=== PATIENT | female | born 1950 | race Two or more races ===

== ENCOUNTER 2023-09-08 15:51 | Outpatient (REF) | payer OTHER, SELFPAY ==
--- NOTE | ~2023-09-08 | XR_ITS ---
EXAMINATION: XR SHOULDER, RIGHT CLINICAL INFORMATION: Right shoulder pain. COMPARISON: None available. TECHNIQUE: AP external rotation, Grashey, scapular Y, and axillary views of the right shoulder. FINDINGS: Moderate degenerative changes are present at the AC joint. Mild degenerative changes are seen at the glenohumeral joint with some inferior glenoid osteophytes. A small osteophyte is seen near the origin of the supraspinatus tendon. No definite calcification is seen in the rotator cuff. No fractures. XR/XR shoulder RT min 2V IMPRESSION: Degenerative changes as described above.
[2023-09-08 18:13] LABS: Alanine Aminotransferase 16 U/L (0-31); Albumin Level 4.2 g/dL (3.5-5.0); Alkaline Phosphatase 61 U/L (39-117); Anion Gap 11 (12-20); Aspartate Amino Transferase 25 U/L (5-31); Bilirubin Total 0.4 mg/dL (0.0-1.0); Blood Urea Nitrogen 11 mg/dL (9-16); Calcium 9.6 mg/dL (8.4-10.2); Carbon Dioxide 30 mmol/L (22-29); Chloride 106 mmol/L (96-108); Cholesterol 126 mg/dL (<200); Estimated Glomerular Filt Rate > 60; Glucose Random 139 mg/dL (60-115); HDL Cholesterol 46 mg/dL (>40); LDL Cholesterol Calculated 67 mg/dL (<100); Potassium 4.3 mmol/L (3.3-5.1); Sodium 143 mmol/L (135-145); Total Protein 7.8 g/dL (6.5-8.0); Triglycerides 66 mg/dL (<150)
== END 2023-09-08 15:52 | disposition home or self-care (01) ==
LOC: HO.HHCX 15:51
PROVIDERS: Visit Provider Nurse Practitioner Family
DX: E11.00 Type 2 diabetes mellitus with hyperosmolarity without nonketotic hyperglycemic-hyperosmolar coma (NKHHC) (principal); I10 Essential (primary) hypertension; M19.011 Primary osteoarthritis, right shoulder
CPT/HCPCS: 36415; 73030; 80053; 80061

== ENCOUNTER → 2024-10-11 14:30 | Outpatient (BNV) | payer OTHER, SELFPAY | PROVIDERS: Visit Provider Radiology Diagnostic Radiology | DX: Z12.31 Encounter for screening mammogram for malignant neoplasm of breast (principal) | CPT/HCPCS: 77063; 77067 ==

== ENCOUNTER 2024-10-11 14:40 | Outpatient (REF) | payer OTHER, SELFPAY ==
--- NOTE | ~2024-10-11 | MM_ITS ---
EXAMINATION: DXA BONE DENSITY AXIAL HISTORY: Estrogen deficiency TECHNIQUE: [employer] Dual energy absorptiometry (DEXA) of the lumbar spine, total left hip, and femoral neck was performed. COMPARISON: There are no prior studies for comparison. FINDINGS: The bone mineral density of the lumbar spine is 0.998 with a T-score of -1.5, and a Z-score of 0.3. The bone mineral density of the left total hip is 0.955 with a T-score of -0.4, and a Z-score of 1.3. The bone mineral density of the left femoral neck is 0.900 with a T-score of -1.0, and a Z-score of 0.9. FRACTURE RISK: The FRAX index suggests a risk of major osteoporotic fracture of 10.6%, and of hip fracture 3.8%. MM/XR DEXA axial skeleton IMPRESSION: Based on bone mineral density, and according to World Health Organization (WHO) criteria, the diagnosis is consistent with osteopenia. All bone density values are in grams per centimeter squared (g/cm2). Statistically, 68% of repeat scans fall within 1 SD (+/- 0.010 g/cm2 for AP spine L1-L4) and 1 SD (+/- 0.012 g/cm2 for femur total) FRAX is a trademark of the [employer] [place] [employer] Met[employer], a World Health Organization (WHO) Collaborating Center. Electronically signed by: Valerio Funk MD 10/11/2024 04:00 PM [facility]
--- OUTSIDE RECORDS SUMMARY | 2024-10-11 15:53 | XMS_ITS | Encounter Summary ---
Author Organization [facility] Address [address] [place] [address] 7 [place] [address] Care Team Providers Care Oracle Fusion Middleware Developer Name Role Phone Eliane Noyola IT ADMINISTRATOR Primary Care Provider [phone] Anayeli Escamilla MD Primary Care Provide r Valentina Alarcon NP Primary Care Provider [phone] Reason for Visit * Reason Onset Date Comments New Patient 06/18/2023 Encounter Details Date Type Department Care Team (Late st Contact Info) Description 06/18/2023 Telephone [facility] MEDICINE [address] [place], [place] [phone] Rayray Vallecillo MD [address] [place], [place] [phone] New Patient Social History Tobacco Use Types Packs/Day Years Used Date Smoking Tobacco: Never Assessed Comments Unknown Sex and Gender Information Value Date Recorded Sex Assigned at Female 09/01/2023 2:39 PM EST Legal Sex Female 11:26 AM EDT Gender Identity Female 09/01/2023 2:39 PM EST Sexual Orientation Don't know 09/01/2023 2: 40 PM EST documented as of this encounter Miscellaneous Notes * Telephone Encounter - Raman Baez - 06/18/2023 11:29 AM EDT 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 06/18/2023 documented in this encounter Plan of Treatment Upcoming Encounters Date Type Department Care Team (Late st Contact Info) Description 2024 3:15 PM EDT Office Visit [facility]INE [address] [place] [address] Valentina Alarcon NP [address] [place] [address] documented as of this encounter Visit Diagnoses Not on filedocumented in this encounter Care Teams Oracle Fusion Middleware Developer Relationship Specialty Start Date End Date Eliane Noyola FNP [address] [place] [address] PCP - General Family Medicine 09/08/23 05/01/24 Anayeli Escamilla MD [address] [place] [address] [id number] PCP - General Internal Medicine 05/02/24 05/24/24 Valentina Alarcon NP [address] [place] [address] PCP - General Family Medicine 06/27/24 documented as of this encounter
--- OUTSIDE RECORDS SUMMARY | 2024-10-11 15:53 | XMS_ITS | Encounter Summary ---
Author Organization [employer] Address [address] [place] [address] 7t [place] [address] Care Team Providers Care Weight Loss Consultant Name Role Phone Eliane Noyola Primary Care Provider [phone] Anayeli Escamilla MD Primary Care Provide r Valentina Alarcon NP Primary Care Provider [phone] Reason for Visit * Reason Onset Date Comments Medication Question 01/05/2024 Encounter Details Date Type Department Care Team (Late st Contact Info) Description 01/05/2024 Telephone [facility] MEDICINE [address] [place], [place] [phone] Eliane Noyola FNP [address] [place], [place] [phone] Medication Question Social History Tobacco Use Types Packs/Day Years Used Date Smoking Tobacco: Former Cigarettes Smokeless Tobacco: Never Comments:Quit in 1988 Smoked 30 years from age 7 Alcohol Use Standard Drinks/Week Comments Not Currently 0 (1 standard drink = 0.6 oz pur e alcohol) special occasion Depression Answer Date Recorded Patient Health Questionnaire-9 Score 8 12/29/2023 Patient Health Questionnaire-9 Score 8 12/29/2023 Last PHQ-9: Questionnaire Data Not on file 0 12/29/2023 Housing Stability Answer Date Recorded What is your housing situation today? I have marv joyce 09/01/[address] you li ve. Do you have problems with any of the following? None of the above 09/01/2023 Food Insecurity Answer Date Recorded Within the past 12 months, y ou worried that your food would run out before you got money to buy more: Never True 09/01/2023 Within the past 12 months,th e food you bought just didn't last and you didn't have enough money to get more: Never True 10/2023 Transportation Answer Date Recorded In the past 12 months, has l ack of transportation kept you from medical appts, meetings, work or from getting things needed for daily living? No 09/01/2023 Utilities Answer Date Recorded In the past 12 months, has t he electric, gas, oil or water company threatened to shut off services in your home? No 09/01/2023 Depression Answer Date Recorded Patient Health Questionnaire-2 Score 3 12/29/2023 Internet Access Answer Date Recorded Internet Access Q1 Yes 08/22/2024 Internet Access Q2 Not on file 08/22/2024 Comments Unknown Sex and Gender Information Value Date Recorded Sex Assigned at Female 09/01/2023 2:39 PM EST Legal Sex Female 11:26 AM EDT Gender Identity Female 09/01/2023 2:39 PM EST Sexual Orientation Don't know 09/01/2023 2: 40 PM EST documented as of this encounter Miscellaneous Notes * Telephone Encounter - Wilman Dover RN - 01/05/2024 9:42 AM EDT Please review below message from pharmacy and advice if needed. * Telephone Encounter - Yodit Mayo - 01/05/2024 8:37 AM EDT Tc from pt [facility] pharmacy requesting a call back in regards to medication loratadine (Claritin) 10 MG tablet , states pt has been on cetrizine by another provider and would like to make sure if PCP is aware. Please contact at [phone] documented in this encounter Plan of Treatment Upcoming Encounters Date Type Department Care Team ([facility] st Contact Info) Description 2024 3:15 PM EDT Office Visit [facility] MEDICINE [address] [place] [address] Valentina Alarcon NP [address] [place] [address] documented as of this encounter Visit Diagnoses Not on filedocumented in this encounter Additional Health Concerns Assessment Noted Time PHQ-9 Depression Total Score: 8 12/29/19 24 4:22 PM EDT documented as of this encounter Care Teams Weight Loss Consultant Relationship Specialty Start Date End Date Eliane Noyola FNP [address] [place] [address] PCP - General Family Medicine 09/08/23 05/01/24 Anayeli Escamilla MD [address] [place] [address] PCP - General Internal Medicine 05/02/24 05/24/24 Valentina Alarcon NP [address] [place] [address] PCP - General Family Medicine 06/27/24 documented as of this encounter
--- OUTSIDE RECORDS SUMMARY | 2024-10-11 15:53 | XMS_ITS | Encounter Summary ---
Author Organization [employer] Address [address] [facility] 7t [place] [address] Care Team Providers Care Instructor Dancing Name Role Phone Eliane Noyola Primary Care Provider [phone] Anayeli Escamilla MD Primary Care Provide r aVlentina Alarcon NP Primary Care Provider [phone] Reason for Visit * Reason Comments Med Refill Encounter Details Date Type Department Care Team (Late st Contact Info) Description 01/09/2024 Refill [facility] [address] [place], [place] [phone] Eliane Noyola FNP [address] [place] [address] Social History Tobacco Use Types Packs/Day Years [...] Recorded Patient Health Questionnaire-2 Score 3 12/29/2023 Comments Unknown Sex and Gender Information Value Date Recorded Sex Assigned at Female 09/01/2023 2:39 PM EST Legal Sex Female 11:26 AM EDT Gender Identity Female 09/01/2023 2:39 PM EST Sexual Orientation Don't know 09/01/2023 2: 40 PM EST documented as of this encounter Plan of Treatment Upcoming Encounters Date Type Department Care Team (Late st Contact Info) Description 2024 3:15 PM EDT Office Visit [facility] [address] [place] [address] Valentina Alarcon NP [address] [place] [address] documented as of this encounter Visit Diagnoses Not on filedocumented in this encounter Additional Health Concerns Assessment Noted Time PHQ-9 Depression Total Score: 8 12/29/19 4:22 PM EDT documented as of this encounter Care Teams Instructor Dancing Relationship Specialty Start Date End Date Eliane Noyola FNP [address] [place] [address] PCP - General Family Medicine 09/08/23 05/01/24 Anayeli Escamilla MD [address] [place] [address] PCP - General Internal Medicine 05/02/24 05/24/24 Valentina Alarcon NP [address] [place] [address] PCP - General Family Medicine 06/27/24 documented as of this encounter
--- OUTSIDE RECORDS SUMMARY | 2024-10-11 15:53 | XMS_ITS | Encounter Summary ---
Author Organization [employer] Address [address] [facility] 7t [place] [address] Care Team Providers Care Ground Water Technician Name Role Phone Valentina Alarcon ISAIAS Primary Care Provider [phone] Reason for Visit * Reason Onset Date Comments November recall 10/05/2024 Encounter Details Date Type Department Care Team (Late st Contact Info) Description 10/05/2024 Telephone [facility] MEDICINE [address] [place], [place] [phone] Minor Dawkins [place] November recall Social History Tobacco Use Types Packs/Day Years [...] encounter Miscellaneous Notes * Telephone Encounter - Jeanette Fischer RN - 10/11/2024 9:42 AM EST TC placed to pt via [employer] abseiling instructor ([place]vl[place] ID#[id number]) to inform the provider sent the fluticasone(Cutivate) 0.05 % cream to [facility]. No answer, LVM to call office back and ask to speak to blue team nurses. * Addendum Note - Valentina Alarcon NP - 10/11/2024 9:40 AM ESTAddended by: VALENTINA ALARCON on: 10/11/2024 09:40 AM Modules accepted: Orders * Telephone Encounter - Jeanette Fischer RN - 10/05/2024 4:04 PM EST TC placed to pt via [employer] abseiling instructor (ID#[id number]) regarding medication. Pt states she just got a call from the hospital. RN explained calling from [facility]. Call disconnected. Call placed to pt with [employer] abseiling instructor (Alod ID#[id number]). Pt reports the pharmacy called and told her they don't have the complete medication and advised her to call PCP office to have them call pharmacy. TC placed to pharmacy to get more information. Pharmacy states the only prescription prescribed by the PCP they would need a new prescription is the fluticasone (Cutivate) 0.05 % cream. Message forwarded to provider to review and advise. * Telephone Encounter - Minor Dawkins MA - 10/05/2024 2:31 PM EST T/C to pt to schedule a recall rv dm. PT agreed to come in on 12/04/24 at 3:15pm. During call pt ask why she haven't received he medication that PCP told her. Pt don't know name or what kind of medication. documented in this encounter Plan of Treatment Upcoming Encounters Date Type Department Care Team (Late st Contact Info) Description 2024 3:15 PM EDT Office Visit [facility] [address] [place] [address] Valentina Alarcon NP [address] [place] [address] documented as of this encounter Visit Diagnoses Not on filedocumented in this encounter Additional Health Concerns Assessment Noted Time PHQ-9 Depression Total Score: 8 12/29/19 24 4:22 PM EDT documented as of this encounter Care Teams Ground Water Technician Relationship Specialty Start Date End Date Valentina Alarcon NP [address] [place] [address] PCP - General Family Medicine 06/27/24 documented as of this encounter
--- OUTSIDE RECORDS SUMMARY | 2024-10-11 15:53 | XMS_ITS | Encounter Summary ---
Author Organization [employer] Address [address] [place] [address] 7t [place] [address] Care Team Providers Care Mule Packer Name Role Phone Eliane Noyola Primary Care Provider [phone] Anayeli Escamilla MD Primary Care Provide r Valentina Alarcon NP Primary Care Provider [phone] Reason for Visit * Reason Onset Date Comments Results 09/10/2023 Encounter Details Date Type Department Care Team (Late st Contact Info) Description 09/10/2023 Telephone [facility] MEDICINE [address] [place], [place] [phone] Eliane Noyola FNP [address] [place], [place] [phone] Results Social History Tobacco Use Types Packs/Day Years [...] Telephone Encounter - Wilman Dover RN - 09/10/2023 1:36 PM EST Please review and advise for below message, result is in pt.'s chart. * Telephone Encounter - Yodit Mayo - 09/10/2023 12:48 PM EST TC from pt requesting call back regarding Results. Type of results: blood work Date when done: 09/08/23 Facility: [facility] lab Please contact at [phone] Italian documented in this encounter Plan of Treatment Upcoming Encounters Date Type Department Care Team (Late st Contact Info) Description 2024 3:15 PM EDT Office Visit [facility]INE [address] [place] [address] Valentina Alarcon, ISAIAS [address] [place] [address] documented as of this encounter Visit Diagnoses Not on filedocumented in this encounter Additional Health Concerns Assessment Noted Time PHQ-9 Depression Total Score: 10 024 3:52 PM EST documented as of this encounter Care Teams Mule Packer Relationship Specialty Start Date End Date Eliane Noyola FNP [address] [place] [address] PCP - General Family Medicine 09/08/23 05/01/24 Anayeli Escamilla MD [address] [place] [address] PCP - General Internal Medicine 05/02/24 05/24/24 Valentina Alarcon NP [address] [place] [address] PCP - General Family Medicine 06/27/24 documented as of this encounter
--- OUTSIDE RECORDS SUMMARY | 2024-10-11 15:53 | XMS_ITS | Encounter Summary ---
Author Organization [employer] Address [address] [facility] 7t [place] [address] Care Team Providers Care Records Technician Name Role Phone Eliane Noyola Primary Care Provider [phone] Anayeli Escamilla MD Primary Care Provide r Valentina Alarcon NP Primary Care Provider [phone] Reason for Visit * Reason Comments Med Refill Encounter Details Date Type Department Care Team (Late st Contact Info) Description 01/13/2024 Refill [facility] MEDICINE [address] [place], [place] [phone] Eliane Noyola FNP [address] [place] [address] Social History Tobacco Use Types Packs/Day Years [...] Description 2024 3:15 PM EDT Office Visit [facility] MEDICINE [address] [place] [address] Valentina Alarcon NP [address] [place] [address] documented as of this encounter Visit Diagnoses Not on filedocumented in this encounter Additional Health Concerns Assessment Noted Time PHQ-9 Depression Total Score: 8 12/29/19 4:22 PM EDT documented as of this encounter Care Teams Records Technician Relationship Specialty Start Date End Date Eliane Noyola FNP [address] [place] [address] PCP - General Family Medicine 09/08/23 05/01/24 Anayeli Escamilla MD [address] [place] [address] PCP - General Internal Medicine 05/02/24 05/24/24 Valentina Alarcon NP [address] [place] [address] PCP - General Family Medicine 06/27/24 documented as of this encounter
--- OUTSIDE RECORDS SUMMARY | 2024-10-11 15:53 | XMS_ITS | Clinical Summary ---
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 08/02/20 Active fluticasone (Flonase) 50 MCG/ACT nasal spray Administer 1 spray into each nostril in the morning. 08/27/20 Active gabapentin (Neurontin) 600 MG tablet Take 600 mg by mouth 3 times daily. 08/27/20 Active losartan (Cozaar) 100 MG tablet Take 100 mg by mouth in the morning. 08/27/20 Active melatonin 5 MG tablet Take 5 mg by mouth at bedtime. 08/27/20 Active montelukast (Singulair) 10 MG tablet Take 10 mg by mouth in the morning. 08/27/20 Active omeprazole (PriLOSEC) [address] capsule Take 20 mg by mouth before breakfast. 08/27/20 Active polyvinyl alcohol (Liquifilm Tears) 1.4 % ophthalmic solution INSTILL 1 DROP TWICE DAILY IN BOTH EYES FOR 1MONTH. 04/19/20 23 Active rosuvastatin (Crestor) 10 MG tablet Take 10 mg by mouth in the morning. 08/27/20 23 Active FREESTYLE LITE test strip 1 each by Other route 2 times daily. Use to test blood sugar once daily 180 each 3 12/29/19 24 025 Active loratadine (Claritin) 10 MG tablet Take 1 tablet (10 mg) by mouth Once per day. 30 tablet 11 12/29/19 24 025 Active senna (Senokot) 8.6 MG tabletIndicatio ns:Constipation , unspecified constipation type Take 1 tablet (8.6 mg) by mouth at bedtime. 120 tablet 2 06/30/20 24 Active clonazePAM (KlonoPIN) 0.5 MG tablet Take 0.5 mg by mouth Once per day. 07/02/20 24 Active sertraline (Zoloft) 100 MG tablet Take 100 mg by mouth Once per day. 06/29/20 24 Active Blood Pressure kit 1 each Once per day. 1 kit 07/14/20 24 Active Calcium Carb-Cholecalci ferol 600-10 MG-MCG tablet Take 1 tablet by mouth 2 times daily. 30 tablet 5 08/11/20 24 Active metFORMIN (Glucophage) 850 MG tablet Take 1 tablet (850 mg) by mouth 2 times daily. 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 40 g 10/11/19 25 Active fluticasone (Cutivate) 0.05 % cream Apply topically 2 times daily. 40 g 09/04/19 25 025 Discontinued(R eorder (will not trigger notification to Pharmacy)) Active Problems Problem Noted Date Diagnosed Date Other screening mammogram 09/06/2024 Healthcare maintenance 09/04/2024 Assessment & Plan (09/04/2024 5:26 PM EST): Mammogram and bone density ordered, Report utd on colonoscopy but cannot recall where this was completed Depression managed by psychiatric team Frequent falls 09/04/2024 Assessment & Plan (09/04/2024 5:25 PM EST): Reports mechanical falls, Walker ordered Chronic pain of right knee 09/04/2024 Assessment & Plan (09/04/2024 5:25 PM EST): Referral to [facility] ordered Shower chair ordered Eczema of both external ears 09/04/2024 Post-menopausal 09/04/2024 Chronic back pain 09/04/2024 Encounter for screening mamm ogram for malignant neoplasm of breast 09/03/2024 Diabetes mellitus 10/25/2023 Assessment & Plan (09/04/2024 5:25 PM EST): At goal, will not increase meds at this time Labs ordered Carpal tunnel syndrome 10/25/2023 Overview (10/25/2023): more on left. per records from [address] [place], [place] [address]ill [place] Allergic rhinitis 10/25/2023 Fibromyalgia 10/25/2023 Overview (10/25/2023): per records from [address] [place], [place] [address]ill [place] Hypertension 10/25/2023 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 2 diabetes mellitus ( [facility]) 10/25/2023 Varicose vein of leg 10/25/2023 Urticaria 10/25/2023 Tinnitus 10/25/2023 Overview (10/25/2023): per records from [address] [place], [place] [address]ill [place] Microscopic hematuria 10/25/2023 Overview (10/25/2023): per records from [address] [place], [place] [address] [place] Chronic right shoulder pain 10/25/2023 Constipation 11/17/2018 Gastroesophageal reflux disease without esophagi tis 11/17/2018 Encounters Date Type Department Care Team Description 10/05/2024 Telephone [facility] [address] [place], [place] [phone] Minor Dawkins [place] November09/07/2024 Refill [facility] [address] [place] [address] Eliane Noyola, JOHN Type 2 diabetes mellitus with hyperglycemia, unspecified whether jail insulin use ([facility]) 09/06/2024 Telephone [facility] [address] [place] [phone] Valentina Alarcon NP 09/04/2024 9:45 AM EST Office Visit [facility] [address] [place] [phone] Valentina Alarcon NP 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 2 diabetes mellitus ([facility]) ([facility]) (Primary Dx); Encounter for screening mammogram for malignant neoplasm of breast; Constipation, unspecified constipation type; Type 2 diabetes mellitus with hyperglycemia, unspecified whether jail insulin use ([facility]); Healthcare maintenance; Frequent falls; Chronic pain of right knee; Post-menopausal; Chronic back pain, unspecified back location, unspecified back pain laterality; Eczema of both external ears 09/04/2024 Telephone [facility] [address] [place] [phone] Valentina Alarcon NP Durable Medical Equipment 08/31/2024 Telephone [facility] [address] [place] [address] Hilaria Stiles MA Chart Prep 08/22/2024 Patient Outreach [facility] [address] [place] [phone] Valentina Alarcon NP Pre-visit Planning (SDOH screening was completed on 09/08/2023/) 08/09/2024 Refill [facility] [address] [place] [phone] Valentina Alarcon NP 07/13/2024 Refill [facility] [address] [place] [phone] Elvia Gutierrez, PharmD 07/13/2024 Travel from Last 3 Months Immunizations Name Administration Dates Next Due Hep A / Hep B 10/08/2021 Hep B, Unspecified 05/06/2017 Hep B, adult 09/13/2017,06/28/2017 Influenza High-dose Quadriva lent Preservative Free 06/03/2023,06/08/2022,06/17/2021,06/03 Influenza, High Dose Seasona l, Preservative Free 05/31/2024,08/04/2018,05/10/2017 Influenza, IIV3, injectable 06/08/2022,1 ,06/03/2020,05/11,08/04/2018,05/10/2017,05/13/2016 ,06/17/2015,06/14/2014,06/13/2013 Influenza, Unspecified 09/22/2012,2010,05/29/2010,07/18,06/13/2009,07/16/2008,07/06/2007 ,10/01/2004,09/13/2003 Influenza, trivalent, adjuvanted 05/11/2019 Enablon Covid-19 Vaccine 12+ 06/03/2023 Pneumococcal Conjugate PCV 13 06/28/2019, 016 Pneumococcal Polysaccharide PPSV23 12/13/2017, RSV Adjuvant 05/31/2024 Td (adult), unspecified 04/25/2004 Tdap 05/27/2024,,10/05/2021,06/28,09/04/2011 Zoster, Recombinant 01/15/2023,12/20/2021 Zoster, live 06/15/2016 Social History Tobacco Use Types Packs/Day Years Used Date Smoking Tobacco: Former Cigarettes Smokeless Tobacco: Never Tobacco Cessation:Counseling Given: Not Answered Comments:Quit in 1988 Smoked 30 years from [...] Don't know 09/01/2023 2: 40 PM EST Last Filed Vital Signs Vital Sign Reading Time Taken Comments Blood Pressure 139/79 09/04/2024 9:32 AM EST Pulse 75 09/04/2024 9:32 AM EST Temperature 36.3 ??C (97.3 ??F) 09/04/2024 9:32 AM ES T Respiratory Rate 18 09/04/2024 9:32 AM EST Oxygen Saturation 98% 09/04/2024 9:32 AM EST Inhaled Oxygen Concentration - - Weight 63.7 kg (140 lb 6.4 oz) 09/04/2024 9:32 A M EST Height 162.6 cm (5' 4 ) 09/04/2024 9:32 AM EST Body Mass Index 24.1 09/04/2024 9:32 AM EST Plan of Treatment Upcoming Encounters Date Type Department Care Team (Late st Contact Info) Description 2024 3:15 PM EDT Office Visit [facility] [address] [place] [address] Valentina Alarcon NP [address] [place] [address] Health Maintenance Due Date Last Done Comments CT Colonography 1950 Colonoscopy 1950 Colorectal Cancer Screening 1950 FIT DNA/Cologuard 1950 FIT 1950 FOBT 1950 Sigmoidoscopy 1950 Diabetes: Foot Exam 1960 Eye Exam 1960 Hepatitis C Screening 1968 Diabetes: Urine Protein Screening 1969 COVID-19 Vaccine ( season) 2024 06/03/2023, 12/20/2021, 07/28/2021, Additional history exists Lipid Panel 09/08/2024 09/08/2023 SDOH Screening 09/08/2024 09/08/2023 Depression Screening 12/28/2024 12/29/2023, 12/29/19 24 Diabetes: Hemoglobin A1C 12/28/2024 024, 12/29/2023, 09/08/2023 Mammogram 12/31/2024 12/31/2022 Alcohol/Substance Use Screening 09/04/2025 09/04/2024 Tobacco Screening 09/04/2025 09/04/2024 DTaP/Tdap/Td Vaccines (6 - Td or Tdap) 05/27/2034 05/27/2024, 01/15/2023, 10/05/2021, Additional history exists Pneumococcal Vaccine: 50+ Years Completed 06/28/2019, 12/13/2017, 06/15/2016, Additional history exists Hepatitis A Vaccines Aged Out 10/08/2021 No long er eligible based on patient's age to complete this topic Hepatitis B Vaccines Completed 10/08/2021, 09/13/2017, 06/28/2017, Additional history exists Zoster Vaccines Completed 01/15/2023, 11/29, 06/15/2016 Influenza Vaccine Completed 05/31/2024, , 06/08/2022, Additional history exists RSV Patients and Patients Aged 60 years or older Completed 05/31/2024 HIB Vaccines Aged Out No longer eligi ble based on patient's age to complete this topic HPV Vaccines Aged Out No longer eligi ble based on patient's age to complete this topic IPV Vaccines Aged Out No longer eligi ble based on patient's age to complete this topic Meningococcal Vaccine Aged Out No alexia jyoti eligible based on patient's age to complete this topic RSV under 20 months Aged Out No longe r eligible based on patient's age to complete this topic Rotavirus Vaccines Aged Out No longer eligible based on patient's age to complete this topic Procedures Procedure Name Priority Date/Time Associated Diagnosis Comments POCT GLUCOSE Routine 09/04/2024 9:36 AM EST Type 2 diabetes mellitus with hyperglycemia, unspecified whether jail insulin use ([facility]) POCT GLYCATED HEMOGLOBIN, TOTAL Routine 06/30/2024 2:25 PM EDT 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 2 diabetes mellitus ([facility]) ([facility]) LIPID PANEL, STANDARD Routine 09/08/2023 4:25 PM EST Type 2 diabetes mellitus with hyperosmolarity without coma, without long-term current use of insulin ([facility]) Primary hypertension HM MAMMOGRAPHY Routine 12/31/2022 from Last 3 Months or Most Recently Relevant to Health Maintenance Results * POCT Glucose (09/04/2024 9:36 AM EST) Glucose Blood, POC 132 60 - 200 mg/dL QC Media Lot # [id number] Lot# Expiration Date [id number] Blood Capillary blood specimen / Unknown 09/04/2024 9:36 AM EST Valentina Alarcon NP POINT OF CARE TEST ENTER/EDIT OR DERABLES Final Result * (ABNORMAL) POCT HGB A1C (06/30/2024 2:25 PM EDT) Hemoglobin A1C 6.1(A) 4.0 - 6.0 % QC Media Lot # [id number] Lot# Expiration Date [id number] Blood 06/30/2024 2:25 PM EDT us Kaity HERNANDEZ POINT OF CARE TEST ENTER/EDIT OR DERABLES Final Result * Lipid Panel, Standard (09/08/2023 4:25 PM EST) Triglycerides 66 <150 mg/dL [facility] Comment:Desirable Triglyceri de: less than 150 mg/dLBorderline High Triglyceride 150-199 mg/dLHigh Triglyceride: 200-499 mg/dLVery High Triglyceride: greater than or equal to 5OO mg/dL Cholesterol 126 <200 mg/dL [facility] Comment:Desirable Cholestero l: less than 200 mg/dLBorderline High Cholesterol: 200-239 mg/dLHigh Cholesterol: greater than 239 mg/dL LDL Cholesterol Calculated 67 <100 mg/dL [facility] Comment:Desirable LDL: less than 100 mg/dLNear Optimal/Above Optimal LDL: 110- 129 mg/dLBorderline High LDL: 130-159 mg/dLHigh LDL: 160-189 mg/dLVery High LDL: greater than or equal to 190 mg/dL HDL Cholesterol 46 >40 mg/dL [facility] Comment:Desirable HDL: great er than 40 mg/dL Note: This HDL assay may give artificially low results in patients with liver disease. 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
--- OUTSIDE RECORDS SUMMARY | 2024-10-11 15:54 | XMS_ITS | Data Portability ---
Author Organization [place] [facility] [place] [facility] Address [address] [place] [address] Care Team Providers Care Holistic Pulser Name Role Phone VIRGIL GRAVES Primary Care Provider VIRGIL GRAVES Referring Provider MIKA ROCHA Spinal Orthopedic Surgeon CAM Ballard Primary Care Provider CAM VICENTE Referring Provider [phone] Assessment Encounter Date Assessment Date Assessment LastModified by Organization Details LastModified Time 03/22/2018 03/22/2018 67-year-old female with left shoulder pain and bilateral hand pain consistent with carpal tunnel syndrome. At this point she wants to repeat the left shoulder injection with me. One was done in clinic with good concordant pain relief. She is already seeing the surgical team, however, does not wish to have surgery at this time. We will continue her Tylenol with Codeine for symptomatic relief of severe pain and she can continue icqd-sju-lpriypx pain medications for the mild pain. She will see me as needed Not available 03/22/2018 13:40:50 06/03/2018 06/03/2018 67-year-old female with low back in the right lower extremity pain. At this point she is having a flareup of her chronic pain. She is interested in getting another epidural steroid injection and we will do L5-S1 KASSANDRA. We will see how she does with that and have her return to clinic in 2 weeks for clinical recheck. In the meantime prescription for tramadol is given for the severe exacerbations of pain, as well as the shoulder pain Discussed with the patient in detail about the nature of the procedure, Risks, Benefits, indications and Alternatives about the epidural block. Risks including but not limited to allergic reactions/system ic reactions/ side effects from the medications injected, risk of infection, csf leakage, epidural hematoma and neurological injury. Questions and concerns were addressed at extended length. Patient appears to understand all the above and desires to proceed. Not available 06/06/2018 11:15:13 09/16/2018 09/16/2018 67-year-old female with mainly axial right-sided low back pain. Also right knee pain. The right knee pain is improved and likely secondary to contusion. Also may be some underlying knee arthritis. At this point the right side of low back pain is likely secondary to lumbar spondylosis in the ED would recent flare up secondary to fall. Also may be some myofascial pain. I will do a trigger point injection today for the myofascial component of the pain and we can certainly continue her current pain medications of tramadol that she takes p.r.n. I did loan counselor her on opiate medication use and she voiced her understanding. She will continue the home exercise program and see me as needed. If the knee pain persists we could consider referral to the natural resources specialist for that Not available 09/16/2018 17:12:52 01/17/2019 01/17/2019 68-year-old female with left shoulder and elbow pain. She did see Dr. christopher previously. She has had subacromial injections by me over 10 months ago with good alleviation. Pain recently started to come back. I would like for her to see Dr. christopher for formal evaluation of the left shoulder and perhaps additional imaging if clinically warranted. I will see her from my standpoint for the low back pain on an as-needed basis. Prescription for tramadol was provided to the patient after discussion of risks of opiate medication use. Voltaren gel was provided for the lateral epicondylitis Not available 01/17/2019 16:39:58 01/19/2019 01/19/2019 Left shoulder impingement with rotator cuff tendinitis Not available 01/19/2019 08:41:56 Plan of Treatment Reminders Order Date Submit Date Provider Last Modified By Organization Details Last Modified Time Details Appointments None recorded. Lab None recorded. Referral None recorded. Procedures epidural steroid injection, lumbar (PROC) 2017 018 MICHELINE In-Office Order, Internal Use Only DO Not Attach Compendium DO Not Attach Compendium, Do Not Delete/merge, [id number] 12:16:07 Surgeries None recorded. Imaging None recorded. Medication Orders acetaminoph en 300 mg-codeine 30 mg tablet [email or web address], [address] [place], [place], [id number], 8 09:36:21 tramadol 50 mg tablet [email or web address], [address] [place], [place], [id number], 8 16:40:41 betamethaso ne acetate and sodium phos 6 mg/mL suspension for injection 2017 018 [email or web address] 5 Not available 8 09:29:44 Omnipaque 300 mg iodine/mL intravenous solution 2017 018 [email or web address] 5 Not available 8 09:29:45 lidocaine (PF) 10 mg/mL (1 %) injection solution 2017 018 [email or web address] 5 Not available 8 09:29:45 tramadol 50 mg tablet [email or web address], [address] [place], [place], [id number], 9 13:30:59 tramadol 50 mg tablet [email or web address], [address] [place], [place], [id number], 9 17:54:20 Voltaren 1 % topical gel [email or web address], [address] [place], [place], [id number], 9 17:54:20 methylpredn isolone acetate 40 mg/mL suspension for injection 2018 019 [email or web address] Not available 9 14:48:02 Patient TargetsNo targets recorded. Patient Instructions Encounter Date Encounter Id Patient Instructions Last Modified By Organization Details Last Modified Time 03/22/2018 [id number] dolor de no: instrucciones de cuidado - [neck pain: care instructions] Not available 03/23/2018 09:36:21 01/19/2019 [id number] Reviewed exam findings. Again reviewed treatment options. Given worsened recent pain and good response to prior cortisone we elected to repeat a subacromial injection on the left side today. She tolerated this well. Continue with rest modified activities and I would plan to see her back in a month for reevaluation. Moving forward if she remains significantly symptomatic in spite of conservative care I would consider obtaining an MRI of the left shoulder to definitively assess the status of the rotator cuff.The patient is comfortable with this plan and all of their questions were answered at today's visit. Not available 01/19/2019 08:42:57 Reason for Referral None Reported. Results Created Date Observation Date Name Description Value Unit Range Abnormal Flag Note LastModifiedBy Organization Detail LastModifiedTime Result Notes None recorded. Problems Name Problem SNOMED Code Status Onset Date Resolution Date Notes Provider Name and Address Organization Details Recorded Time Impingement syndrome of shoulder region 414723411 Active 2016 Ferny Martinez MD [address] [place] [address], [address], [facility] 7 14:50:24 Cubital tunnel syndrome Active 2017 Natasha Morris [address] [place], [address], [facility] 8 13:40:44 Carpal tunnel syndrome 03423133 Active Mitch Toussaint M.D. [address] [place] [address], [address], [facility] 6 14:40:56 Low back pain 996776518 Active Mitch Toussaint M.D. [address] [place] [address], [phone], [facility] 14:40:56 Spinal enthesopathy 16606611 Active Mitch Toussaint M.D. [address] [place] [address], [address], [facility] 6 14:40:56 Knee pain Active Mitch Toussaint M.D. [address] [place] [address], [address], [facility] 6 14:40:56 Arthritis of knee 687991450 Active Mitch Toussaint M.D. [address] [place] [address], [address], [facility] 14:40:56 Degeneration of lumbar intervertebral disc [id number] Hina Toussaint M.D. [address] [place] [address], [address], [facility] 14:51:06 Lumbar spondylosis [id number] Hina Toussaint M.D. [address] [place] [address], [address], [facility] 14:40:56 Neuropathy 114147052 Active Mitch Toussaint M.D. [address] [place] [address], [address], [facility] 14:51:06 Lumbar radiculopathy 850995442 Active FREDY Holder [address] [place] [address], [address], [facility] 14:02:17 Lumbosacral radiculopathy 1565484 Active Mitch Toussaint M.D. [address] [place] [address], [address], [facility] 14:51:06 Problem Notes None recorded. Procedures Surgical History Date Name Laterality Status Provider Name and Address Organization Details Recorded Time 9 Shoulder Subacromial - LEFT - CS Injection completed Cl Christopher MD [address] [place] [address], [phone], [facility] 01/19/2019 08:41:52 9 Trigger Point Injection - RIGHT completed Mitch Toussaint M.D. [address] [place] [address], [address], [facility] 09/16/2018 16:54:11 8 Shoulder Subacromial - LEFT - CS Injection completed Mitch Toussaint M.D. [address] [place] [address], [address], [facility] 03/22/2018 13:40:06 8 RC Generic CS Injection completed Ferny Martinez MD [address] [place] [address], [phone], [facility] 01/05/2018 13:41:33 8 RC Generic CS Injection completed Natasha Morris [address] [place] [address], [address], [facility] 12/29/2017 13:39:27 8 Nerve Conduction, 9 - 10 studies completed Mitch Toussaint M.D. [address] [place] [address], [address], [facility] 12/24/2017 08:20:56 8 Needle EMG , 5 muscles or more completed Mitch Toussaint M.D. [address] [place] [address], [address], [facility] 12/24/2017 08:20:54 8 Shoulder Subacromial - LEFT - CS Injection completed Cl Christopher MD [address] [place] [address], [phone], [facility] 12/16/2017 14:12:49 8 Shoulder Subacromial - LEFT - CS Injection completed Mitch Toussaint M.D. [address] [place] [address], [address], [facility] 09/23/2017 15:17:35 7 Shoulder Subacromial - LEFT - CS Injection completed Mitch Toussaint M.D. [address] [place], [address], [facility] 07/15/2017 18:22:00 7 Knee CS Injection - Right completed Cl Christopher MD [address] [place], [address], [facility] 05/20/2017 15:06:52 7 Shoulder Subacromial - LEFT - CS Injection completed Ferny Martinez MD [address] [place] [address], [address], [facility] 05/05/2017 14:50:15 7 Carpal Tunnel LEFT CS Injection completed Natasha Morris [address] [place], [address], [facility] 02/22/2017 14:51:45 7 Carpal Tunnel RIGHT CS Injection completed Ferny Martinez MD [address] [place] [address], [address], [facility] 02/17/2017 14:12:37 7 Knee CS Injection - Left completed Mitch Toussaint M.D. [address] [place] [address], [address], [facility] 02/02/2017 16:25:10 6 Knee CS Injection - Right completed Cl Christopher MD [address] [place] [address], [address], [facility] 04/23/2016 17:05:49 6 Knee CS Injection - Right completed Marco Antonio Layton [address] [place] [address], [address], [facility] 11/21/2015 15:48:11 6 Knee CS Injection - Right completed Marco Antonio Layton [address] [place] [address], [address], [facility] 09/10/2015 15:35:15 6 Trigger Point Injection - Bilateral - 2 muscles completed Mitch Toussaint M.D. [address] [place] [address], [address], [facility] 09/03/2015 17:05:31 5 Carpal Tunnel LEFT CS Injection completed Ferny Martinez MD [address] [place] [address], [phone], [facility] 08/14/2015 10:00:48 5 Carpal Tunnel RIGHT CS Injection completed Ferny Martinez MD [address] [place] [address], [address], [facility] 08/07/2015 15:32:38 5 Nerve Conduction, 9 - 10 studies completed Mitch Toussaint M.D. [address] [place] [address], [address], [facility] 08/02/2015 11:33:49 5 Needle EMG , 5 muscles or more completed Mitch Toussaint M.D. [address] [place] [address], [address], [facility] 08/02/2015 11:33:49 Imaging Results None recorded. Procedure Notes None recorded. Medical Equipment None Reported. Allergies No known drug allergies Medications Name Sig Start Date Stop Date Status Note LastModified by Organization Details LastModified Time levofloxaci n 750 mg tabs 01/19 completed Not Available Not Available Not Available onetouch mis 30g active Not Available Not Available Not Available fluocinolon e acetonide 0.01 % oil active Not Available Not Available N ot Available amoxicillin 500 mg caps 06/17 completed Not Available Not Available Not Available mapap 325 mg tabs active Not Available Not Available Not Available loratadine 10 mg tabs active Not Available Not Available N ot Available atorvastati n calcium 80 mg tabs active Not Available Not Available N ot Available zostavax 24885 unt/0.65ml susr active Not Available Not Available Not Available melatonin 5 mg tabs active Not Available Not Available Not Available baclofen 10 mg tabs active Not Available Not Available Not Available gabapentin 800 mg tabs active Not Available Not Available Not Available ketoconazol e 2 % crea active Not Available Not Available N ot Available omeprazole 20 mg cpdr active Not Available Not Available N ot Available metformin hcl 850 mg tabs active Not Available Not Available Not Available refresh opti hayde 0.5-0.9% active Not Available Not Available Not Available onetouch kit ult mini active Not Available Not Available Not Available prednisolon e acetate 1 % susp active Not Available Not Available Not Available cetirizine hcl 10 mg tabs 01/19 completed Not Available Not Available Not Available cyanocobala min 1000 mcg/ml soln active Not Available Not Available Not Available ear drops 6.5 % soln active Not Available Not Available N ot Available docusate sodium 100 mg caps active Not Available Not Available Not Available losartan potassium 100 mg tabs active Not Available Not Available Not Available aspirin ec low dose 81 mg tbec 01/19 completed Not Available Not Available Not Available polyeth glyc pow 3350 nf active Not Available Not Available Not Available onetouch renzo ultra bl active Not Available Not Available Not Available ofloxacin 0.3 % soln active Not Available Not Available N ot Available clotrimazol e anti-fungal 1 % crea 01/19 completed Not Available Not Available Not Available sm alcohol prep pads 70 % pads active Not Available Not Available No t Available aspir-low 81 mg tbec active Not Available Not Available N ot Available aspirin adult low dose 81 mg tbec active Not Available Not Available Not Available apap/codein e tab 300-30mg active Not Available Not Available Not Available hydroxyzine hcl 25 mg tabs active Not Available Not Available Not Available earwax treatment drops 6.5 % soln active Not Available Not Available Not Available multi-vitam n tab active Not Available Not Available Not Available fiber-lax 625 mg tabs active Not Available Not Available Not Available fish oil 1000 mg caps 01/19 completed Not Available Not Available Not Available all day allergy 10 mg tabs active Not Available Not Available Not Available calcium/d tab 600-400 active Not Available Not Available Not Available fish oil cap 1000mg active Not Available Not Available N ot Available metformin hcl 500 mg tabs 01/19 completed Not Available Not Available Not Available prolensa 0.07 % soln active Not Available Not Available Not Available losartan/hc t tab 100-12.5 active Not Available Not Available Not Available lidocaine 5 % oint 01/19 completed Not Available Not Available Not Available trazodone hcl 50 mg tabs active Not Available Not Available Not Available gabapentin 600 mg tabs active Not Available Not Available Not Available fluticasone propionate 50 mcg/act susp active Not Available Not Available Not Available multivitami n tablet TAKE ONE TABLET BY MOUTH EVERY DAY active Not Available Not Available No t Available metformin 500 mg tablet active Not Available Not Available Not Available atorvastati n 80 mg tablet TAKE ONE TABLET BY MOUTH DAILY active Not Available Not Available No t Available gabapentin 600 mg tablet 01/19 completed Not Available Not Available Not Available trazodone 50 mg tablet TAKE ONE TABLET BY MOUTH AT BEDTIME active Not Available Not Available No t Available cetirizine 10 mg tablet TAKE ONE TABLET BY MOUTH EVERY DAY active Not Available Not Available No t Available ibuprofen 800 mg tablet active Not Available Not Available Not Available ofloxacin 0.3 % eye drops INT 1 GTT IN SURGICAL EYE QID active Not Available Not Available No t Available metformin 850 mg tablet TAKE ONE TABLET BY MOUTH TWICE DAILY active Not Available Not Available No t Available acetaminoph en 300 mg-codeine 30 mg tablet TAKE ONE TABLET BY MOUTH EVERY EIGHT HOURS NEEDED active Not Available Not Available No t Available aspirin 81 mg tablet,josé miguel yed release TAKE ONE TABLET BY MOUTH IN THE MORNING active Not Available Not Available No t Available tramadol 50 mg tablet Take 1 tablet(s) every 6 hours by oral route as needed. active Not Available Not Available No t Available betamethaso ne acetate and sodium phos 6 mg/mL suspension for injection Take 2 mL by injection route. 2017 active Not Available Not Available Not Avai lable prednisolon e acetate 1 % eye drops,suspe nsion INT 1 GTT IN SURGICAL EYE QID active Not Available Not Available No t Available gabapentin 800 mg tablet TAKE ONE TABLET BY MOUTH THREE TIMES DAILY active Not Available Not Available No t Available OneTouch Ultra Test strips CHECK BLOOD SUGARS TWICE DAILY active Not Available Not Available No t Available baclofen 10 mg tablet 06/17 completed Not Available Not Available Not Available methylpredn isolone acetate 40 mg/mL suspension for injection Take 2 mL by injection route. 2018 active Not Available Not Available Not Avai lable cyanocobala min (vit B-12) 1,000 mcg/mL injection solution INJECT 1000MCG INTRAMUSC ULARLY EVERY MONTH active Not Available Not Available No t Available Omnipaque 300 mg iodine/mL intravenous solution Inject 3 mL by intraveno us route. 2017 active Not Available Not Available Not Avai lable Ear Drops (carbamide peroxide) 6.5 % PLACE FIVE DROP IN AFFECTED EAR(S) TWICE DAILY FOR FOUR DAYS active Not Available Not Available No t Available docusate sodium 100 mg capsule TAKE ONE TO TWO CAPSULES BY MOUTH EVERY DAY NEEDED FOR CONSTIPAT ION 01/19 completed Not Available Not Available Not Available omeprazole 20 mg capsule,del ayed release TAKE ONE CAPSULE BY MOUTH TWICE DAILY . TAKE THIRTY MINUTES BEFORE BREAKFAST AND DINNER . active Not Available Not Available No t Available lorazepam 1 mg tablet active Not Available Not Available No t Available polyethylen e glycol 3350 17 gram/dose oral powder active Not Available Not Available Not Available levofloxaci n 750 mg tablet TAKE ONE TABLET BY MOUTH ONCE DAILY active Not Available Not Available No t Available losartan 100 mg tablet TAKE ONE TABLET BY MOUTH DAILY active Not Available Not Available No t Available fluticasone propionate 50 mcg/actuati on nasal spray,suspe nsion INHALE TWO SPRAYS IN EACH NOSTRIL ONCE DAILY active Not Available Not Available No t Available clotrimazol e 1 % topical cream APPLY TO RASH ON FEET TWICE DAILY FOR FOUR WEEKS active Not Available Not Available No t Available loratadine 10 mg tablet TAKE ONE TABLET BY MOUTH EVERY DAY active Not Available Not Available No t Available naproxen 500 mg tablet active Not Available Not Available Not Available neomycin 3.5 mg/g-polymy joann B 10,000 unit/g-dexa meth 0.1 % eye oint active Not Available Not Available Not Available losartan 100 mg-hydrochl orothiazide 12.5 mg tablet TAKE ONE TABLET BY MOUTH EVERY DAY 01/19 completed Not Available Not Available Not Available lidocaine (PF) 10 mg/mL (1 %) injection solution Take 3 mL by injection route. 2017 active Not Available Not Available Not Avai lable OneTouch UltraMini kit TEST BLOOD SUGAR DIRECTED. MAY SUBSTITUT E NEEDED BY INSURANCE . active Not Available Not Available No t Available fluocinolon e acetonide oil 0.01 % ear drops INSTILL FIVE DROPS TO BOTH EARS TWICE DAILY FOR 10 DAYS active Not Available Not Available No t Available Fish Oil 340 mg-1,000 mg capsule TAKE THREE CAPSULES BY MOUTH EVERY DAY FOR PAIN active Not Available Not Available No t Available calcium 600 mg (as carbonate)- vitamin D3 10 mcg (400 unit) tablet TAKE ONE TABLET BY MOUTH TWICE DAILY 01/19 completed Not Available Not Available Not Available Refresh Optive 0.5 %-0.9 % eye drops INT ONE GTT IN OU QID active Not Available Not Available No t Available diclofenac 1 % topical gel APPLY TWO GRAM TO THE AFFECTED AREA BY TOPICAL ROUTE FOUR TIMES DAILY active Not Available Not Available No t Available omega 3-dha-epa-f nia oil 300 mg-1,000 mg capsule TAKE THREE CAPSULES BY MOUTH DAILY FOR PAIN active Not Available Not Available No t Available OneTouch Delica Lancets 33 gauge TEST BLOOD SUGAR TWICE DAILY DIRECTED. active Not Available Not Available No t Available lidocaine 5 % topical ointment APPLY TO THE AFFECTED AREA ONCE DAILY active Not Available Not Available No t Available Easy Touch Alcohol Prep Pads USE DAILY active Not Available Not Available Not Available OneTouch Delica Lancets 30 gauge TEST BLOOD SUGAR TWICE DAILY DIRECTED. active Not Available Not Available No t Available Prolensa 0.07 % eye drops INT 1 GTT IN SURGICAL EYE QD active Not Available Not Available No t Available Natural Balance Tears 0.1 %-0.3 % eye drops INT 1 GTT IN OU QID active Not Available Not Available No t Available OneTouch Ultra Blue Test Strip TEST BLOOD SUGAR TWICE DAILY DIRECTED active Not Available Not Available No t Available Vitals Date Recorded Body height Body mass index (BMI) Body weight Provider Name and Address Organization Details Last Updated DateTime 06/03/2018 162.56 cm 25.6 kg/m2 24253.26 g Priti Hamilton [facility] 06/03/2018 14:06:00 Date Recorded Body height Body mass index (BMI) Body weight Provider Name and Address Organization Details Last Updated DateTime 09/16/2018 162.56 cm 25.6 kg/m2 93743.26 g Priti Hamilton [facility] 09/16/2018 16:01:35 Date Recorded Body height Body mass index (BMI) Body weight Provider Name and Address Organization Details Last Updated DateTime 01/17/2019 162.56 cm 25.6 kg/m2 69076.26 g Priti Hamilton [facility] 01/17/2019 13:28:06 Date Recorded Body height Body mass index (BMI) Body weight Pain severity - 0-10 verbal numeric rating [Score] - Reported Provider Name and Address Organization Details Last Updated DateTime 01/19/2019 162.56 cm 25.6 kg/m2 65158.26 g 4 Kiki Aguilar [facility] 01/19/2019 08:24:44 Date Recorded Body height Body mass index (BMI) Body weight Provider Name and Address Organization Details Last Updated DateTime 03/22/2018 162.56 cm 25.6 kg/m2 49089.26 g Mitch Toussaint M.D. [address] [place] [address], [address], [facility] 03/22/2018 13:00:26 Social History Question Answer Notes LastModified by Organizat ion Details LastModified Time Tobacco Smoking Status Never Smoker Alysa burgess, [facility] 07/10/2015 14:25:07 What Is Your Level Of Alcohol Consumption? None Information not available 07/10/2015 Auto Related Injury? No Information not available 07/10/2015 Are You Currently Employed? No Information not available 07/10/2015 Which Illicit Or Recreational Drugs Have You Used? No Information not available 07/10/2015 What Was The Date Of Your Most Recent Tobacco Screening? 01/19/2019 Information not available 03/24/2019 How Much Tobacco Do You Smoke? No [email or web address] Information not available 07/14/2016 Work Related Injury? No Information not available 07/10/2015 Sex: Unknown Functional Status None recorded. Mental Status None recorded. Family History Relationship Description Onset Age of this Age Resolved Age Notes LastModified by Organization Details LastModified Time Mother Hypertensive disorder [email or web address] Not available 2015 13:28:10 Mother Complication due to diabetes mellitus [email or web address] Not available 2015 13:28:10 Father Hypertensive disorder [email or web address] Not available 2015 13:28:10 Father Complication due to diabetes mellitus [email or web address] Not available 2015 13:28:10 Medical History Condition Response Coronary Artery Disease N Hereditary Defects N Gout N Tremors/Seizures/Dizziness/Epilepsy N Excessive Thirst/Fatigue N Blood Clots N Lung Disease N Fever, Chills, Headaches N Pacemaker N Heart Disease/Problems N Breathing Problems N Heart Attack ([place]) Y Sexually Transmitted Diseases N Bleeding Disorder/Tendencies or Anemia N Stomach Ulcers N Diabetes Y Skin Problems/Rash/Boils Y Depression/Psychiatric Problems N Arthritis Y Tuberculosis N Cancer N Stroke N Eye Problems Y Leg or Foot Ulcers N HIV/AIDS N Chest Pain/Heart Attack/Arrhythmia Y Urinary Pain/Frequency/Retention N Stomach Problems/Reflux/GERD Y Hepatitis N Rheumatoid Arthritis Y Hypertension/High Blood Pressure N Osteoporosis N Kidney Disease N Gynecological HistoryNo gynecological history recorded. Obstetrics History GPAL:G 0 P 0 0 0 0 Past Encounters Encounter ID Performer Location Encounter Start Date Encounter Closed Date Diagnosis/Indication Diagnosis SNOMED-CT Code Diagnosis ICD10 Code Diagnosis Note [id number] Kirsten Camposahan [facility] [place] [address] [address] 07/10/2015 14:14:06 07/10/2015 15:29:47 Carpal tunnel syndrome 46547534 G56.01 G56.02 [id number] Mitch Toussaint M.D. OFFICE-N. [facility] ot a [address] [address] 08/02/2015 10:08:15 08/02/2015 10:49:54 Carpal tunnel syndrome 22737696 G56.00 [id number] Kirsten Camposahan [facility] [place] [address] [address] 08/07/2015 15:05:18 08/07/2015 15:34:59 Carpal tunnel syndrome 43393044 G56.01 G56.02 [id number] Kirsten Camposahan OFFICE[facility]N. [facility] ot a [address] [address] 08/14/2015 09:24:12 08/14/2015 10:11:59 Carpal tunnel syndrome 36927037 G56.02 [id number] Mitch Toussaint M.D. OFFICE-N. [facility] ot a [address] [address] 09/03/2015 14:27:01 09/03/2015 16:59:09 Low back pain 981663983 M54.5 Spinal enthesopathy 1031 7009 M46.00 Knee pain 90520735 M25.5 [id number] Marco Antonio Layton OFFICE-N. [facility] a [address] [address] 09/10/2015 13:27:06 09/10/2015 15:08:56 Arthritis of knee 095780080 M17.11 [id number] Cl Christopher MD OFFICE-N. [facility] a [address] [address] 10/24/2015 14:38:57 10/24/2015 15:20:30 Arthritis of knee 014607951 M17.11 [id number] Mitch Toussaint M.D. OFFICE-N. [facility] a [address] [address] 10/29/2015 15:16:53 10/29/2015 15:48:23 Low back pain 145006878 M54.5 Degenerati on of lumbar intervertebral disc 01494052 M51.36 Lumbar spondylosis 71303 0009 M47.816 [id number] SHEILA CADENA D.P.M. OFFICE-N. [facility] a [address] [address] 11/18/2015 14:44:28 11/18/2015 15:18:23 Neuropathy 928428248 G62.9 [id number] Mitch Toussaint M.D. OFFICE-N. [facility] a [address] [address] 11/19/2015 14:22:26 11/19/2015 15:34:09 Lumbar spondylosis 964162452 M47.816 Degenerati on of lumbar intervertebral disc 51050208 M51.36 Neuropathy 414858655 G62 .9 Lumbar radiculopathy 128 991776 M54.16 [id number] Marco Antonio Layton [facility] Service [address] [address] 11/21/2015 14:21:01 11/21/2015 16:02:09 Arthritis of knee 533067669 M17.11 [id number] [place] [address] 12/02/2015 09:40:58 2015 15:04:38 [id number] Mitch Toussaint M.D. [facility]. [place] Service [address] [address] 12/05/2015 14:48:01 12/05/2015 15:31:56 Lumbar spondylosis 515056829 M47.816 Lumbar radiculopathy 128 383670 M54.16 [id number] Mitch Toussaint M.D. OFF[facility]. [place] Service [address] [address] 01/02/2016 14:09:55 01/02/2016 15:53:59 Lumbar spondylosis 029862065 M47.816 Lumbosacra l radiculopathy 2033223 M54.16 [id number] [place] [address] 01/10/2016 11:24:30 01/28/2016 10:52:43 [id number] Rashida isaac OFFICE-N. [place] Service [address] [address] 01/23/2016 13:48:55 01/23/2016 16:24:55 Lumbosacral radiculopathy 0328772 M54.16 Lumbar radiculopathy 128 573685 M54.16 Neuropathy 055660530 G62 .9 Degenerati on of lumbar intervertebral disc 74656815 M51.36 [id number] FREDY Holder OFFICE-N. [place] Service [address] [address] 03/12/2016 13:06:00 03/12/2016 13:59:57 Lumbar radiculopathy 899262649 M54.16 [id number] Marco Antonio Layton OFFICE-N. [facility] a [address] [address] 03/19/2016 13:37:20 03/19/2016 14:27:12 Arthritis of knee 464314431 M17.11 [id number] FREDY Holder OFFICE-N. [facility] a [address] [address] 04/16/2016 13:56:49 04/16/2016 14:49:54 Lumbar radiculopathy 314124095 M54.16 Lumbar spondylosis 61704 0009 M47.896 Degenerati on of lumbar intervertebral disc 18019900 M51.36 [id number] Cl Christopher MD OFFICE-N. [facility] a [address] [address] 04/23/2016 15:00:01 04/23/2016 15:41:54 Arthritis of knee 272404240 M17.11 Tear of me niscus of knee 592398318 S83.231D [id number] Mitch Toussaint M.D. OFFICE-N. [facility] a [address] [address] 05/28/2016 14:14:03 05/28/2016 15:18:23 Lumbosacral radiculopathy 8786284 M54.16 Lumbar radiculopathy 128 601105 M54.16 Neuropathy 200597001 G62 .9 Degenerati on of lumbar intervertebral disc 42357903 M51.36 [id number] FREDY Holder OFFICE-N. [facility] a [address] [address] 07/01/2016 13:09:07 07/01/2016 14:02:04 Lumbar radiculopathy 569915582 M54.16 Lumbar spondylosis 96093 0009 M47.896 Lumbosacra l radiculopathy 5827005 M54.16 Degenerati on of lumbar intervertebral disc 67872772 M51.36 [id number] Mitch Toussaint M.D. OFFICE-N. [facility] a Service [address] [address] 07/14/2016 14:46:25 07/14/2016 15:54:25 Lumbosacral radiculopathy 6757711 M54.16 Lumbar radiculopathy 128 431465 M54.16 Neuropathy 324663839 G62 .9 Degenerati on of lumbar intervertebral disc 53034549 M51.36 [id number] Mitch Toussaint M.D. OFFICE-N. [facility] a [address] [address] 08/18/2016 14:11:25 08/18/2016 15:23:44 Lumbar radiculopathy 264948858 M54.16 Lumbar spondylosis 50401 0009 M47.816 [id number] [facility] a Service [address] [address] 02/02/2017 14:36:06 02/02/2017 15:54:06 Lumbar radiculopathy 546279850 M54.16 Knee pain 28706093 M25.5 69 Lumbar spondylosis 31764 0009 M47.816 Degenerati on of lumbar intervertebral disc 32770640 M51.36 Bilateral carpal tunnel syndrome 2950427070 3742375 G56.03 [id number] Ferny Martinez MD OFFICE-N. [facility] a Service [address] [address] 02/17/2017 14:00:03 02/17/2017 14:19:55 Carpal tunnel syndrome 27777662 G56.01 [id number] Natasha Morris OFFICE-N. [facility] ot a Service [address] [address] 02/22/2017 14:26:53 02/22/2017 15:17:55 Carpal tunnel syndrome 88647499 G56.02 [id number] Mitch Toussaint M.D. OFFICE - [address] [address] 03/16/2017 14:06:45 03/16/2017 14:42:22 Lumbar spondylosis 156150886 M47.816 Degenerati on of lumbar intervertebral disc 19201899 M51.36 [id number] Ferny Martinez MD OFFICE - [address] [address] 05/05/2017 14:21:28 05/05/2017 15:31:53 Shoulder joint pain 030554625 M25.519 Impingemen t syndrome of shoulder region 339283507 M75.42 [id number] Mitch Toussaint M.D. [facility] - [address] [address] 05/11/2017 14:53:59 05/11/2017 15:29:00 Lumbar radiculopathy 560616400 M54.16 Knee pain 77488394 M25.5 69 [id number] Cl Christopher MD OFFICE - [address] [address] 05/20/2017 14:19:19 05/20/2017 15:11:20 Knee pain 43576785 M25.561 Arthritis of knee 531715 002 M17.11 Tear of me niscus of knee 981382007 S83.231D [id number] Cl Christopher MD OFFICE - [address] [address] 06/17/2017 14:31:56 06/17/2017 15:45:59 Osteoarthritis of knee 997668810 M17.11 Tear of me niscus of knee 341521451 S83.231D [id number] Mitch Toussaint M.D. OFFICE - [address] [address] 07/15/2017 12:20:31 07/15/2017 14:04:16 Shoulder pain 70592165 M25.512 [id number] Mitch Toussaint M.D. OFFICE - [address] [address] 09/23/2017 14:15:44 09/23/2017 15:06:52 Shoulder pain 89092033 M25.512 Lumbar spondylosis 93767 0009 M47.816 Degenerati on of lumbar intervertebral disc 72789238 M51.36 [id number] Mitch Toussaint M.D. OFFICE - [address] [address] 12/07/2017 12:44:03 12/07/2017 13:29:22 Lumbar radiculopathy 290165230 M54.16 Bilateral carpal tunnel syndrome 9604904347 7952076 G56.03 Pain of le ft shoulder joint 5806027004 0101331 M25.512 [id number] Cl Christopher MD [facility] - [address] [address] 12/16/2017 12:48:48 12/16/2017 14:18:38 Inflammation of rotator cuff tendon 162857898 M65.812 Shoulder joint pain 2679 01557 M25.519 Neck pain 50897617 M54.2 [id number] Mitch Toussaint M.D. [facility] - [address] [address] 12/20/2017 12:51:48 12/20/2017 13:30:52 Bilateral carpal tunnel syndrome 6491303651 1872629 G56.03 Cubital tu nnel syndrome 66824885 G56.21 [id number] Natasha Morris [facility] - [address] [address] 12/29/2017 12:54:27 12/29/2017 13:45:37 Cubital tunnel syndrome 09244354 G56.21 Carpal tye arely syndrome 22006789 G56.02 G56.01 [id number] Ferny Martinez MD OFFICE - [address] [address] 01/05/2018 13:29:56 01/05/2018 14:34:55 Cubital tunnel syndrome 07983276 G56.22 [id number] Cl Christopher MD [facility] - [address] [address] 01/27/2018 13:43:10 01/27/2018 14:44:44 Inflammation of rotator cuff tendon 859116214 M65.812 [id number] Mitch Toussaint M.D. [facility] - [address] [address] 03/22/2018 12:30:42 03/22/2018 13:38:02 Neck pain 86011089 M54.2 Pain of le ft shoulder joint 3447646950 3424354 M25.512 [id number] Mitch Toussaint M.D. OFFICE - [place] [address] [place] [address] 06/03/2018 13:52:33 06/03/2018 16:01:30 Lumbar radiculopathy 603550662 M54.16 Low back pain 114360857 M54.5 Lumbar spondylosis 40843 0009 M47.896 Degenerati on of lumbar intervertebral disc 96484923 M51.36 [id number] Mitch Toussaint M.D. OFFICE - [place] [address] [place] [address] 09/16/2018 15:26:42 09/16/2018 16:22:54 Lumbar radiculopathy 718912044 M54.16 Myofascial pain 82594133 9 M79.10 [id number] Mitch Toussaint M.D. OFFICE - [place] [address] [place] [address] 01/17/2019 13:14:55 01/17/2019 14:02:00 Lumbar radiculopathy 394234664 M54.16 Shoulder joint pain 2679 72236 M25.519 [id number] Cl Christopher MD OFFICE - [place] [address] [place] [address] 1 01/19/2019 08:10:40 01/19/2019 09:05:24 Inflammation of rotator cuff tendon 503004111 M65.812 Health Concerns Section Related Observation LastModified by Organization Detai ls LastModified Time None Recorded Concern Status LastModified by Organization Details LastModified Time None Recorded Advance Directives Directive None Recorded Payers Encounter Date Sequence Insurance Name Policy Number Policy Jain Covered Member ID Jain Member ID Guarantor Name 03/22/2018 1 [facility] (MEDICARE - MEDICAID REPLACEMENT) [facility] [id number] Ariana De La Fuente 06/03/2018 1 [facility] (MEDICARE - MEDICAID REPLACEMENT) [facility] [id number] Ariana De La Fuente 09/16/2018 1 [facility] (MEDICARE - MEDICAID REPLACEMENT) RANDARAJEEV [place] [id number] Ariana Toni Leisa 01/17/2019 1 [facility] (MEDICARE - MEDICAID REPLACEMENT) NIGEL Muñoz Leisa [id number] Ariana E Leisa 01/19/2019 1 [facility] (MEDICARE - MEDICAID REPLACEMENT) NIGEL Muñoz Leias [id number] Ariana Toni Leisa Notes Date Note Type Note Provider Name and Address Organization Details Recorded Time 03/22/2018 text/html Ariana is a pleasan t 67-year-old female seen today for chief complaint of shoulder and bilateral upper extremity pain. She had good results with the right shoulder injection with Dr. Christopher, however, left shoulder was minimally improved. Last injection was over 3 months ago. She wants to repeat the left shoulder injection. She is diagnosed with bilateral carpal tunnel and also with right cubital tunnel syndrome on EMG. She is currently on Tylenol No. 3 with good alleviation of the pain. The VAS on average from 8-3 out of 10 with medications. 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 [address] [place] [address], [phone], [facility] 03/22/2018 13:41:14 06/03/2018 text/html Ariana is a very pleasant 67-year-old female seen today for continuation of her low back and right lower extremity pain. Her shoulders or significant better after the subacromial injection. This is a familiar pain to her and she has occasional flareups, the do better with epidural steroid injections. She has a confirmed S1 radiculopathy on previous EMGs. Today the pain a 6 out of 10 and that responding to pain medications or home exercise program. Mitch Toussaint M.D. [address] [place] [address], [phone], [facility] 06/06/2018 11:15:45 09/16/2018 text/html Ariana is a very pleasant 67-year-old female seen today for chief complaint of low back and right knee pain. She had a right-sided L5-S1 KASSANDRA in May. Since then she was doing very well as far as the back and right lower extremity radicular pain. She takes tramadol occasionally for her shoulder and back pain. Unfortunately she had a fall about 3 weeks and then again 4 days ago. Both of the falls were on the right side and she landed awkwardly on her back. Her axial back pain restarted without the radicular component. She also has some right knee pain, which has since improved. Pain today is 6 out of 10 Mitch Toussaint M.D. [address] [place] [address], [phone], [facility] 09/16/2018 17:13:11 01/17/2019 text/html Ariana is a very pleasant 68-year-old female seen today for left shoulder pain. She has had previous injections in the left shoulder with subacromial injections provided her significant other. She had seen Dr. christopher previously for the shoulder as well. My standpoint we are treating also the back pain with the lower extremity radiculopathy. The back pain is status quo. She takes tramadol for mild relief of the pain. She is experiencing no side effects with the medication. She is exhibiting no symptoms or signs of abuse, misuse, or diversion. Pain today is 7 out of 10 and most pronounced at the left shoulder and the lateral elbow. She has pain with overhead motion. She has no significant neck pain or radicular pain Mitch Toussaint M.D. [address] [place] [address], [phone], [facility] 01/17/2019 16:40:19 01/19/2019 text/html Ariana returns agai n today for her left shoulder. I last saw her for this about a year ago. We have managed her previously for a rotator cuff tendinitis. More recently she has had worsening symptoms involving the left shoulder. No recent injury. She gets pain diffusely around the left shoulder that is worse with reaching and overhead activities. She has also been managed for cubital tunnel syndrome on the left side. She is getting pain at night which interferes with sleep. She has done well with prior subacromial injections. No other recent imaging or treatment directed at the left shoulder. Cl Christopher MD [address] [place] [address], [phone], [facility] 01/19/2019 08:43:11 OBGyn Episode No OBEpisode recorded.
--- OUTSIDE RECORDS SUMMARY | 2024-10-11 15:54 | XMS_ITS | Data Portability ---
Author Organization [place] - [facility]- Address [address] [place] [address] Care Team Providers Care Websphere Architect Name Role Phone CAM VICENTE Primary Care Provider CAM VICENTE Referring Provider [phone] Assessment Encounter Date Assessment Date Assessment LastModified by Organization Details LastModified Time 08/28/2015 08/28/2015 AR and ? OE.? ? ? options discussed.? ? ? will? ? ? proceed? ? ? with skin testing.? ? ? d/c qtips and h2o, use? ? ? vinegar for? ? ? itchy ears.? scit? ? ? candidate [email or web address] Not available 08/28/2015 15:35:37 09/11/2015 09/11/2015 testing results all? ? ? discussed.? ? ? she? ? ? does have? ? ? some pollen allergy and? ? ? a suspicion of food? ? ? allergy.? we discussed chemical sensitivities and VM rhinitis and? ? ? gerd.? I dont? ? ? feel that? ? ? immunotherapy would be in her best interest. [email or web address] Not available 09/11/2015 14:17:31 Plan of Treatment Reminders Order Date Submit Date Provider Last Modified By Organization Details Last Modified Time Details Appointments None recorded. Lab None recorded. Referral None recorded. Procedures None recorded. Surgeries None recorded. Imaging None recorded. Medication Orders cetirizine 10 mg tablet 2014 [address] [facility], [address], [place], [place], [id number], 5 17:01:51 fluticason e propionate 50 mcg/actuat ion nasal spray,susp ension 2014 [address] [facility], [address], [place], [place], [id number], 5 17:01:45 Patient TargetsNo targets recorded. Patient Instructions Encounter Date Encounter Id Patient Instructions Last Modified By Organization Details Last Modified Time 09/11/2015 [id number] rinitis: instrucciones de cuidado - [rhinitis: care instructions] [email or web address] Not available 09/17/2015 10:57:19 Reason for Referral None Reported. Results Created Date Observation Date Name Description Value Unit Range Abnormal Flag Note LastModifiedBy Organization Detail LastModifiedTime 09/04/19 16 09/05/2015 ige, total , serum immunoglobul in E 25 kU/L <or=11 4 normal Not Available [facility] [address], [address], 09/05/2015 21:52:25 09/04/19 16 09/05/2015 blueb erry IgE Ab, serum blueberry (F288) IgE <0.10 kU/L normal Not Available [facility] [place] [facility] [address], [address], 09/05/2015 21:52:25 09/04/19 16 09/05/2015 blueb erry IgE Ab, serum class 0 Not Available [facility] [address], [address], 09/05/2015 21:52:25 09/04/19 16 09/05/2015 cashe w nut ige, serum cashew nut (F202) IgE <0.10 kU/L normal Not Available [email or web address] [place] [facility] [address], [address], 09/05/2015 21:52:26 09/04/19 16 09/05/2015 cashe w nut ige, serum class 0 Not Available [facility] [address], [address], 09/05/2015 21:52:26 09/04/19 16 09/05/2015 green andrews IgE Ab, serum green andrews (F315) IgE <0.10 kU/L normal Not Available [facility] [place] [facility] [address] [place], [place], [address], 09/05/2015 21:52:26 09/04/19 16 09/05/2015 green andrews IgE Ab, serum class 0 Not Available [facility] [place] [facility] [address] [place], [place], [address], 09/05/2015 21:52:26 09/04/19 16 09/05/2015 wheat ige, serum wheat (F4) IgE <0.10 kU/L normal Not Available [facility] [place] [facility] [address] [place], [place], [address], 09/05/2015 21:52:26 09/04/19 16 09/05/2015 wheat ige, serum class 0 Not Available [facility] [place] [facility] [address] [place], [place], [address], 09/05/2015 21:52:26 09/04/19 16 09/05/2015 oat ige, serum oat (F7) IgE <0.10 kU/L normal Not Available [facility] [place] [facility] [address], [place], [address], 09/05/2015 21:52:27 09/04/19 16 09/05/2015 oat ige, serum class 0 Not Available [facility] [place] [facility] [address], [place], [address], 09/05/2015 21:52:27 09/04/19 16 09/05/2015 pork ige, serum pork (F26) IgE <0.10 kU/L normal Not Available [facility] [place] [facility] [address], [place], [address], 09/05/2015 21:52:27 09/04/19 16 09/05/2015 pork ige, serum class 0 Not Available [facility] [place] [facility] [address], [place], [address], 09/05/2015 21:52:27 09/04/19 16 09/05/2015 salmo n ige, serum salmon (F41) IgE <0.10 kU/L normal Not Available [facility] [place] [facility] [address], [place], [address], 09/05/2015 21:52:27 09/04/19 16 09/05/2015 salmo n ige, serum class 0 Not Available [facility] [place] [facility] [address], [place], [address], 09/05/2015 21:52:27 09/04/1909/05/2015 ames 's yeast IgE Ab, serum yeast (F45) IgE <0.10 kU/L normal Not Available [facility] [place] [facility] [address], [place], [address], 09/05/2015 21:52:28 09/04/19 16 09/05/2015 ames 's yeast IgE Ab, serum class 0 Not Available [facility] [place] [facility] [address], [place], [address], 09/05/2015 21:52:28 09/04/19 16 09/05/2015 celer y IgE Ab, serum celery (F85) IgE <0.10 kU/L normal Not Available [facility] [place] [facility] [address], [place], [address], 09/05/2015 21:52:28 09/04/19 16 09/05/2015 celer y IgE Ab, serum class 0 Not Available [facility] [place] [facility] [address] [place] [address], [place], [address], 09/05/2015 21:52:28 09/04/19 16 09/05/2015 lettu ce IgE Ab, serum lettuce (F215) IgE <0.10 kU/L normal Not Available [facility] [place] [facility] [address], [place], [address], 09/05/2015 21:52:28 09/04/19 16 09/05/2015 lettu ce IgE Ab, serum class 0 Not Available [facility] [place] [facility] [address], [place], [address], 09/05/2015 21:52:28 09/04/19 16 09/05/2015 peach ige, serum peach (F95) IgE <0.10 kU/L normal Not Available [facility] [place] [facility] [address], [place], [address], 09/05/2015 21:52:28 09/04/1909/05/2015 peach ige, serum class 0 Not Available [facility] [place] [facility] [address], [place], [address], 09/05/2015 21:52:28 09/04/19 16 09/05/2015 water melon IgE Ab , serum watermelon (rf329) IgE <0.10 kU/L normal Not Available [facility] [place] [facility] [address], [place], [address], 09/05/2015 21:52:29 09/04/19 16 09/05/2015 water melon IgE Ab , serum class 0 Not Available [facility] [place] [facility] [address], [place], [address], 09/05/2015 21:52:29 09/04/1909/05/2015 inter preta tion interpretati on Speci fic Level of Aller gen IGE Class kU/L Speci fic IGE Antib serenity ----- ----- ---- ----- ----- ----- ---- 0 <0.10 Absen t/Und etect able 0/1 0.10- 0.34 Very Low Level 1 0.35- 0.69 Low Level 2 0.70- 3.49 Moder ate Level 3 3.50- 17.4 High Level 4 17.5- 49.9 Very High Level 5 50-10 0 Very High Level 6 >100 Very High Level The clini angelita relev ance of aller gen resul ts of 0.10- 0.34 kU/L are undet ermin ed and inten ded for speci alist use. Aller gens denot ed with a inclu de resul ts using one or more morelia te speci fic reage nts. In those cases , the test was devel oped and its morelia tical perfo rmanc e davina cteri stics have been deter mined by [facility]. It has not been clear ed or appro cristóbal by the U.S. Food and Drug Admin istra tion. The FDA has deter mined that such clear ance or appro danielito is not neces frances. This assay has been valid ated pursu ant to the CLIA regul ation s and is used for clini angelita purpo ses. Not Available [facility] [place] [facility] [address] [place] [address], [place], [address], 09/05/2015 21:52:29 Result Notes None recorded. Problems Name Problem SNOMED Code Status Onset Date Resolution Date Notes Provider Name and Address Organization Details Recorded Time Allergic rhinitis 25670159 Active [facility] 5 15:35:37 Environmental allergy 875752831 Active [facility] 5 16:32:59 Posterior end of inferior turbinate hypertrophy 732694231 Active [facility] 5 09:11:07 Otitis externa 0408424 Active Sterling burgess [facility] 5 15:35:37 Vasomotor rhinitis 1269128 Active Sterling burgess [facility] 6 14:17:59 Problem Notes None recorded. Medical Equipment None Reported. Allergies No known drug allergies Medications Name Sig Start Date Stop Date Status Note LastModified by Organization Details LastModified Time metformin 500 mg tablet active Not Available Not Available Not Available atorvastatin 80 mg tablet active Not Available Not Available Not Available gabapentin 600 mg tablet active Not Available Not Available Not Available cetirizine 10 mg tablet Take 1 tablet every day by oral route for 30 days. 2014 active Not Available Not Available Not Avai lable ibuprofen 800 mg tablet active Not Available Not Available Not Available acetaminophe n 300 mg-codeine 30 mg tablet active Not Available Not Available Not Available baclofen 10 mg tablet active Not Available Not Available No t Available omeprazole 20 mg capsule,josé miguel yed release active Not Available Not Available Not Available lorazepam 1 mg tablet active Not Available Not Available No t Available polyethylene glycol 3350 17 gram/dose oral powder active Not Available Not Available Not Available fluticasone propionate 50 mcg/actuatio n nasal spray,suspen yuriy Inhale 2 sprays every day by intranasal route for 30 days. active Not Available Not Available No t Available naproxen 500 mg tablet active Not Available Not Available No t Available losartan 100 mg-hydrochlo rothiazide 12.5 mg tablet active Not Available Not Available Not Available Vitals Date Recorded Respiratory rate Provider Name a nd Address Organization Details Last Updated DateTime 07/10/2015 14 /min Julissa Avila [facility] 06/30 15:59:40 Date Recorded Body height Body mass index (BMI) Body weight Provider Name and Address Organization Details Last Updated DateTime 08/14/2015 162.56 cm 26.6 kg/m2 93917.07419 g Nalini Cortez [facility] 08/14/2015 08:51:35 Date Recorded Respiratory rate Provider Name a nd Address Organization Details Last Updated DateTime 08/14/2015 16 /min Srinivas Hager [facility] 08/14 09:06:42 Date Recorded Body weight Body mass index (BMI) Body height Provider Name and Address Organization Details Last Updated DateTime 08/28/2015 34816.20371 g 26.6 kg/m2 162.56 cm Nalini Cortez [facility] 08/28/2015 14:32:39 Date Recorded Respiratory rate Provider Name a nd Address Organization Details Last Updated DateTime 08/28/2015 15 /min Sterling Hagan [facility] 2014 15:33:48 Date Recorded Body height Body weight Body mass index (BMI) Provider Name and Address Organization Details Last Updated DateTime 09/11/2015 162.56 cm 36445.95484 g 26.6 kg/m2 Nalini Cortez [facility] 09/11/2015 13:36:57 Social History Question Answer Notes LastModified by Organization D etails LastModified Time What Is Your Level Of Alcohol Consumption? None [email or web address] Information not available 08/14/2015 How Much Tobacco Do You Smoke? No [email or web address] Information not available 08/14/2015 Sex: Unknown Functional Status None recorded. Mental Status None recorded. Family History Nothing Reported. Medical History No medical history recorded. Gynecological HistoryNo gynecological history recorded. Obstetrics History GPAL:G 0 P 0 0 0 0 Past Encounters Encounter ID Performer Location Encounter Start Date Encounter Closed Date Diagnosis/Indication Diagnosis SNOMED-CT Code Diagnosis ICD10 Code Diagnosis Note [id number] Javi Mcdonnell MD Main Office [address] [facility],[address] [place] [address] 07/10/2015 15:57:56 07/10/2015 16:28:29 Allergic rhinitis 94834113 J30.9 - Symptomati c with nasal allergies. - Reviewed various measures to control allergy symptoms, including environmen raul control/al lergen avoidance. Will do a trial of Zyrtec and Flonase. -Follow up in 4 weeks to check progress. If symptoms persists despite these measures may need to repeat allergy test. Environmental allergy 42 6260326 T78.49XA -See #1 Posterior end of inferior turbinate hypertrophy 004105416 J34.3 -Secondary to nasal allergies. [id number] Sterling Fields MD Main Office [address] [facility],[address] [place] [address] 08/14/2015 08:48:44 08/14/2015 09:10:33 Allergic rhinitis 63770818 J30.9 Discussed findings Hold meds Schedule for Allergy eval See after Posterior end of inferior turbinate hypertrophy 008969864 J34.3 [id number] Kenzie Phong Main Office [address] [place] [address] 08/28/2015 14:31:39 08/28/2015 15:36:21 Allergic rhinitis 61990452 J30.9 Otitis externa 0983655 H 60.93 [id number] Sterling Morenosony Main Office [address] [place] [address] 09/11/2015 13:35:51 09/11/2015 14:12:20 Vasomotor rhinitis 7803318 J30.0 Health Concerns Section Related Observation LastModified by Organization Detai ls LastModified Time None Recorded Concern Status LastModified by Organization Details LastModified Time None Recorded Advance Directives Directive None Recorded Payers Encounter Date Sequence Insurance Name Policy Number Policy Jain Covered Member ID Jain Member ID Guarantor Name 07/10/2015 1 [place] [employer] Ariana E Leisa [id number] Ariana Leisa 07/10/2015 2 [place] [facility] Ariana Leisa [id number] Ariana Leisa 08/14/2015 1 [place] [employer] Ariana E Leisa [id number] Ariana Leisa 08/14/2015 2 [place] [facility] Ariana Leisa [id number] Ariana Leisa 08/28/2015 1 [place] [employer] Ariana E Leisa [id number] Ariana Leisa 08/28/2015 2 [place] [id number] Ariana Leisa [id number] Ariana Leisa 09/11/2015 1 [place] [employer] Ariana E Leisa [id number] Ariana Leisa 09/11/2015 2 [place] [id number] Ariana Leisa [id number] Ariana Leisa Notes Date Note Type Note Provider Name a nd Address Organization Details Recorded Time 07/10/2015 text/html HPI This is a 64 y/o F here for evaluation of itchy throat, nose, and ears over the past few years. Bilateral otalgia, occasional nasal congestion, sneezing, PND. Using drops in ears for itch. History of allergies. Previous allergy testing over 10 years in [place] - positive for multiple sensitivities. Not on any antihistamine or nasal spray. No otorrhea, tinnitus, or vertigo.? Javi Mcdonnell MD [address] [address], [place], [address], [facility] 07/10/2015 18:45:29 08/14/2015 text/html HPI Returns for recheck of her allergy. Has used meds did not help. Has itching of ears, nose, PND, Phlegm. No new sx.? Sterling Fields MD [address] [facility] [address], [place], [address], [facility] 08/14/2015 13:38:09 OBGyn Episode No OBEpisode recorded.
== END 2024-10-11 14:41 | disposition home or self-care (01) ==
LOC: HO.MAMMO 14:40
PROVIDERS: Visit Provider Nurse Practitioner Family
DX: Z12.31 Encounter for screening mammogram for malignant neoplasm of breast (principal); Z13.820 Encounter for screening for osteoporosis; Z78.0 Asymptomatic menopausal state
CPT/HCPCS: 77063; 77067; 77080

== ENCOUNTER 2024-12-06 13:01 | Outpatient (REF) | payer OTHER, SELFPAY ==
--- NOTE | ~2024-12-06 | US_ITS ---
EXAMINATION: MM DIAGNOSTIC DIGITAL BREAST TOMOSYNTHESIS, BILATERAL Bilateral Limited ultrasound. CLINICAL INFORMATION: History of benign right low axillary breast excision 20 years ago at outside institution. Call back from baseline screening for bilateral asymmetries. COMPARISON: Mammography: Comparison is made with relevant prior exams. TECHNIQUE: Digital breast mammography with tomosynthesis is performed in both the craniocaudal and mediolateral oblique views along with computer-aided detection (CAD). FINDINGS: There are scattered areas of fibroglandular density (ACR BI-RADS breast composition Category b). Left: Previously seen asymmetry in the retroareolar region does not persist on additional imaging projections and likely represented overlapping breast tissue. There are no significant masses, abnormal calcifications, or other abnormalities. Targeted color Doppler ultrasound scanning in the retroareolar region of the left breast demonstrates normal fibroglandular breast tissue. Right: Asymmetry in the retroareolar region does not persist on additional imaging projections and likely represented overlapping breast tissue. Asymmetries in the axilla persist on additional imaging projections 1 has architectural distortion associated with a this was an area of previous surgical excision outside institution 20 years ago. No suspicious calcifications or other abnormal findings. Targeted color Doppler ultrasound demonstrates a hypoechoic oval solid mass versus complicated cyst at 10:00 12 cm from nipple measuring 7 x 7 x 5 mm. This area could correlate with one of the asymmetries in the lower axilla on mammography. Targeted color Doppler ultrasound in the axillary region demonstrates a enlarged axillary lymph node with cortical thickening measuring up to 7 mm. Otherwise there is no other sonographic abnormality. Results are provided to the patient at time of visit by the technologist. US/US breast BI limited mamm only IMPRESSION: Solid mass versus complicated cyst at 10:00 12 cm from the nipple and enlarged axillary lymph node. Recommend ultrasound-guided core needle biopsy of both areas for confirmation. The findings and recommendations were discussed with the patient the procedure will be scheduled. Management for additional axillary asymmetry with distortion versus postsurgical changes will be pending biopsy of the above 2 masses to include a six-month follow-up. ASSESSMENT: BI-RADS BI-RADS 4 - Suspicious finding RECOMMENDATION: Biopsy recommended This patient's information was entered into a reminder system with a target due date for their next mammogram. Electronically signed by: Beverly Nichols DO 12/07/2024 08:59 AM EDT
--- OUTSIDE RECORDS SUMMARY | 2024-12-06 15:04 | XMS_ITS | Data Portability ---
Author Organization [place] [facility] [place] Medicaid MRI Address [address] [place] [address] Care Team Providers Care Day Habilitation Specialist Name Role Phone VIRGIL GRAVES Primary Care Provider VIRGIL GRAVES Referring Provider MIKA ROCHA Spinal Orthopedic Surgeon CAM Ballard Primary Care Provider CAM VICENTE Referring Provider Assessment Encounter Date Assessment Date Assessment LastModified [...] of severe pain and she can continue tlgt-zhs-txaproe pain medications for the mild pain. She [...] tramadol that she takes p.r.n. I did evp general counsel her on opiate medication use and she voiced her understanding. She will continue the home exercise program and see me as needed. If the knee pain persists we could consider referral to the [facility] for that Not available 09/16/2018 17:12:52 01/17/2019 [...] DO Not Attach Compendium, Do Not Delete/merge, [id number] 8 12:16:07 Surgeries None recorded. Imaging None recorded. Medication Orders methylpredn isolone acetate 40 mg/mL suspension for injection 2018 019 [email or web address] Not available 9 14:48:02 tramadol 50 mg tablet [email or web address], [address], [place], [id number], 9 17:54:20 Voltaren 1 % topical gel [address], [address], [place], [id number], 9 17:54:20 tramadol 50 mg tablet [email or web address], [address] [place], [id number], 9 13:30:59 tramadol 50 mg tablet [email or web address], [address] [place], [id number], 8 16:40:41 betamethaso ne acetate and sodium phos 6 mg/mL suspension for injection 2017 018 [email or web address] 5 Not available 8 09:29:44 Omnipaque 300 mg iodine/mL intravenous solution 2017 018 [email or web address] 5 Not available 8 09:29:45 lidocaine (PF) 10 mg/mL (1 %) injection solution 2017 018 [email or web address] 5 Not available 8 09:29:45 acetaminoph en 300 mg-codeine 30 mg tablet [email or web address], [address] , [place], [place], [id number], 8 09:36:21 Patient TargetsNo targets recorded. Patient Instructions Encounter Date Encounter Id Patient Instructions Last Modified By Organization Details Last Modified Time 03/22/2018 [id number] dolor de no: instrucciones de cuidado - [neck pain: care instructions] Not available 03/23/2018 09:36:21 01/19/2019 [id number] Reviewed exam findings. Again reviewed treatment options. [...] Recorded Time Impingement syndrome of shoulder region 349849409 Active 2016 Ferny Martinez MD [address] [place] [address], [address] 9, [facility] 7 14:50:24 Cubital tunnel syndrome Active 2017 Natasha Morris [address] [place] [address], 179[address]715 9, [facility] 8 13:40:44 Carpal tunnel syndrome 86529850 Active Mitch Toussaint M.D. [address] [place] [address], [address] 9, [facility] 6 14:40:56 Low back pain 536269281 Active Mitch Toussaint M.D. [address] [place] [address], 66197[address]318 9, [facility] 14:40:56 Spinal enthesopathy 50339729 Active Mitch Toussaint M.D. [address] [place] [address], 81579-677 9, [facility] 6 14:40:56 Knee pain Active Mitch Toussaint M.D. [address] [place] [address], 21479[address]574 9, [facility] 6 14:40:56 Arthritis of knee 810684190 Active Mitch Toussaint M.D. [address] [place] [address], 87[address]927 9, [facility] 14:40:56 Degeneration of lumbar intervertebral disc [id number] Hina Toussaint M.D. [address] [place] [address], 85[address]-754 9, [facility] 14:51:06 Lumbar spondylosis [id number] Hina Toussaint M.D. [address] [place] [address], 22[address]031 9, [facility] 14:40:56 Neuropathy 050654547 Active Mitch Toussaint M.D. [address] [place] [address], 14704-333 9, [facility] 14:51:06 Lumbar radiculopathy 251211880 Active FREDY Holder [address] [place] [address], 01986-781 9, [facility] 14:02:17 Lumbosacral radiculopathy 4145657 Active Mitch Toussaint M.D. [address] [place] [address], 55808-399 9, [facility] 14:51:06 Problem Notes None recorded. Procedures Surgical History Date Name Laterality Status Provider Name and Address Organization Details Recorded Time 9 Shoulder Subacromial - LEFT - CS Injection completed Cl Christopher MD [address] [place] [address], [address], [facility] 01/19/2019 08:41:52 9 Trigger Point Injection - RIGHT completed Mitch Toussaint M.D. [address] [place] [address], [address], [facility] 09/16/2018 16:54:11 8 Shoulder Subacromial - LEFT - CS Injection completed Mitch Toussaint M.D. [address] [place] [address], [address], [facility] 03/22/2018 13:40:06 8 RC Generic CS Injection completed Ferny Martinez MD [address] [place] [address], [address], [facility] 01/05/2018 13:41:33 8 RC Generic CS Injection completed Natasha Morris [address] [place] [address], [address], [facility] 12/29/2017 13:39:27 8 Nerve Conduction, 9 - 10 studies completed Mitch Toussaint M.D. [address] [place] [address], [address], [facility] 12/24/2017 08:20:56 8 Needle EMG , 5 muscles or more completed Mitch Toussaint M.D. [address] [place] [address], [address], [facility] 12/24/2017 08:20:54 8 Shoulder Subacromial - LEFT - CS Injection completed Cl Christopher MD [address] [place] [address], [address], [facility] 12/16/2017 14:12:49 8 Shoulder Subacromial - LEFT - CS Injection completed Mitch Toussaint M.D. [address] [place] [address], [address], [facility] 09/23/2017 15:17:35 7 Shoulder Subacromial - LEFT - CS Injection completed Mitch Toussaint M.D. [address] [place], [address], [facility] 07/15/2017 18:22:00 7 Knee CS Injection - Right completed Cl Christopher MD [address] [place], [address], [facility] 05/20/2017 15:06:52 7 Shoulder Subacromial - LEFT - CS Injection completed Ferny Martinez MD [address] [place] [address], [address], [facility] 05/05/2017 14:50:15 7 Carpal Tunnel LEFT CS Injection completed Natasha Morris [address] [place], [address], [facility] 02/22/2017 14:51:45 7 Carpal Tunnel RIGHT CS Injection completed Ferny Martinez MD [address] [place] [address], [address], [facility] 02/17/2017 14:12:37 7 Knee CS Injection - Left completed Mitch Toussaint M.D. [address] [place] [address], [address], [facility] 02/02/2017 16:25:10 6 Knee CS Injection - Right completed Cl Christopher MD [address] [place] [address], [address], [facility] 04/23/2016 17:05:49 6 Knee CS Injection - Right completed Marco Antonio Layton [address] [place] [address], [address], [facility] 11/21/2015 15:48:11 6 Knee CS Injection - Right completed Marco Antonio Layton [address] [place] [address], [address], [facility] 09/10/2015 15:35:15 6 Trigger Point Injection - Bilateral - 2 muscles completed Mitch Toussaint M.D. [address] [place] [address], [address], [facility] 09/03/2015 17:05:31 5 Carpal Tunnel LEFT CS Injection completed Ferny Martinez MD [address] [place] [address], [address], [facility] 08/14/2015 10:00:48 5 Carpal Tunnel RIGHT CS Injection completed Ferny Martinez MD [address] [place] [address], [address], [facility] 08/07/2015 15:32:38 5 Nerve Conduction, 9 - 10 studies completed Mitch Toussaint M.D. [address] [place] [address], [address], [facility] 08/02/2015 11:33:49 5 Needle EMG , 5 muscles or more completed Mitch Toussaint M.D. [address] [place] [address], [address], [facility] 08/02/2015 11:33:49 Imaging Results None recorded. [...] Not Available Not Available N ot Available loratadine 10 mg tabs active Not Available Not Available N ot Available atorvastati n calcium 80 mg tabs active Not Available Not Available N ot Available ketoconazol e 2 % crea active Not Available Not Available N ot Available omeprazole 20 mg cpdr active Not Available Not Available N ot Available metformin hcl 850 mg tabs active Not Available Not Available Not Available cetirizine hcl 10 mg tabs 01/19 completed Not Available Not Available Not Available ear drops 6.5 % soln active Not Available Not Available N ot Available losartan potassium 100 mg tabs active Not Available Not Available Not Available ofloxacin 0.3 % soln active Not Available Not Available N ot Available apap/codein e tab 300-30mg active Not Available Not Available Not Available earwax treatment drops 6.5 % soln active Not Available Not Available Not Available fiber-lax 625 mg tabs active Not Available Not Available Not Available all day allergy 10 mg tabs active Not Available Not Available Not Available fish oil cap 1000mg active Not Available Not Available N ot Available metformin hcl 500 mg tabs 01/19 completed Not Available Not Available Not Available losartan/hc t tab 100-12.5 active Not Available Not Available Not Available lidocaine 5 % oint 01/19 completed Not Available Not Available Not Available amoxicillin 500 mg caps 06/17 completed Not Available Not Available Not Available mapap 325 mg tabs active Not Available Not Available Not Available zostavax 82669 unt/0.65ml susr active Not Available Not Available [...] active Not Available Not Available Not Available cyanocobala min 1000 mcg/ml soln active Not Available Not Available Not Available docusate sodium 100 mg caps active Not Available Not Available Not Available aspirin ec low dose 81 mg tbec 01/19 completed Not Available Not Available Not Available polyeth glyc pow 3350 nf active Not Available Not Available Not Available onetouch renzo ultra bl active Not Available Not Available Not Available clotrimazol e anti-fungal 1 % crea [...] completed Not Available Not Available Not Available calcium/d tab 600-400 active Not Available Not Available Not Available prolensa 0.07 % soln active Not Available Not Available Not Available trazodone [...] Updated DateTime 06/03/2018 162.56 cm 25.6 kg/m2 47616.26 g Priti Hamilton [facility] 06/03/2018 14:06:00 Date Recorded Body height Body mass index (BMI) Body weight Provider Name and Address Organization Details Last Updated DateTime 09/16/2018 162.56 cm 25.6 kg/m2 07374.26 g Priti Hamilton [facility] 09/16/2018 16:01:35 Date Recorded Body height Body mass index (BMI) Body weight Provider Name and Address Organization Details Last Updated DateTime 01/17/2019 162.56 cm 25.6 kg/m2 88638.26 g Priti Hamilton [facility] 01/17/2019 13:28:06 Date Recorded Body height Body mass index (BMI) Body weight Pain severity - 0-10 verbal numeric rating [Score] - Reported Provider Name and Address Organization Details Last Updated DateTime 01/19/2019 162.56 cm 25.6 kg/m2 58247.26 g 4 Kiki Aguilar [facility] 01/19/2019 08:24:44 Date Recorded Body height Body mass index (BMI) Body weight Provider Name and Address Organization Details Last Updated DateTime 03/22/2018 162.56 cm 25.6 kg/m2 68020.26 g Mitch Toussaint M.D. [address] [place] [address], [address], [facility] 03/22/2018 13:00:26 Social History Question Answer Notes LastModified by Organizat ion Details LastModified Time Tobacco Smoking Status Never Smoker Alysa burgess, [facility] 07/10/2015 14:25:07 What Is Your [...] Gout N Tremors/Seizures/Dizziness/Epilepsy N Excessive Thirst/Fatigue N Lung Disease N Blood Clots N Fever, Chills, Headaches N Pacemaker N Heart Disease/Problems N Breathing Problems N Heart Attack ([place]) Y Sexually Transmitted Diseases N Bleeding Disorder/Tendencies or Anemia N Stomach Ulcers N Diabetes Y Skin Problems/Rash/Boils Y Depression/Psychiatric Problems N Arthritis Y Tuberculosis N Cancer N Eye Problems Y Stroke N Leg or Foot Ulcers N HIV/AIDS N Chest Pain/Heart Attack/Arrhythmia Y Stomach Problems/Reflux/GERD Y Urinary Pain/Frequency/Retention N Hepatitis N Rheumatoid Arthritis Y Hypertension/High Blood Pressure N Osteoporosis N Kidney Disease N Gynecological HistoryNo gynecological history recorded. Obstetrics History GPAL:G 0 P 0 0 0 0 Past Encounters Encounter ID Performer Location Encounter Start Date Encounter Closed Date Diagnosis/Indication Diagnosis SNOMED-CT Code Diagnosis ICD10 Code Diagnosis Note [id number] Kirsten Camposahan [facility] [address] [address] 07/10/2015 14:14:06 07/10/2015 15:29:47 Carpal tunnel syndrome 82048170 G56.01 G56.02 [id number] Mitch Toussaint M.D. OFFICE[facility] ot a [address] [address] 08/02/2015 10:08:15 08/02/2015 10:49:54 Carpal tunnel syndrome 50510202 G56.00 [id number] Kirsten Camposahan [facility] [place] [address] [address] 08/07/2015 15:05:18 08/07/2015 15:34:59 Carpal tunnel syndrome 79428442 G56.01 G56.02 [id number] [facility] [address] [address] 08/14/2015 09:24:12 08/14/2015 10:11:59 Carpal tunnel syndrome 85695595 G56.02 [id number] Mitch Toussaint M.D. OFFICE[facility]N. [facility] ot a [address] [address] 7 09/03/2015 14:27:01 09/03/2015 16:59:09 Low back pain 567985147 M54.5 Spinal enthesopathy 1031 7009 M46.00 Knee pain 33533286 M25.5 69 [id number] Marco Antonio Layton OFFICE[facility] a [address] [address] 09/10/2015 13:27:06 09/10/2015 15:08:56 Arthritis of knee 772534325 M17.11 [id number] Cl Christopher MD OFF[facility] a [address] [address] 7 10/24/2015 14:38:57 10/24/2015 15:20:30 Arthritis of knee 120984587 M17.11 [id number] Mitch Toussaint M.D. OFF[facility] a [address] [address] 10/29/2015 15:16:53 10/29/2015 15:48:23 Low back pain 025122037 M54.5 Degenerati on of lumbar intervertebral disc 40253728 M51.36 Lumbar spondylosis 34645 0009 M47.816 [id number] SHEILA CADENA D.P.M. [facility] a [address] [address] 7 11/18/2015 14:44:28 11/18/2015 15:18:23 Neuropathy 886810274 G62.9 [id number] Mitch Toussaint M.D. OFF[facility] a [address] [address] 7 11/19/2015 14:22:26 11/19/2015 15:34:09 Lumbar spondylosis 125600371 M47.816 Degenerati on of lumbar intervertebral disc 16153857 M51.36 Neuropathy 019890173 G62 .9 Lumbar radiculopathy 128 813485 M54.16 [id number] Marco Antonio Layton [facility] [address] [address] 11/21/2015 14:21:01 11/21/2015 16:02:09 Arthritis of knee 280528307 M17.11 [id number] [place] [address] 12/02/2015 09:40:58 2015 15:04:38 [id number] Mitch Toussaint M.D. [facility] Service [address] [address] 12/05/2015 14:48:01 12/05/2015 15:31:56 Lumbar spondylosis 554138768 M47.816 Lumbar radiculopathy 128 669716 M54.16 [id number] Mitch Toussaint M.D. [facility] Service [address] [address] 01/02/2016 14:09:55 01/02/2016 15:53:59 Lumbar spondylosis 980226410 M47.816 Lumbosacra l radiculopathy 1140737 M54.16 [id number] [place] [address] 1 01/10/2016 11:24:30 01/28/2016 10:52:43 [id number] Rashida isaac [facility] Service [address] [address] 01/23/2016 13:48:55 01/23/2016 16:24:55 Lumbosacral radiculopathy 4358074 M54.16 Lumbar radiculopathy 128 875268 M54.16 Neuropathy 967770433 G62 .9 Degenerati on of lumbar intervertebral disc 44781004 M51.36 [id number] FREDY Holder [facility] [address] [address] 03/12/2016 13:06:00 03/12/2016 13:59:57 Lumbar radiculopathy 064003992 M54.16 [id number] Marco Antonio Layton OFFICE-N. [facility] a [address] [address] 03/19/2016 13:37:20 03/19/2016 14:27:12 Arthritis of knee 462261537 M17.11 [id number] FREDY Holder OFFICE[facility] a [address] [address] 04/16/2016 13:56:49 04/16/2016 14:49:54 Lumbar radiculopathy 811782888 M54.16 Lumbar spondylosis 42595 0009 M47.896 Degenerati on of lumbar intervertebral disc 68216831 M51.36 [id number] Cl Christopher MD OFF[facility] a [address] [address] 7 04/23/2016 15:00:01 04/23/2016 15:41:54 Arthritis of knee 114127497 M17.11 Tear of me niscus of knee 256722988 S83.231D [id number] Mitch Toussaint M.D. OFF[facility] a [address] [address] 05/28/2016 14:14:03 05/28/2016 15:18:23 Lumbosacral radiculopathy 6211156 M54.16 Lumbar radiculopathy 128 534687 M54.16 Neuropathy 972810832 G62 .9 Degenerati on of lumbar intervertebral disc 05347976 M51.36 [id number] FREDY Holder OFF[facility] a [address] [address] 07/01/2016 13:09:07 07/01/2016 14:02:04 Lumbar radiculopathy 545215381 M54.16 Lumbar spondylosis 63474 0009 M47.896 Lumbosacra l radiculopathy 6479974 M54.16 Degenerati on of lumbar intervertebral disc 74697346 M51.36 [id number] Mitch Toussaint M.D. OFF[facility] a Service [address] [address] 7 07/14/2016 14:46:25 07/14/2016 15:54:25 Lumbosacral radiculopathy 5109420 M54.16 Lumbar radiculopathy 128 215597 M54.16 Neuropathy 269021772 G62 .9 Degenerati on of lumbar intervertebral disc 90764310 M51.36 [id number] Mitch Toussaint M.D. [facility] a [address] [address] 7 08/18/2016 14:11:25 08/18/2016 15:23:44 Lumbar radiculopathy 926105074 M54.16 Lumbar spondylosis 63919 0009 M47.816 [id number] [facility] a Service [address] [address] 02/02/2017 14:36:06 02/02/2017 15:54:06 Lumbar radiculopathy 915701935 M54.16 Knee pain 60050860 M25.5 69 Lumbar spondylosis 62429 0009 M47.816 Degenerati on of lumbar intervertebral disc 32784654 M51.36 Bilateral carpal tunnel syndrome 8296789002 4681543 G56.03 [id number] Ferny Martinez MD OFFICE-N. [facility] a Service [address] [address] 02/17/2017 14:00:03 02/17/2017 14:19:55 Carpal tunnel syndrome 56079587 G56.01 [id number] Natasha Morris OFFICE-N. [facility] ot a Service [address] [address] 02/22/2017 14:26:53 02/22/2017 15:17:55 Carpal tunnel syndrome 64039984 G56.02 [id number] Mitch Toussaint M.D. OFFICE - [address] [address] 03/16/2017 14:06:45 03/16/2017 14:42:22 Lumbar spondylosis 680755462 M47.816 Degenerati on of lumbar intervertebral disc 26584123 M51.36 [id number] Ferny Martinez MD OFFICE - [address] [address] 05/05/2017 14:21:28 05/05/2017 15:31:53 Shoulder joint pain 141696564 M25.519 Impingemen t syndrome of shoulder region 422485972 M75.42 [id number] Mitch Toussaint M.D. [facility] - [address] [address] 05/11/2017 14:53:59 05/11/2017 15:29:00 Lumbar radiculopathy 498139115 M54.16 Knee pain 76299772 M25.5 69 [id number] Cl Christopher MD OFFICE - [address] [address] 1 05/20/2017 14:19:19 05/20/2017 15:11:20 Knee pain 93350338 M25.561 Arthritis of knee 014933 002 M17.11 Tear of me niscus of knee 124349888 S83.231D [id number] Cl Christopher MD OFFICE - [address] [address] 06/17/2017 14:31:56 06/17/2017 15:45:59 Osteoarthritis of knee 502616743 M17.11 Tear of me niscus of knee 197828488 S83.231D [id number] Mitch Toussaint M.D. OFFICE - [address] [address] 1 07/15/2017 12:20:31 07/15/2017 14:04:16 Shoulder pain 58247269 M25.512 [id number] Mitch Toussaint M.D. OFFICE - [address] [address] 1 09/23/2017 14:15:44 09/23/2017 15:06:52 Shoulder pain 19193464 M25.512 Lumbar spondylosis 36763 0009 M47.816 Degenerati on of lumbar intervertebral disc 77450596 M51.36 [id number] Mitch Toussaint M.D. OFFICE - [address] [address] 1 12/07/2017 12:44:03 12/07/2017 13:29:22 Lumbar radiculopathy 593933755 M54.16 Bilateral carpal tunnel syndrome 2010414844 1130420 G56.03 Pain of le ft shoulder joint 2527713020 5548238 M25.512 [id number] Cl Christopher MD [facility] - [address] [address] 1 12/16/2017 12:48:48 12/16/2017 14:18:38 Inflammation of rotator cuff tendon 307050967 M65.812 Shoulder joint pain 2679 92950 M25.519 Neck pain 02060994 M54.2 [id number] Mitch Toussaint M.D. [facility] - [address] [address] 12/20/2017 12:51:48 12/20/2017 13:30:52 Bilateral carpal tunnel syndrome 6687187587 2889501 G56.03 Cubital tu nnel syndrome 13573229 G56.21 [id number] Natasha Morris [facility] - [address] [address] 12/29/2017 12:54:27 12/29/2017 13:45:37 Cubital tunnel syndrome 11715712 G56.21 Carpal tye arely syndrome 63629164 G56.02 G56.01 [id number] Ferny Martinez MD OFFICE - [address] [address] 01/05/2018 13:29:56 01/05/2018 14:34:55 Cubital tunnel syndrome 24063657 G56.22 [id number] Cl Christopher MD [facility] - [address] [address] 01/27/2018 13:43:10 01/27/2018 14:44:44 Inflammation of rotator cuff tendon 210619050 M65.812 [id number] Mitch Toussaint M.D. [facility] - [address] [address] 1 03/22/2018 12:30:42 03/22/2018 13:38:02 Neck pain 51141021 M54.2 Pain of le ft shoulder joint 3807193531 5756588 M25.512 [id number] Mitch Toussaint M.D. OFFICE - [place] [address] [place] [address] 1 06/03/2018 13:52:33 06/03/2018 16:01:30 Lumbar radiculopathy 777617314 M54.16 Low back pain 161242718 M54.5 Lumbar spondylosis 92718 0009 M47.896 Degenerati on of lumbar intervertebral disc 95454569 M51.36 [id number] Mitch Toussaint M.D. OFFICE - [place] [address] [place] [address] 1 09/16/2018 15:26:42 09/16/2018 16:22:54 Lumbar radiculopathy 456664334 M54.16 Myofascial pain 10450906 9 M79.10 [id number] Mitch Toussaint M.D. OFFICE - [place] [address] [place] [address] 1 01/17/2019 13:14:55 01/17/2019 14:02:00 Lumbar radiculopathy 367088407 M54.16 Shoulder joint pain 2679 15467 M25.519 [id number] Cl Christopher MD OFFICE - [place] [address] [place] [address] 1 01/19/2019 08:10:40 01/19/2019 09:05:24 Inflammation of rotator cuff tendon 703851332 M65.812 Health Concerns Section Related Observation LastModified by Organization Detai ls LastModified Time None Recorded Concern Status LastModified by Organization Details LastModified Time None Recorded Advance Directives Directive None Recorded Payers Encounter Date Sequence Insurance Name Policy Number Policy Jain Covered Member ID Jain Member ID Guarantor Name 03/22/2018 1 [facility] (MEDICARE - MEDICAID REPLACEMENT) [facility] [place] Ariana Muñoz Leisa [id number] Ariana Muñoz Leisa 06/03/2018 1 [facility] [facility] (MEDICARE - MEDICAID REPLACEMENT) [facility] [place] Ariana E Leisa [id number] Ariana Muñoz Leisa 09/16/2018 1 [facility] [employer] (MEDICARE - MEDICAID REPLACEMENT) [id number] Leisa [id number] Ariana E Leisa 01/17/2019 1 [facility] [employer] (MEDICARE - MEDICAID REPLACEMENT) [address] Leisa [id number] Ariana E Leisa 01/19/2019 1 [facility] - [facility] OPTIONS (MEDICARE - MEDICAID REPLACEMENT) [id number] Ariana E Leisa [id number] Ariana E Leisa Notes Date Note Type Note Provider [...] from 8-3 out of 10 with medications. ELECTION ASSISTANT is reviewed and no aberrant activity noted Mitch Toussaint M.D. [address] [place] [address], [phone], [facility] 03/22/2018 13:41:14 06/03/2018 text/html Ariana is [...] or home exercise program. Mitch Toussaint M.D. [address] [place] [address], [phone], [facility] 06/06/2018 11:15:45 09/16/2018 text/html Ariana is [...] 6 out of 10 Mitch Toussaint M.D. [address] [place] [address], [phone], [facility] 09/16/2018 17:13:11 01/17/2019 text/html Ariana is [...] pain or radicular pain Mitch Toussaint M.D. [address] [place] [address], [phone], [facility] 01/17/2019 16:40:19 01/19/2019 text/html Ariana returns [...] at the left shoulder. Cl Christopher MD [address] [place] [address], [phone], [place] - [facility] 01/19/2019 08:43:11 OBGyn Episode No OBEpisode recorded.
--- OUTSIDE RECORDS SUMMARY | 2024-12-06 15:04 | XMS_ITS | Encounter Summary ---
Author Organization [employer] Address [address] [facility] [address] [place] [address] Care Team Providers Care Coffee Roaster Helper Name Role Phone Valentina Alarcon ISAIAS Primary Care Provider [phone] Encounter Details Date Type Department Care Team (Latest Contact Info) Description 2024 Travel Social History Tobacco Use Types Packs/Day Years Used Date Smoking Tobacco: Former Cigarettes Passive Smoke Exposure: Past Smokeless Tobacco: Never Comments:Quit in 1988 Smoked 30 years from age 7 Alcohol Use Standard Drinks/Week Comments Not Currently 0 (1 standard drink = 0.6 oz pur e alcohol) special occasion Depression Answer Date Recorded Patient Health Questionnaire-9 Score 9 2024 Patient Health Questionnaire-9 Score 9 2024 Last PHQ-9: Questionnaire Data Not on file 0 2024 Housing Stability Answer Date Recorded What is your housing situation today? I have marv joyce 11/27/[address] you li ve. Do you have problems with any of the following? None of the above 11/27/2024 Food Insecurity Answer Date Recorded Within the past 12 months, y ou worried that your food would run out before you got money to buy more: Sometimes True 2024 Within the past 12 months,th e food you bought just didn't last and you didn't have enough money to get more: Sometimes True 2024 Transportation Answer Date Recorded In the past 12 months, has l ack of transportation kept you from medical appts, meetings, work or from getting things needed for daily living? No 11/27/2024 Utilities Answer Date Recorded In the past 12 months, has t he electric, gas, oil or water company threatened to shut off services in your home? No 11/27/2024 Depression Answer Date Recorded Patient Health Questionnaire-2 Score 3 2024 Internet Access Answer Date Recorded Internet Access [...] as of this encounter Plan of Treatment Not on file documented as of this encounter Visit Diagnoses Not on filedocumented in this encounter Additional Health Concerns Assessment Noted Time PHQ-9 Depression Total Score: 9 12/05/19 25 3:40 PM EDT documented as of this encounter Care Teams Coffee Roaster Helper Relationship Specialty Start Date End Date Valentina Alarcon NP [address] [place] [address] PCP - General Family Medicine 06/27/24 documented as of this encounter
--- OUTSIDE RECORDS SUMMARY | 2024-12-06 15:04 | XMS_ITS | Encounter Summary ---
Author Organization [facility] [facility] Address [address] [place] [address] [address] [place] [address] Care Team Providers Care Bilingual Student Tutor Name Role Phone Eliane Noyola RECREATION ATTENDANT Primary Care Provider [phone] Anayeli Escamilla MD Primary Care Provide r Valentina Alarcon NP Primary Care Provider [phone] Reason for Visit * Reason Onset Date Comments New Patient 06/18/2023 Encounter Details Date Type Department Care Team (Late st Contact Info) Description 06/18/2023 Telephone [facility] [address] [place], [place] [phone] Rayray Vallecillo MD [address] [place], [place] [phone] New Patient Social History Tobacco Use Types [...] 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 EFFECTIVE SINCE 06/18/2023 documented in this encounter Plan of Treatment Not on file documented as of this encounter Visit Diagnoses Not on filedocumented in this encounter Care Teams Bilingual Student Tutor Relationship Specialty Start Date End Date Eliane Noyola FNP [address] [place] [address] PCP - General Family Medicine 09/08/23 05/01/24 Anayeli Escamilla MD [address] [place] [address] PCP - General Internal Medicine 05/02/24 05/24/24 Valentina Alarcon NP [address] [place] [address] PCP - General Family Medicine 06/27/24 documented as of this encounter
--- OUTSIDE RECORDS SUMMARY | 2024-12-06 15:04 | XMS_ITS | Encounter Summary ---
Author Organization [facility] [facility] Address [address] [facility] [address] [place] [address] Care Team Providers Care Assistance Specialist Name Role Phone Valentina Alarcon NP Primary Care Provider Reason for Referral * Consultation (Routine) - Closed Specialty Diagnoses / Procedures Referred By Jim cardoza Referred To Contact Psychiatry / Behavioral Health Diagnoses Major depressive disorder with single episode, in full remission ([facility]) Valentina Alarcon NP [address] [place] [address] Phone: tel: fax: Referral ID Status Reason Start Date Expiration Date V isits Requested Visits Authorized [id number] Closed Specialty Services Required 2024 2025 1 1 * Consultation (Routine) - Pending Review Specialty Diagnoses / Procedures Referred By Jim cardoza Referred To Contact Orthopaedic Surgery Diagnoses Chronic right shoulder pain Valentina Alarcon NP [address] [place] [address] Phone: tel: fax: Referral ID Status Reason Start Date Expiration Date Visits Requested Visits Authorized [id number] Pending Review Specialty Services Required 2024 2025 1 1 Encounter Details Date Type Department Care Team (Late st Contact Info) Description 2024 3:15 PM EDT Office Visit [facility] MED[facility]INE [address] [place], [place] [phone] Valentina Alarcon NP [address] [place] [address] Type 2 diabetes mellitus with hyperglycemia, unspecified whether senior living insulin use ([facility]) (Primary Dx); Chronic right shoulder pain; Major depressive disorder with single episode, in full remission ([facility]); Dietary counseling; Exercise counseling; Psychophysiological insomnia Social History Tobacco Use Types Packs/Day Years Used Date Smoking Tobacco: Former Cigarettes Passive Smoke Exposure: Past Smokeless Tobacco: Never Tobacco Cessation:Counseling Given: Not [...] PM EST documented as of this encounter Last Filed Vital Signs Vital Sign Reading Time Taken Comments Blood Pressure 152/84 2024 3:23 PM EDT Pulse 78 2024 3:23 PM EDT Temperature 36.3 ??C (97.3 ??F) 2024 3:23 PM ED T Respiratory Rate 20 2024 3:23 PM EDT Oxygen Saturation - - Inhaled Oxygen Concentration - - Weight 66.8 kg (147 lb 4 oz) 2024 3:23 PM EDT Height 161.7 cm (5' 3.68 ) 2024 3:23 PM ED T Body Mass Index 25.53 2024 3:23 PM EDT documented in this encounter Miscellaneous Notes * Assessment & Plan Note - Valentina Alarcon NP - 2024 4:06 PM EDTAssociated Problem(s): Major depressive disorder with single episode, in full remission ([facility]) In care with psychiatrybut has trouble understanding due to language barrier, has therapist as well Interested in niuean speaking provider documented in this encounter Plan of Treatment Scheduled Referrals Name Type Priority Associated Diagnoses Order Schedule Referral to Orthopaedic Surgery Outpatient Referral Routine Chronic right shoulder pain Expected: 2024 (Approximate), Expires: 2025 Referral to Behavioral Health Psychiatry Outpatient Referral Routine Major depressive disorder with single episode, in full remission ([facility]) Expected: 2024 (Approximate), Expires: 2025 documented as of this encounter Procedures Procedure Name Priority Date/Time Associated Diagnosis Comments POCT GLUCOSE Routine 2024 3:25 PM EDT Type 2 diabetes mellitus with hyperglycemia, unspecified whether termination clerk insulin use ([facility]) documented in this encounter Results * POCT Glucose (2024 3:25 PM EDT) Glucose Blood, POC 159 60 - 200 mg/dL QC Media Lot # [id number] Lot# Expiration Date 169,792 Blood Capillary blood specimen / Unknown 2024 3:25 PM EDT Result [facility] Valentina Alarcon NP POINT OF CARE TEST ENTER/EDIT OR DERABLES Final Result documented in this encounter Visit Diagnoses Diagnosis Type 2 diabetes mellitus with hyperglycemia, unspecified whether senior living insulin use ([facility])- Primary Chronic right shoulder pain Pain in joint, shoulder region Major depressive disorder with single episode, in full remission ([facility]) Dietary counseling Dietary surveillance and counseling Exercise counseling Psychophysiological insomnia Persistent disorder of initiating or maintaining sleep documented in this encounter Additional Health Concerns Assessment Noted Time PHQ-9 Depression Total Score: 9 12/05/19 25 3:40 PM EDT documented as of this encounter Care Teams Assistance Specialist Relationship Specialty Start Date End Date Valentina Alarcon NP [address] [place] [address] PCP - General Family Medicine 06/27/24 documented as of this encounter
--- OUTSIDE RECORDS SUMMARY | 2024-12-06 15:04 | XMS_ITS | Encounter Summary ---
Author Organization [employer] Address [address] [facility] 7t [place] [address] Care Team Providers Care Government Affairs Researcher Name Role Phone Eliane Noyola Primary Care Provider [phone] Anayeli Escamilla MD Primary Care Provide r Valentina Alarcon NP Primary Care Provider [phone] Reason for Visit * Reason Comments Med Refill Encounter Details Date Type Department Care Team (Late st Contact Info) Description 01/13/2024 Refill [facility] [address] [place], [place] [phone] Eliane Noyola FNP [address] [place] [address] Social History Tobacco Use Types Packs/Day Years [...] documented as of this encounter Care Teams Government Affairs Researcher Relationship Specialty Start Date End Date Eliane Noyola FNP [address] [place] [address] PCP - General Family Medicine 09/08/23 05/01/24 Anayeli Escamilla MD [address] [place] [address] PCP - General Internal Medicine 05/02/24 05/24/24 Valentina Alarcon NP [address] [place] [address] PCP - General Family Medicine 06/27/24 documented as of this encounter
--- OUTSIDE RECORDS SUMMARY | 2024-12-06 15:04 | XMS_ITS | Encounter Summary ---
Author Organization [employer] Address [address] [facility] [address] [place] [address] Care Team Providers Care Social Service Agency Director Name Role Phone Valentina Alarcon NP Primary Care Provider [phone] Reason for Visit * Reason Comments Med Refill Encounter Details Date Type Department Care Team ([facility] st Contact Info) Description 12/01/2024 Refill [facility] [address] [place], [place] [phone] Valentina Alarcon NP [address] [place], [place] [phone] Social History Tobacco Use Types Packs/Day Years [...] got money to buy more: Never True 11/27/2024 Within the past 12 months,th e food you bought just didn't last and you didn't have enough money to get more: Never True Transportation Answer Date Recorded In the past [...] documented as of this encounter Care Teams Social Service Agency Director Relationship Specialty Start Date End Date Valentina Alarcon NP [address] [place] [address] PCP - General Family Medicine 06/27/24 documented as of this encounter
--- OUTSIDE RECORDS SUMMARY | 2024-12-06 15:04 | XMS_ITS | Encounter Summary ---
Author Organization [employer] Address [address] [facility] [address] [place] [address] Care Team Providers Care Briquette Molder Name Role Phone Valentina Alarcon ISAIAS Primary Care Provider [phone] Reason for Visit * Reason Comments Med Refill Encounter Details Date Type Department Care Team (Late st Contact Info) Description 12/01/2024 Refill [facility] [address] [place], [place] [phone] Eliane Noyola FNP [address] [place] [address] Social History Tobacco Use Types Packs/Day Years [...] documented as of this encounter Care Teams Briquette Molder Relationship Specialty Start Date End Date Valentina Alarcon NP [address] [place] [address] PCP - General Family Medicine 06/27/24 documented as of this encounter
--- OUTSIDE RECORDS SUMMARY | 2024-12-06 15:04 | XMS_ITS | Clinical Summary ---
Author Organization [employer] Address [address] [facility] [address] [place] [address] Care Team Providers Care Rivet Tester Name Role Phone Valentina Alarcon ISAIAS Primary Care Provider [phone] Allergies Active Allergy Reactions Criticality Noted Date Comments Aspirin Nausea 09/08/2023 Wild Lettuce Extract (Lactuca Virosa) Other 09/08/2023 Allergy testing reports she is allergic to lettuce Medications * This document contains information received from the source organization and may not represent a complete record from that organization. acetaminophen (Tylenol) 325 MG tablet Active Diclofenac Sodium 1 % gel Apply 2 g topically 4 times daily. Active losartan (Cozaar) 100 MG tablet Take 100 mg by mouth in the morning. Active polyvinyl alcohol (Liquifilm Tears) 1.4 % ophthalmic solution INSTILL 1 DROP TWICE DAILY IN BOTH EYES FOR 1MONTH. 023 Active FREESTYLE LITE test strip 1 each by Other route 2 times daily. Use to test blood sugar once daily 180 each 3 024 2024 Active senna (Senokot) 8.6 MG tabletIndicatio ns:Constipation , unspecified constipation type Take 1 tablet (8.6 mg) by mouth at bedtime. 120 tablet 2 Active sertraline (Zoloft) 100 MG tablet Take 100 mg by mouth Once per day. Active Blood Pressure kit 1 each Once per day. 1 kit Active Calcium Carb-Cholecalci ferol 600-10 MG-MCG tablet Take 1 tablet by mouth 2 times daily. 30 tablet 5 024 Active metFORMIN (Glucophage) 850 MG tablet Take 1 tablet (850 mg) by mouth 2 times daily. With food 60 tablet 5 025 Active FreeStyle lancetsIndicati ons:Type 2 diabetes mellitus with hyperglycemia, unspecified whether senior living insulin use ([facility]) USE TWO TIMES A DAY (BULK) 100 each 11 025 Active fluticasone (Flonase) 50 MCG/ACT nasal sprayIndication s:Seasonal allergic rhinitis due to pollen Administer 1 spray into each nostril Once per day. 16 g 3 025 Active gabapentin (Neurontin) 600 MG tabletIndicatio ns:Fibromyalgia Take 1 tablet (600 mg) by mouth 3 times daily. 90 tablet 025 Active rosuvastatin (Crestor) 10 MG tabletIndicatio ns:Hyperlipidem ia due to type 2 diabetes mellitus ([facility]) ([facility]) Take 1 tablet (10 mg) by mouth Once per day. 30 tablet 3 025 Active fluticasone (Cutivate) 0.05 % cream APPLY TO AFFECTED AREA(S) TWO TIMES A DAY (BULK) 45 g 025 Active omeprazole (PriLOSEC) [address] capsule TAKE ONE CAPSULE BY MOUTH EVERY DAY ^1R1 28 capsule 3 025 Active melatonin 5 MG tablet TAKE ONE TABLET BY MOUTH AT BEDTIME NEEDED FOR INSOMNIA ^1R4 30 tablet 025 Active polyethylene glycol, PEG, 3350 (Glycolax) 17 GM/SCOOP powder MIX 17 GRAM(S) IN 8 OZ OF WATER AND DRINK BY MOUTH ONCE A DAY NEEDED FOR CONSTIPATION (BULK) 238 g 1 025 Active montelukast (Singulair) 10 MG tablet TAKE ONE TABLET BY MOUTH EVERY DAY ^1R4 28 tablet 025 Active loratadine (Claritin) 10 MG tablet Take 1 tablet (10 mg) by mouth Once per day. 30 tablet 11 025 2025 Active clonazePAM (KlonoPIN) 1 MG tabletIndicatio ns:Psychophysio logical insomnia Take 1 tablet (1 mg) by mouth at bedtime. 30 tablet 025 2024 Active melatonin 5 MG tablet Take 5 mg by mouth at bedtime. 023 2024 Discontinued montelukast (Singulair) 10 MG tablet Take 10 mg by mouth in the morning. 023 2024 Discontinued omeprazole (PriLOSEC) [address] capsule Take 20 mg by mouth before breakfast. 023 2024 Discontinued loratadine (Claritin) 10 MG tablet Take 1 tablet (10 mg) by mouth Once per day. 30 tablet 11 024 2024 Discontinued(R eorder (will not trigger notification to Pharmacy)) clonazePAM (KlonoPIN) 0.5 MG tablet Take 0.5 mg by mouth Once per day. 024 2024 Discontinued fluticasone (Cutivate) 0.05 % cream Apply topically 2 times daily. 40 g 025 2024 Discontinued montelukast (Singulair) 10 MG tablet TAKE ONE TABLET BY MOUTH EVERY DAY ^1R4 28 tablet 1 025 2024 Discontinued polyethylene glycol, PEG, 3350 (Glycolax) 17 GM/SCOOP powder MIX 17 GRAM(S) IN 8 OZ OF WATER AND DRINK BY MOUTH ONCE A DAY NEEDED FOR CONSTIPATION (BULK) 238 g 1 025 2024 Discontinued Active Problems Problem Noted Date Diagnosed Date Major depressive disorder wi th single episode, in full remission 2024 Assessment & Plan (2024 4:06 PM EDT): In care with psychiatrybut has trouble understanding due to language barrier, has therapist as well Interested in kazakh speaking provider Dietary counseling 2024 Exercise counseling 2024 Environmental allergies 11/24/2024 Hypertrophy of posterior end of inferior turbina te 11/24/2024 Otitis externa 11/24/2024 Vasomotor rhinitis 11/24/2024 Other screening mammogram 09/06/2024 Healthcare maintenance 09/04/2024 [...] Plan (09/04/2024 5:25 PM EST): Referral to ortho Walker ordered Shower chair ordered Eczema of both external ears 09/04/2024 Post-menopausal 09/04/2024 Chronic back pain 09/04/2024 Encounter for screening mamm ogram for malignant neoplasm of breast 09/03/2024 Diabetes mellitus 10/25/2023 Assessment & Plan (09/04/2024 5:25 PM EST): At goal, will not increase meds at this time Labs ordered Carpal tunnel syndrome 10/25/2023 Overview (10/25/2023): more on left. per records from [address] [place] [address] Allergic rhinitis 10/25/2023 Fibromyalgia 10/25/2023 Overview (10/25/2023): per records from [address] [place] [address] Hypertension 10/25/2023 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 2 diabetes mellitus ( [facility]) 10/25/2023 Varicose vein of leg 10/25/2023 Urticaria 10/25/2023 Tinnitus 10/25/2023 Overview (10/25/2023): per records from [address] [place] [address] Microscopic hematuria 10/25/2023 Overview (10/25/2023): per records from [address] [place] [address] Chronic right shoulder pain 10/25/2023 Constipation 11/17/2018 Gastroesophageal reflux disease without esophagi tis 11/17/2018 Encounters * This document contains information received from the source organization and may not represent a complete record from that organization. Date Type Department Care Team Description 2024 3:15 PM EDT Office Visit [facility] [address] [place] [address] Valentina Alarcon NP Type 2 diabetes mellitus with hyperglycemia, unspecified whether supervisor intermediates insulin use ([facility]) (Primary Dx); Chronic right shoulder pain; Major depressive disorder with single episode, in full remission ([facility]); Dietary counseling; Exercise counseling; Psychophysiological insomnia 2024 Travel 12/01/2024 Refill [facility] [address] [place] [address] Eliane Noyola FNP 12/01/2024 Refill [facility] [address] [place] [address] Valentina Alarcon NP 11/27/2024 Patient Outreach [facility] [address] [place] [address] Valentina Alarcon NP Pre-visit Planning (SDOH negative, Tobacco screening negative.) 11/24/2024 Telephone [facility] [address] [place] [phone] Hilaria Stiles [place] Chart Prep 11/06/2024 Refill [facility] [address] [place] [address] Valentina Alarcon NP 11/03/2024 Refill [facility] [address] [place] [address] Valentina Alarcon NP 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 2 diabetes mellitus ([facility]) ([facility]) (Primary Dx); Seasonal allergic rhinitis due to pollen; Fibromyalgia 10/17/2024 Refill [facility] [address] [place] [phone] Valentina Alarcon NP 10/13/2024 Telephone [facility] [address] [place] [phone] Valentina Alarcon NP Results 10/11/2024 Orders Only [facility] [address] [place] [phone] Valentina Alarcon NP 10/05/2024 Telephone [facility] [address] [place] [phone] Minor Dawkins [place] Ashleigh recall 09/07/2024 Refill [facility] [address] [place] [address] Eliane Noyola FNP Type 2 diabetes mellitus with hyperglycemia, unspecified whether supervisor intermediates insulin use ([facility]) from Last 3 Months Immunizations Name Administration Dates Next Due Hep A / Hep B 10/08/2021 Hep B, Unspecified 05/06/2017 Hep B, adult 09/13/2017,06/28/2017 Influenza High-dose Quadriva lent Preservative Free 06/03/2023,06/08/2022,06/17/2021,06/03 Influenza, High Dose Seasona l, Preservative Free 05/31/2024,08/04/2018,05/10/2017 Influenza, IIV3, injectable 06/08/2022,1 ,06/03/2020,05/11,08/04/2018,05/10/2017,05/13/2016 ,06/17/2015,06/14/2014,06/13/2013 Influenza, Unspecified 09/22/2012,2010,05/29/2010,07/18,06/13/2009,07/16/2008,07/06/2007 ,10/01/2004,09/13/2003 Influenza, trivalent, adjuvanted 05/11/2019 IntroFly Covid-19 Vaccine 12+ 06/03/2023 Pneumococcal Conjugate PCV 13 06/28/2019, 016 Pneumococcal Polysaccharide PPSV23 12/13/2017, RSV Adjuvant 05/31/2024 Td (adult), unspecified 04/25/2004 Tdap 05/27/2024, 3,10/05/2021,06/28,09/04/2011 Zoster, Recombinant 01/15/2023,12/20/2021 Zoster, live 06/15/2016 Social [...] 20 2024 3:23 PM EDT Oxygen Saturation 98% 09/04/2024 9:32 AM EST Inhaled Oxygen Concentration - - Weight 66.8 kg (147 lb 4 oz) 2024 3:23 PM EDT Height 161.7 cm (5' 3.68 ) 2024 3:23 PM ED T Body Mass Index 25.53 2024 3:23 PM EDT Plan of Treatment Health Maintenance Due Date Last Done Comments CT Colonography 1950 Colonoscopy 1950 Colorectal Cancer Screening 1950 FIT DNA/Cologuard 1950 FIT 1950 FOBT 1950 Sigmoidoscopy 1950 Diabetes: Foot Exam 1960 Eye Exam 1960 Hepatitis C Screening 1968 Diabetes: Urine Protein Screening 1969 COVID-19 Vaccine ( season) 2024 06/03/2023, 12/20/2021, 07/28/2021, Additional history exists Lipid Panel 09/08/2024 09/08/2023 Diabetes: Hemoglobin A1C 12/28/2024 024, 12/29/2023, 09/08/2023 Depression Monitoring (PHQ-9) 06/05/2025 2024, 2024 Alcohol/Substance Use Screening 09/04/2025 09/04/2024 Depression Screening 2025 2024, 12/05/19 25 SDOH Screening 2025 2024 Tobacco Screening 2025 2024 Mammogram 10/11/2026 10/11/2024, 12/31/2022 DTaP/Tdap/Td Vaccines (6 - Td or Tdap) [...] 2 diabetes mellitus with hyperglycemia, unspecified whether supervisor intermediates insulin use ([facility]) BI MAMMOGRAM SCREENING TOMOSYNTHESIS BILATERAL Routine 10/11/2024 3:00 PM EST Healthcare maintenance BD DEXA AXIAL Routine 10/11/2024 2:50 PM EST POCT GLYCATED HEMOGLOBIN, TOTAL Routine 06/30/2024 2:25 PM EDT 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 2 diabetes mellitus ([facility]) ([facility]) LIPID PANEL, STANDARD Routine 09/08/2023 4:25 PM EST Type 2 diabetes mellitus with hyperosmolarity without coma, without long-term current use of insulin ([facility]) Primary hypertension from Last 3 Months or Most Recently Relevant to Health Maintenance Results * POCT Glucose (2024 3:25 PM EDT) Glucose Blood, POC 159 60 - 200 mg/dL QC Media Lot # [id number] Lot# Expiration Date Blood Capillary blood specimen / Unknown 2024 3:25 PM EDT Valentina Alarcon NP POINT OF CARE TEST ENTER/EDIT OR DERABLES Final Result * BI Mammogram Screening Tomosynthesis Bilateral (10/11/2024 3:00 PM EST) Anatomical Region Laterality Modality Breast Bilateral Mammography 10/11/2024 3:00 PM EST Narrative 10/26/2024 9:04 AM EST ? [facility] ? [address] ?[place], [place] [address] ? Mammography Report ? Signed ? Patient: Leisa,Ariana ?MR#: [id number] ? : 1950 ?Acct:[id number] ? Age/Sex: 73 / F ?ADM Date: 10/11/24 ? Loc: HO.MAMMO ? Attending Dr: Valentina Alarcon [employer] ? Ordering Physician: Agnes,Valentina B [employer] ?Results: 0Incomp ?? lete: Needs Additional Imaging Evaluation ? Date of Service: 10/11/24 ?Follow Up: Additional Imagi ?? ng ? Procedure(s): MM tomosynthesis screening BI ?? Accession Number(s): [id number] ? cc: AgnesValentina David [employer] ? EXAMINATION: ?? MM SCREENING DIGITAL BREAST TOMOSYNTHESIS, BILATERAL ? CLINICAL INFORMATION: ? Screening. Asymptomatic. ? COMPARISON: ?? Mammography: No prior imaging is available for comparison at this time. ? TECHNIQUE: ?? Digital breast mammography with tomosynthesis is performed in both the ?? craniocaudal and mediolateral oblique views along with computer-aided ?? detection (CAD). ? FINDINGS: ?? There are scattered areas of fibroglandular density (ACR BI-RADS breast ?? composition Category b). ?? Left: ?? Focal asymmetry retroareolar region anterior depth. ?? No suspicious calcifications or other abnormal findings. ? Right: ?? There is a spiculated mass in the right axilla in additional to other ?? masses in the lower axilla and mid. ?? Focal asymmetry retroareolar region anterior depth. ?? No suspicious calcifications or other abnormal findings. ? MM/MM tomosynthesis screening BI ?? IMPRESSION: ?? Additional imaging is recommended ? ASSESSMENT: ? BI-RADS BI-RADS 0 - Incomplete: Needs additional Imaging. ? RECOMMENDATION: ?? 1. Additional views of the bilateral breasts. ?? 2. Targeted ultrasound if warranted after review of the additional ?? views. ?? 3. Radiology department staff will contact the patient for additional ?? imaging. ? Additional Imaging required ? This examination should not preclude the clinical evaluation of a ?? suspicious palpable abnormality. ? This patient's information was entered into a reminder system with a ?? target due date for their next mammogram. ? Electronically signed by: ??Beverly Nichols DO ??10/26/2024 09:02 AM EST ?? RP ? Dictated By: ?Beverly Nichols DO ? Signed By: ?<Electronically signed by Beverly Nichols DO in OV> ? 10/26/24 0902 ? DD/ 1500 ? TD/TT: 10/11/24 1510 ? Chemistry Quality Control Technician: ? Procedure Note Lisa, Image - 10/26/2024 [facility] [address] [place] [address] Dr. [place]ón, [place] [address] Mammography Report Signed Patient: Ramya De La Fuente#: [id number] : 1Acct:[id number] Age/Sex: 73 / FADM Date: 10/11/24 Loc: HO.MAMMO Attending Dr: Valentina Alarcon [employer] Ordering Physician: Graef,Valentina B NPResults: 0Incomp lete: Needs Additional Imaging Evaluation Date of Service: 10/11/24Follow Up: Additional Imagi ng Procedure(s): MM tomosynthesis screening BI Accession Number(s): [id number] cc: Valentina Alarcon [employer] EXAMINATION: MM SCREENING DIGITAL BREAST TOMOSYNTHESIS, BILATERAL CLINICAL INFORMATION: Screening. Asymptomatic. COMPARISON: Mammography: No prior imaging is available for comparison at this time. TECHNIQUE: Digital breast mammography with tomosynthesis is performed in both the craniocaudal and mediolateral oblique views along with computer-aided detection (CAD). FINDINGS: There are scattered areas of fibroglandular density (ACR BI-RADS breast composition Category b). Left: Focal asymmetry retroareolar region anterior depth. No suspicious calcifications or other abnormal findings. Right: There is a spiculated mass in the right axilla in additional to other masses in the lower axilla and mid. Focal asymmetry retroareolar region anterior depth. No suspicious calcifications or other abnormal findings. MM/MM tomosynthesis screening BI IMPRESSION: Additional imaging is recommended ASSESSMENT: BI-RADS BI-RADS 0 - Incomplete: Needs additional Imaging. RECOMMENDATION: 1. Additional views of the bilateral breasts. 2. Targeted ultrasound if warranted after review of the additional views. 3. Radiology department staff will contact the patient for additional imaging. Additional Imaging required This examination should not preclude the clinical evaluation of a suspicious palpable abnormality. This patient's information was entered into a reminder system with a target due date for their next mammogram. Electronically signed by: Beverly Nichols DO 10/26/2024 09:02 AM EST Dictated By: Beverly Nichols DO Signed By: <Electronically signed by Beverly Nichols DO in OV> 10/26/24 0902 DD/ 1500 TD/TT: 10/11/24 1510 Chemistry Quality Control Technician: Valentina Alarcon [employer] IMG BI PROCEDURES Final Result * BD DEXA Axial (10/11/2024 2:50 PM EST) Anatomical Region Laterality Modality Body Radiographic Kadi ging 10/11/2024 2:50 PM EST Narrative 10/11/2024 4:03 PM EST ? [facility] ? [address] ?[place] [address] ? Mammography Report ? Signed ? Patient: Leisa,Ariana ?MR#: [id number] ? : 1950 ?Acct:[id number] ? Age/Sex: 73 / F ?ADM Date: 10/11/24 ? Loc: HO.MAMMO ? Attending Dr: Valentina Alarcon [employer] ? Ordering Physician: Valentina Alarcon [employer] ?Results: ? Date of Service: 10/11/24 ?Follow Up: ? Procedure(s): XR DEXA axial skeleton ?? Accession Number(s): [id number] ? cc: Valentina Alarcon [employer] ? EXAMINATION: ??DXA BONE DENSITY AXIAL ? HISTORY: ??Estrogen deficiency ? TECHNIQUE: [employer] Dual energy absorptiometry (DEXA) ?? of the lumbar spine, total left hip, and femoral neck was performed. ? COMPARISON: ??There are no prior studies for comparison. ? FINDINGS: ? The bone mineral density of the lumbar spine is 0.998 with a T-score of ?? -1.5, and a Z-score of 0.3. ? The bone mineral density of the left total hip is 0.955 with a T-score ?? of -0.4, and a Z-score of 1.3. ? The bone mineral density of the left femoral neck is 0.900 with a ?? T-score of -1.0, and a Z-score of 0.9. ? FRACTURE RISK: ?? The FRAX index suggests a risk of major osteoporotic fracture of 10.6%, ?? and of hip fracture 3.8%. ? MM/XR DEXA axial skeleton ?? IMPRESSION: ?? Based on bone mineral density, and according to World Health ?? Organization (WHO) criteria, the diagnosis is consistent with ?? osteopenia. ? All bone density values are in grams per centimeter squared (g/cm2). ?? Statistically, 68% of repeat scans fall within 1 SD (+/- 0.010 g/cm2 ?? for AP spine L1-L4) and 1 SD (+/- 0.012 g/cm2 for femur total) ?? FRAX is a trademark of the [employer]'s ?? [place] [facility] Disease, a World Health Organization (WHO) ?? Collaborating Center. ? Electronically signed by: ??Valerio Funk MD ??10/11/2024 04:00 PM EST ?? RP ? Dictated By: ?Valerio Funk MD ? Signed By: ?<Electronically signed by Valerio Funk MD in OV> ?10/11/24 1600 ? DD/ 1450 ? TD/TT: 10/11/24 1515 ? Chemistry Quality Control Technician: ? Procedure Note Lisa, Image - 10/11/2024 [facility] [address] [place] [address] Dr. De León, [place] [address] Mammography Report Signed Patient: Ramya De La Fuente#: [id number] : 1Acct:[id number] Age/Sex: 73 / FADM Date: 10/11/24 Loc: TEODORO.KESHAO Attending Dr: Valentina Alarcon [employer] Ordering Physician: Valentina Alarcon NPResults: Date of Service: 10/11/24Follow Up: Procedure(s): XR DEXA axial skeleton Accession Number(s): [id number] cc: Valentina Alarcon [employer] EXAMINATION: DXA BONE DENSITY AXIAL HISTORY: Estrogen deficiency TECHNIQUE: [employer] Dual energy absorptiometry (DEXA) of the lumbar spine, total left hip, and femoral neck was performed. COMPARISON: There are no prior studies for comparison. FINDINGS: The bone mineral density of the lumbar spine is 0.998 with a T-score of -1.5, and a Z-score of 0.3. The bone mineral density of the left total hip is 0.955 with a T-score of -0.4, and a Z-score of 1.3. The bone mineral density of the left femoral neck is 0.900 with a T-score of -1.0, and a Z-score of 0.9. FRACTURE RISK: The FRAX index suggests a risk of major osteoporotic fracture of 10.6%, and of hip fracture 3.8%. MM/XR DEXA axial skeleton IMPRESSION: Based on bone mineral density, and according to World Health Organization (WHO) criteria, the diagnosis is consistent with osteopenia. All bone density values are in grams per centimeter squared (g/cm2). Statistically, 68% of repeat scans fall within 1 SD (+/- 0.010 g/cm2 for AP spine L1-L4) and 1 SD (+/- 0.012 g/cm2 for femur total) FRAX is a trademark of the [employer] [place] [facility], a World Health Organization (WHO) Collaborating Center. Electronically signed by: Valerio Funk MD 10/11/2024 04:00 PM [facility] Dictated By: Valerio Funk MD Signed By: <Electronically signed by Valerio Funk MD in OV> 10/11/24 1600 DD/ 1450 TD/TT: 10/11/24 1515 Chemistry Quality Control Technician: us Valentina Alarcon [employer] IMG DXA PROCEDURES Final Result * (ABNORMAL) POCT HGB A1C (06/30/2024 2:25 PM EDT) Hemoglobin A1C 6.1(A) 4.0 - 6.0 % QC Media Lot # [id number] Lot# Expiration Date ,322 Blood 06/30/2024 2:25 PM EDT Kaity Chacko ANP POINT OF CARE TEST ENTER/EDIT OR DERABLES Final Result * Lipid Panel, Standard (09/08/2023 4:25 PM EST) Triglycerides 66 <150 mg/dL [facility] Comment:Desirable Triglyceri de: less than 150 mg/dLBorderline High Triglyceride 150-199 mg/dLHigh Triglyceride: 200-499 mg/dLVery High Triglyceride: greater than or equal to 5OO mg/dL Cholesterol 126 <200 mg/dL [facility] Comment:Desirable Cholestero l: less than 200 mg/dLBorderline High Cholesterol: 200-239 mg/dLHigh Cholesterol: greater than 239 mg/dL LDL Cholesterol Calculated 67 <100 mg/dL [facility] Comment:Desirable LDL: less than 100 mg/dLNear Optimal/Above Optimal LDL: 110- 129 mg/dLBorderline High LDL: 130-159 mg/dLHigh LDL: 160-189 mg/dLVery High LDL: greater than or equal to 190 mg/dL HDL Cholesterol 46 >40 mg/dL [facility] Comment:Desirable HDL: great er than 40 mg/dL Note: This HDL assay may give artificially low results in patients with liver disease. Blood Venous blood specimen / Unknown 09/08/2023 4:25 PM EST 09/08/2023 5:55 PM EST Eliane Noyola [employer] [facility] BLOOD ORDERABLES Final Resu lt [facility] [address] [place] [phone] from Last 3 Months or Most Recently Relevant to Health Maintenance Insurance [facility] Care Teams Rivet Tester Relationship Specialty Start Date End Date Valentina Alarcon NP [address] [place] [phone] PCP - General Family Medicine 06/27/24
--- OUTSIDE RECORDS SUMMARY | 2024-12-06 15:04 | XMS_ITS | Encounter Summary ---
Author Organization [employer] Address [address] [facility] [address] [place] [address] Care Team Providers Care Women'S Lacrosse Coach Name Role Phone Valentina Alarcon NP Primary Care Provider [phone] Reason for Visit * Reason Comments Med Refill Encounter Details Date Type Department Care Team ([facility] st Contact Info) Description 10/17/2024 Refill [facility] [address] [place], [place] [phone] Valentina Alarcon NP [address] [place], [place] [phone] Social History Tobacco Use Types Packs/Day Years [...] documented as of this encounter Care Teams Women'S Lacrosse Coach Relationship Specialty Start Date End Date Valentina Alarcon NP [address] [place] [address] PCP - General Family Medicine 06/27/24 documented as of this encounter
--- OUTSIDE RECORDS SUMMARY | 2024-12-06 15:04 | XMS_ITS | Encounter Summary ---
Author Organization [employer] Address [address] [place] [address] Care Team Providers Care Call Taker Name Role Phone Eliane Noyola Primary Care Provider [phone] Anayeli Escamilla MD Primary Care Provide r Valentina Alarcon NP Primary Care Provider [phone] Reason for Visit * Reason Comments Med Refill Encounter Details Date Type Department Care Team (Late st Contact Info) Description 01/09/2024 Refill [facility] [address], [place] [id number] Eliane Noyola FNP [address] [place] [address] Social History Tobacco Use Types Packs/Day Years [...] documented as of this encounter Care Teams Call Taker Relationship Specialty Start Date End Date Eliane Noyola FNP [address] [place] [address] PCP - General Family Medicine 09/08/23 05/01/24 Anayeli Escamilla MD [address] [place] [address] PCP - General Internal Medicine 05/02/24 05/24/24 Valentina Alarcon NP [address] [place] [address] PCP - General Family Medicine 06/27/24 documented as of this encounter
--- OUTSIDE RECORDS SUMMARY | 2024-12-06 15:04 | XMS_ITS | Data Portability ---
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 Patient Instructions Encounter Date Encounter Id Patient Instructions Last Modified By Organization Details Last Modified Time 09/11/2015 [id number] rinitis: instrucciones de cuidado - [rhinitis: care instructions] [email or web address] Not available 09/17/2015 10:57:19 Reason for Referral None Reported. Results Created Date Observation Date Name Description Value Unit Range Abnormal Flag Note LastModifiedBy Organization Detail LastModifiedTime 09/04/19 16 09/05/2015 ige, total , serum immunoglobul in E 25 kU/L <or=11 4 normal Not Available [facility] [address], [address], 09/05/2015 21:52:25 09/04/19 16 09/05/2015 blueb erry IgE Ab, serum blueberry (F288) IgE <0.10 kU/L normal Not Available [facility] [place] [facility] [address], [address], 09/05/2015 21:52:25 09/04/19 16 09/05/2015 blueb erry IgE Ab, serum class 0 Not Available [facility] [address], [address], 09/05/2015 21:52:25 09/04/19 16 09/05/2015 cashe w nut ige, serum cashew nut (F202) IgE <0.10 kU/L normal Not Available [facility] [place] [facility] [address], [address], 09/05/2015 21:52:26 09/04/19 16 09/05/2015 cashe w nut ige, serum class 0 Not Available [facility] [address], [address], 09/05/2015 21:52:26 09/04/19 16 09/05/2015 green andrews IgE Ab, serum green andrews (F315) IgE <0.10 kU/L normal Not Available [facility] [place] [facility] [address] [place], [place], [address], 09/05/2015 21:52:26 09/04/19 16 09/05/2015 green andrews IgE Ab, serum class 0 Not Available [facility] [address] [place], [place], [address], 09/05/2015 21:52:26 09/04/19 16 09/05/2015 wheat ige, serum wheat (F4) IgE <0.10 kU/L normal Not Available [facility] [place] [address] [place], [place], [address], 09/05/2015 21:52:26 09/04/19 16 09/05/2015 wheat ige, serum class 0 Not Available [facility] [place] [facility] [address] [place], [place], [address], 09/05/2015 21:52:26 09/04/19 16 09/05/2015 oat ige, serum oat (F7) IgE <0.10 kU/L normal Not Available [facility] [place] [address], [place], [address], 09/05/2015 21:52:27 09/04/19 16 09/05/2015 oat ige, serum class 0 Not Available [facility] [address], [place], [address], 09/05/2015 21:52:27 09/04/19 16 09/05/2015 pork ige, serum pork (F26) IgE <0.10 kU/L normal Not Available [facility] [place] [address], [place], [address], 09/05/2015 21:52:27 09/04/19 16 09/05/2015 pork ige, serum class 0 Not Available [facility] [address], [place], [address], 09/05/2015 21:52:27 09/04/19 16 09/05/2015 salmo n ige, serum salmon (F41) IgE <0.10 kU/L normal Not Available [facility] [place] [address], [place], [address], 09/05/2015 21:52:27 09/04/19 16 09/05/2015 salmo n ige, serum class 0 Not Available [facility] [place] [address], [place], [address], 09/05/2015 21:52:27 09/04/1909/05/2015 ames 's yeast IgE Ab, serum yeast (F45) IgE <0.10 kU/L normal Not Available [facility] [address], [place], [address], 09/05/2015 21:52:28 09/04/19 16 09/05/2015 ames 's yeast IgE Ab, serum class 0 Not Available [facility] [place] [address], [place], [address], 09/05/2015 21:52:28 09/04/19 16 09/05/2015 celer y IgE Ab, serum celery (F85) IgE <0.10 kU/L normal Not Available [facility] [place] [address], [place], [address], 09/05/2015 21:52:28 09/04/19 16 09/05/2015 celer y IgE Ab, serum class 0 Not Available [facility] [place] [address] [place] [address], [place], [address], 09/05/2015 21:52:28 09/04/19 16 09/05/2015 lettu ce IgE Ab, serum lettuce (F215) IgE <0.10 kU/L normal Not Available [facility] [place] [address], [place], [address], 09/05/2015 21:52:28 09/04/19 16 09/05/2015 lettu ce IgE Ab, serum class 0 Not Available [facility] [place] [address], [place], [address], 09/05/2015 21:52:28 09/04/19 16 09/05/2015 peach ige, serum peach (F95) IgE <0.10 kU/L normal Not Available [facility] [address], [place], [address], 09/05/2015 21:52:28 09/04/1909/05/2015 peach ige, serum class 0 Not Available [facility] [place] [facility] [address], [place], [address], 09/05/2015 21:52:28 09/04/19 16 09/05/2015 water melon IgE Ab , serum watermelon (rf329) IgE <0.10 kU/L normal Not Available [facility] [place] [address], [place], [address], 09/05/2015 21:52:29 09/04/19 16 09/05/2015 water melon IgE Ab , serum class 0 Not Available [facility] [place] [address], [place], [address], 09/05/2015 21:52:29 09/04/1909/05/2015 inter preta tion interpretati [...] cteri stics have been deter mined by [facility]. It has not been clear ed or appro cristóbal by the U.S. Food and Drug Admin istra tion. The FDA has deter mined that such clear ance or appro danielito is not neces frances. This assay has been valid ated pursu ant to the CLIA regul ation s and is used for clini angelita purpo ses. Not Available [facility] [address] [place] [address], [place], [address], 09/05/2015 21:52:29 Result Notes None recorded. Problems Name Problem SNOMED Code Status Onset Date Resolution Date Notes Provider Name and Address Organization Details Recorded Time Allergic rhinitis 61373245 Active [facility] 5 15:35:37 Environmental allergy 381764211 Active [facility] 5 16:32:59 Posterior end of inferior turbinate hypertrophy 836235811 Active [facility] 5 09:11:07 Otitis externa 4316098 Active Sterling burgess [facility] 5 15:35:37 Vasomotor rhinitis 9126880 Active Sterling burgess [facility] 6 14:17:59 Problem Notes None recorded. [...] Updated DateTime 07/10/2015 14 /min Julissa Avila [facility] 06/30 15:59:40 Date Recorded Body height Body mass index (BMI) Body weight Provider Name and Address Organization Details Last Updated DateTime 08/14/2015 162.56 cm 26.6 kg/m2 64103.24211 g Nalini Cortez [facility] 08/14/2015 08:51:35 Date Recorded Respiratory rate Provider Name a nd Address Organization Details Last Updated DateTime 08/14/2015 16 /min Srinivas Hager [facility] 08/14 09:06:42 Date Recorded Body weight Body mass index (BMI) Body height Provider Name and Address Organization Details Last Updated DateTime 08/28/2015 10678.67282 g 26.6 kg/m2 162.56 cm Nalini Cortez [facility] 08/28/2015 14:32:39 Date Recorded Respiratory rate Provider Name a nd Address Organization Details Last Updated DateTime 08/28/2015 15 /min Sterling Hagan [facility] 2014 15:33:48 Date Recorded Body height Body weight Body mass index (BMI) Provider Name and Address Organization Details Last Updated DateTime 09/11/2015 162.56 cm 58189.04447 g 26.6 kg/m2 Nalini Cortez [facility] 09/11/2015 13:36:57 Social History Question Answer Notes LastModified by Organization D etails LastModified Time What Is Your Level Of Alcohol Consumption? None [email or web address] Information not available 08/14/2015 How Much Tobacco Do You Smoke? No [email or web address] Information not available 08/14/2015 Sex: Unknown Functional Status None recorded. Mental Status None recorded. Family History Nothing Reported. Medical History No medical history recorded. Gynecological HistoryNo gynecological history recorded. Obstetrics History GPAL:G 0 P 0 0 0 0 Past Encounters Encounter ID Performer Location Encounter Start Date Encounter Closed Date Diagnosis/Indication Diagnosis SNOMED-CT Code Diagnosis ICD10 Code Diagnosis Note [id number] Javi Mcdonnell MD Main Office [address] [place] [address] 07/10/2015 15:57:56 07/10/2015 16:28:29 Allergic rhinitis 21521700 J30.9 - Symptomati c with nasal allergies. - Reviewed various measures to control allergy symptoms, including environmen raul control/al lergen avoidance. Will do a trial of Zyrtec and Flonase. -Follow up in 4 weeks to check progress. If symptoms persists despite these measures may need to repeat allergy test. Environmental allergy 42 5053800 T78.49XA -See #1 Posterior end of inferior turbinate hypertrophy 077119526 J34.3 -Secondary to nasal allergies. [id number] Sterling Fields MD Main Office [address] [place] [address] 08/14/2015 08:48:44 08/14/2015 09:10:33 Allergic rhinitis 54486484 J30.9 Discussed findings Hold meds Schedule for Allergy eval See after Posterior end of inferior turbinate hypertrophy 952702252 J34.3 [id number] Kenzie Phong Main Office [address] [place] [address] 08/28/2015 14:31:39 08/28/2015 15:36:21 Allergic rhinitis 00808749 J30.9 Otitis externa 6401566 H 60.93 [id number] Sterling Morenosony Main Office [address] [place] [address] 09/11/2015 13:35:51 09/11/2015 14:12:20 Vasomotor rhinitis 5568113 J30.0 Health Concerns Section Related Observation LastModified by Organization Detai ls LastModified Time None Recorded Concern Status LastModified by Organization Details LastModified Time None Recorded Advance Directives Directive None Recorded Payers Encounter Date Sequence Insurance Name Policy Number Policy Jain Covered Member ID Jain Member ID Guarantor Name 07/10/2015 1 [place] [employer] Ariana E Leisa [id number] Ariana Leisa 07/10/2015 2 [place] [facility]ana Leisa [id number] Ariana Leisa 08/14/2015 1 [place] [employer] Ariana E Leisa [id number] Ariana Leisa 08/14/2015 2 [place] [facility] Ariana Leisa [id number] Ariana Leisa 08/28/2015 1 [place] [employer] Ariana E Leisa [id number] Ariana Leisa 08/28/2015 2 [place] Ariana Leisa [id number] Ariana Leisa 09/11/2015 1 [place] [employer] Ariana E Leisa [id number] Ariana Leisa 09/11/2015 2 [place] [facility] Ariana Leisa [id number] Ariana Leisa Notes Date Note Type Note Provider Name a nd Address Organization Details Recorded Time 07/10/2015 text/html HPI This is a 64 y/o F here for evaluation of itchy throat, nose, and ears over the past few years. Bilateral otalgia, occasional nasal congestion, sneezing, PND. Using drops in ears for itch. History of allergies. Previous allergy testing over 10 years in [place] - positive for multiple sensitivities. Not on any antihistamine or nasal spray. No otorrhea, tinnitus, or vertigo.? Javi Mcdonnell MD [address] [facility] [address], [place], [address], [facility] 07/10/2015 18:45:29 08/14/2015 text/html HPI Returns for recheck of her allergy. Has used meds did not help. Has itching of ears, nose, PND, Phlegm. No new sx.? Sterling Fields MD [address] [facility] [address], [place], [address], [facility] 08/14/2015 13:38:09 OBGyn Episode No OBEpisode recorded.
--- OUTSIDE RECORDS SUMMARY | 2024-12-06 15:04 | XMS_ITS | Clinical Summary ---
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 Role Phone Unavailable Primary Care Provider Unavailabl e Social History Tobacco Use Types Packs/Day Years Used Date Smoking Tobacco: Never Assessed Comments Unknown Sex and Gender Information Value Date Recorded Sex Assigned at Not on file Legal Sex Female 10:01 PM EST Gender Identity Not on file Sexual Orientation Not on file Plan of Treatment Health Maintenance Due Date Last Done Comments Breast Cancer Screening 1950 DTaP,Tdap,and Td Vaccines (1 - Tdap) 1969 Pneumococcal Vaccine: 50+ Ye ars (1 of 1 - PCV) 2000 Zoster Vaccines (1 of 2) 2000 COVID-19 Vaccine ( - 2023-2 5 season) 2024 Influenza Vaccine (Season Ended) 2025 RSV Immunization Adult Patie nts (1 - 1-dose 75+ series) 2025 HIB Vaccines Aged Out No longer eligi ble based on patient's age to complete this topic HPV Vaccines Aged Out No longer eligi ble based on patient's age to complete this topic Hepatitis A Vaccines Aged Out No long er eligible based on patient's age to complete this topic Hepatitis B Vaccines Aged Out No long er eligible based on patient's age to complete this topic IPV Vaccines Aged Out No longer eligi ble based on patient's age to complete this topic MMR Vaccines Aged Out No longer eligi ble based on patient's age to complete this topic Meningococcal ACWY Vaccine Aged Out N o longer eligible based on patient's age to complete this topic Meningococcal B Vaccine Aged Out No l onger eligible based on patient's age to complete this topic RSV Immunization Patients Un antoinette 20 months Aged Out No longer eligible b ased on patient's age to complete this topic Varicella Vaccines Aged Out No longer eligible based on patient's age to complete this topic
== END 2024-12-06 13:02 | disposition home or self-care (01) ==
LOC: HO.MAMMO 13:01
PROVIDERS: PCP Nurse Practitioner Family; Visit Provider Nurse Practitioner Family
DX: N64.89 Other specified disorders of breast (principal)
CPT/HCPCS: 76642; 77062; 77066

== ENCOUNTER → 2024-12-06 13:30 | Outpatient (BNV) | payer OTHER, SELFPAY | PROVIDERS: PCP Nurse Practitioner Family; Visit Provider Internal Medicine | DX: R92.8 Other abnormal and inconclusive findings on diagnostic imaging of breast (principal) | CPT/HCPCS: 76642; 77066; G0279 ==

== ENCOUNTER 2024-12-21 08:25 | Outpatient (AMB) | payer OTHER, SELFPAY ==
[2024-12-21 08:29] VITALS: BP 110/72; PULSE 72; BMI 24.2
--- NOTE | 2024-12-21 08:29 | A.OFFVIS_ITS ---
Vital Signs 3 12/21/24 08:29 Height 5 ft 4 in Weight 141 lb BMI 24.2 BP 110/72 Blood Pressure Location Lt brachial Position Sitting Pulse 72 Intake Visit Reasons: RT BRST US Bx, lymph node, aspiration 10:00 mass Intake Note: Pt states, I was told to come for an appt here because I have a biopsy today. denies any complaints Patient Case Coordinator Required: Yes Patient Case Coordinator Services: Patient Case Coordinator Offered & Declined Allergies aspirin Adverse Reaction (Verified 12/21/24 08:32) stomach ache green vegetables Adverse Reaction (Uncoded 12/21/24 08:33) diarrhea Medication List - Last Reconciled 12/21/24 by Talon Diaz RN metformin 500 mg PO DAILY HPI Comments Details: 74-year-old female patient presenting with a screening mammogram performed on 10/11/2024 with follow-up images and ultrasound performed on 12/06/2024 which revealed a right breast solid versus complicated cystic structure in the 10:00 location approximately 12 cm from the nipple as well as an enlarged lymph node in the right axilla felt to be suspicious for malignancy (BI-RADS 4). Ultrasound-guided core biopsy was recommended for the 2 lesions of the right breast and axilla and [facility] She denies a previous history of breast problems or breast surgery. She currently denies any symptoms in the breast including pain, redness, discharge or palpable mass. Her family history is negative for breast cancer. Menarche was the age of 13, she is . [facility] Medical History Insomnia Memory changes Hyperchloremia GERD (gastroesophageal reflux disease) Diabetes Hypertension Depressed Abnormal ultrasound of breast Surgical History History of hemiarthroplasty of shoulder Social History Alcohol intake: never Patient Tobacco Use Status: Never used Tobacco Female Reproductive History Menstrual Age of Menarche: 13 Age of menopause: 45 Total pregnancies: 4 Number of Living Children: 2 Review of Systems Const All systems reviewed & are unremarkable except as noted in HPI and below Denies chills, Denies fever(s), Denies headache(s), Denies poor appetite and Denies weakness ENT Denies headache(s) Card Denies chest pain, Denies irregular heart rhythm, Denies palpitations and Denies dyspnea Resp Denies cough, Denies excessive phlegm production and Denies dyspnea GI Denies abdominal pain, Denies bloating, Denies change in bowel habits, Denies constipation, Denies heartburn, Denies diarrhea, Denies nausea and Denies vomiting Denies urinary frequency Musc Denies back pain, Denies muscle weakness and Denies numbness Skin/Breast Denies changing lesions and Denies unusual bruising Neuro Denies headache(s), Denies numbness, Denies paresthesias and Denies weakness Psych Denies anxiety and Denies depression Endo Denies palpitations Jorge L/Lymph Denies lymphadenopathy Physical Exam Vital Signs: BMI result Body Mass Index 24.2 Const General: cooperative and no acute distress Nutritional Appearance: well nourished Orientation/consciousness: patient oriented x3 Limitations: no limitations HEENT Head: Yes normocephalic and Yes atraumatic Ears: hearing grossly normal bilaterally Chest Other: Left breast: No skin change, no nipple retraction, no nipple discharge, no palpable mass, no enlarged lymph nodes. Right breast: No skin change, no nipple retraction, no nipple discharge, no palpable mass, no enlarged lymph nodes, palpable mass noted the 10:00 location approximately 12 cm from the nipple, smooth and mobile approximately 1 cm in diameter. Mildly tender to palpation. Also high in the axilla palpable node is noted corresponding to the ultrasound findings. This is also quite tender to palpation. Chest/axillae images: 2 1. Breast lump 2. Lymph node Resp Effort & Inspection: normal respiratory effort, no audible wheezes, no cough and no respiratory distress Cardio Jugular venous distension: no JVD GI Inspection: Yes normal to inspection Skin Other: Warm, dry, no rash Neuro Other: Mobility Assessment: 1. 3 meter assessment time (seconds) 5 2. Gait observations: Normal balance and gait General: patient oriented x3 Extrem General: Yes no clubbing, cyanosis or edema Assessment & Plan Assessment & Plan (1) Abnormal ultrasound of breast: Code(s): R92.8 - Other abnormal and inconclusive findings on diagnostic imaging of breast Category: Medical Plan 74-year-old female patient presenting with a recent mammogram and ultrasound which revealed a density in the 10 o'clock position right breast 12 cm from the nipple felt to be suspicious for malignancy. In addition there was an enlarged lymph node in the right axilla. She is scheduled for an ultrasound-guided core biopsy later today at the [facility] of the 2 lesions. On examination she does indeed have a palpable mass in this location as well as an enlarged lymph node. The lymph node does feel reactive and is tender to palpation. I recommended the patient return in approximately 1 week to review the pathology results and discuss treatment options. She expressed understanding and agrees with the plan. Orders: Orders 2 US breast ndl core biopsy RT Today R92.8 - Other abnormal and inconclusive findings on diagnostic imaging of breast US breast ndl core bio ea add Today R92.8 - Other abnormal and inconclusive findings on diagnostic imaging of breast Coding Level of Care Code New Pt Level 4 (57339) Diagnoses Abnormal ultrasound of breast R92.8
--- OUTSIDE RECORDS SUMMARY | 2024-12-21 08:45 | XMS_ITS | Clinical Summary ---
Author Organization [employer] Address [address] [facility] [address] [place] [address] Care Team Providers Care Press Set Up Name Role Phone Valentina Alarcon ISAIAS Primary Care Provider [phone] Allergies Active Allergy Reactions Criticality Noted Date [...] 2 diabetes mellitus with hyperglycemia, unspecified whether fpc insulin use ([facility]) USE TWO TIMES A DAY (BULK) 100 each 025 Active fluticasone (Flonase) 50 MCG/ACT nasal sprayIndication s:Seasonal allergic rhinitis due to pollen Administer 1 spray into each nostril Once per day. 16 g 025 Active gabapentin (Neurontin) 600 MG tabletIndicatio ns:Fibromyalgia Take 1 tablet (600 mg) by mouth 3 times daily. 90 tablet 025 Active rosuvastatin (Crestor) 10 MG tabletIndicatio ns:Hyperlipidem ia due to type 2 diabetes mellitus ([facility]) ([facility]) Take 1 tablet (10 mg) by mouth Once per day. 30 tablet 025 Active omeprazole (PriLOSEC) [address] capsule TAKE ONE CAPSULE BY MOUTH EVERY DAY ^1R1 28 capsule 025 Active melatonin 5 MG tablet TAKE ONE TABLET BY MOUTH AT BEDTIME NEEDED FOR INSOMNIA ^1R4 30 tablet 025 Active polyethylene glycol, PEG, 3350 (Glycolax) 17 GM/SCOOP powder MIX 17 GRAM(S) IN 8 OZ OF WATER AND DRINK BY MOUTH ONCE A DAY NEEDED FOR CONSTIPATION (BULK) 238 g 025 Active montelukast (Singulair) 10 MG tablet TAKE ONE TABLET BY MOUTH EVERY DAY ^1R4 28 tablet 1 025 Active loratadine (Claritin) 10 MG tablet Take 1 tablet (10 mg) by mouth Once per day. 30 tablet 025 2025 Active clonazePAM (KlonoPIN) 1 MG tabletIndicatio ns:Psychophysio logical insomnia Take 1 tablet (1 mg) by mouth at bedtime. 30 tablet 025 2024 Active fluticasone (Cutivate) 0.05 % cream APPLY TO AFFECTED AREA(S) TWO TIMES A DAY (BULK) 45 g 025 Active loratadine (Claritin) 10 MG tablet Take 1 tablet (10 mg) by mouth Once per day. 30 tablet 11 024 2024 Discontinued(R eorder (will not trigger notification to Pharmacy)) clonazePAM (KlonoPIN) 0.5 MG tablet Take 0.5 mg by mouth Once per day. 024 2024 Discontinued fluticasone (Cutivate) 0.05 % cream APPLY TO AFFECTED AREA(S) TWO TIMES A DAY (BULK) 45 g 025 2024 Discontinued montelukast (Singulair) 10 [...] barrier, has therapist as well Interested in bahraini speaking provider Dietary counseling 2024 Exercise counseling [...] (10/25/2023): more on left. per records from Frantz Eller [place] Allergic rhinitis 10/25/2023 Fibromyalgia 10/25/2023 Overview (10/25/2023): per records from Frantz Cifuentes [place] Hypertension 10/25/2023 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 2 diabetes mellitus ( [facility]) 10/25/2023 Varicose vein of leg 10/25/2023 Urticaria 10/25/2023 Tinnitus 10/25/2023 Overview (10/25/2023): per records from Frantz Eller [place] Microscopic hematuria 10/25/2023 Overview (10/25/2023): per records from Frantz Cifuentes [place] Chronic right shoulder pain 10/25/2023 Constipation 11/17/2018 Gastroesophageal reflux disease without esophagi tis 11/17/2018 Encounters * This document contains information received from the source organization and may not represent a complete record from that organization. Date Type Department Care Team Description 12/19/2024 Refill [facility] [address] [place] [address] Valentina Alarcon NP Psychophysiological insomnia 12/14/2024 Telephone [facility] [address] [place] [address] Valentina Alarcon NP 12/14/2024 Travel 12/13/2024 Telephone [facility] [address] [place] [address] Valentina Alarcon NP Appointment Request 12/07/2024 Refill [facility] [address] [place] [address] Valentina Alarcon NP 12/06/2024 Orders Only [facility] [address] [place] [address] Valentina Alarcon NP 2024 3:15 PM EDT Office Visit [facility] [address] [place] [phone] Valentina Alarcon NP Type 2 diabetes mellitus with hyperglycemia, unspecified whether fpc insulin use ([facility]) (Primary Dx); Chronic right shoulder pain; Major depressive disorder with single episode, in full remission ([facility]); Dietary counseling; Exercise counseling; Psychophysiological insomnia 2024 Travel 12/01/2024 Refill [facility] [address] [place] [address] Eliane Noyola FNP 12/01/2024 Refill [facility] [address] [place] [address] Valentina Alarcon NP 11/27/2024 Patient Outreach [facility] [address] [place], [place] [phone] Valentina Alarcon NP Pre-visit Planning (SDOH negative, Tobacco screening negative.) 11/24/2024 Telephone [facility] [address] [place] [phone] Hilaria Stiles [place] Chart Prep 11/06/2024 Refill [facility] [address] [place] [phone] Valentina Alarcon NP 11/03/2024 Refill [facility] [address] [place] [address] Valentina Alarcon NP 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 2 diabetes mellitus (CMS/HCC) ([facility]) (Primary Dx); Seasonal allergic rhinitis due to pollen; Fibromyalgia 10/17/2024 Refill [facility] [address] [place] [address] Valentina Alarcon NP 10/13/2024 Telephone [facility] [address] [place] [phone] Valentina Alarcon, ISAIAS Results 10/11/2024 Orders Only [facility] [address] [address] Valentina Alarcon NP 10/05/2024 Telephone [facility] [address] [facility] [address] Minor Dawkins [place] November recall from Last 3 Months Immunizations Name Administration Dates Next Due Hep A / Hep B 10/08/2021 Hep B, Unspecified 05/06/2017 Hep B, adult 09/13/2017,06/28/2017 Influenza High-dose Quadriva lent Preservative Free 06/03/2023,06/08/2022,06/17/2021,06/03 Influenza, High Dose Seasona l, Preservative Free 05/31/2024,08/04/2018,05/10/2017 Influenza, IIV3, injectable 06/08/2022,1 ,06/03/2020,05/11,08/04/2018,05/10/2017,05/13/2016 ,06/17/2015,06/14/2014,06/13/2013 Influenza, Unspecified 09/22/2012,2010,05/29/2010,07/18,06/13/2009,07/16/2008,07/06/2007 ,10/01/2004,09/13/2003 Influenza, trivalent, adjuvanted 05/11/2019 Pfizer Covid-19 Vaccine 12+ 06/03/2023 Pneumococcal Conjugate PCV [...] 2024 3:23 PM EDT Plan of Treatment Upcoming Encounters Date Type Department Care Team (Late st Contact Info) Description 02/19/2025 3:15 PM EDT Office Visit [facility] [address] [place] [address] Valentina Alarcon NP [address] [place] [address] Health Maintenance Due Date Last Done Comments CT Colonography 1950 Colonoscopy 1950 Colorectal Cancer Screening 1950 FIT DNA/Cologuard 1950 FIT 1950 FOBT 1950 Sigmoidoscopy 1950 Diabetes: Foot Exam 1960 Eye Exam 1960 Hepatitis C Screening 1968 Diabetes: Urine Protein Screening 1969 COVID-19 Vaccine (2023- season) 2024 06/03/2023, 12/20/2021, 07/28/2021, Additional history exists Lipid Panel 09/08/2024 09/08/2023 Diabetes: Hemoglobin A1C 12/28/2024 024, 12/29/2023, 09/08/2023 Alcohol/Substance Use Screening 09/04/2025 09/04/2024 Depression Screening 2025 2024, 12/05/19 25 SDOH Screening 2025 2024 Tobacco Screening 2025 2024 Mammogram 12/06/2026 12/06/2024, 09/30, 12/31/2022 DTaP/Tdap/Td Vaccines (6 - Td or [...] Procedure Name Priority Date/Time Associated Diagnosis Comments BI MAMMOGRAM DIAGNOSTIC TOMOSYNTHESIS ADDED VIEW BILATERAL Routine 12/06/2024 1:30 PM EDT BI US BREAST LIMITED BILATERAL Routine 12/06/2024 1:30 PM EDT POCT GLUCOSE Routine 2024 3:25 PM EDT Type 2 diabetes mellitus with hyperglycemia, 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 insulin 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 (CMS/HCC) BI MAMMOGRAM SCREENING TOMOSYNTHESIS BILATERAL Routine 10/11/2024 3:00 PM EST Healthcare maintenance BD DEXA AXIAL Routine 10/11/2024 2:50 PM EST POCT GLYCATED HEMOGLOBIN, TOTAL Routine 06/30/2024 2:25 PM EDT 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 [facility] [place] ? [address] ?[place] [address] ?[phone] ? Mammography Report ? Signed ? Patient: Leisa,Ariana ?MR#: [id number] ? : 1950 ?Acct:[id number] ? Age/Sex: 74 / F ?ADM Date: 12/06/24 ? Loc: HO.MAMMO ? Attending Dr: Valentina Alarcon SECURITY SOLUTIONS ENGINEER ? Ordering Physician: Agnes,Valentina Hernandez SECURITY SOLUTIONS ENGINEER ?Results: 4Suspic ?? ious Finding ? Date of Service: 12/06/24 ?Follow Up: Biopsy Recommend ?? ed ? Procedure(s): MM tomosynthesis added view BI ?? Accession Number(s): [id number] ? cc: Valentina Alarcon SECURITY SOLUTIONS ENGINEER ? EXAMINATION: ?? MM DIAGNOSTIC DIGITAL BREAST TOMOSYNTHESIS, BILATERAL ?? Bilateral Limited ultrasound. ? CLINICAL INFORMATION: ? History of benign right low axillary breast excision 20 years ago at ?? outside institution. Call back from baseline screening for bilateral ?? asymmetries. ? COMPARISON: ?? Mammography: Comparison is made with relevant prior exams. ? TECHNIQUE: ?? Digital breast mammography with tomosynthesis is performed in both the ?? craniocaudal and mediolateral oblique views along with computer-aided ?? detection (CAD). ? FINDINGS: ?? There are scattered areas of fibroglandular density (ACR BI-RADS breast ?? composition Category b). ?? Left: ?? Previously seen asymmetry in the retroareolar region does not persist ?? on additional imaging projections and likely represented overlapping ?? breast tissue. ?? There are no significant masses, abnormal calcifications, or other ?? abnormalities. ? Targeted color Doppler ultrasound scanning in the retroareolar region ?? of the left breast demonstrates normal fibroglandular breast tissue. ? Right: ?? Asymmetry in the retroareolar region does not persist on additional ?? imaging projections and likely represented overlapping breast tissue. ?? Asymmetries in the axilla persist on additional imaging projections 1 ?? has architectural distortion associated with a this was an area of ?? previous surgical excision outside institution 20 years ago. ?? No suspicious calcifications or other abnormal findings. ? Targeted color Doppler ultrasound demonstrates a hypoechoic oval solid ?? mass versus complicated cyst at 10:00 12 cm from nipple measuring 7 x 7 ?? x 5 mm. This area could correlate with one of the asymmetries in the ?? lower axilla on mammography. ? Targeted color Doppler ultrasound in the axillary region demonstrates a ?? enlarged axillary lymph node with cortical thickening measuring up to 7 ?? mm. ? Otherwise there is no other sonographic abnormality. ? Results are provided to the patient at time of visit by the ?? technologist. ? MM/MM tomosynthesis added view BI ?? IMPRESSION: ?? Solid mass versus complicated cyst at 10:00 12 cm from the nipple and ?? enlarged axillary lymph node. Recommend ultrasound-guided core needle ?? biopsy of both areas for confirmation. The findings and recommendations ?? were discussed with the patient the procedure will be scheduled. ? Management for additional axillary asymmetry with distortion versus ?? postsurgical changes will be pending biopsy of the above 2 masses to ?? include a six-month follow-up. ? ASSESSMENT: ? BI-RADS BI-RADS 4 - Suspicious finding ? RECOMMENDATION: ?? Biopsy recommended ? This patient's information was entered into a reminder system with a ?? target due date for their next mammogram. ? Electronically signed by: ??Beverly Nichols DO ??12/07/2024 08:59 AM EDT ?? RP ? Dictated By: ?Beverly Nichols DO ? Signed By: ?<Electronically signed by Beverly Nichols, DO in OV> ? 12/07/24 0859 ? DD/ 1330 ? TD/TT: 12/06/24 1345 ? Quantitative Strategy Analyst: ? Procedure Note [place], Image - [facility] [address] [place] [place] [address] Mammography Report Signed Patient: Ramya De La Fuente#: [id number] : 1950cct:[id number] Age/Sex: 74 / FADM Date: 12/06/24 Loc: HO.MAMMO Attending Dr: Valentina Alarcon SECURITY SOLUTIONS ENGINEER Ordering Physician: Valentina Alarcon NPResults: 4Suspic ious Finding Date of Service: 12/06/24Follow Up: Biopsy Recommend ed Procedure(s): MM tomosynthesis added view BI Accession Number(s): [id number] cc: Valentina Alarcon SECURITY SOLUTIONS ENGINEER EXAMINATION: MM DIAGNOSTIC DIGITAL BREAST TOMOSYNTHESIS, BILATERAL Bilateral Limited ultrasound. CLINICAL INFORMATION: History of benign right low axillary breast excision 20 years ago at outside institution. Call back from baseline screening for bilateral asymmetries. COMPARISON: Mammography: Comparison is made with relevant prior exams. TECHNIQUE: Digital breast mammography with tomosynthesis is performed in both the craniocaudal and mediolateral oblique views along with computer-aided detection (CAD). FINDINGS: There are scattered areas of fibroglandular density (ACR BI-RADS breast composition Category b). Left: Previously seen asymmetry in the retroareolar region does not persist on additional imaging projections and likely represented overlapping breast tissue. There are no significant masses, abnormal calcifications, or other abnormalities. Targeted color Doppler ultrasound scanning in the retroareolar region of the left breast demonstrates normal fibroglandular breast tissue. Right: Asymmetry in the retroareolar region does not persist on additional imaging projections and likely represented overlapping breast tissue. Asymmetries in the axilla persist on additional imaging projections 1 has architectural distortion associated with a this was an area of previous surgical excision outside institution 20 years ago. No suspicious calcifications or other abnormal findings. Targeted color Doppler ultrasound demonstrates a hypoechoic oval solid mass versus complicated cyst at 10:00 12 cm from nipple measuring 7 x 7 x 5 mm. This area could correlate with one of the asymmetries in the lower axilla on mammography. Targeted color Doppler ultrasound in the axillary region demonstrates a enlarged axillary lymph node with cortical thickening measuring up to 7 mm. Otherwise there is no other sonographic abnormality. Results are provided to the patient at time of visit by the technologist. MM/MM tomosynthesis added view BI IMPRESSION: Solid mass versus complicated cyst at 10:00 12 cm from the nipple and enlarged axillary lymph node. Recommend ultrasound-guided core needle biopsy of both areas for confirmation. The findings and recommendations were discussed with the patient the procedure will be scheduled. Management for additional axillary asymmetry with distortion versus postsurgical changes will be pending biopsy of the above 2 masses to include a six-month follow-up. ASSESSMENT: BI-RADS BI-RADS 4 - Suspicious finding RECOMMENDATION: Biopsy recommended This patient's information was entered into a reminder system with a target due date for their next mammogram. Electronically signed by: Beverly Nichols DO 12/07/2024 08:59 AM EDT Dictated By: Beverly Nichols DO Signed By: <Electronically signed by Beverly Nichols DO in OV> 12/07/24 0859 DD/ 1330 TD/TT: 12/06/24 1345 Quantitative Strategy Analyst: us Valentina Alarcon NP IMG BI PROCEDURES Final Result * BI US Breast Limited Bilateral (12/06/2024 1:30 PM EDT) Anatomical Region Laterality Modality Breast Bilateral Ultrasound 12/06/2024 1:30 PM EDT Narrative 12/07/2024 9:02 AM EDT ? [place] [facility] ? [address] ?[place] [address] ? Ultrasound Report ? Signed ? Patient: Leisa,Ariana ?MR#: [id number] ? : 1950 ?Acct:[id number] ? Age/Sex: 74 / F ?ADM Date: 12/06/24 ? Loc: HO.MAMMO ? Attending Dr: Valentina Alarcon SECURITY SOLUTIONS ENGINEER ? Ordering Physician: Valentina Alarcon SECURITY SOLUTIONS ENGINEER ?? Date of Service: 12/06/24 ?? Procedure(s): US breast BI limited mamm only ?? Accession Number(s): [id number] ? cc: Valentina Alarcon SECURITY SOLUTIONS ENGINEER ? EXAMINATION: ?? MM DIAGNOSTIC DIGITAL BREAST TOMOSYNTHESIS, BILATERAL ?? Bilateral Limited ultrasound. ? CLINICAL INFORMATION: ? History of benign right low axillary breast excision 20 years ago at ?? outside institution. Call back from baseline screening for bilateral ?? asymmetries. ? COMPARISON: ?? Mammography: Comparison is made with relevant prior exams. ? TECHNIQUE: ?? Digital breast mammography with tomosynthesis is performed in both the ?? craniocaudal and mediolateral oblique views along with computer-aided ?? detection (CAD). ? FINDINGS: ?? There are scattered areas of fibroglandular density (ACR BI-RADS breast ?? composition Category b). ?? Left: ?? Previously seen asymmetry in the retroareolar region does not persist ?? on additional imaging projections and likely represented overlapping ?? breast tissue. ?? There are no significant masses, abnormal calcifications, or other ?? abnormalities. ? Targeted color Doppler ultrasound scanning in the retroareolar region ?? of the left breast demonstrates normal fibroglandular breast tissue. ? Right: ?? Asymmetry in the retroareolar region does not persist on additional ?? imaging projections and likely represented overlapping breast tissue. ?? Asymmetries in the axilla persist on additional imaging projections 1 ?? has architectural distortion associated with a this was an area of ?? previous surgical excision outside institution 20 years ago. ?? No suspicious calcifications or other abnormal findings. ? Targeted color Doppler ultrasound demonstrates a hypoechoic oval solid ?? mass versus complicated cyst at 10:00 12 cm from nipple measuring 7 x 7 ?? x 5 mm. This area could correlate with one of the asymmetries in the ?? lower axilla on mammography. ? Targeted color Doppler ultrasound in the axillary region demonstrates a ?? enlarged axillary lymph node with cortical thickening measuring up to 7 ?? mm. ? Otherwise there is no other sonographic abnormality. ? Results are provided to the patient at time of visit by the ?? technologist. ? US/US breast BI limited mamm only ?? IMPRESSION: ?? Solid mass versus complicated cyst at 10:00 12 cm from the nipple and ?? enlarged axillary lymph node. Recommend ultrasound-guided core needle ?? biopsy of both areas for confirmation. The findings and recommendations ?? were discussed with the patient the procedure will be scheduled. ? Management for additional axillary asymmetry with distortion versus ?? postsurgical changes will be pending biopsy of the above 2 masses to ?? include a six-month follow-up. ? ASSESSMENT: ? BI-RADS BI-RADS 4 - Suspicious finding ? RECOMMENDATION: ?? Biopsy recommended ? This patient's information was entered into a reminder system with a ?? target due date for their next mammogram. ? Electronically signed by: ??Beverly Nichols DO ??12/07/2024 08:59 AM EDT ?? RP ? Dictated By: ?Beverly Nichols DO ? Signed By: ?<Electronically signed by Beverly Nichols, DO in OV> ? 12/07/24 0859 ? DD/ 1330 ? TD/TT: 12/06/24 1430 ? Quantitative Strategy Analyst: ? Procedure Note Lisa, Image - 12/07/2024 [facility] [address] [place] [address] [place], [place] [address] Ultrasound Report Signed Patient: Ariana De [place]#: [id number] : 1Acct:[id number] Age/Sex: 74 / FADM Date: 12/06/24 Loc: [facility] Attending Dr: Valentina Alarcon SECURITY SOLUTIONS ENGINEER Ordering Physician: Valentina Alarcon NP Date of Service: 12/06/24 Procedure(s): US breast BI limited mamm only Accession Number(s): [id number] cc: Valentina Alarcon SECURITY SOLUTIONS ENGINEER EXAMINATION: MM DIAGNOSTIC DIGITAL BREAST TOMOSYNTHESIS, BILATERAL Bilateral Limited ultrasound. CLINICAL INFORMATION: History of benign right low axillary breast excision 20 years ago at outside institution. Call back from baseline screening for bilateral asymmetries. COMPARISON: Mammography: Comparison is made with relevant prior exams. TECHNIQUE: Digital breast mammography with tomosynthesis is performed in both the craniocaudal and mediolateral oblique views along with computer-aided detection (CAD). FINDINGS: There are scattered areas of fibroglandular density (ACR BI-RADS breast composition Category b). Left: Previously seen asymmetry in the retroareolar region does not persist on additional imaging projections and likely represented overlapping breast tissue. There are no significant masses, abnormal calcifications, or other abnormalities. Targeted color Doppler ultrasound scanning in the retroareolar region of the left breast demonstrates normal fibroglandular breast tissue. Right: Asymmetry in the retroareolar region does not persist on additional imaging projections and likely represented overlapping breast tissue. Asymmetries in the axilla persist on additional imaging projections 1 has architectural distortion associated with a this was an area of previous surgical excision outside institution 20 years ago. No suspicious calcifications or other abnormal findings. Targeted color Doppler ultrasound demonstrates a hypoechoic oval solid mass versus complicated cyst at 10:00 12 cm from nipple measuring 7 x 7 x 5 mm. This area could correlate with one of the asymmetries in the lower axilla on mammography. Targeted color Doppler ultrasound in the axillary region demonstrates a enlarged axillary lymph node with cortical thickening measuring up to 7 mm. Otherwise there is no other sonographic abnormality. Results are provided to the patient at time of visit by the technologist. US/US breast BI limited mamm only IMPRESSION: Solid mass versus complicated cyst at 10:00 12 cm from the nipple and enlarged axillary lymph node. Recommend ultrasound-guided core needle biopsy of both areas for confirmation. The findings and recommendations were discussed with the patient the procedure will be scheduled. Management for additional axillary asymmetry with distortion versus postsurgical changes will be pending biopsy of the above 2 masses to include a six-month follow-up. ASSESSMENT: BI-RADS BI-RADS 4 - Suspicious finding RECOMMENDATION: Biopsy recommended This patient's information was entered into a reminder system with a target due date for their next mammogram. Electronically signed by: Beverly Nichols DO 12/07/2024 08:59 AM EDT Dictated By: Beverly Nichols DO Signed By: <Electronically signed by Beverly Nichols DO in OV> 12/07/24 0859 DD/ 1330 TD/TT: 12/06/24 1430 Quantitative Strategy Analyst: us Valentina Alarcon SECURITY SOLUTIONS ENGINEER IMG US PROCEDURES Final Result * POCT Glucose (2024 3:25 PM EDT) Glucose Blood, POC 159 60 - 200 mg/dL QC Media Lot # [id number] Lot# Expiration Date Blood Capillary blood specimen / Unknown 2024 3:25 PM EDT Valentina Alarcon NP POINT OF CARE TEST ENTER/EDIT OR DERABLES Final Result * BI Mammogram Screening Tomosynthesis Bilateral (10/11/2024 3:00 PM EST) Anatomical Region Laterality Modality Breast Bilateral Mammography 10/11/2024 3:0 0 PM EST Narrative 10/26/2024 9:04 AM EST ? [facility] [place] ? [address] ?[place] [address] ? Mammography Report ? Signed ? Patient: Leisa,Ariana ?MR#: [id number] ? : 1950 ?Acct:[id number] ? Age/Sex: 73 / F ?ADM Date: 02/12/25 ? Loc: HO.MAMMO ? Attending Dr: Valentina B Hipolitoef SECURITY SOLUTIONS ENGINEER ? Ordering Physician: Agnes,Valentina B SECURITY SOLUTIONS ENGINEER ?Results: 0Incomp ?? lete: Needs Additional Imaging Evaluation ? Date of Service: 10/11/24 ?Follow Up: Additional Imagi ?? ng ? Procedure(s): MM tomosynthesis screening BI ?? Accession Number(s): [id number] ? cc: Valentina Alarcon SECURITY SOLUTIONS ENGINEER ? EXAMINATION: ?? MM SCREENING DIGITAL BREAST [...] ? Signed By: ?<Electronically signed by Beverly Nichols, DO in OV> ? 10/26/24 09 ? DD/ 1500 ? TD/TT: 10/11/24 1510 ? Quantitative Strategy Analyst: ? Procedure Note Donotuseinterpreter, Image - [facility] [facility]'s [address] [place], [place] [address] Mammography Report Signed Patient: Ramya De La Fuente#: [id number] : 1Acct:[id number] Age/Sex: 73 / FADM Date: 10/11/24 Loc: HO.MAMMO Attending Dr: Valentina Alarcon SECURITY SOLUTIONS ENGINEER Ordering Physician: Valentina Alarcon NPResults: 0Incomp lete: Needs Additional Imaging Evaluation Date of Service: 10/11/24Follow Up: Additional Imagi ng Procedure(s): MM tomosynthesis screening BI Accession Number(s): [id number] cc: Valentina Alarcon SECURITY SOLUTIONS ENGINEER EXAMINATION: MM SCREENING DIGITAL BREAST TOMOSYNTHESIS, BILATERAL [...] 10/26/24 0902 DD/ 1500 TD/TT: 10/11/24 1510 Quantitative Strategy Analyst: us Valentina Alarcon NP IMG BI PROCEDURES Final Result * BD DEXA Axial (10/11/2024 2:50 PM EST) Anatomical Region Laterality Modality Body Radiographic Kadi ging 10/11/2024 2:50 PM EST Narrative 10/11/2024 4:03 PM EST ? [facility] [place] ? [address] ?[place] [address] ? Mammography Report ? Signed ? Patient: Leisa,Ariana ?MR#: [id number] ? : 1950 ?Acct:[id number] ? Age/Sex: 73 / F ?ADM Date: 12/25 ? Loc: HO.MAMMO ? Attending Dr: Valentina B Graef SECURITY SOLUTIONS ENGINEER ? Ordering Physician: Graef,Valentina B SECURITY SOLUTIONS ENGINEER ?Results: ? Date of Service: 10/11/24 ?Follow Up: ? Procedure(s): XR DEXA axial skeleton ?? Accession Number(s): [id number] ? cc: Valentina Alarcon SECURITY SOLUTIONS ENGINEER ? EXAMINATION: ??DXA BONE DENSITY AXIAL ? HISTORY: ??Estrogen deficiency ? TECHNIQUE: [employer] Dual energy absorptiometry (DEXA) ?? of the [...] is a trademark of the [employer]'s ?? [place] for Metabolic Bone Disease, a World Health Organization (WHO) ?? Collaborating Center. ? Electronically signed by: ??Valerio Funk MD ??10/11/2024 04:00 PM EST ?? RP ? Dictated By: ?Valerio Funk MD ? Signed By: ?<Electronically signed by Valerio Funk MD in OV> ?10/11/24 1600 ? DD/ 1450 ? TD/TT: 10/11/24 1515 ? Quantitative Strategy Analyst: ? Procedure Note Donotuseinterpreter, Image - 10/11/2024 [facility] [address] [place] [address] [place] [address] Mammography Report Signed Patient: Ramya De La Fuente#: [id number] : 1Acct:[id number] Age/Sex: 73 / FADM Date: 10/11/24 Loc: SHADE Attending Dr: Valentina Alarcon SECURITY SOLUTIONS ENGINEER Ordering Physician: Valentina Alarcon NPResults: Date of Service: 10/11/24Follow Up: Procedure(s): XR DEXA axial skeleton Accession Number(s): [id number] cc: Valentina Alarcon SECURITY SOLUTIONS ENGINEER EXAMINATION: DXA BONE DENSITY AXIAL HISTORY: Estrogen deficiency TECHNIQUE: [employer] Dual energy absorptiometry (DEXA) of the lumbar [...] is a trademark of the [employer]'s [place] [facility] Metabolic Bone Disease, a World Health Organization (WHO) Collaborating Center. Electronically signed by: Valerio Funk MD 10/11/2024 04:00 PM EST Dictated By: Valerio Funk MD Signed By: <Electronically signed by Valerio Funk MD in OV> 10/11/24 1600 DD/ 1450 TD/TT: 10/11/24 1515 Quantitative Strategy Analyst: Valentina Alarcon NP IMG DXA PROCEDURES Final Result * (ABNORMAL) POCT HGB A1C (06/30/2024 2:25 PM EDT) Pathologist [facility] Hemoglobin A1C 6.1(A) 4.0 - 6.0 % QC Media Lot # [id number] Lot# Expiration Date [id number] Blood 06/30/2024 2:25 PM EDT us Kaity HERNANDEZ POINT OF CARE TEST ENTER/EDIT OR DERABLES Final Result * Lipid Panel, Standard (09/08/2023 4:25 PM EST) Triglycerides 66 <150 mg/dL [facility] Comment:Desirable Triglyceri de: less than 150 mg/dLBorderline High Triglyceride 150-199 mg/dLHigh Triglyceride: 200-499 mg/dLVery High Triglyceride: greater than or equal to 5OO mg/dL Cholesterol 126 <200 mg/dL [facility] Comment:Desirable Cholestero l: less than 200 mg/dLBorderline High Cholesterol: 200-239 mg/dLHigh Cholesterol: greater than 239 mg/dL LDL Cholesterol Calculated 67 <100 mg/dL [facility] Comment:Desirable LDL: less than 100 mg/dLNear Optimal/Above Optimal LDL: 110- 129 mg/dLBorderline High LDL: 130-159 mg/dLHigh LDL: 160-189 mg/dLVery High LDL: greater than or equal to 190 mg/dL HDL Cholesterol 46 >40 mg/dL [facility] Comment:Desirable HDL: great er than 40 mg/dL Note: This HDL assay may give artificially low results in patients with liver disease. Blood Venous blood specimen / Unknown 09/08/2023 4:25 PM EST 09/08/2023 5:55 PM EST us Eliane Noyola DOOR TO DOOR SALESPERSON LAB BLOOD ORDERABLES Final Resu lt [facility] [address] [place] [address] [phone] from Last 3 Months or Most Recently Relevant to Health Maintenance Insurance [facility] Care Teams Press Set Up Relationship Specialty Start Date End Date Valentina Alarcon NP [address] [place] [address] PCP - General Family Medicine 06/27/24
--- OUTSIDE RECORDS SUMMARY | 2024-12-21 08:45 | XMS_ITS | Encounter Summary ---
Author Organization [employer] Address [address] [facility] 7t [place] [address] Care Team Providers Care Horses Or Mules Teamster Name Role Phone Valentina Alarcon NP Primary Care Provider [phone] Reason for Visit * Reason Onset Date Comments Appointment Request 12/13/2024 Encounter Details Date Type Department Care Team ([facility] st Contact Info) Description 12/13/2024 Telephone [facility] [address] [place], [place] [phone] Valentina Alarcon NP [address] [place], [place] [phone] Appointment Request Social History Tobacco Use Types Packs/Day Years [...] encounter Miscellaneous Notes * Telephone Encounter - Amanda Sarmiento - 12/13/2024 3:52 PM EDT Tc from PT son stating was advise to follow up with PCP regarding mammogram documented in this encounter Plan of Treatment Upcoming Encounters Date Type Department Care Team (Late st Contact Info) Description 02/19/2025 3:15 PM EDT Office Visit [facility] [address] [place] [address] Valentina Alarcon NP [address] [place] [address] documented as of this encounter Visit Diagnoses Not on filedocumented in this encounter Additional Health Concerns Assessment Noted Time PHQ-9 Depression Total Score: 9 12/05/19 25 3:40 PM EDT documented as of this encounter Care Teams Horses Or Mules Teamster Relationship Specialty Start Date End Date Valentina Alarcon NP [address] [place] [address] PCP - General Family Medicine 06/27/24 documented as of this encounter
--- OUTSIDE RECORDS SUMMARY | 2024-12-21 08:45 | XMS_ITS | Encounter Summary ---
Author Organization [employer] Address [address] [facility] 7t [place] [address] Care Team Providers Care Retirement Manager Name Role Phone Valentina Alarcon NP Primary Care Provider Reason for Visit * Reason Comments Med Refill Encounter Details Date Type Department Care Team ([facility] st Contact Info) Description 12/19/2024 Refill [facility] [address] [place], [place] [phone] Valentina Alarcon NP [address] [place] [address] Psychophysiological insomnia Social History Tobacco Use Types [...] Description 02/19/2025 3:15 PM EDT Office Visit [facility] [address] [place] [address] Valentina Alarcon NP [address] [place] [address] documented as of this encounter Visit Diagnoses Diagnosis Psychophysiological insomnia Persistent disorder of initiating or maintaining sleep documented in this encounter Additional Health Concerns Assessment Noted Time PHQ-9 Depression Total Score: 9 12/05/19 25 3:40 PM EDT documented as of this encounter Care Teams Retirement Manager Relationship Specialty Start Date End Date Valnetina Alarcon NP [address] [place] [address] PCP - General Family Medicine 06/27/24 documented as of this encounter
--- OUTSIDE RECORDS SUMMARY | 2024-12-21 08:45 | XMS_ITS | Encounter Summary ---
Author Organization [employer] Address [address] [facility] 7t [place] [address] Care Team Providers Care Ton Container Shipper Name Role Phone Eliane Noyola Primary Care Provider [phone] Anayeli Escamilla MD Primary Care Provide r Valentina Alarcon NP Primary Care Provider [phone] Reason for Visit * Reason Comments Med Refill Encounter Details Date Type Department Care Team (Late st Contact Info) Description 01/13/2024 Refill [facility] [address] [place], [place] [phone] Eliane Noyola FNP [address] [place] [address] Social History Tobacco Use Types Packs/Day Years [...] Description 02/19/2025 3:15 PM EDT Office Visit [facility] [address] [place] [address] Valentina Alarcon NP [address] [place] [address] documented as of this encounter Visit Diagnoses Not on filedocumented in this encounter Additional Health Concerns Assessment Noted Time PHQ-9 Depression Total Score: 8 12/29/19 4:22 PM EDT documented as of this encounter Care Teams Ton Container Shipper Relationship Specialty Start Date End Date Eliane Noyola FNP [address] [place] [address] PCP - General Family Medicine 09/08/23 05/01/24 Anayeli Escamilla MD [address] [place] [address] PCP - General Internal Medicine 05/02/24 05/24/24 Valentina Alarcon NP [address] [place] [address] PCP - General Family Medicine 06/27/24 documented as of this encounter
--- OUTSIDE RECORDS SUMMARY | 2024-12-21 08:45 | XMS_ITS | Encounter Summary ---
Author Organization [employer] Address [address] [facility] 7t [place] [address] Care Team Providers Care Fast Food Restaurant Manager Name Role Phone Eliane Noyola Primary Care Provider [phone] Anayeli Escamilla MD Primary Care Provide r Valentina Alarcon NP Primary Care Provider [phone] Reason for Visit * Reason Comments Med Refill Encounter Details Date Type Department Care Team (Late st Contact Info) Description 01/09/2024 Refill [facility] MEDICINE [address] [place], [place] [phone] Eliane Noyola FNP [address] [place] [address] Social History Tobacco Use Types Packs/Day Years [...] Description 02/19/2025 3:15 PM EDT Office Visit [facility] [address] [place] [address] Valentina Alarcon NP [address] [place] [address] documented as of this encounter Visit Diagnoses Not on filedocumented in this encounter Additional Health Concerns Assessment Noted Time PHQ-9 Depression Total Score: 8 12/29/19 4:22 PM EDT documented as of this encounter Care Teams Fast Food Restaurant Manager Relationship Specialty Start Date End Date Eliane Noyola FNP [address] [place] [address] PCP - General Family Medicine 09/08/23 05/01/24 Anayeli Escamilla MD [address] [place] [address] PCP - General Internal Medicine 05/02/24 05/24/24 Valentina Alarcon NP [address] [place] [address] PCP - General Family Medicine 06/27/24 documented as of this encounter
--- OUTSIDE RECORDS SUMMARY | 2024-12-21 08:45 | XMS_ITS | Encounter Summary ---
Author Organization [employer] [facility] Address [address] [place] [address] 7 [place] [address] Care Team Providers Care Screen Printing Inspector Name Role Phone Eliane Noyola NEW ACCOUNTS CLERK Primary Care Provider [phone] Anayeli Escamilla MD Primary Care Provide r Valentina Alarcon NP Primary Care Provider [phone] Reason for Visit * Reason Onset Date Comments New Patient 06/18/2023 Encounter Details Date Type Department Care Team (Late st Contact Info) Description 06/18/2023 Telephone [facility] MED[facility] [address] [place], [place] [phone] Rayray Vallecillo MD [address] [place], [place] [phone] New Patient Social History Tobacco Use Types [...] been transfer over to wait list for DUCT MAKER. EFFECTIVE SINCE 06/18/2023 documented in this encounter Plan of Treatment Upcoming Encounters Date Type Department Care Team (Late st Contact Info) Description 02/19/2025 3:15 PM EDT Office Visit [facility]INE [address] [place] [address] Valentina Alarcon NP [address] [place] [address] documented as of this encounter Visit Diagnoses Not on filedocumented in this encounter Care Teams Screen Printing Inspector Relationship Specialty Start Date End Date Eliane Noyola FNP [address] [place] [address] PCP - General Family Medicine 09/08/23 05/01/24 Anayeli Escamilla MD [address] [place] [address] PCP - General Internal Medicine 05/02/24 05/24/24 Valentina Alarcon NP [address] [place] [address] PCP - General Family Medicine 06/27/24 documented as of this encounter
--- OUTSIDE RECORDS SUMMARY | 2024-12-21 08:45 | XMS_ITS | Encounter Summary ---
Author Organization [employer] Address [address] [facility] 7t [place] [address] Care Team Providers Care Gang Rider Name Role Phone Valentina Alarcon NP Primary Care Provider [phone] Reason for Visit * Reason Comments Med Refill Encounter Details Date Type Department Care Team ([facility] st Contact Info) Description 10/17/2024 Refill [facility] MED[facility]INE [address] [place], [place] [phone] Valentina Alarcon NP [address] [place], [place] [phone] Social History Tobacco Use Types Packs/Day Years [...] Description 02/19/2025 3:15 PM EDT Office Visit [facility] MED[facility]INE [address] [place] [address] Valentina Alarcon NP [address] [place] [address] documented as of this encounter Visit Diagnoses Not on filedocumented in this encounter Additional Health Concerns Assessment Noted Time PHQ-9 Depression Total Score: 8 12/29/19 4:22 PM EDT documented as of this encounter Care Teams Gang Rider Relationship Specialty Start Date End Date Valentina Alarcon NP [address] [place] [address] PCP - General Family Medicine 06/27/24 documented as of this encounter
--- OUTSIDE RECORDS SUMMARY | 2024-12-21 08:46 | XMS_ITS | Data Portability ---
Author Organization [place] - [facility]- Address [address] [place] [address] Care Team Providers Care Executive Asst Name Role Phone CAM VICENTE Primary Care Provider [phone] CAM VICENTE Referring Provider Assessment Encounter Date [...] cetirizine 10 mg tablet 2014 015 ATHENAFAX [facility], [address], [place], [place], [id number], 5 17:01:51 fluticason e propionate 50 mcg/actuat ion nasal spray,susp ension 2014 015 SACHA [facility], [address], [place], [place], [id number], 5 17:01:45 Patient TargetsNo targets recorded. Patient Instructions Encounter Date Encounter Id Patient Instructions Last Modified By Organization Details Last Modified Time 09/11/2015 [id number] rinitis: instrucciones de cuidado - [rhinitis: care instructions] [email or web address] Not available 09/17/2015 10:57:19 Reason for Referral None Reported. Results Created Date Observation Date Name Description Value Unit Range Abnormal Flag Note LastModifiedBy Organization Detail LastModifiedTime 09/04/19 16 09/05/2015 ige, total , serum immunoglobul in E 25 kU/L <or=11 4 normal Not Available [facility] [address], [address], 09/05/2015 21:52:25 09/04/19 16 09/05/2015 blueb erry IgE Ab, serum blueberry (F288) IgE <0.10 kU/L normal Not Available [facility] [place] [facility] [address], [address], 09/05/2015 21:52:25 09/04/19 16 09/05/2015 blueb erry IgE Ab, serum class 0 Not Available [facility] [address], [address], 09/05/2015 21:52:25 09/04/19 16 09/05/2015 cashe w nut ige, serum cashew nut (F202) IgE <0.10 kU/L normal Not Available [facility] [place] [facility] [address], [address], 09/05/2015 21:52:26 09/04/19 16 09/05/2015 cashe w nut ige, serum class 0 Not Available [facility] [address], [address], 09/05/2015 21:52:26 09/04/19 16 09/05/2015 green andrews IgE Ab, serum green andrews (F315) IgE <0.10 kU/L normal Not Available [facility] [place] [facility] [address] [place], [place], [address], 09/05/2015 21:52:26 09/04/19 16 09/05/2015 green andrews IgE Ab, serum class 0 Not Available [facility] [place] [facility] [address] [place], [place], [address], 09/05/2015 21:52:26 09/04/19 16 09/05/2015 wheat ige, serum wheat (F4) IgE <0.10 kU/L normal Not Available [facility] [place] [facility] [address] [place], [place], [address], 09/05/2015 21:52:26 09/04/19 16 09/05/2015 wheat ige, serum class [address] [facility] [place] [facility] [address] [place], [place], [address], 09/05/2015 21:52:26 09/04/19 16 09/05/2015 oat ige, serum oat (F7) IgE <0.10 kU/L normal Not Available [facility] [place] [facility] [address], [place], [address], 09/05/2015 21:52:27 09/04/19 16 09/05/2015 oat ige, serum class 0 Not Available [facility] [place] [facility] [address], [place], [address], 09/05/2015 21:52:27 09/04/19 16 09/05/2015 pork ige, serum pork (F26) IgE <0.10 kU/L normal Not Available [facility] [place] [facility] [address], [place], [address], 09/05/2015 21:52:27 09/04/19 16 09/05/2015 pork ige, serum class 0 Not Available [facility] [place] [facility] [address], [place], [address], 09/05/2015 21:52:27 09/04/19 16 09/05/2015 salmo n ige, serum salmon (F41) IgE <0.10 kU/L normal Not Available [facility] [place] [facility] [address], [place], [address], 09/05/2015 21:52:27 09/04/19 16 09/05/2015 salmo n ige, serum class 0 Not Available [facility] [place] [facility] [address], [place], [address], 09/05/2015 21:52:27 09/04/1909/05/2015 ames 's yeast IgE Ab, serum yeast (F45) IgE <0.10 kU/L normal Not Available [facility] [place] [facility] [address], [place], [address], 09/05/2015 21:52:28 09/04/19 16 09/05/2015 ames 's yeast IgE Ab, serum class 0 Not Available [facility] [place] [facility] [address], [place], [address], 09/05/2015 21:52:28 09/04/19 16 09/05/2015 celer y IgE Ab, serum celery (F85) IgE <0.10 kU/L normal Not Available [facility] [place] [facility] [address], [place], [address], 09/05/2015 21:52:28 09/04/19 16 09/05/2015 celer y IgE Ab, serum class 0 Not Available [facility] [place] [facility] [address] [place], [place], [address], 09/05/2015 21:52:28 09/04/19 16 09/05/2015 lettu ce IgE Ab, serum lettuce (F215) IgE <0.10 kU/L normal Not Available [facility] [place] [facility] [address], [place], [address], 09/05/2015 21:52:28 09/04/19 16 09/05/2015 lettu ce IgE Ab, serum class 0 Not Available [facility] [place] [facility] [address], [place], [address], 09/05/2015 21:52:28 09/04/19 16 09/05/2015 peach ige, serum peach (F95) IgE <0.10 kU/L normal Not Available [facility] [place] [facility] [address], [place], [address], 09/05/2015 21:52:28 09/04/1909/05/2015 peach ige, serum class 0 Not Available [facility] [place] [facility] [address], [place], [address], 09/05/2015 21:52:28 09/04/19 16 09/05/2015 water melon IgE Ab , serum watermelon (rf329) IgE <0.10 kU/L normal Not Available [facility] [place] [facility] [address], [place], [address], 09/05/2015 21:52:29 09/04/19 16 09/05/2015 water melon IgE Ab , serum class 0 Not Available [facility] [place] [facility] [address], [place], [address], 09/05/2015 21:52:29 09/04/1909/05/2015 inter preta tion interpretati [...] cteri stics have been deter mined by [facility]. It has not been clear ed or appro cristóbal by the U.S. Food and Drug Admin istra tion. The FDA has deter mined that such clear ance or appro danielito is not neces frances. This assay has been valid ated pursu ant to the CLIA regul ation s and is used for clini angelita purpo ses. Not Available [facility] [place] [facility] [address] [place] [address], [place], [address], 09/05/2015 21:52:29 Result Notes None recorded. 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 Medical [...] Updated DateTime 07/10/2015 14 /min Julissa Avila [facility] 06/30 15:59:40 Date Recorded Body height Body mass index (BMI) Body weight Provider Name and Address Organization Details Last Updated DateTime 08/14/2015 162.56 cm 26.6 kg/m2 89192.77922 g Nalini Cortez [facility] 08/14/2015 08:51:35 Date Recorded Respiratory rate Provider Name a nd Address Organization Details Last Updated DateTime 08/14/2015 16 /min Srinivas Hager [facility] 08/14 09:06:42 Date Recorded Body weight Body mass index (BMI) Body height Provider Name and Address Organization Details Last Updated DateTime 08/28/2015 78348.21751 g 26.6 kg/m2 162.56 cm Nalini Cortez [facility] 08/28/2015 14:32:39 Date Recorded Respiratory rate Provider Name a nd Address Organization Details Last Updated DateTime 08/28/2015 15 /min Sterling Hagan [facility] 2014 15:33:48 Date Recorded Body height Body weight Body mass index (BMI) Provider Name and Address Organization Details Last Updated DateTime 09/11/2015 162.56 cm 78800.37191 g 26.6 kg/m2 Nalini Cortez [facility] 09/11/2015 13:36:57 Social History Question Answer Notes LastModified by Organization D etails LastModified Time What Is Your Level Of Alcohol Consumption? None [email or web address] Information not available 08/14/2015 How Much Tobacco Do You Smoke? No [email or web address] Information not available 08/14/2015 Sex: Unknown Functional Status None recorded. Mental Status None recorded. Family History Nothing Reported. Medical History No medical history recorded. Gynecological HistoryNo gynecological history recorded. Obstetrics History GPAL:G 0 P 0 0 0 0 Past Encounters Encounter ID Performer Location Encounter Start Date Encounter Closed Date Diagnosis/Indication Diagnosis SNOMED-CT Code Diagnosis ICD10 Code Diagnosis Note [id number] Javi Mcdonnell MD Main Office [address] [facility],[address] [place] [address] 07/10/2015 15:57:56 07/10/2015 16:28:29 Allergic rhinitis 36660587 J30.9 - Symptomati c with nasal allergies. - Reviewed various measures to control allergy symptoms, including environmen raul control/al lergen avoidance. Will do a trial of Zyrtec and Flonase. -Follow up in 4 weeks to check progress. If symptoms persists despite these measures may need to repeat allergy test. Environmental allergy 42 7021785 T78.49XA -See #1 Posterior end of inferior turbinate hypertrophy 523114138 J34.3 -Secondary to nasal allergies. [id number] Sterling Fields MD Main Office [address] [facility],[address] [place] [address] 08/14/2015 08:48:44 08/14/2015 09:10:33 Allergic rhinitis 18744364 J30.9 Discussed findings Hold meds Schedule for Allergy eval See after Posterior end of inferior turbinate hypertrophy 690040435 J34.3 [id number] Kenzie Phong Main Office [address] [place] [address] 08/28/2015 14:31:39 08/28/2015 15:36:21 Allergic rhinitis 55095770 J30.9 Otitis externa 2838469 H 60.93 [id number] Sterling Morenosony Main Office [address] [place] [address] 09/11/2015 13:35:51 09/11/2015 14:12:20 Vasomotor rhinitis 5542288 J30.0 Health Concerns Section Related Observation LastModified by Organization Detai ls LastModified Time None Recorded Concern Status LastModified by Organization Details LastModified Time None Recorded Advance Directives Directive None Recorded Payers Encounter Date Sequence Insurance Name Policy Number Policy Jain Covered Member ID Jain Member ID Guarantor Name 07/10/2015 1 [place] [employer] Ariana E Leisa [id number] Ariana Leisa 07/10/2015 2 [place] [facility] Leisa [id number] Ariana Leisa 08/14/2015 1 [place] [employer] Ariana E Leisa [id number] Ariana Leisa 08/14/2015 2 [place] [facility] Ariana Leisa [id number] Ariana Leisa 08/28/2015 1 [place] [employer] Ariana E Leisa [id number] Ariana Leisa 08/28/2015 2 [place] Ariana Leisa [id number] Ariana Leisa 09/11/2015 1 [place] [employer] Ariana E Leisa [id number] Ariana Leisa 09/11/2015 2 [place] [facility] Ariana Leisa [id number] Ariana Leisa Notes Date Note Type Note Provider Name a nd Address Organization Details Recorded Time 07/10/2015 text/html HPI This is a 64 y/o F here for evaluation of itchy throat, nose, and ears over the past few years. Bilateral otalgia, occasional nasal congestion, sneezing, PND. Using drops in ears for itch. History of allergies. Previous allergy testing over 10 years in [place] - positive for multiple sensitivities. Not on any antihistamine or nasal spray. No otorrhea, tinnitus, or vertigo.? Javi Mcdonnell MD [address] [facility] [address], [place], [address], [facility] 07/10/2015 18:45:29 08/14/2015 text/html HPI Returns for recheck of her allergy. Has used meds did not help. Has itching of ears, nose, PND, Phlegm. No new sx.? Sterling Fields MD [address] [facility] [address], [place], [address], [facility] 08/14/2015 13:38:09 OBGyn Episode No OBEpisode recorded.
--- OUTSIDE RECORDS SUMMARY | 2024-12-21 08:46 | XMS_ITS | Clinical Summary ---
Author Organization [facility] ity Address [address] [place] [address] Care Team Providers Care Tensile Tester Name Role Phone Unavailable Primary Care Provider [...]
--- OUTSIDE RECORDS SUMMARY | 2024-12-21 08:46 | XMS_ITS | Data Portability ---
Author Organization [place] [facility] [place] [facility] Address [address] [place] [address] Care Team Providers Care Swage Toolsetter Name Role Phone VIRGIL GRAVES Primary Care Provider [phone] VIRGIL GRAVES Referring Provider MIKA ROCHA Spinal [...] of severe pain and she can continue [id number] pain medications for the mild pain. She [...] tramadol that she takes p.r.n. I did public relations counselor her on opiate medication use and she voiced her understanding. She will continue the home exercise program and see me as needed. If the knee pain persists we could consider referral to the orthopedics teacher for that Not available 09/16/2018 17:12:52 01/17/2019 [...] DO Not Attach Compendium, Do Not Delete/merge, [id number] 8 12:16:07 Surgeries None recorded. Imaging None recorded. Medication Orders methylpredn isolone acetate 40 mg/mL suspension for injection 2018 019 [email or web address] Not available 9 14:48:02 tramadol 50 mg tablet [email or web address], [address] [place], [place], [id number], 9 17:54:20 Voltaren 1 % topical gel [address], [address] [place], [place], [id number], 9 17:54:20 tramadol 50 mg tablet [email or web address], [address] [place], [place], [id number], 9 13:30:59 tramadol 50 mg tablet [email or web address], [address] [place], [id number], 8 16:40:41 betamethaso ne acetate and sodium phos 6 mg/mL suspension for injection 2017 018 [email or web address] 5 Not available 8 09:29:44 Omnipaque 300 mg iodine/mL intravenous solution 2017 018 [email or web address] 5 Not available 8 09:29:45 lidocaine (PF) 10 mg/mL (1 %) injection solution 2017 018 [email or web address] 5 Not available 8 09:29:45 acetaminoph en 300 mg-codeine 30 mg tablet [email or web address], [address] [place] , [place], [place], [id number], 8 09:36:21 Patient TargetsNo targets recorded. Patient Instructions Encounter Date Encounter Id Patient Instructions Last Modified By Organization Details Last Modified Time 03/22/2018 [id number] dolor de no: instrucciones de cuidado - [neck pain: care instructions] Not available 03/23/2018 09:36:21 01/19/2019 [id number] Reviewed exam findings. Again reviewed treatment options. [...] Recorded Time Impingement syndrome of shoulder region 450886272 Active 2016 Ferny Martinez MD [address] [place] [address], [address] 9, [facility] 7 14:50:24 Cubital tunnel syndrome Active 2017 Natasha Morris [address] [place] [address], [address]5943[address]113 9, [facility] 8 13:40:44 Carpal tunnel syndrome 91612247 Active Mitch Toussaint M.D. [address] [place] [address], [address]9943[address]497 9, [facility] 6 14:40:56 Low back pain 870571823 Active Mitch Toussaint M.D. [address] [place] [address], [address] 9, [facility] 14:40:56 Spinal enthesopathy 13783671 Active Mitch Toussaint M.D. [address] [place] [address], [address]858-[address] 9, [facility] 6 14:40:56 Knee pain Active Mitch Toussaint M.D. [address] [place] [address], 73228-992 9, [facility] 6 14:40:56 Arthritis of knee 609462114 Active Mitch Toussaint M.D. [address] [place] [address], 90148-064 9, [facility] 14:40:56 Degeneration of lumbar intervertebral disc [id number] Hina Toussaint M.D. [address] [place] [address], 72593-020 9, [facility] 14:51:06 Lumbar spondylosis [id number] Hina Toussaint M.D. [address] [place] [address], [address]70-254 9, [facility] 14:40:56 Neuropathy 147746936 Active Mitch Toussaint M.D. [address] [place] [address], 35924-398 9, [facility] 14:51:06 Lumbar radiculopathy 417204024 Active FREDY Holder [address] [place] [address], 68865-216 9, [facility] 14:02:17 Lumbosacral radiculopathy 1056004 Active Mitch Toussaint M.D. [address] [place] [address], [address]64[address]700 9, [facility] 14:51:06 Problem Notes None recorded. Procedures Surgical History Date Name Laterality Status Provider Name and Address Organization Details Recorded Time 9 Shoulder Subacromial - LEFT - CS Injection completed Cl Christopher MD [address] [place] [address], [address], [facility] 01/19/2019 08:41:52 9 Trigger Point Injection - RIGHT completed Mitch Toussaint M.D. [address] [place] [address], [address], [facility] 09/16/2018 16:54:11 8 Shoulder Subacromial - LEFT - CS Injection completed Mitch Toussaint M.D. [address] [place] [address], [address], [facility] 03/22/2018 13:40:06 8 RC Generic CS Injection completed Ferny Martinez MD [address] [place] [address], [address], [facility] 01/05/2018 13:41:33 8 RC Generic CS Injection completed Natasha Morris [address] [place] [address], [address], [facility] 12/29/2017 13:39:27 8 Nerve Conduction, 9 - 10 studies completed Mitch Toussaint M.D. [address] [place] [address], [address], [facility] 12/24/2017 08:20:56 8 Needle EMG , 5 muscles or more completed Mitch Toussaint M.D. [address] [place] [address], [address], [facility] 12/24/2017 08:20:54 8 Shoulder Subacromial - LEFT - CS Injection completed Cl Christopher MD [address] [place] [address], [address], [facility] 12/16/2017 14:12:49 8 Shoulder Subacromial - LEFT - CS Injection completed Mitch Toussaint M.D. [address] [place] [address], [address], [facility] 09/23/2017 15:17:35 7 Shoulder Subacromial - LEFT - CS Injection completed Mitch Toussaint M.D. [address] [place], [address], [facility] 07/15/2017 18:22:00 7 Knee CS Injection - Right completed Cl Christopher MD [address] [place], [address], [facility] 05/20/2017 15:06:52 7 Shoulder Subacromial - LEFT - CS Injection completed Ferny Martinez MD [address] [place] [address], [address], [facility] 05/05/2017 14:50:15 7 Carpal Tunnel LEFT CS Injection completed Natasha Morris [address] [place], [address], [facility] 02/22/2017 14:51:45 7 Carpal Tunnel RIGHT CS Injection completed Ferny Martinez MD [address] [place] [address], [address], [facility] 02/17/2017 14:12:37 7 Knee CS Injection - Left completed Mitch Toussaint M.D. [address] [place] [address], [address], [facility] 02/02/2017 16:25:10 6 Knee CS Injection - Right completed Cl Christopher MD [address] [place] [address], [address], [facility] 04/23/2016 17:05:49 6 Knee CS Injection - Right completed Marco Antonio Layton [address] [place] [address], [address], [facility] 11/21/2015 15:48:11 6 Knee CS Injection - Right completed Marco Antonio Layton [address] [place] [address], [address], [facility] 09/10/2015 15:35:15 6 Trigger Point Injection - Bilateral - 2 muscles completed Mitch Toussaint M.D. [address] [place] [address], [address], [facility] 09/03/2015 17:05:31 5 Carpal Tunnel LEFT CS Injection completed Ferny Martinez MD [address] [place] [address], [address], [facility] 08/14/2015 10:00:48 5 Carpal Tunnel RIGHT CS Injection completed Ferny Martinez MD [address] [place] [address], [address], [facility] 08/07/2015 15:32:38 5 Nerve Conduction, 9 - 10 studies completed Mitch Toussaint M.D. [address] [place] [address], [address], [facility] 08/02/2015 11:33:49 5 Needle EMG , 5 muscles or more completed Mitch Toussaint M.D. [address] [place] [address], [address], [facility] 08/02/2015 11:33:49 Imaging Results None [...] Available Not Available N ot Available zostavax 50166 unt/0.65ml susr active Not Available Not Available [...] Not Available Not Available N ot Available prolensa 0.07 % soln active Not Available Not Available Not Available metformin hcl 500 mg tabs 01/19 [...] Updated DateTime 06/03/2018 162.56 cm 25.6 kg/m2 85179.26 g Priti Hamilton MA [facility] 06/03/2018 14:06:00 Date Recorded Body height Body mass index (BMI) Body weight Provider Name and Address Organization Details Last Updated DateTime 09/16/2018 162.56 cm 25.6 kg/m2 80782.26 g Priti Hamilton MA [facility] 09/16/2018 16:01:35 Date Recorded Body height Body mass index (BMI) Body weight Provider Name and Address Organization Details Last Updated DateTime 01/17/2019 162.56 cm 25.6 kg/m2 75642.26 g Priti Hamilton MA [facility] 01/17/2019 13:28:06 Date Recorded Body height Body mass index (BMI) Body weight Pain severity - 0-10 verbal numeric rating [Score] - Reported Provider Name and Address Organization Details Last Updated DateTime 01/19/2019 162.56 cm 25.6 kg/m2 08640.26 g 4 Kiki Aguilar [facility] 01/19/2019 08:24:44 Date Recorded Body height Body mass index (BMI) Body weight Provider Name and Address Organization Details Last Updated DateTime 03/22/2018 162.56 cm 25.6 kg/m2 23441.26 g Mitch Toussaint M.D. [address] [place] [address], [address], [facility] 03/22/2018 13:00:26 Social History Question Answer Notes LastModified by Organizat ion Details LastModified Time Tobacco Smoking Status Never Smoker Alysa burgess, [facility] 07/10/2015 14:25:07 What Is Your Level [...] available 2015 13:28:10 Medical History Condition Response Hereditary Defects N Coronary Artery Disease N Gout N Tremors/Seizures/Dizziness/Epilepsy N Excessive Thirst/Fatigue N Lung Disease N Blood Clots N Fever, Chills, Headaches N Pacemaker N Heart Disease/Problems N Breathing Problems N Heart Attack ([place]) Y Sexually Transmitted Diseases N Bleeding Disorder/Tendencies [...] SNOMED-CT Code Diagnosis ICD10 Code Diagnosis Note [id number] Kirsten Camposahan OFFICE-N. [facility] ot a [address] [address] 7 07/10/2015 14:14:06 07/10/2015 15:29:47 Carpal tunnel syndrome 17388256 G56.01 G56.02 [id number] Mitch Toussaint M.D. OFFICE-N. [facility] ot a [address] [address] 7 08/02/2015 10:08:15 08/02/2015 10:49:54 Carpal tunnel syndrome 35412506 G56.00 [id number] Kirsten Camposahan OFFICE-N. [facility] ot a [address] [address] 7 08/07/2015 15:05:18 08/07/2015 15:34:59 Carpal tunnel syndrome 82109362 G56.01 G56.02 [id number] [facility] [address] [address] 7 08/14/2015 09:24:12 08/14/2015 10:11:59 Carpal tunnel syndrome 59032348 G56.02 [id number] Mitch Toussaint M.D. OFFICE-N. [facility] ot a [address] [address] 7 09/03/2015 14:27:01 09/03/2015 16:59:09 Low back pain 452844071 M54.5 Spinal enthesopathy 1031 7009 M46.00 Knee pain 68840554 M25.5 69 [id number] Marco Antonio Layton OFFICE-N. [facility] a [address] [address] 7 09/10/2015 13:27:06 09/10/2015 15:08:56 Arthritis of knee 156191594 M17.11 [id number] Cl Christopher MD OFFICE-N. [facility] a [address] [address]673 7 10/24/2015 14:38:57 10/24/2015 15:20:30 Arthritis of knee 310147954 M17.11 [id number] Mitch Toussaint M.D. OFFICE-N. [facility] a [address] [address] 7 10/29/2015 15:16:53 10/29/2015 15:48:23 Low back pain 722222969 M54.5 Degenerati on of lumbar intervertebral disc 66410366 M51.36 Lumbar spondylosis 10165 0009 M47.816 [id number] SHEILA CADENA D.P.M. OFFICE-N. [facility] a [address] [address] 7 11/18/2015 14:44:28 11/18/2015 15:18:23 Neuropathy 299908430 G62.9 [id number] Mitch Toussaint M.D. OFFICE-N. [facility] a [address] [address]-537 7 11/19/2015 14:22:26 11/19/2015 15:34:09 Lumbar spondylosis 552717737 M47.816 Degenerati on of lumbar intervertebral disc 47665214 M51.36 Neuropathy 616182636 G62 .9 Lumbar radiculopathy 128 993657 M54.16 [id number] Marco Antonio Layton OFFICE-N. [facility] ot a Service [address] [address] 7 11/21/2015 14:21:01 11/21/2015 16:02:09 Arthritis of knee 049681306 M17.11 [id number] [place] [address] 12/02/2015 09:40:58 2015 15:04:38 [id number] Mitch Toussaint M.D. OFFICE-N. [facility] ot a Service [address] [address]153 7 12/05/2015 14:48:01 12/05/2015 15:31:56 Lumbar spondylosis 028886444 M47.816 Lumbar radiculopathy 128 863565 M54.16 [id number] Mitch Toussaint M.D. OFFICE-N. [facility] ot a Service [address] [address] 7 01/02/2016 14:09:55 01/02/2016 15:53:59 Lumbar spondylosis 428566401 M47.816 Lumbosacra l radiculopathy 0976212 M54.16 [id number] [place] [address] 1 01/10/2016 11:24:30 01/28/2016 10:52:43 [id number] Rashida isaac OFFICE-N. [facility] ot a Service [address] [address] 7 01/23/2016 13:48:55 01/23/2016 16:24:55 Lumbosacral radiculopathy 2846409 M54.16 Lumbar radiculopathy 128 398568 M54.16 Neuropathy 253367174 G62 .9 Degenerati on of lumbar intervertebral disc 88159552 M51.36 [id number] FREDY Holder OFFICE-N. [facility] ot a Service [address] [address] 7 03/12/2016 13:06:00 03/12/2016 13:59:57 Lumbar radiculopathy 982930762 M54.16 [id number] Marco Antonio Layton OFFICE-N. [facility] a [address] [address]547 7 03/19/2016 13:37:20 03/19/2016 14:27:12 Arthritis of knee 417292763 M17.11 [id number] FREDY Holder OFFICE-N. [facility] a [address] [address]459[address]167 7 04/16/2016 13:56:49 04/16/2016 14:49:54 Lumbar radiculopathy 645158323 M54.16 Lumbar spondylosis 62176 0009 M47.896 Degenerati on of lumbar intervertebral disc 81269822 M51.36 [id number] Cl Christopher MD OFFICE-N. [facility] a [address] [address] 7 04/23/2016 15:00:01 04/23/2016 15:41:54 Arthritis of knee 356812752 M17.11 Tear of me niscus of knee 079050202 S83.231D [id number] Mitch Toussaint M.D. OFFICE-N. [facility] a [address] [address] 7 05/28/2016 14:14:03 05/28/2016 15:18:23 Lumbosacral radiculopathy 0880388 M54.16 Lumbar radiculopathy 128 603029 M54.16 Neuropathy 464668695 G62 .9 Degenerati on of lumbar intervertebral disc 59410152 M51.36 [id number] FREDY Holder OFFICE-N. [facility] a [address] 24711[address] 7 07/01/2016 13:09:07 07/01/2016 14:02:04 Lumbar radiculopathy 797839803 M54.16 Lumbar spondylosis 33576 0009 M47.896 Lumbosacra l radiculopathy 0132139 M54.16 Degenerati on of lumbar intervertebral disc 28793450 M51.36 [id number] Mitch Toussaint M.D. OFFICE-N. [facility] a Service [address] [address] 7 07/14/2016 14:46:25 07/14/2016 15:54:25 Lumbosacral radiculopathy 7531319 M54.16 Lumbar radiculopathy 128 973200 M54.16 Neuropathy 593877845 G62 .9 Degenerati on of lumbar intervertebral disc 16073473 M51.36 [id number] Mitch Toussaint M.D. OFFICE-N. [facility] a [address] [address] 7 08/18/2016 14:11:25 08/18/2016 15:23:44 Lumbar radiculopathy 004385468 M54.16 Lumbar spondylosis 85229 0009 M47.816 [id number] [facility] a Service [address] [address] 02/02/2017 14:36:06 02/02/2017 15:54:06 Lumbar radiculopathy 982743180 M54.16 Knee pain 56530811 M25.5 69 Lumbar spondylosis 62741 0009 M47.816 Degenerati on of lumbar intervertebral disc 00438681 M51.36 Bilateral carpal tunnel syndrome 3379251178 4082796 G56.03 [id number] Ferny Martinez MD OFFICE-N. [facility] a Service [address] [address] 7 02/17/2017 14:00:03 02/17/2017 14:19:55 Carpal tunnel syndrome 58597059 G56.01 [id number] Natasha Morris OFFICE-N. [facility] ot a Service [address] [address] 7 02/22/2017 14:26:53 02/22/2017 15:17:55 Carpal tunnel syndrome 13256203 G56.02 [id number] Mitch Toussaint M.D. OFFICE - [address] [address] 1 03/16/2017 14:06:45 03/16/2017 14:42:22 Lumbar spondylosis 972056041 M47.816 Degenerati on of lumbar intervertebral disc 00424424 M51.36 [id number] Ferny Martinez MD OFFICE - [address] [address] 05/05/2017 14:21:28 05/05/2017 15:31:53 Shoulder joint pain 012494865 M25.519 Impingemen t syndrome of shoulder region 636760073 M75.42 [id number] Mitch Toussaint M.D. [facility] - [address] [address] 1 05/11/2017 14:53:59 05/11/2017 15:29:00 Lumbar radiculopathy 946416227 M54.16 Knee pain 33186705 M25.5 69 [id number] Cl Christopher MD OFFICE - [address] [address] 1 05/20/2017 14:19:19 05/20/2017 15:11:20 Knee pain 69491304 M25.561 Arthritis of knee 197335 002 M17.11 Tear of me niscus of knee 248170379 S83.231D [id number] Cl Christopher MD OFFICE - [address] [address] 06/17/2017 14:31:56 06/17/2017 15:45:59 Osteoarthritis of knee 211424398 M17.11 Tear of me niscus of knee 490921288 S83.231D [id number] Mitch Toussaint M.D. OFFICE - [address] [address] 1 07/15/2017 12:20:31 07/15/2017 14:04:16 Shoulder pain 95458936 M25.512 [id number] Mitch Toussaint M.D. OFFICE - [address] [address]77[address] 1 09/23/2017 14:15:44 09/23/2017 15:06:52 Shoulder pain 57024787 M25.512 Lumbar spondylosis 35963 0009 M47.816 Degenerati on of lumbar intervertebral disc 01533902 M51.36 [id number] Mitch Toussaint M.D. OFFICE - [address] [address] 1 12/07/2017 12:44:03 12/07/2017 13:29:22 Lumbar radiculopathy 563914095 M54.16 Bilateral carpal tunnel syndrome 6987542476 7606919 G56.03 Pain of le ft shoulder joint 4792201285 8496653 M25.512 [id number] Cl Christopher MD [facility] - [address] [address] 1 12/16/2017 12:48:48 12/16/2017 14:18:38 Inflammation of rotator cuff tendon 736407735 M65.812 Shoulder joint pain 2679 87453 M25.519 Neck pain 77499688 M54.2 [id number] Mitch Toussaint M.D. [facility] - [address] [address] 12/20/2017 12:51:48 12/20/2017 13:30:52 Bilateral carpal tunnel syndrome 4592086492 1840535 G56.03 Cubital tu nnel syndrome 41864747 G56.21 [id number] Natasha Morris [facility] - [address] [address] 12/29/2017 12:54:27 12/29/2017 13:45:37 Cubital tunnel syndrome 93131573 G56.21 Carpal tye arely syndrome 63479739 G56.02 G56.01 [id number] Ferny Martinez MD OFFICE - [address] [address] 01/05/2018 13:29:56 01/05/2018 14:34:55 Cubital tunnel syndrome 21883628 G56.22 [id number] Cl Christopher MD [facility] - [address] [address] 01/27/2018 13:43:10 01/27/2018 14:44:44 Inflammation of rotator cuff tendon 966519264 M65.812 [id number] Mitch Toussaint M.D. [facility] - [address] [address] 1 03/22/2018 12:30:42 03/22/2018 13:38:02 Neck pain 77890235 M54.2 Pain of le ft shoulder joint 5160030347 6115479 M25.512 [id number] Mitch Toussaint M.D. OFFICE - [place] [address] [place] [address] 1 06/03/2018 13:52:33 06/03/2018 16:01:30 Lumbar radiculopathy 190429306 M54.16 Low back pain 497721692 M54.5 Lumbar spondylosis 01774 0009 M47.896 Degenerati on of lumbar intervertebral disc 59935943 M51.36 [id number] Mitch Toussaint M.D. OFFICE - [place] [address] [place] [address]239[address] 1 09/16/2018 15:26:42 09/16/2018 16:22:54 Lumbar radiculopathy 600445842 M54.16 Myofascial pain 62473884 9 M79.10 [id number] Mitch Toussaint M.D. OFFICE - [place] [address] [place] [address]117-210 1 01/17/2019 13:14:55 01/17/2019 14:02:00 Lumbar radiculopathy 007688076 M54.16 Shoulder joint pain 2679 62156 M25.519 [id number] Cl Christopher MD OFFICE - [place] [address] [place] [address]96-259 1 01/19/2019 08:10:40 01/19/2019 09:05:24 Inflammation of rotator cuff tendon 353024258 M65.812 Health Concerns Section Related Observation LastModified by Organization Detai ls LastModified Time None Recorded Concern Status LastModified by Organization Details LastModified Time None Recorded Advance Directives Directive None Recorded Payers Encounter Date Sequence Insurance Name Policy Number Policy Jain Covered Member ID Jain Member ID Guarantor Name 03/22/2018 1 [facility] (MEDICARE - MEDICAID REPLACEMENT) [facility] Ariana Muñoz Leisa [id number] Ariana Muñoz Leisa 06/03/2018 1 [facility] OPTIONS (MEDICARE - MEDICAID REPLACEMENT) [facility] Ariana E Leisa [id number] Ariana Muñoz Leisa 09/16/2018 1 [facility] (MEDICARE - MEDICAID REPLACEMENT) [address] Leisa [id number] Ariana E Leisa 01/17/2019 1 [facility] (MEDICARE - MEDICAID REPLACEMENT) [address] Leisa [id number] Ariana E Leisa 01/19/2019 1 [facility] (MEDICARE - MEDICAID REPLACEMENT) RANDARAJEEV Ariana E Leisa [id number] Ariana E Leisa Notes Date Note Type [...] from 8-3 out of 10 with medications. DURABILITY TECHNICIAN is reviewed and no aberrant activity noted Mitch Toussaint M.D. [address] [place] [address], [address], [facility] 03/22/2018 13:41:14 06/03/2018 text/html Ariana [...] or home exercise program. Mitch Toussaint M.D. [address] [place] [address], [address], [facility] 06/06/2018 11:15:45 09/16/2018 text/html Ariana [...] 6 out of 10 Mitch Toussaint M.D. [address] [place] [address], [address], [facility] 09/16/2018 17:13:11 01/17/2019 text/html Ariana is a very pleasant 68-year-old female seen today for left shoulder pain. She has had previous injections in the left shoulder with subacromial injections provided her significant other. She had seen Dr. hcristopher previously for the shoulder as well. My [...] pain or radicular pain Mitch Toussaint M.D. [address] [place] [address], [address], [facility] 01/17/2019 16:40:19 01/19/2019 text/html Airana returns agai n today for her left [...] at the left shoulder. Cl Christopher MD [address] [place] [address], [address], [place] - [facility] 01/19/2019 08:43:11 OBGyn Episode No OBEpisode recorded.
== END 2024-12-21 09:03 | disposition home or self-care (01) ==
LOC: HO.HGS 08:25
PROVIDERS: PCP Nurse Practitioner Family; Visit Provider Surgery
DX: R92.8 Other abnormal and inconclusive findings on diagnostic imaging of breast (principal)
CPT/HCPCS: 99204

== ENCOUNTER → 2024-12-21 09:00 | Outpatient (BNV) | payer OTHER, SELFPAY | PROVIDERS: PCP Nurse Practitioner Family; Visit Provider Internal Medicine | DX: N63.31 Unspecified lump in axillary tail of the right breast (principal); N63.11 Unspecified lump in the right breast, upper outer quadrant | CPT/HCPCS: 19083; 19084; 77065 ==

== ENCOUNTER 2024-12-21 09:28 | Outpatient (REF) | payer OTHER, SELFPAY ==
--- NOTE | ~2024-12-21 | MM_ITS ---
PROCEDURE: ULTRASOUND-GUIDED RIGHT BREAST BIOPSY Ultrasound guided core needle biopsy right axilla. CLINICAL INFORMATION: Enlarged right axillary lymph node and solid mass in the right breast at 10:00. COMPARISON: [facility] on PACS. TECHNIQUE: The details of the procedure, as well as the risks, benefits, and alternatives to the procedure were explained to the patient in detail and all of her questions were answered, after which, written informed consent was obtained. PROCEDURE: Right mass 10:00: Prior to the procedure, sonography revealed a solid irregular mass at 10:00. A time-out was performed, the lesion intended for biopsy was targeted and the skin of the right breast was then prepped and draped in the usual sterile fashion. Using sonographic guidance, sterile technique, and 1% lidocaine without epinephrine for local anesthesia, a total of 4 cores were obtained through the targeted area with a 14-gauge biopsy device. At the completion of tissue sampling, a single butterfly metallic clip was deposited at the biopsy site. An appropriate sample was obtained. Right axilla lymph node: Prior to the procedure, sonography revealed enlarged right axillary lymph node. A time-out was performed, the lesion intended for biopsy was targeted and the skin of the right axilla was then prepped and draped in the usual sterile fashion. Using sonographic guidance, sterile technique, and 1% lidocaine without epinephrine for local anesthesia, a total of 5 cores were obtained through the targeted area with a 14-gauge biopsy device. At the completion of tissue sampling, a single open coil metallic clip was deposited at the biopsy site. An appropriate sample was obtained. The postprocedure 2-view direct digital mammogram reveals satisfactory positioning of the biopsy clips. The patient tolerated the procedure well and, after assuring adequate hemostasis, was discharged in good condition after reviewing postbiopsy breast care instructions. Final pathology results are pending. MM/MM diagnostic mammo unilat RT IMPRESSION: 1. Uncomplicated sonographically-guided core biopsy of the right breast and right axilla. The 2-view direct digital postprocedure mammogram reveals satisfactory positioning of the biopsy clips. 2. Final pathology results are pending. A separate report with final recommendations will be issued once these results are made available. 3. Asymmetry/axillary node with distortion in the right axilla which could be related to prior remote surgery in this area. Management will be pending the above biopsse to include at least a six-month follow-up further evaluation. Electronically signed by: Beverly Nichols DO 12/21/2024 12:42 PM EDT
[2024-12-21] MEDS: Sodium Bicarbonate 8.4% 50 MEQ/50 ML VIAL SUBCUT (10:22)
[2024-12-21] MEDS: Lidocaine HCl 1 % 20 ML VIAL SUBCUT (10:23)
--- OUTSIDE RECORDS SUMMARY | 2024-12-21 10:24 | XMS_ITS | Encounter Summary ---
Author Organization [employer] [facility] Address [address] [place] [address] [address] [place] [address] Care Team Providers Care Cotton Inspector Name Role Phone Eliane Noyola OFFC SPEC Primary Care Provider [phone] Anayeli Escamilla MD Primary Care Provide r Valentina Alarcon NP Primary Care Provider [phone] Reason for Visit * Reason Onset Date Comments New Patient 06/18/2023 Encounter Details Date Type Department Care Team (Late st Contact Info) Description 06/18/2023 Telephone [facility] [address] [place], [place] [phone] Rayray Vallecillo MD [address] [place], [place] [phone] New Patient Social History Tobacco Use Types [...] been transfer over to wait list for LEGAL ACTIVITY ADJUDICATOR. EFFECTIVE SINCE 06/18/2023 documented in this encounter Plan of Treatment Upcoming Encounters Date Type Department Care Team (Late st Contact Info) Description 02/19/2025 3:15 PM EDT Office Visit [facility] [address] [place] [address] Valentina Alarcon NP [address] [place] [address] documented as of this encounter Visit Diagnoses Not on filedocumented in this encounter Care Teams Cotton Inspector Relationship Specialty Start Date End Date Eliane Noyola FNP [address] [place] [address] PCP - General Family Medicine 09/08/23 05/01/24 Anayeli Escamilla MD [address] [place] [address] PCP - General Internal Medicine 05/02/24 05/24/24 Valentina Alarcon NP [address] [place] [address] PCP - General Family Medicine 06/27/24 documented as of this encounter
--- OUTSIDE RECORDS SUMMARY | 2024-12-21 10:24 | XMS_ITS | Encounter Summary ---
Author Organization [email or web address] Address [address] [facility] 7t [place] [address] Care Team Providers Care Expenditure Requisition Clerk Name Role Phone Valentina Alarcon NP Primary Care Provider [phone] Reason for Visit * Reason Comments Med Refill Encounter Details Date Type Department Care Team ([facility] st Contact Info) Description 12/19/2024 Refill [facility] [address] [place], [place] [phone] Valentina Alarcon NP [address] [place] [address] Psychophysiological insomnia Social History Tobacco Use Types [...] 3:15 PM EDT Office Visit [facility] [address] [place] [address] Valentina Alarcon NP [address] [place] [address] documented as of this encounter Visit Diagnoses Diagnosis Psychophysiological insomnia Persistent disorder of initiating or maintaining sleep documented in this encounter Additional Health Concerns Assessment Noted Time PHQ-9 Depression Total Score: 9 12/05/19 25 3:40 PM EDT documented as of this encounter Care Teams Expenditure Requisition Clerk Relationship Specialty Start Date End Date Valentina Alarcon NP [address] [place] [address] PCP - General Family Medicine 06/27/24 documented as of this encounter
--- OUTSIDE RECORDS SUMMARY | 2024-12-21 10:24 | XMS_ITS | Encounter Summary ---
Author Organization [employer] Address 75 [facility] 7t [place] [address] Care Team Providers Care Dairy Husbandman Name Role Phone Valentina Alarcon NP Primary Care Provider [phone] Reason for Visit * Reason Onset Date Comments Appointment Request 12/13/2024 Encounter Details Date Type Department Care Team ([facility] st Contact Info) Description 12/13/2024 Telephone [facility] [address] [place], [place] [phone] Valentina Alarcon NP [address] [place], [place] [phone] Appointment Request Social History Tobacco Use Types [...] Description 02/19/2025 3:15 PM EDT Office Visit [facility] [address] [place] [address] Valentina Alarcon NP [address] [place] [address] documented as of this encounter Visit Diagnoses Not on filedocumented in this encounter Additional Health Concerns Assessment Noted Time PHQ-9 Depression Total Score: 9 12/05/19 25 3:40 PM EDT documented as of this encounter Care Teams Dairy Husbandman Relationship Specialty Start Date End Date Valentina Alarcon NP [address] [place] [address] PCP - General Family Medicine 06/27/24 documented as of this encounter
--- OUTSIDE RECORDS SUMMARY | 2024-12-21 10:24 | XMS_ITS | Encounter Summary ---
Author Organization [employer] Address [address] [facility] [address] [place] [address] Care Team Providers Care Christmas Tree Grower Name Role Phone Valentina Alarcon NP Primary Care Provider [phone] Reason for Visit * Reason Comments Med Refill Encounter Details Date Type Department Care Team ([facility] st Contact Info) Description 10/17/2024 Refill [facility] MEDICINE [address] [place], [place] [phone] Valentina Alarcon NP [address] [place], [place] [phone] Social History Tobacco Use Types Packs/Day Years [...] Description 02/19/2025 3:15 PM EDT Office Visit [facility] MED[facility]INE [address] [place] [address] Valentina Alarcon NP [address] [place] [address] documented as of this encounter Visit Diagnoses Not on filedocumented in this encounter Additional Health Concerns Assessment Noted Time PHQ-9 Depression Total Score: 8 12/29/19 4:22 PM EDT documented as of this encounter Care Teams Christmas Tree Grower Relationship Specialty Start Date End Date Valentina Alarcon NP [address] [place] [address] PCP - General Family Medicine 06/27/24 documented as of this encounter
--- OUTSIDE RECORDS SUMMARY | 2024-12-21 10:24 | XMS_ITS | Clinical Summary ---
Author Organization [employer] Address [address] [facility] 7t [place] [address] Care Team Providers Care Warehouse Analyst Name Role Phone Valentina Alarcon ISAIAS Primary Care Provider [phone] Allergies Active Allergy Reactions Criticality Noted Date [...] diabetes mellitus with hyperglycemia, unspecified whether senior care insulin use ([facility]) USE TWO TIMES [...] ia due to type 2 diabetes mellitus ([facility]) ([facility]) Take 1 tablet [...] barrier, has therapist as well Interested in surinamese speaking provider Dietary counseling 2024 Exercise counseling [...] due to type 2 diabetes mellitus ( [facility]) 10/25/2023 Varicose vein [...] Type Department Care Team Description 12/19/2024 Refill [facility] [address] [place] [address] Valentina Alarcon NP Psychophysiological insomnia 12/14/2024 Telephone [facility] [address] [place] [address] Valentina Alarcon NP 12/14/2024 Travel 12/13/2024 Telephone [facility] [address] [place] [address] Valentina Alarocn NP Appointment Request 12/07/2024 Refill [facility] [address] [place] [address] Valentina Alarcon NP 12/06/2024 Orders Only [facility] [address] [place] [address] Valentina Alarcon NP 2024 3:15 PM EDT Office Visit [facility] [address] [place] [address] Valentina Alarcon NP Type 2 diabetes mellitus with hyperglycemia, unspecified whether senior care insulin use (CMS/[facility]) (Primary Dx); Chronic right shoulder pain; Major depressive disorder with single episode, in full remission (CMS/[facility]); Dietary counseling; Exercise counseling; Psychophysiological insomnia 2024 Travel 12/01/2024 Refill [facility] [address] [place] [address] Eliane Noyola FNP 12/01/2024 Refill [facility] [address] [place] [address] Valentina Alarcon NP 11/27/2024 Patient Outreach [facility] [address] [place], [place] [phone] Valentina Alarcon NP Pre-visit Planning (SDOH negative, Tobacco screening negative.) 11/24/2024 Telephone [facility] [address] [place] [address] Hilaria Stiles [place] Chart Prep 11/06/2024 Refill [facility] [address] [place] [address] Valentina Alarcon NP 11/03/2024 Refill [facility] [address] [place] [address] Valentina Alarcon NP 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 2 diabetes mellitus (CMS/HCC) ([facility]) (Primary Dx); Seasonal allergic rhinitis due to pollen; Fibromyalgia 10/17/2024 Refill [facility] [address] [place] [address] Valentina Alarcon NP 10/13/2024 Telephone [facility] [address] [place] [address] Valentina Alarcon, ISAIAS Results 10/11/2024 Orders Only [facility] [address] [facility] [place] [address] Valentina Alarcon NP 10/05/2024 Telephone [facility] [address] [facility] [place] [address] Minor Dawkins [place] November recall from Last [...] 3:15 PM EDT Office Visit [facility] [address] [place] [address] Valentina Alarcon NP [address] [place] [address] Health Maintenance Due Date Last Done Comments [...] 2 diabetes mellitus with hyperglycemia, unspecified whether long term care pharmacist insulin use (CMS/HCC) BI MAMMOGRAM SCREENING TOMOSYNTHESIS [...] EDT Narrative 12/07/2024 9:02 AM EDT ? [facility] ? [address] ?[place] [address] ?[phone] ? Mammography Report ? Signed ? Patient: Leisa,Ariana ?MR#: [id number] ? : 1950 ?Acct:[id number] ? Age/Sex: 74 / F ?ADM Date: 12/06/24 ? Loc: HO.MAMMO ? Attending Dr: Valentina Alarcon MECHANICAL DESIGN DRAFTER ? Ordering Physician: Agnes,Valentina Hernandez MECHANICAL DESIGN DRAFTER ?Results: 4Suspic ?? ious Finding ? Date of Service: 12/06/24 ?Follow Up: Biopsy Recommend ?? ed ? Procedure(s): MM tomosynthesis added view BI ?? Accession Number(s): [id number] ? cc: Valentina Alarcon MECHANICAL DESIGN DRAFTER ? EXAMINATION: ?? MM DIAGNOSTIC DIGITAL BREAST [...] their next mammogram. ? Electronically signed by: ??eBverly Nichols DO ??12/07/2024 08:59 AM EDT ?? RP ? Dictated By: ?Beverly Nichols DO ? Signed By: ?<Electronically signed by Beverly Nichols, DO in OV> ? 12/07/24 0859 ? DD/ 1330 ? TD/TT: 12/06/24 1345 ? Rec Therapist: ? Procedure Note Dongaleter, Image - [facility]/07/2024 [facility] [address] [place] [place] [address] Mammography Report Signed Patient: Ramya De La Fuente#: [id number] : 1950cct:[id number] Age/Sex: 74 / FADM Date: 12/06/24 Loc: HO.MAMMO Attending Dr: Valentina Alarcon MECHANICAL DESIGN DRAFTER Ordering Physician: Valentina Alarcon NPResults: 4Suspic ious Finding Date of Service: 12/06/24Follow Up: Biopsy Recommend ed Procedure(s): MM tomosynthesis added view BI Accession Number(s): [id number] cc: Valentina Alarcon MECHANICAL DESIGN DRAFTER EXAMINATION: MM DIAGNOSTIC DIGITAL BREAST TOMOSYNTHESIS, BILATERAL [...] 12/07/24 0859 DD/ 1330 TD/TT: 12/06/24 1345 Rec Therapist: us Valentina Alarcon NP IMG BI PROCEDURES Final Result * BI US Breast Limited Bilateral (12/06/2024 1:30 PM EDT) Anatomical Region Laterality Modality Breast Bilateral Ultrasound 12/06/2024 1:30 PM EDT Narrative 12/07/2024 9:02 AM EDT ? [place] [facility] ? [address] ?[place] [address] ? Ultrasound Report ? Signed ? Patient: Leisa,Ariana ?MR#: [id number] ? : 1950 ?Acct:[id number] ? Age/Sex: 74 / F ?ADM Date: 12/06/24 ? Loc: HO.MAMMO ? Attending Dr: Valentina Alarcon MECHANICAL DESIGN DRAFTER ? Ordering Physician: Valentina Alarcon MECHANICAL DESIGN DRAFTER ?? Date of Service: 12/06/24 ?? Procedure(s): US breast BI limited mamm only ?? Accession Number(s): [id number] ? cc: Valentina Alarcon MECHANICAL DESIGN DRAFTER ? EXAMINATION: ?? MM DIAGNOSTIC DIGITAL BREAST [...] DD/ 1330 ? TD/TT: 12/06/24 1430 ? Rec Therapist: ? Procedure Note Lisa, Image - 12/07/2024 [facility] [address] [place] [address] [place]. [place], [place] [address] Ultrasound Report Signed Patient: Ariana De La Fuente#: [id number] : 1Acct:[id number] Age/Sex: 74 / FADM Date: 12/06/24 Loc: SHADE Attending Dr: Valentina Alarcon MECHANICAL DESIGN DRAFTER Ordering Physician: Valentina Alarcon NP Date of Service: 12/06/24 Procedure(s): US breast BI limited mamm only Accession Number(s): [id number] cc: Valentina Alarcon MECHANICAL DESIGN DRAFTER EXAMINATION: MM DIAGNOSTIC DIGITAL BREAST TOMOSYNTHESIS, BILATERAL [...] 12/07/24 0859 DD/ 1330 TD/TT: 12/06/24 1430 Rec Therapist: us Valentina Alarcon MECHANICAL DESIGN DRAFTER IMG US PROCEDURES Final Result * POCT [...] EST Narrative 10/26/2024 9:04 AM EST ? [facility] ? [address] ?[place] [address] ? Mammography Report ? Signed ? Patient: Leisa,Ariana ?MR#: [id number] ? : 1950 ?Acct:[id number] ? Age/Sex: 73 / F ?ADM Date: 02/12/25 ? Loc: HO.MAMMO ? Attending Dr: Valentina B Hipolitoef MECHANICAL DESIGN DRAFTER ? Ordering Physician: Agnes,Valentina B MECHANICAL DESIGN DRAFTER ?Results: 0Incomp ?? lete: Needs Additional Imaging Evaluation ? Date of Service: 10/11/24 ?Follow Up: Additional Imagi ?? ng ? Procedure(s): MM tomosynthesis screening BI ?? Accession Number(s): [id number] ? cc: Valentina Alarcon MECHANICAL DESIGN DRAFTER ? EXAMINATION: ?? MM SCREENING DIGITAL BREAST [...] DD/ 1500 ? TD/TT: 10/11/24 1510 ? Rec Therapist: ? Procedure Note Donotuseinterpreter, Image - 10/26/2024 [facility] [address] [place], [place] [address] Mammography Report Signed Patient: Ramya De La Fuente#: [id number] : 1Acct:[id number] Age/Sex: 73 / FADM Date: 10/11/24 Loc: HO.MAMMO Attending Dr: Valentina Alarcon MECHANICAL DESIGN DRAFTER Ordering Physician: Valentina Alarcon NPResults: 0Incomp lete: Needs Additional Imaging Evaluation Date of Service: 10/11/24Follow Up: Additional Imagi ng Procedure(s): MM tomosynthesis screening BI Accession Number(s): [id number] cc: Valentina Alarcon MECHANICAL DESIGN DRAFTER EXAMINATION: MM SCREENING DIGITAL BREAST TOMOSYNTHESIS, BILATERAL [...] 10/26/24 0902 DD/ 1500 TD/TT: 10/11/24 1510 Rec Therapist: us Valentina Alarcon NP IMG BI PROCEDURES Final Result * BD DEXA Axial (10/11/2024 2:50 PM EST) Anatomical Region Laterality Modality Body Radiographic Kadi ging 10/11/2024 2:50 PM EST Narrative 10/11/2024 4:03 PM EST ? [facility] ? [address] ?[place] [address] ? Mammography Report ? Signed ? Patient: Leisa,Ariana ?MR#: [id number] ? : 1950 ?Acct:[id number] ? Age/Sex: 73 / F ?ADM Date: 12/25 ? Loc: HO.MAMMO ? Attending Dr: Valentina B Graef MECHANICAL DESIGN DRAFTER ? Ordering Physician: Graef,Valentina B MECHANICAL DESIGN DRAFTER ?Results: ? Date of Service: 10/11/24 ?Follow Up: ? Procedure(s): XR DEXA axial skeleton ?? Accession Number(s): [id number] ? cc: Valentina Alarcon MECHANICAL DESIGN DRAFTER ? EXAMINATION: ??DXA BONE DENSITY AXIAL ? HISTORY: ??Estrogen deficiency ? TECHNIQUE: zePASS Dual energy absorptiometry (DEXA) ?? of the [...] the [employer]'s ?? [place] [facility] Metabolic Bone Disease, a World Health Organization (WHO) ?? Collaborating Center. ? Electronically signed by: ??Valerio Funk MD ??10/11/2024 04:00 PM EST ?? RP ? Dictated By: ?Valerio Funk MD ? Signed By: ?<Electronically signed by Valerio Funk MD in OV> ?10/11/24 1600 ? DD/ 1450 ? TD/TT: 10/11/24 1515 ? Rec Therapist: ? Procedure Note Donotuseinterpreter, Image - 10/11/2024 [facility] [address] [place] [place] [address] Mammography Report Signed Patient: Ramya De [place]ente#: [id number] : 1Acct:[id number] Age/Sex: 73 / FADM Date: 10/11/24 Loc: SHADE Attending Dr: Valentina Alarcon MECHANICAL DESIGN DRAFTER Ordering Physician: Valentina Alarcon NPResults: Date of Service: 10/11/24Follow Up: Procedure(s): XR DEXA axial skeleton Accession Number(s): [id number] cc: Valentina Alarcon MECHANICAL DESIGN DRAFTER EXAMINATION: DXA BONE DENSITY AXIAL HISTORY: Estrogen deficiency TECHNIQUE: zePASS Dual energy absorptiometry (DEXA) of the lumbar [...] is a trademark of the [employer]'s [place] [facility] Metabolic [facility] Disease, a World Health Organization (WHO) Collaborating Center. Electronically signed by: Valerio Funk MD 10/11/2024 04:00 PM EST Dictated By: Valerio Funk MD Signed By: <Electronically signed by Valerio Funk MD in OV> 10/11/24 1600 DD/ 1450 TD/TT: 10/11/24 1515 Rec Therapist: Valentina Alarcon NP IMG DXA PROCEDURES Final Result * (ABNORMAL) POCT HGB A1C (06/30/2024 2:25 PM EDT) Pathologist [facility] Hemoglobin A1C 6.1(A) 4.0 - 6.0 % QC Media Lot # [id number] Lot# Expiration Date [id number] Blood 06/30/2024 2:25 PM EDT us Kaity HERNANDEZ POINT OF CARE TEST ENTER/EDIT OR DERABLES Final Result * Lipid Panel, Standard (09/08/2023 4:25 PM EST) Triglycerides 66 <150 mg/dL [facility] Comment:Desirable Triglyceri de: less than 150 mg/dLBorderline High Triglyceride 150-199 mg/dLHigh Triglyceride: 200-499 mg/dLVery High Triglyceride: greater than or equal to 5OO mg/dL Cholesterol 126 <200 mg/dL [facility] Comment:Desirable Cholestero l: less than 200 mg/dLBorderline High Cholesterol: 200-239 mg/dLHigh Cholesterol: greater than 239 mg/dL LDL Cholesterol Calculated 67 <100 mg/dL [facility] Comment:Desirable LDL: less than 100 mg/dLNear Optimal/Above Optimal LDL: 110- 129 mg/dLBorderline High LDL: 130-159 mg/dLHigh LDL: 160-189 mg/dLVery High LDL: greater than or equal to 190 mg/dL HDL Cholesterol 46 >40 mg/dL [facility] Comment:Desirable HDL: great er than 40 mg/dL Note: This HDL assay may give artificially low results in patients with liver disease. Blood Venous blood specimen / Unknown 09/08/2023 4:25 PM EST 09/08/2023 5:55 PM EST us Eliane Noyola [employer] [facility] BLOOD ORDERABLES Final Resu lt [facility] [address] [place] [address] [phone] from Last 3 Months or Most Recently Relevant to Health Maintenance Insurance [facility] Care Teams Warehouse Analyst Relationship Specialty Start Date End Date Valentina Alarcon NP [address] [place] [address] PCP - General Family Medicine 06/27/24
--- OUTSIDE RECORDS SUMMARY | 2024-12-21 10:25 | XMS_ITS | Encounter Summary ---
Author Organization [employer] Address [address] [facility] 7t [place] [address] Care Team Providers Care Military Communications Specialist Name Role Phone Eliane Noyola Primary Care Provider [phone] Anayeli Escamilla MD Primary Care Provide r Valentina Alarcon NP Primary Care Provider [phone] Reason for Visit * Reason Comments Med Refill Encounter Details Date Type Department Care Team (Late st Contact Info) Description 01/09/2024 Refill [facility] [address] [place], [place] [phone] Eliane Noyola FNP [address] [place] [address] Social History Tobacco Use Types Packs/Day Years [...] Description 02/19/2025 3:15 PM EDT Office Visit [facility] [address] [place] [address] Valentina Alarcon NP [address] [place] [address] documented as of this encounter Visit Diagnoses Not on filedocumented in this encounter Additional Health Concerns Assessment Noted Time PHQ-9 Depression Total Score: 8 12/29/19 4:22 PM EDT documented as of this encounter Care Teams Military Communications Specialist Relationship Specialty Start Date End Date Eliane Noyola FNP [address] [place] [address] PCP - General Family Medicine 09/08/23 05/01/24 Anayeli Escamilla MD [address] [place] [address] PCP - General Internal Medicine 05/02/24 05/24/24 Valentina Alarcon NP [address] [place] [address] PCP - General Family Medicine 06/27/24 documented as of this encounter
--- OUTSIDE RECORDS SUMMARY | 2024-12-21 10:25 | XMS_ITS | Encounter Summary ---
Author Organization [employer] Address 75 [facility] 7t [place] [address] Care Team Providers Care Corporate Banking Officer Name Role Phone Eliane Noyola Primary Care Provider [phone] Anayeli Escamilla MD Primary Care Provide r Valentina Alarcon NP Primary Care Provider [phone] Reason for Visit * Reason Comments Med Refill Encounter Details Date Type Department Care Team (Late st Contact Info) Description 01/13/2024 Refill [facility] [address] [place], [place] [phone] Eliane Noyola FNP [address] [place] [address] Social History Tobacco Use Types Packs/Day Years [...] Description 02/19/2025 3:15 PM EDT Office Visit [facility] [address] [place] [address] Valentina Alarcon NP [address] [place] [address] documented as of this encounter Visit Diagnoses Not on filedocumented in this encounter Additional Health Concerns Assessment Noted Time PHQ-9 Depression Total Score: 8 12/29/19 4:22 PM EDT documented as of this encounter Care Teams Corporate Banking Officer Relationship Specialty Start Date End Date Eliane Noyola FNP [address] [place] [address] PCP - General Family Medicine 09/08/23 05/01/24 Anayeli Escamilla MD [address] [place] [address] PCP - General Internal Medicine 05/02/24 05/24/24 Valentina Alarcon NP [address] [place] [address] PCP - General Family Medicine 06/27/24 documented as of this encounter
--- OUTSIDE RECORDS SUMMARY | 2024-12-21 10:25 | XMS_ITS | Clinical Summary ---
Author Organization [employer] [facility] Address [address] [place] [address] Care Team Providers Care Executive Asst Name Role Phone Unavailable Primary Care Provider [...]
== END 2024-12-21 09:29 | disposition home or self-care (01) ==
LOC: HO.MAMMO 09:28
PROVIDERS: Pathology Anatomic Pathology & Clinical Pathology; PCP Nurse Practitioner Family; Visit Provider Surgery
DX: R92.8 Other abnormal and inconclusive findings on diagnostic imaging of breast (principal)
CPT/HCPCS: 19083; 19084; 77062; 77065; 88184; 88185; 88300; 88305; 88312; 99202; J2003

== ENCOUNTER 2025-01-01 08:37 | Outpatient (AMB) | payer OTHER, SELFPAY ==
--- NOTE | 2025-01-01 08:41 | MHC.OFFVIS ---
Vital Signs 01/01/25 08:46 Height 5 ft 4 in Weight 142 lb BMI 24.4 BP 164/78 H Blood Pressure Location Rt brachial Position Sitting Pulse 79 Intake Visit Reasons: biopsy results rt breast Intake Note: Patient is seen in office for usbx RESULTS for right breast mass. Pt c/o: reports bx site healing well. Software Packaging Engineer Required: Yes Software Packaging Engineer Name: Bianca ALLEN Accompanied by: Self / Same As Patient Allergies aspirin Adverse Reaction (Verified 01/01/25 08:47) stomach ache green vegetables Adverse Reaction (Uncoded 01/01/25 08:47) diarrhea Medication List - Last Reconciled 01/01/25 by Matt Jon MD acetaminophen (Tylenol) 325 mg PO QID PRN calcium carbonate-vitamin D3 600 mg-10 mcg (400 unit) tabs PO fluticasone propionate 50 mcg/actuation (Flonase Allergy Relief) 1 spray intranasal DAILY fluticasone propionate 0.05% 1 appl topical BID gabapentin 600 mg PO TID loratadine (Claritin) 10 mg PO DAILY melatonin 10 mg PO BEDTIME PRN metformin 500 mg PO DAILY montelukast (Singulair) 10 mg PO BEDTIME omeprazole 20 mg PO DAILY rosuvastatin 10 mg PO DAILY HPI Comments Details: 74-year-old female patient presenting with a screening mammogram performed on 10/11/2024 with follow-up images and ultrasound performed on 12/06/2024 which revealed a right breast solid versus complicated cystic structure in the 10:00 location approximately 12 cm from the nipple as well as an enlarged lymph node in the right axilla felt to be suspicious for malignancy (BI-RADS 4). She denies a previous history of breast problems or breast surgery. She currently denies any symptoms in the breast including pain, redness, discharge or palpable mass. Her family history is negative for breast cancer. Menarche was the age of 13, she is . An ultrasound-guided core biopsy was performed at the [facility] on 12/21/2024. 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 Right breast mass 10:00 biopsy revealed fibrovascular and lymphoid tissue with granulomatous inflammation. No breast epithelium identified. The differential for granulomatous inflammation include sarcoid, infection, foreign body and drug. She tolerated the procedure well and denies any ongoing breast symptoms. Findings were felt to be concordant with Radiology. In addition there is an asymmetry in the far posterior axilla for which six-month follow-up right breast mammography is recommended. [facility] Medical History Chronic back pain Post-menopausal Eczema of both external ears Chronic pain of right knee [place] Healthcare maintenance Encounter for screening mammogram for malignant neoplasm of breast Gastroesophageal reflux disease without esophagitis Constipation Chronic right shoulder pain Microscopic hematuria Tinnitus Urticaria Varicose veins of legs 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 2 diabetes mellitus Fibromyalgia Allergic rhinitis Carpal tunnel syndrome Insomnia Memory changes Hyperchloremia GERD (gastroesophageal reflux disease) Diabetes Hypertension Depressed Abnormal ultrasound of breast Surgical History H/O removal of cyst H/O section History of hemiarthroplasty of shoulder Social History Household Members: Other Household Members Other:: alone Alcohol intake: never Comment: only coffee Patient Tobacco Use Status: Never used Tobacco Female Reproductive History Menstrual Age of Menarche: 13 Review of Systems Const All systems reviewed & are unremarkable except as noted in HPI and below Denies chills, Denies fever(s), Denies headache(s), Denies poor appetite and Denies weakness ENT Denies headache(s) Card Denies chest pain, Denies irregular heart rhythm, Denies palpitations and Denies dyspnea Resp Denies cough, Denies excessive phlegm production and Denies dyspnea GI Denies abdominal pain, Denies bloating, Denies change in bowel habits, Denies constipation, Denies heartburn, Denies diarrhea, Denies nausea and Denies vomiting Denies urinary frequency Musc Denies back pain, Denies muscle weakness and Denies numbness Skin/Breast Denies changing lesions and Denies unusual bruising Neuro Denies headache(s), Denies numbness, Denies paresthesias and Denies weakness Psych Denies anxiety and Denies depression Endo Denies palpitations Jorge L/Lymph Denies lymphadenopathy Physical Exam Vital Signs: Last Vital Signs Pulse 79 01/01/25 08:46 BP 164/78 H 01/01/25 08:46 BMI result Body Mass Index 24.4 Const General: cooperative and no acute distress Nutritional Appearance: well nourished Orientation/consciousness: patient oriented x3 Limitations: no limitations HEENT Head: Yes normocephalic and Yes atraumatic Ears: hearing grossly normal bilaterally Chest Other: Left breast: Exam deferred Right breast: Biopsy site is clean, dry, and intact without redness or discharge. Resp Effort & Inspection: normal respiratory effort, no audible wheezes, no cough and no respiratory distress Cardio Jugular venous distension: no JVD GI Inspection: Yes normal to inspection Skin Other: Warm, dry, no rash Neuro Other: Mobility Assessment: 1. 3 meter assessment time (seconds) 5 2. Gait observations: Normal balance and gait General: patient oriented x3 Extrem General: Yes no clubbing, cyanosis or edema Assessment & Plan Assessment & Plan (1) Abnormal mammogram of right breast: Code(s): R92.8 - Other abnormal and inconclusive findings on diagnostic imaging of breast Category: Medical (2) Abnormal ultrasound of breast: Code(s): R92.8 - Other abnormal and inconclusive findings on diagnostic imaging of breast Category: Medical Plan 74-year-old female patient status post right breast axillary lymph node and right breast mass biopsy by ultrasound guidance. Pathology revealed benign breast tissue with granulomatous inflammation and granulomatous lymphadenitis. Patient tolerated the procedure well and has no ongoing breast symptoms. A six-month follow-up right breast diagnostic mammogram has been requested. She should follow up after this mammogram in 6 months. Orders: Orders MM diagnostic mammo unilat RT 6 Months R92.8 - Other abnormal and inconclusive findings on diagnostic imaging of breast Coding Level of Care Code Est Pt Level 3 (89644) Diagnoses Abnormal mammogram of right breast R92.8 Abnormal ultrasound of breast R92.8
[2025-01-01 08:46] VITALS: BP 164/78; PULSE 79; BMI 24.4
--- OUTSIDE RECORDS SUMMARY | 2025-01-01 08:59 | XMS_ITS | Encounter Summary ---
Author Organization [employer] Address [address] [facility] [address] [place] [address] Care Team Providers Care Catcher Filter Tip Name Role Phone Eliane Noyola Primary Care Provider [phone] Anayeli Escamilla MD Primary Care Provide r Valentina Alarcon NP Primary Care Provider [phone] Reason for Visit * Reason Comments Med Refill Encounter Details Date Type Department Care Team (Late st Contact Info) Description 01/13/2024 Refill [facility] [address], [place] [phone] Eliane Noyola FNP [address] [place] [address] Social History Tobacco Use Types Packs/Day Years [...] Description 02/19/2025 3:15 PM EDT Office Visit [facility] [address] [place] [address] Valentina Alarcon NP [address] [place] [address] documented as of this encounter Visit Diagnoses Not on filedocumented in this encounter Additional Health Concerns Assessment Noted Time PHQ-9 Depression Total Score: 8 12/29/19 4:22 PM EDT documented as of this encounter Care Teams Catcher Filter Tip Relationship Specialty Start Date End Date Eliane Noyola FNP [address] [place] [address] PCP - General Family Medicine 09/08/23 05/01/24 Anayeli Escamilla MD [address] [place] [address] PCP - General Internal Medicine 05/02/24 05/24/24 Valentina Alarcon NP [address] [place] [id number] PCP - General Family Medicine 06/27/24 documented as of this encounter
--- OUTSIDE RECORDS SUMMARY | 2025-01-01 08:59 | XMS_ITS | Encounter Summary ---
Author Organization [employer] [facility] Address [address] [place] [address] [address] [place] [address] Care Team Providers Care Research Subject Name Role Phone Eliane Noyola OIL CHANGER Primary Care Provider [phone] Anayeli Escamilla MD Primary Care Provide r Valentina Alarcon NP Primary Care Provider [phone] Reason for Visit * Reason Onset Date Comments New Patient 06/18/2023 Encounter Details Date Type Department Care Team (Late st Contact Info) Description 06/18/[address] 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 EFFECTIVE SINCE 06/18/2023 documented in this encounter Plan of Treatment Upcoming Encounters Date Type Department Care Team (Late st Contact Info) Description 02/19/2025 3:15 PM EDT Office Visit [facility] [address] [place] [address] Valentina Alarcon NP [address] [place] [address] documented as of this encounter Visit Diagnoses Not on filedocumented in this encounter Care Teams Research Subject Relationship Specialty Start Date End Date Eliane Noyola FNP [address] [place] [address] PCP - General Family Medicine 09/08/23 05/01/24 Anayeli Escamilla MD [address] [place] [address] PCP - General Internal Medicine 05/02/24 05/24/24 Valentina Alarcon NP [address] [place] [address] PCP - General Family Medicine 06/27/24 documented as of this encounter
--- OUTSIDE RECORDS SUMMARY | 2025-01-01 08:59 | XMS_ITS | Encounter Summary ---
Author Organization [employer] Address [address] [facility] [address] [place] [address] Care Team Providers Care School Attendance Secretary Name Role Phone Valentina Alarcon NP Primary Care Provider [phone] Reason for Visit * Reason Onset Date Comments Appointment Request 12/13/2024 Encounter Details Date Type Department Care Team ([facility] st Contact Info) Description 12/13/[address] [facility] [address] [place], [place] [phone] Valentina Alarcon NP [address] [place], [place] [phone] Appointment Request Social History Tobacco Use Types [...] 02/19/2025 3:15 PM EDT Office Visit [facility] [address] [place] [address] Valentina Alarcon NP [address] [place] [address] documented as of this encounter Visit Diagnoses Not on filedocumented in this encounter Additional Health Concerns Assessment Noted Time PHQ-9 Depression Total Score: 9 12/05/19 25 3:40 PM EDT documented as of this encounter Care Teams School Attendance Secretary Relationship Specialty Start Date End Date Valentina Alarcon NP [address] [place] [address] PCP - General Family Medicine 06/27/24 documented as of this encounter
--- OUTSIDE RECORDS SUMMARY | 2025-01-01 08:59 | XMS_ITS | Clinical Summary ---
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 acetaminophen (Tylenol) 325 MG tablet 08/27/20 23 Active Diclofenac Sodium 1 % gel Apply 2 g topically 4 times daily. 08/02/20 23 Active losartan (Cozaar) 100 MG tablet Take 100 mg by mouth in the morning. 08/27/20 23 Active polyvinyl alcohol (Liquifilm Tears) 1.4 % ophthalmic solution INSTILL 1 DROP TWICE DAILY IN BOTH EYES FOR 1MONTH. 04/19/20 23 Active senna (Senokot) 8.6 MG tabletIndicatio ns:Constipation , unspecified constipation type Take 1 tablet (8.6 mg) by mouth at bedtime. 120 tablet 2 06/30/20 24 Active sertraline (Zoloft) 100 MG tablet [...] hyperglycemia, unspecified whether senior living insulin use ([facility]) USE TWO TIMES A DAY (BULK) 100 each 09/08/19 25 Active fluticasone (Flonase) 50 MCG/ACT nasal sprayIndication s:Seasonal allergic rhinitis due to pollen Administer 1 spray into each nostril Once per day. 16 g 3 11/07/19 25 Active gabapentin (Neurontin) 600 MG tabletIndicatio ns:Fibromyalgia Take 1 tablet (600 mg) by mouth 3 times daily. 90 tablet 3 11/07/19 25 Active rosuvastatin (Crestor) 10 MG tabletIndicatio ns:Hyperlipidem ia due to type 2 diabetes mellitus ([facility]) ([facility]) Take 1 tablet (10 mg) by mouth Once per day. 30 tablet 11/07/19 25 Active omeprazole (PriLOSEC) [address] capsule TAKE ONE CAPSULE BY MOUTH EVERY DAY ^1R1 28 capsule 3 11/08/19 25 Active melatonin 5 MG tablet TAKE ONE TABLET BY MOUTH AT BEDTIME NEEDED FOR INSOMNIA ^1R4 30 tablet 11/08/19 25 Active polyethylene glycol, PEG, 3350 (Glycolax) 17 GM/SCOOP powder MIX 17 GRAM(S) IN 8 OZ OF WATER AND DRINK BY MOUTH ONCE A DAY NEEDED FOR CONSTIPATION (BULK) 238 g 1 12/02/19 25 Active montelukast (Singulair) 10 MG tablet TAKE ONE TABLET BY MOUTH EVERY DAY ^1R4 28 tablet 1 12/02/19 25 Active loratadine (Claritin) 10 MG tablet Take 1 tablet (10 mg) by mouth Once per day. 30 tablet 11 12/02/19 25 2025 Active clonazePAM (KlonoPIN) 1 MG tabletIndicatio ns:Psychophysio logical insomnia Take 1 tablet (1 mg) by mouth at bedtime. 30 tablet 12/07/19 25 2024 Active fluticasone (Cutivate) 0.05 % cream APPLY TO AFFECTED AREA(S) TWO TIMES A DAY (BULK) 45 g 12/09/19 25 Active FREESTYLE LITE test strip 1 each by Other route 2 times daily. Use to test blood sugar once daily 180 each 3 12/29/19 24 05/01/ 2025 clonazePAM (KlonoPIN) 0.5 MG tablet Take 0.5 mg by mouth Once per day. 07/02/20 24 2024 Discontinued fluticasone (Cutivate) 0.05 % cream APPLY TO AFFECTED AREA(S) TWO TIMES A DAY (BULK) 45 g 11/08/19 25 2024 Discontinued Active Problems Problem Noted Date Diagnosed Date Major depressive disorder wi th single episode, in full remission 2024 Assessment & Plan (2024 4:06 PM EDT): In care with psychiatrybut has trouble understanding due to language barrier, has therapist as well Interested in wolof speaking provider Dietary counseling 2024 Exercise counseling [...] (10/25/2023): per records from Frantz Eller [place] Hypertension 10/25/2023 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 2 diabetes mellitus ( [facility]) 10/25/2023 Varicose vein of leg 10/25/2023 Urticaria 10/25/2023 Tinnitus 10/25/2023 Overview (10/25/2023): per records from Frantz Eller [place] Microscopic hematuria 10/25/2023 Overview (10/25/2023): per records from Frantz Eller [place] Chronic right shoulder pain 10/25/2023 Constipation 11/17/2018 Gastroesophageal reflux disease without esophagi tis 11/17/2018 Encounters * This document contains information received from the source organization and may not represent a complete record from that organization. Date Type Department Care Team Description 12/21/2024 Orders Only GENERIC EXTERNAL DATA DEPARTMENT Provider, Generic External Data 12/19/2024 Refill [facility] [place] [address] Valentina Alarcon NP Psychophysiological insomnia 12/14/2024 Telephone [facility] [place] [address] Valentina Alacron NP 12/14/2024 Travel 12/13/2024 Telephone [facility] [place] [address] Valentina Alarcon NP Appointment Request 12/07/2024 Refill [facility] [place] [address] Valentina Alarcon NP 12/06/2024 Orders Only [facility] [place] [address] Valentina Alarcon NP 2024 3:15 PM EDT Office Visit [facility] [place] [address] Valentina Alarcon NP Type 2 diabetes mellitus with hyperglycemia, unspecified whether senior living insulin use (CMS/[facility]) (Primary Dx); Chronic right shoulder pain; Major depressive disorder with single episode, in full remission ([facility]); Dietary counseling; Exercise counseling; Psychophysiological insomnia 2024 Travel 12/01/2024 Refill [facility] [address] [place] [address] Eliane Noyola FNP 12/01/2024 Refill [facility] [address] [place] [address] Valentina Alarcon NP 11/27/2024 Patient Outreach [facility] [address] [place], [place] [id number] Valentina Alarcon NP Pre-visit Planning (SDOH negative, Tobacco screening negative.) 11/24/2024 Telephone [facility] [address] [place] [address] Hilaria Stiles MA Chart Prep 11/06/2024 Refill [facility] [address] [place] [address] Valentina Alarcon NP 11/03/2024 Refill [facility] [address] [place] [address] Valentina Alarcon NP 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 2 diabetes mellitus ([facility]) ([facility]) (Primary Dx); Seasonal allergic rhinitis due to pollen; Fibromyalgia 10/17/2024 Refill [facility] [address] [place] [address] Valentina Alarcon NP 10/13/2024 Telephone [facility] [address] [place] [address] Valentina Alarcon NP Results 10/11/2024 Orders Only [facility] [address] [place] [address] Valentina Alarcon NP 10/05/2024 Telephone [facility] [address] [place] [phone] Minor Dawkins [place] November recall from Last [...] Description 02/19/2025 3:15 PM EDT Office Visit [facility] [address] [place] [address] Valentina Alarcon NP [address] [place] [address] Health Maintenance Due Date Last Done Comments [...] 2025 2024 Tobacco Screening 2025 2024 Mammogram 12/21/2026 12/21/2024, 04/0 04/2025, 10/11/2024, Additional history exists DTaP/Tdap/Td Vaccines (6 - Td or Tdap) [...] Procedure Name Priority Date/Time Associated Diagnosis Comments GOMORI METHENAMINE STAIN Routine 12/21/2024 9:58 AM EDT US BREAST NDL CORE BIOPSY RT Routine 12/21/2024 9:40 AM EDT BI MAMMOGRAM DIAGNOSTIC RIGHT Routine 12/21/2024 9:40 AM EDT US BREAST NDL CORE BIO EA ADD Routine 12/21/2024 9:40 AM EDT BI MAMMOGRAM DIAGNOSTIC TOMOSYNTHESIS ADDED VIEW BILATERAL Routine 12/06/2024 1:30 PM EDT BI US BREAST LIMITED BILATERAL Routine 12/06/2024 1:30 PM EDT POCT GLUCOSE Routine 2024 3:25 PM EDT Type 2 diabetes mellitus with hyperglycemia, unspecified whether senior living insulin use (CMS/[facility]) BI MAMMOGRAM SCREENING TOMOSYNTHESIS BILATERAL Routine 10/11/2024 3:00 PM EST Healthcare maintenance BD DEXA AXIAL Routine 10/11/2024 2:50 PM EST POCT GLYCATED HEMOGLOBIN, TOTAL Routine 06/30/2024 2:25 PM EDT 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 Age/Sex: 74/F ? : 1950 Unit#: [id number] ?? Attend Dr: Matt Jon MD ?Re12/21/24 ?Status: DEP REF ? Location: HO.MAMMO ?Disch: ? ----- ------- SPEC : ? RECD: 12/21/24-1121 ? STATUS: ??SOUT ? REQ NUM: [id number] ? DANIEL: 12/21/24-957 ? SUBM DR: Beverly Nichols DO ? ENTERED: ??12/21/24-1129 ?SP TYPE: Surgical ? OTHR DR: Valentina Alarcon SOLAR SALES ESTIMATOR ?Matt Jon MD ORDERED: ??Gom Meth Stain/2, HE Stain/4, Acid Fast Stain/2, Gross Micro L4/2, GO, ?Specials Gr. 1/6, PASF/2 COMMENTS: Part A: ??As per the specimen requisition slip the specimen ?is collected at 0958 and placed in formalin at 1002. ?Part B: ??As per the specimen requisition slip the specimen ?is collected at 1000 and placed in formalin at 1005. ? Diagnosis ?? A. ??Lymph node, right axilla, core needle biopsy: ??Granulomatous lymphadenitis. ??See ?? description and comment. ? B. ??Lymph node, right axilla for flow cytometry, core needle biopsy: ??Negative - see ?? report in its entirety in the EMR - Reports/Pathology section as a scanned report (camera ?? icon). ? C. ??Breast, right mass at 10 o'clock, biopsy: ?- Fibrovascular and lymphoid tissue with granulomatous inflammation. ?- No breast epithelium identified. ??See description and comment. ? Comment: ??The differential for the granulomatous inflammation include sarcoid, infection, ?? foreign body and drug. ??Please correlate with clinical findings. ?Clinical History Axillary node, right breast 10 o'clock mass ?Microscopic Description A, C. ??Sections from the lymph node have lymphoid tissue with abundant well-organized granulomata with focal necrosis and rare calcifications. ??No mycobacteria or fungi seen, supported by AFB, GMS and PAS stains. ??The background lymphocytes are reactive appearing. No metastatic carcinoma is identified. ??Sections from the breast mass have cores of fibrovascular and adipose tissue with associated dense lymphoid tissue and granuloma formation; similarly, no microorganisms are identified with AFB, GMS and PAS stains. ??No breast epithelium is seen. ? Material Received ?? A. Right axillary node ?? B. Right axillary node for flow cytometry ?? C. Right breast mass 10 o'clock ? CONTINUED ON NEXT PAGE ----- ------- Name: Leisa,Ariana ? Age/Sex: 74/F ? : 1950 Unit#: [id number] ?? Attend Dr: Matt Jon MD ?Re12/21/24 ?Status: DEP REF ? Location: HO.MAMMO ?Disch: ? ----- ------- SPEC : [id number] ? RECD: 12/21/24 ? STATUS: ??SOUT ? REQ NUM: [id number] ? DANIEL: 12/21/24-957 ? SUBM DR: Beverly Nichols DO ? ENTERED: ??12/21/24-1129 ?SP TYPE: Surgical ? OTHR DR: Valentina Alarcon SOLAR SALES ESTIMATOR ?Matt Jon MD ORDERED: ??Gom Meth Stain/2, HE Stain/4, Acid Fast Stain/2, Gross Micro L4/2, GO, ?Specials Gr. 1/6, PASF/2 COMMENTS: Part A: ??As per the specimen requisition slip the specimen ?is collected at 0958 and placed in formalin at 1002. ?Part B: ??As per the specimen requisition slip the specimen ?is collected at 1000 and placed in formalin at 1005. ? Gross Description Received in three parts. Part A: ??Received in formalin labeled ?right axillary lymph node? are multiple minute to 1.5 cm in greatest dimension irregular shards and cylindrical threads of hunter-peguero and peguero-pink tissue and blood submitted in toto in a cassette labeled A. Part B: ??Received in flow cytometry media labeled ?right axillary lymph node? is an approximately 1.8 cm in length cylindrical thread of peguero-pink fibroadipose tissue versus lymphoid tissue, forwarded to [facility] for flow cytometry studies as requested on the specimen requisition slip. ??Gross description only. Part C: ??Received in formalin labeled right breast mass 10 o'clock are 4 irregular shards and cylindrical threads of peguero, white-pink fibrous tissue with scant blood ranging from 0.15-1.3 cm, submitted in toto in a cassette labeled C. ??CEDS This case was reviewed intradepartmentally. Special studies ordered and performed: ??AFB, GMS and PAS stains on A and C Copies To: ?? Valentina Alarcon SOLAR SALES ESTIMATOR ?? [facility] ?? [address] ?? [place] [address] ?? [phone] ?? Matt Jon MD ?? [facility] ?? [address] ?? [place] [address] ?? [phone] ? CONTINUED ON NEXT PAGE ----- ------- Name: Ariana De La Fuente ? Age/Sex: 74/F ? : 1950 Unit#: [id number] ?? Attend Dr: Matt Jon MD ?Re12/21/24 ?Status: DEP REF ? Location: HO.MAMMO ?Disch: ? ----- ------- SPEC : [id number] ? RECD: 12/21/24-1121 ? STATUS: ??SOUT ? REQ NUM: [id number] ? DANIEL: 12/21/24-957 ? SUBM DR: Beverly Nichols DO ? ENTERED: ??12/21/24-1129 ?SP TYPE: Surgical ? OTHR DR: Valentina Alarcon SOLAR SALES ESTIMATOR ?Matt Jon MD ORDERED: ??Gom Meth Stain/2, HE Stain/4, Acid Fast Stain/2, Gross Micro L4/2, GO, ?Specials Gr. 1/6, PASF/2 COMMENTS: Part A: ??As per the specimen requisition slip the specimen ?is collected at 0958 and placed in formalin at 1002. ?Part B: ??As per the specimen requisition slip the specimen ?is collected at 1000 and placed in formalin at 1005. Copies To: ??(Continued) ?? Beverly Nichols DO ?? [address] ?? [place] [address] ?? [phone] ----- ------- Signed (signature on file) Nadeem Madrigal MD 12/25/24 1031 ? ----- ------- ? END OF REPORT ? us Generic External Data Provider LAB MICROBIOLOGY - GENERAL ORDERABLES Final Result [facility] [address] [place] [address] [phone] * US BREAST NDL CORE BIOPSY RT (12/21/2024 9:40 AM EDT) Anatomical Region Laterality Modality Abdomen Ultrasound 12/21/2024 9:40 AM EDT Narrative 12/21/2024 12:45 PM EDT ? [facility] ? [address] [place] [address] ? Ultrasound Report ? Signed with Addenda ? Patient: Leisa,Ariana ?MR#: [id number] ? : 1950 ?Acct:[id number] ? Age/Sex: 74 / F ?ADM Date: 12/21/24 ? Loc: HO.MAMMO ? Attending Dr: Matt Jon MD ? Ordering Physician: Matt Jon MD ?? Date of Service: 12/21/24 ?? Procedure(s): US breast ndl core biopsy RT ?? Accession Number(s): [id number] ? cc: Valentina Alarcon NP; Matt Jon MD ?ADDENDUM ? ADDENDUM #1 ? ADDENDUM: ?? Right axillary lymph node: Granulomatous lymphadenitis negative for ?? flow cytometry. The differential for granulomatous inflation includes ?? or correlate infection forebody and drug. ? Right breast mass at 10:00 ultrasound-guided core needle biopsy: ?? Fibrovascular and lymphoid tissue with granulomatous inflammation. ?? No breast epithelium identified. ? Both sites are benign and likely concordant. There is an additional ?? asymmetry in the far posterior axilla for which a six-month follow-up ?? right breast mammogram is recommended. ? Electronically signed by: ??Beverly Nichols DO ??12/27/2024 03:43 PM EDT ? Addendum Dictated By: ?Beverly Nichols, DO ? Addendum Signed By: ? <Electronically signed by Beverly Nichols, DO in OV> ? 12/27/24 1543 ?? Addendum Cosigned By: ? DD/ ? TD/TT: 12/21/24 ? PROCEDURE: ?? ULTRASOUND-GUIDED RIGHT BREAST BIOPSY ?? Ultrasound guided core needle biopsy right axilla. ? CLINICAL INFORMATION: ?? Enlarged right axillary lymph node and solid mass in the right breast ?? at 10:00. ? COMPARISON: ?? [facility] PACS. ? TECHNIQUE: ?? The details of the procedure, as well as the risks, benefits, and ?? alternatives to the procedure were explained to the patient in detail ?? and all of her questions were answered, after which, written informed ?? consent was obtained. ? PROCEDURE: ? Right mass 10:00: ?? Prior to the procedure, sonography revealed a solid irregular mass at ?? 10:00. A time-out was performed, the lesion intended for biopsy was ?? targeted and the skin of the right breast was then prepped and draped ?? in the usual sterile fashion. ? Using sonographic guidance, sterile technique, and 1% lidocaine without ?? epinephrine for local anesthesia, a total of 4 cores were obtained ?? through the targeted area with a 14-gauge biopsy device. At the ?? completion of tissue sampling, a single butterfly metallic clip was ?? deposited at the biopsy site. ? An appropriate sample was obtained. ? Right axilla lymph node: ?? Prior to the procedure, sonography revealed enlarged right axillary ?? lymph node. A time-out was performed, the lesion intended for biopsy ?? was targeted and the skin of the right axilla was then prepped and ?? draped in the usual sterile fashion. ? Using sonographic guidance, sterile technique, and 1% lidocaine without ?? epinephrine for local anesthesia, a total of 5 cores were obtained ?? through the targeted area with a 14-gauge biopsy device. At the ?? completion of tissue sampling, a single open coil metallic clip was ?? deposited at the biopsy site. ? An appropriate sample was obtained. ? The postprocedure 2-view direct digital mammogram reveals satisfactory ?? positioning of the biopsy clips. ? The patient tolerated the procedure well and, after assuring adequate ?? hemostasis, was discharged in good condition after reviewing postbiopsy ?? breast care instructions. Final pathology results are pending. ? US/US breast ndl core biopsy RT ?? IMPRESSION: ?? 1. Uncomplicated sonographically-guided core biopsy of the right breast ?? and right axilla. The 2-view direct digital postprocedure mammogram ?? reveals satisfactory positioning of the biopsy clips. ?? 2. Final pathology results are pending. A separate report with final ?? recommendations will be issued once these results are made available. ? 3. Asymmetry/axillary node with distortion in the right axilla which ?? could be related to prior remote surgery in this area. Management will ?? be pending the above biopsse to include at least a six-month follow-up ?? further evaluation. ? Electronically signed by: ??Beverly Nichols DO ??12/21/2024 12:42 PM EDT ? Dictated By: ?Beverly Nichols DO ? Signed By: ?<Electronically signed by Beverly Nichols, DO in OV> ? 12/21/24 1242 ? DD/ 0940 ? TD/TT: 12/21/24 1022 ? Voucher Examiner: ? Procedure Note Robbiter, [facility] - [facility] [address] [place] [place] [address] Ultrasound Report Signed with Addenda Patient: Ramya De La Fuente#: [id number] : 1950cct:[id number] Age/Sex: 74 / FADM Date: 12/21/24 Loc: [facility] Attending Dr: Matt Jon MD Ordering Physician: Matt Jon MD Date of Service: 12/21/24 Procedure(s): US breast ndl core biopsy RT Accession Number(s): [id number] cc: Valentina Alarcon SOLAR SALES ESTIMATOR; Matt Jon MD ADDENDUM ADDENDUM #1 ADDENDUM: Right axillary lymph node: Granulomatous lymphadenitis negative for flow cytometry. The differential for granulomatous inflation includes or correlate infection forebody and drug. Right breast mass at 10:00 ultrasound-guided core needle biopsy: Fibrovascular and lymphoid tissue with granulomatous inflammation. No breast epithelium identified. Both sites are benign and likely concordant. There is an additional asymmetry in the far posterior axilla for which a six-month follow-up right breast mammogram is recommended. Electronically signed by: Beverly Nichols DO 12/27/2024 03:43 PM EDT Addendum Dictated By: Beverly Nichols DO Addendum Signed By: <Electronically signed by DO El in OV> 12/27/24 1543 Addendum Cosigned By: DD/ TD/TT: 12/21/24 PROCEDURE: ULTRASOUND-GUIDED RIGHT BREAST BIOPSY Ultrasound guided core needle biopsy right axilla. CLINICAL INFORMATION: Enlarged right axillary lymph node and solid mass in the right breast at 10:00. COMPARISON: [facility] on PACS. TECHNIQUE: The details of the procedure, as well as the risks, benefits, and alternatives to the procedure were explained to the patient in detail and all of her questions were answered, after which, written informed consent was obtained. PROCEDURE: Right mass 10:00: Prior to the procedure, sonography revealed a solid irregular mass at 10:00. A time-out was performed, the lesion intended for biopsy was targeted and the skin of the right breast was then prepped and draped in the usual sterile fashion. Using sonographic guidance, sterile technique, and 1% lidocaine without epinephrine for local anesthesia, a total of 4 cores were obtained through the targeted area with a 14-gauge biopsy device. At the completion of tissue sampling, a single butterfly metallic clip was deposited at the biopsy site. An appropriate sample was obtained. Right axilla lymph node: Prior to the procedure, sonography revealed enlarged right axillary lymph node. A time-out was performed, the lesion intended for biopsy was targeted and the skin of the right axilla was then prepped and draped in the usual sterile fashion. Using sonographic guidance, sterile technique, and 1% lidocaine without epinephrine for local anesthesia, a total of 5 cores were obtained through the targeted area with a 14-gauge biopsy device. At the completion of tissue sampling, a single open coil metallic clip was deposited at the biopsy site. An appropriate sample was obtained. The postprocedure 2-view direct digital mammogram reveals satisfactory positioning of the biopsy clips. The patient tolerated the procedure well and, after assuring adequate hemostasis, was discharged in good condition after reviewing postbiopsy breast care instructions. Final pathology results are pending. US/US breast ndl core biopsy RT IMPRESSION: 1. Uncomplicated sonographically-guided core biopsy of the right breast and right axilla. The 2-view direct digital postprocedure mammogram reveals satisfactory positioning of the biopsy clips. 2. Final pathology results are pending. A separate report with final recommendations will be issued once these results are made available. 3. Asymmetry/axillary node with distortion in the right axilla which could be related to prior remote surgery in this area. Management will be pending the above biopsse to include at least a six-month follow-up further evaluation. Electronically signed by: Beverly Nichols DO 12/21/2024 12:42 PM EDT RP Dictated By: Beverly Nichols DO Signed By: <Electronically signed by Beverly Nichols DO in OV> 12/21/24 1242 DD/ 0940 TD/TT: 12/21/24 1022 Voucher Examiner: [facility] External Provider IMG US PROCEDURES Edited Result - Final * US BREAST NDL CORE BIO EA ADD (12/21/2024 9:40 AM EDT) Anatomical Region Laterality Modality Abdomen Ultrasound 12/21/2024 9:40 AM EDT Narrative 12/21/2024 12:45 PM EDT ? [facility] ? [address] ?[place] [address] ? Ultrasound Report ? Signed with Addenda ? Patient: Leisa,Ariana ?MR#: [id number] ? : 1950 ?Acct:[id number] ? Age/Sex: 74 / F ?ADM Date: 12/21/24 ? Loc: HO.MAMMO ? Attending Dr: Matt Jon MD ? Ordering Physician: Matt Jon MD ?? Date of Service: 12/21/24 ?? Procedure(s): US breast ndl core bio ea add ?? Accession Number(s): [id number] ? cc: Valentina Alarcon SOLAR SALES ESTIMATOR; Matt Jon MD ?ADDENDUM ? ADDENDUM #1 ? ADDENDUM: ?? Right axillary lymph node: Granulomatous lymphadenitis negative for ?? flow cytometry. The differential for granulomatous inflation includes ?? or correlate infection forebody and drug. ? Right breast mass at 10:00 ultrasound-guided core needle biopsy: ?? Fibrovascular and lymphoid tissue with granulomatous inflammation. ?? No breast epithelium identified. ? Both sites are benign and likely concordant. There is an additional ?? asymmetry in the far posterior axilla for which a six-month follow-up ?? right breast mammogram is recommended. ? Electronically signed by: ??Beverly Nichols DO ??12/27/2024 03:43 PM EDT ?? RP ? Addendum Dictated By: ?Beverly Nichols, DO ? Addendum Signed By: ? <Electronically signed by Beverly Nichols, DO in OV> ? 12/27/24 1543 ?? Addendum Cosigned By: ? DD/ ? TD/TT: 12/21/24 ? PROCEDURE: ?? ULTRASOUND-GUIDED RIGHT BREAST BIOPSY ?? Ultrasound guided core needle biopsy right axilla. ? CLINICAL INFORMATION: ?? Enlarged right axillary lymph node and solid mass in the right breast ?? at 10:00. ? COMPARISON: ?? [facility] on PACS. ? TECHNIQUE: ?? The details of the procedure, as well as the risks, benefits, and ?? alternatives to the procedure were explained to the patient in detail ?? and all of her questions were answered, after which, written informed ?? consent was obtained. ? PROCEDURE: ? Right mass 10:00: ?? Prior to the procedure, sonography revealed a solid irregular mass at ?? 10:00. A time-out was performed, the lesion intended for biopsy was ?? targeted and the skin of the right breast was then prepped and draped ?? in the usual sterile fashion. ? Using sonographic guidance, sterile technique, and 1% lidocaine without ?? epinephrine for local anesthesia, a total of 4 cores were obtained ?? through the targeted area with a 14-gauge biopsy device. At the ?? completion of tissue sampling, a single butterfly metallic clip was ?? deposited at the biopsy site. ? An appropriate sample was obtained. ? Right axilla lymph node: ?? Prior to the procedure, sonography revealed enlarged right axillary ?? lymph node. A time-out was performed, the lesion intended for biopsy ?? was targeted and the skin of the right axilla was then prepped and ?? draped in the usual sterile fashion. ? Using sonographic guidance, sterile technique, and 1% lidocaine without ?? epinephrine for local anesthesia, a total of 5 cores were obtained ?? through the targeted area with a 14-gauge biopsy device. At the ?? completion of tissue sampling, a single open coil metallic clip was ?? deposited at the biopsy site. ? An appropriate sample was obtained. ? The postprocedure 2-view direct digital mammogram reveals satisfactory ?? positioning of the biopsy clips. ? The patient tolerated the procedure well and, after assuring adequate ?? hemostasis, was discharged in good condition after reviewing postbiopsy ?? breast care instructions. Final pathology results are pending. ? US/ breast ndl core bio ea add ?? IMPRESSION: ?? 1. Uncomplicated sonographically-guided core biopsy of the right breast ?? and right axilla. The 2-view direct digital postprocedure mammogram ?? reveals satisfactory positioning of the biopsy clips. ?? 2. Final pathology results are pending. A separate report with final ?? recommendations will be issued once these results are made available. ? 3. Asymmetry/axillary node with distortion in the right axilla which ?? could be related to prior remote surgery in this area. Management will ?? be pending the above biopsse to include at least a six-month follow-up ?? further evaluation. ? Electronically signed by: ??Beverly Nichols DO ??12/21/2024 12:42 PM EDT ? Dictated By: ?Beverly Nichols DO ? Signed By: ?<Electronically signed by Beverly Nichols, DO in OV> ? 12/21/24 1242 ? DD/ 0940 ? TD/TT: 12/21/24 1022 ? Voucher Examiner: ? Procedure Note Lisa, Image - 12/29/2024 [place] [facility] [address] 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 The differential for granulomatous inflation includes or correlate infection forebody and drug. Right breast mass at 10:00 ultrasound-guided core needle biopsy: Fibrovascular and lymphoid tissue with granulomatous inflammation. No breast epithelium identified. Both sites are benign and likely concordant. There is an additional asymmetry in the far posterior axilla for which a six-month follow-up right breast mammogram is recommended. Electronically signed by: Beverly Nichols DO 12/27/2024 03:43 PM EDT Addendum Dictated By: Beverly Nichols DO Addendum Signed By: <Electronically signed by DO El in OV> 12/27/24 1543 Addendum Cosigned By: DD/ TD/TT: 12/21/24 PROCEDURE: ULTRASOUND-GUIDED RIGHT BREAST BIOPSY Ultrasound guided core needle biopsy right axilla. CLINICAL INFORMATION: Enlarged right axillary lymph node and solid mass in the right breast at 10:00. COMPARISON: [facility] on PACS. TECHNIQUE: The details of the procedure, as well as the risks, benefits, and alternatives to the procedure were explained to the patient in detail and all of her questions were answered, after which, written informed consent was obtained. PROCEDURE: Right mass 10:00: Prior to the procedure, sonography revealed a solid irregular mass at 10:00. A time-out was performed, the lesion intended for biopsy was targeted and the skin of the right breast was then prepped and draped in the usual sterile fashion. Using sonographic guidance, sterile technique, and 1% lidocaine without epinephrine for local anesthesia, a total of 4 cores were obtained through the targeted area with a 14-gauge biopsy device. At the completion of tissue sampling, a single butterfly metallic clip was deposited at the biopsy site. An appropriate sample was obtained. Right axilla lymph node: Prior to the procedure, sonography revealed enlarged right axillary lymph node. A time-out was performed, the lesion intended for biopsy was targeted and the skin of the right axilla was then prepped and draped in the usual sterile fashion. Using sonographic guidance, sterile technique, and 1% lidocaine without epinephrine for local anesthesia, a total of 5 cores were obtained through the targeted area with a 14-gauge biopsy device. At the completion of tissue sampling, a single open coil metallic clip was deposited at the biopsy site. An appropriate sample was obtained. The postprocedure 2-view direct digital mammogram reveals satisfactory positioning of the biopsy clips. The patient tolerated the procedure well and, after assuring adequate hemostasis, was discharged in good condition after reviewing postbiopsy breast care instructions. Final pathology results are pending. US/US breast ndl core bio ea add IMPRESSION: 1. Uncomplicated sonographically-guided core biopsy of the right breast and right axilla. The 2-view direct digital postprocedure mammogram reveals satisfactory positioning of the biopsy clips. 2. Final pathology results are pending. A separate report with final recommendations will be issued once these results are made available. 3. Asymmetry/axillary node with distortion in the right axilla which could be related to prior remote surgery in this area. Management will be pending the above biopsse to include at least a six-month follow-up further evaluation. Electronically signed by: Beverly Nichols DO 12/21/2024 12:42 PM EDT Dictated By: Beverly Nichols DO Signed By: <Electronically signed by Beverly Nichols DO in OV> 12/21/24 1242 DD/ 0940 TD/TT: 12/21/24 1022 Voucher Examiner: [facility] External Provider IMG US PROCEDURES Edited Result - Final * Mammogram Diagnostic Right (12/21/2024 9:40 AM EDT) Anatomical Region Laterality Modality Breast Right Mammography 12/21/2024 9:40 AM EDT Narrative 12/21/2024 12:45 PM EDT ? [facility] ? [address] ?[place] [address] ?[phone] ? Mammography Report ? Signed with Addenda ? Patient: Leisa,Ariana ?MR#: [id number] ? : 1950 ?Acct:[id number] ? Age/Sex: 74 / F ?ADM Date: 04/24/25 ? Loc: HO.MAMMO ? Attending Dr: Matt Jon MD ? Ordering Physician: Matt Jon MD ?Results: ? Date of Service: 12/21/24 ?Follow Up: ? Procedure(s): MM diagnostic mammo unilat RT ?? Accession Number(s): [id number] ? cc: Valentina Alarcon SOLAR SALES ESTIMATOR; Matt Jon MD ?ADDENDUM ? ADDENDUM #1 ? ADDENDUM: ?? Right axillary lymph node: Granulomatous lymphadenitis negative for ?? flow cytometry. The differential for granulomatous inflation includes ?? or correlate infection forebody and drug. ? Right breast mass at 10:00 ultrasound-guided core needle biopsy: ?? Fibrovascular and lymphoid tissue with granulomatous inflammation. ?? No breast epithelium identified. ? Both sites are benign and likely concordant. There is an additional ?? asymmetry in the far posterior axilla for which a six-month follow-up ?? right breast mammogram is recommended. ? Electronically signed by: ??Beverly Nichols DO ??12/27/2024 03:43 PM EDT ?? RP ? Addendum Dictated By: ?Beverly Nichols, DO ? Addendum Signed By: ? <Electronically signed by Beverly Nichols, DO in OV> ? 12/27/24 1543 ?? Addendum Cosigned By: ? DD/ ? TD/TT: 12/21/24 ? PROCEDURE: ?? ULTRASOUND-GUIDED RIGHT BREAST BIOPSY ?? Ultrasound guided core needle biopsy right axilla. ? CLINICAL INFORMATION: ?? Enlarged right axillary lymph node and solid mass in the right breast ?? at 10:00. ? COMPARISON: ?? [facility] on PACS. ? TECHNIQUE: ?? The details of the procedure, as well as the risks, benefits, and ?? alternatives to the procedure were explained to the patient in detail ?? and all of her questions were answered, after which, written informed ?? consent was obtained. ? PROCEDURE: ? Right mass 10:00: ?? Prior to the procedure, sonography revealed a solid irregular mass at ?? 10:00. A time-out was performed, the lesion intended for biopsy was ?? targeted and the skin of the right breast was then prepped and draped ?? in the usual sterile fashion. ? Using sonographic guidance, sterile technique, and 1% lidocaine without ?? epinephrine for local anesthesia, a total of 4 cores were obtained ?? through the targeted area with a 14-gauge biopsy device. At the ?? completion of tissue sampling, a single butterfly metallic clip was ?? deposited at the biopsy site. ? An appropriate sample was obtained. ? Right axilla lymph node: ?? Prior to the procedure, sonography revealed enlarged right axillary ?? lymph node. A time-out was performed, the lesion intended for biopsy ?? was targeted and the skin of the right axilla was then prepped and ?? draped in the usual sterile fashion. ? Using sonographic guidance, sterile technique, and 1% lidocaine without ?? epinephrine for local anesthesia, a total of 5 cores were obtained ?? through the targeted area with a 14-gauge biopsy device. At the ?? completion of tissue sampling, a single open coil metallic clip was ?? deposited at the biopsy site. ? An appropriate sample was obtained. ? The postprocedure 2-view direct digital mammogram reveals satisfactory ?? positioning of the biopsy clips. ? The patient tolerated the procedure well and, after assuring adequate ?? hemostasis, was discharged in good condition after reviewing postbiopsy ?? breast care instructions. Final pathology results are pending. ? MM/MM diagnostic mammo unilat RT ?? IMPRESSION: ?? 1. Uncomplicated sonographically-guided core biopsy of the right breast ?? and right axilla. The 2-view direct digital postprocedure mammogram ?? reveals satisfactory positioning of the biopsy clips. ?? 2. Final pathology results are pending. A separate report with final ?? recommendations will be issued once these results are made available. ? 3. Asymmetry/axillary node with distortion in the right axilla which ?? could be related to prior remote surgery in this area. Management will ?? be pending the above biopsse to include at least a six-month follow-up ?? further evaluation. ? Electronically signed by: ??Beverly Nichols DO ??12/21/2024 12:42 PM EDT ? Dictated By: ?Beverly Nichols DO ? Signed By: ?<Electronically signed by Beverly Nichols, DO in OV> ? 12/21/24 1242 ? DD/ 0940 ? TD/TT: 12/21/24 1024 ? Voucher Examiner: ? Procedure Note Dongaleter, Image - 12/29/2024 [facility] 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 The differential for granulomatous inflation includes or correlate infection forebody and drug. Right breast mass at 10:00 ultrasound-guided core needle biopsy: Fibrovascular and lymphoid tissue with granulomatous inflammation. No breast epithelium identified. Both sites are benign and likely concordant. There is an additional asymmetry in the far posterior axilla for which a six-month follow-up right breast mammogram is recommended. Electronically signed by: Beverly Nichols DO 12/27/2024 03:43 PM EDT Addendum Dictated By: Beverly Nichols DO Addendum Signed By: <Electronically signed by DO El in OV> 12/27/24 1543 Addendum Cosigned By: DD/ TD/TT: 12/21/24 PROCEDURE: ULTRASOUND-GUIDED RIGHT BREAST BIOPSY Ultrasound guided core needle biopsy right axilla. CLINICAL INFORMATION: Enlarged right axillary lymph node and solid mass in the right breast at 10:00. COMPARISON: [facility] on PACS. TECHNIQUE: The details of the procedure, as well as the risks, benefits, and alternatives to the procedure were explained to the patient in detail and all of her questions were answered, after which, written informed consent was obtained. PROCEDURE: Right mass 10:00: Prior to the procedure, sonography revealed a solid irregular mass at 10:00. A time-out was performed, the lesion intended for biopsy was targeted and the skin of the right breast was then prepped and draped in the usual sterile fashion. Using sonographic guidance, sterile technique, and 1% lidocaine without epinephrine for local anesthesia, a total of 4 cores were obtained through the targeted area with a 14-gauge biopsy device. At the completion of tissue sampling, a single butterfly metallic clip was deposited at the biopsy site. An appropriate sample was obtained. Right axilla lymph node: Prior to the procedure, sonography revealed enlarged right axillary lymph node. A time-out was performed, the lesion intended for biopsy was targeted and the skin of the right axilla was then prepped and draped in the usual sterile fashion. Using sonographic guidance, sterile technique, and 1% lidocaine without epinephrine for local anesthesia, a total of 5 cores were obtained through the targeted area with a 14-gauge biopsy device. At the completion of tissue sampling, a single open coil metallic clip was deposited at the biopsy site. An appropriate sample was obtained. The postprocedure 2-view direct digital mammogram reveals satisfactory positioning of the biopsy clips. The patient tolerated the procedure well and, after assuring adequate hemostasis, was discharged in good condition after reviewing postbiopsy breast care instructions. Final pathology results are pending. MM/MM diagnostic mammo unilat RT IMPRESSION: 1. Uncomplicated sonographically-guided core biopsy of the right breast and right axilla. The 2-view direct digital postprocedure mammogram reveals satisfactory positioning of the biopsy clips. 2. Final pathology results are pending. A separate report with final recommendations will be issued once these results are made available. 3. Asymmetry/axillary node with distortion in the right axilla which could be related to prior remote surgery in this area. Management will be pending the above biopsse to include at least a six-month follow-up further evaluation. Electronically signed by: Beverly Nichols DO 12/21/2024 12:42 PM EDT RP Dictated By: Beverly Nichols DO Signed By: <Electronically signed by Beverly Nichols DO in OV> 12/21/24 1242 DD/ 0940 TD/TT: 12/21/24 1024 Voucher Examiner: [facility] External Provider IMG BI PROCEDURES Edited Result - Final * BI Mammogram Diagnostic Tomosynthesis added bilateral (12/06/2024 1:30 PM EDT) Anatomical Region Laterality Modality Breast Left Mammography 12/06/2024 1:30 PM EDT Narrative 12/07/2024 9:02 AM EDT ? [facility] ? [address] ?[place] [address] ?[phone] ? Mammography Report ? Signed ? Patient: Leisa,Ariana ?MR#: [id number] ? : 1950 ?Acct:[id number] ? Age/Sex: 74 / F ?ADM Date: 12/06/ ? Loc: HO.MAMMO ? Attending Dr: Valentina B Graef SOLAR SALES ESTIMATOR ? Ordering Physician: Graef,Valentina B SOLAR SALES ESTIMATOR ?Results: 4Suspic ?? ious Finding ? Date of Service: 12/06/24 ?Follow Up: Biopsy Recommend ?? ed ? Procedure(s): MM tomosynthesis added view BI ?? Accession Number(s): [id number] ? cc: Valentina Alarcon SOLAR SALES ESTIMATOR ? EXAMINATION: ?? MM DIAGNOSTIC DIGITAL BREAST [...] ??Beverly Nichols DO ??12/07/2024 08:59 AM EDT ? Dictated By: ?Beverly Nichols DO ? Signed By: ?<Electronically signed by Beverly Nichols, DO in OV> ? 12/07/24 0859 ? DD/ 1330 ? TD/TT: 12/06/24 1345 ? Voucher Examiner: ? Procedure Note Justin Gonzalez - 12/07/2024 [facility] [address] [address] Mammography Report Signed Patient: Ramya De La Fuente#: [id number] : 1950cct:[id number] Age/Sex: 74 / FADM Date: 12/06/24 Loc: HO.MAMMO Attending Dr: Valentina Alarcon SOLAR SALES ESTIMATOR Ordering Physician: Valentina Alarcon NPResults: 4Suspic ious Finding Date of Service: 12/06/24Follow Up: Biopsy Recommend ed Procedure(s): MM tomosynthesis added view BI Accession Number(s): [id number] cc: Valentina Alarcon SOLAR SALES ESTIMATOR EXAMINATION: MM DIAGNOSTIC DIGITAL BREAST TOMOSYNTHESIS, BILATERAL [...] 12/07/24 0859 DD/ 1330 TD/TT: 12/06/24 1345 Voucher Examiner: us Valentina Alarcon SOLAR SALES ESTIMATOR IMG BI PROCEDURES Final Result * BI US Breast Limited Bilateral (12/06/2024 1:30 PM EDT) Anatomical Region Laterality Modality Breast Bilateral Ultrasound 12/06/2024 1:30 PM EDT Narrative 12/07/2024 9:02 AM EDT ? [facility] ? [address] ?[place] [address] ? Ultrasound Report ? Signed ? Patient: Leisa,Ariana ?MR#: [id number] ? : 1950 ?Acct:[id number] ? Age/Sex: 74 / F ?ADM Date: 12/06/24 ? Loc: HO.MAMMO ? Attending Dr: Valentina Alarcon SOLAR SALES ESTIMATOR ? Ordering Physician: Valentina Alarcon NP ?? Date of Service: 12/06/24 ?? Procedure(s): US breast BI limited mamm only ?? Accession Number(s): [id number] ? cc: Valentina Alarcon NP ? EXAMINATION: ?? MM DIAGNOSTIC DIGITAL BREAST [...] DD/ 1330 ? TD/TT: 12/06/24 1430 ? Voucher Examiner: ? Procedure Note Lisa, Justin - 12/07/2024 [place] [facility] [address] [place] [address] Ultrasound Report Signed Patient: Ramya De La Fuente#: [id number] : 1950cct:[id number] Age/Sex: 74 / FADM Date: 12/06/24 Loc: HO.MAMMO Attending Dr: Valentina Alarcon SOLAR SALES ESTIMATOR Ordering Physician: Valentina Alarcon NP Date of Service: 12/06/24 Procedure(s): US breast BI limited mamm only Accession Number(s): [id number] cc: Valentina Alarcon SOLAR SALES ESTIMATOR EXAMINATION: MM DIAGNOSTIC DIGITAL BREAST TOMOSYNTHESIS, BILATERAL [...] 12/07/24 0859 DD/ 1330 TD/TT: 12/06/24 1430 Voucher Examiner: Valentina Alarcon NP IMG US PROCEDURES Final Result * POCT [...] EST Narrative 10/26/2024 9:04 AM EST ? [facility] ? [address] ?[place] [address] ? Mammography Report ? Signed ? Patient: Leisa,Ariana ?MR#: [id number] ? : 1950 ?Acct:[id number] ? Age/Sex: 73 / F ?ADM Date: /12/25 ? Loc: HO.MAMMO ? Attending Dr: Valentina Alarcon SOLAR SALES ESTIMATOR ? Ordering Physician: Valentina Alarcon SOLAR SALES ESTIMATOR ?Results: 0Incomp ?? lete: Needs Additional Imaging Evaluation ? Date of Service: 10/11/24 ?Follow Up: Additional Imagi ?? ng ? Procedure(s): MM tomosynthesis screening BI ?? Accession Number(s): [id number] ? cc: Valentina Alarcon SOLAR SALES ESTIMATOR ? EXAMINATION: ?? MM SCREENING DIGITAL BREAST [...] ??Beverly Nichols DO ??10/26/2024 09:02 AM EST ? Dictated By: ?Beverly Nichols DO ? Signed By: ?<Electronically signed by Beverly Nichols, DO in OV> ? 10/26/24 0902 ? DD/ 1500 ? TD/TT: 10/11/24 1510 ? Voucher Examiner: ? Procedure Note Lisa, Image - 10/26/2024 [facility] [address] [place] [address] Mammography Report Signed Patient: Ariana De La Fuente#: [id number] : 1950cct:[id number] Age/Sex: 73 / FADM Date: 10/11/24 Loc: HO.MAMMO Attending Dr: Valentina Alarcon SOLAR SALES ESTIMATOR Ordering Physician: Valentina Alarcon NPResults: 0Incomp lete: Needs Additional Imaging Evaluation Date of Service: 10/11/24Follow Up: Additional Imagi ng Procedure(s): MM tomosynthesis screening BI Accession Number(s): [id number] cc: Valentina Alarcon SOLAR SALES ESTIMATOR EXAMINATION: MM SCREENING DIGITAL BREAST TOMOSYNTHESIS, BILATERAL [...] Beverly Nichols DO 10/26/2024 09:02 AM EST RP Dictated By: Beverly Nichols DO Signed By: <Electronically signed by Beverly Nichols DO in OV> 10/26/24 0902 DD/ 1500 TD/TT: 10/11/24 1510 Voucher Examiner: us Valentina Alarcon NP IMG BI PROCEDURES Final Result * BD DEXA Axial (10/11/2024 2:50 PM EST) Anatomical Region Laterality Modality Body Radiographic Kadi ging 10/11/2024 2:50 PM EST Narrative 10/11/2024 4:03 PM EST ? [facility] ? [address] ?[place] [address] ? Mammography Report ? Signed ? Patient: Leisa,Ariana ?MR#: [id number] ? : 1950 ?Acct:[id number] ? Age/Sex: 73 / F ?ADM Date: 02/12/25 ? Loc: HO.MAMMO ? Attending Dr: Valentina B Graef SOLAR SALES ESTIMATOR ? Ordering Physician: Valentina Alarcon SOLAR SALES ESTIMATOR ?Results: ? Date of Service: 10/11/24 ?Follow Up: ? Procedure(s): XR DEXA axial skeleton ?? Accession Number(s): [id number] ? cc: Valentina Alarcon SOLAR SALES ESTIMATOR ? EXAMINATION: ??DXA BONE DENSITY AXIAL ? HISTORY: ??Estrogen deficiency ? TECHNIQUE: [employer] Dual energy absorptiometry (DEXA) ?? of the [...] [facility] [employer] ?? [facility] [employer], a World Health Organization (WHO) ?? Collaborating Center. ? Electronically signed by: ??Valerio Funk MD ??10/11/2024 04:00 PM EST ?? RP ? Dictated By: ?Valerio Funk MD ? Signed By: ?<Electronically signed by Valerio Funk MD in OV> ?10/11/24 1600 ? DD/ 1450 ? TD/TT: 10/11/24 1515 ? Voucher Examiner: ? Procedure Note Donotuseinterpreter, Image - 10/11/2024 [facility] [address] [place] [address] Mammography Report Signed Patient: Ramya De La Fuente#: [id number] : 1950cct:[id number] Age/Sex: 73 / FADM Date: 10/11/24 Loc: HO.MAMMO Attending Dr: Valentina Alarcon NP Ordering Physician: Valentina Alarcon NPResults: Date of Service: 10/11/24Follow Up: Procedure(s): XR DEXA axial skeleton Accession Number(s): [id number] cc: Valentina Alarcon SOLAR SALES ESTIMATOR EXAMINATION: DXA BONE DENSITY AXIAL HISTORY: Estrogen deficiency TECHNIQUE: [employer] Dual energy absorptiometry (DEXA) of the lumbar [...] is a trademark of the [employer]'s [facility] [employer], a World Health Organization (WHO) Collaborating Center. Electronically signed by: Valerio Funk MD 10/11/2024 04:00 PM EST Dictated By: Valerio Funk MD Signed By: <Electronically signed by Valerio Funk MD in OV> 10/11/24 1600 DD/ 1450 TD/TT: 10/11/24 1515 Voucher Examiner: Valentina Alarcon NP IMG DXA PROCEDURES Final Result * (ABNORMAL) POCT HGB A1C (06/30/2024 2:25 PM EDT) Pathologist [facility] Hemoglobin A1C 6.1(A) 4.0 - 6.0 % QC Media Lot # [id number] Lot# Expiration Date 830 Blood 06/30/2024 2:25 PM EDT us Kaity HERNANDEZ POINT OF CARE TEST ENTER/EDIT OR DERABLES Final Result * Lipid Panel, Standard (09/08/2023 4:25 PM EST) Pathologist [facility] Triglycerides 66 <150 mg/dL [facility] Comment:Desirable Triglyceri de: less than 150 mg/dLBorderline High Triglyceride 150-199 mg/dLHigh Triglyceride: 200-499 mg/dLVery High Triglyceride: greater than or equal to 5OO mg/dL Cholesterol 126 <200 mg/dL [facility] Comment:Desirable Cholestero l: less than 200 mg/dLBorderline High Cholesterol: 200-239 mg/dLHigh Cholesterol: greater than 239 mg/dL LDL Cholesterol Calculated 67 <100 mg/dL [facility] Comment:Desirable LDL: less than 100 mg/dLNear Optimal/Above Optimal LDL: 110- 129 mg/dLBorderline High LDL: 130-159 mg/dLHigh LDL: 160-189 mg/dLVery High LDL: greater than or equal to 190 mg/dL HDL Cholesterol 46 >40 mg/dL [facility] Comment:Desirable HDL: great er than 40 mg/dL Note: This HDL assay may give artificially low results in patients with liver disease. Blood Venous blood specimen / Unknown 09/08/2023 4:25 PM EST 09/08/2023 5:55 PM EST us Eliane Noyola WEB MANAGER LAB BLOOD ORDERABLES Final Resu lt [facility] [address] [place] [phone] from Last 3 Months or Most Recently Relevant to Health Maintenance Insurance [facility] (HMO D-SNP) [place] [id number] Care Teams [employer]ocket [employer] Relationship Specialty Start Date End Date Valentina Alarcon NP [address] [place] [address] PCP - General Family Medicine 06/27/24
--- OUTSIDE RECORDS SUMMARY | 2025-01-01 08:59 | XMS_ITS | Data Portability ---
Author Organization [place] [facility] [place] MRI Address [address] [place] [address] Care Team Providers Care Olive Grower Name Role Phone VIRGIL GRAVES Primary Care Provider VIRGIL GRAVES Referring Provider MIKA ROCHA Spinal Orthopedic Surgeon CAM Ballard Primary Care Provider [phone] CAM VICENTE Referring Provider [phone] Assessment Encounter Date Assessment Date Assessment LastModified [...] of severe pain and she can continue [id number] pain medications for the mild pain. She [...] tramadol that she takes p.r.n. I did career placement services counselor her on opiate medication use and she voiced her understanding. She will continue the home exercise program and see me as needed. If the knee pain persists we could consider referral to the curriculum and instruction specialist for that Not available 09/16/2018 17:12:52 [...] DO Not Attach Compendium, Do Not Delete/merge, [id number] 8 12:16:07 Surgeries None recorded. Imaging None recorded. Medication Orders methylpredn isolone acetate 40 mg/mL suspension for injection 2018 019 [email or web address] Not available 9 14:48:02 tramadol 50 mg tablet [email or web address], [address], [place], [id number], 9 17:54:20 Voltaren 1 % topical gel [address], [address], [place], [id number], 9 17:54:20 tramadol 50 mg tablet [email or web address], [address] [place], [id number], 9 13:30:59 tramadol 50 mg tablet [email or web address], [address] [place], [place], [id number], 8 16:40:41 betamethaso ne acetate and sodium phos 6 mg/mL suspension for injection 2017 018 [email or web address] 5 Not available 8 09:29:44 Omnipaque 300 mg iodine/mL intravenous solution 2017 018 [email or web address] 5 Not available 8 09:29:45 lidocaine (PF) 10 mg/mL (1 %) injection solution 2017 018 [email or web address] 5 Not available 8 09:29:45 acetaminoph en 300 mg-codeine 30 mg tablet [email or web address], [address] , [place], [place], [id number], 8 09:36:21 Patient TargetsNo targets recorded. Patient Instructions Encounter Date Encounter Id Patient Instructions Last Modified By Organization Details Last Modified Time 03/22/2018 [id number] dolor de no: instrucciones de cuidado - [neck pain: care instructions] Not available 03/23/2018 09:36:21 01/19/2019 [id number] Reviewed exam findings. Again reviewed treatment options. [...] Recorded Time Impingement syndrome of shoulder region 212710668 Active 2016 Ferny Martinez MD [address] [place] [address], [address] 9, [facility] 7 14:50:24 Cubital tunnel syndrome Active 2017 Natasha Morris [address] [place] [address], [address] 9, [facility] 8 13:40:44 Carpal tunnel syndrome 10895437 Active Mitch Toussaint M.D. [address] [place] [address], [address] 9, [facility] 6 14:40:56 Low back pain 912865782 Active Mitch Tosusaint M.D. [address] [place] [address], [address] 9, [facility] 14:40:56 Spinal enthesopathy 52792415 Active Mitch Toussaint M.D. [address] [place] [address], [address] 9, [facility] 6 14:40:56 Knee pain Active Mitch Toussaint M.D. [address] [place] [address], [address] 9, [facility] 6 14:40:56 Arthritis of knee 851764112 Active Mitch Toussaint M.D. [address] [place] [address], [address] 9, [facility] 14:40:56 Degeneration of lumbar intervertebral disc [id number] Hina Toussaint M.D. [address] [place] [address], [address] 9, [facility] 14:51:06 Lumbar spondylosis [id number] Hina Toussaint M.D. [address] [place] [address], [address] 9, [facility] 14:40:56 Neuropathy 834484023 Active Mitch Toussaint M.D. [address] [place] [address], [address] 9, [facility] 14:51:06 Lumbar radiculopathy 462707026 Active FREDY Holder [address] [place] [address], [address]81 9, [facility] 14:02:17 Lumbosacral radiculopathy 9768626 Active Mitch Toussaint M.D. [address] [place] [address], [address] 9, [facility] 14:51:06 Problem Notes None recorded. Procedures Surgical History Date Name Laterality Status Provider Name and Address Organization Details Recorded Time 9 Shoulder Subacromial - LEFT - CS Injection completed Cl Christopher MD [address] [place] [address], [address], [facility] 01/19/2019 08:41:52 9 Trigger Point Injection - RIGHT completed Mitch Toussaint M.D. [address] [place] [address], [address], [facility] 09/16/2018 16:54:11 8 Shoulder Subacromial - LEFT - CS Injection completed Mtich Toussaint M.D. [address] [place] [address], [address], [facility] 03/22/2018 13:40:06 8 RC Generic CS Injection completed Ferny Martinez MD [address] [place] [address], [address], [facility] 01/05/2018 13:41:33 8 RC Generic CS Injection completed Natasha Morris [address] [place] [address], [address], [facility] 12/29/2017 13:39:27 8 Nerve Conduction, 9 - 10 studies completed Mitch Toussaint M.D. [address] [place] [address], [address], [facility] 12/24/2017 08:20:56 8 Needle EMG , 5 muscles or more completed Mitch Toussaint M.D. [address] [place] [address], [address], [facility] 12/24/2017 08:20:54 8 Shoulder Subacromial - LEFT - CS Injection completed Cl Christopher MD [address] [place] [address], [address], [facility] 12/16/2017 14:12:49 8 Shoulder Subacromial - LEFT - CS Injection completed Mitch Toussaint M.D. [address] [place] [address], [address], [facility] 09/23/2017 15:17:35 7 Shoulder Subacromial - LEFT - CS Injection completed Mitch Toussaint M.D. [address] [place], [address], [facility] 07/15/2017 18:22:00 7 Knee CS Injection - Right completed Cl Christopher MD [address] [place], [address], [facility] 05/20/2017 15:06:52 7 Shoulder Subacromial - LEFT - CS Injection completed Ferny Martinez MD [address] [place] [address], [address], [facility] 05/05/2017 14:50:15 7 Carpal Tunnel LEFT CS Injection completed Natasha Morris [address] [place], [address], [facility] 02/22/2017 14:51:45 7 Carpal Tunnel RIGHT CS Injection completed Ferny Martinez MD [address] [place] [address], [address], [facility] 02/17/2017 14:12:37 7 Knee CS Injection - Left completed Mitch Toussaint M.D. [address] [place] [address], [address], [facility] 02/02/2017 16:25:10 6 Knee CS Injection - Right completed Cl Christopher MD [address] [place] [address], [address], [facility] 04/23/2016 17:05:49 6 Knee CS Injection - Right completed Marco Antonio Layton [address] [place] [address], [address], [facility] 11/21/2015 15:48:11 6 Knee CS Injection - Right completed Marco Antonio Layton [address] [place] [address], [address], [facility] 09/10/2015 15:35:15 6 Trigger Point Injection - Bilateral - 2 muscles completed Mitch Toussaint M.D. [address] [place] [address], [address], [facility] 09/03/2015 17:05:31 5 Carpal Tunnel LEFT CS Injection completed Ferny Martinez MD [address] [place] [address], [address], [facility] 08/14/2015 10:00:48 5 Carpal Tunnel RIGHT CS Injection completed Ferny Martinez MD [address] [place] [address], [address], [facility] 08/07/2015 15:32:38 5 Nerve Conduction, 9 - 10 studies completed Mitch Toussaint M.D. [address] [place] [address], [address], [facility] 08/02/2015 11:33:49 5 Needle EMG , 5 muscles or more completed Mitch Toussaint M.D. [address] [place] [address], [address], [facility] 08/02/2015 11:33:49 Imaging [...] Available Not Available N ot Available zostavax [id number] unt/0.65ml susr active Not Available Not Available [...] Updated DateTime 06/03/2018 162.56 cm 25.6 kg/m2 32971.26 g Priti Hamilton MA [facility] 06/03/2018 14:06:00 Date Recorded Body height Body mass index (BMI) Body weight Provider Name and Address Organization Details Last Updated DateTime 09/16/2018 162.56 cm 25.6 kg/m2 13863.26 g Priti Hamilton [facility] 09/16/2018 16:01:35 Date Recorded Body height Body mass index (BMI) Body weight Provider Name and Address Organization Details Last Updated DateTime 01/17/2019 162.56 cm 25.6 kg/m2 52090.26 g Priti Hamilton [place] [facility] 01/17/2019 13:28:06 Date Recorded Body height Body mass index (BMI) Body weight Pain severity - 0-10 verbal numeric rating [Score] - Reported Provider Name and Address Organization Details Last Updated DateTime 01/19/2019 162.56 cm 25.6 kg/m2 25020.26 g 4 Kiki Aguilar [facility] 01/19/2019 08:24:44 Date Recorded Body height Body mass index (BMI) Body weight Provider Name and Address Organization Details Last Updated DateTime 03/22/2018 162.56 cm 25.6 kg/m2 98990.26 g Mitch Toussaint M.D. [address] [place] [address], [address], [facility] 03/22/2018 13:00:26 Social History Question Answer Notes LastModified by Organizat ion Details LastModified Time Tobacco Smoking Status Never Smoker Alysa burgess, [facility] 07/10/2015 14:25:07 What Is Your Level [...] Disease/Problems N Breathing Problems N Heart Attack (SC) Y Sexually Transmitted Diseases N Bleeding Disorder/Tendencies [...] SNOMED-CT Code Diagnosis ICD10 Code Diagnosis Note [id number] Ferny Martinez MD OFFICE-N. [facility] ot a [address] [address] 07/10/2015 14:14:06 07/10/2015 15:29:47 Carpal tunnel syndrome 68996742 G56.01 G56.02 [id number] Mitch Toussaint M.D. OFFICE-N. [facility] ot a [address] [address] 08/02/2015 10:08:15 08/02/2015 10:49:54 Carpal tunnel syndrome 42570712 G56.00 [id number] Ferny Martinez MD OFFICE-N. [facility] ot a [address] [address] 7 08/07/2015 15:05:18 08/07/2015 15:34:59 Carpal tunnel syndrome 19973927 G56.01 G56.02 [id number] Ferny Martinez MD OFFICE-N. [facility] ot a [address] [address] 7 08/14/2015 09:24:12 08/14/2015 10:11:59 Carpal tunnel syndrome 02295515 G56.02 [id number] Mitch Toussaint M.D. OFFICE-N. [facility] ot a [address] [address] 7 09/03/2015 14:27:01 09/03/2015 16:59:09 Low back pain 100812721 M54.5 Spinal enthesopathy 1031 7009 M46.00 Knee pain 68436506 M25.5 69 [id number] Marco Antonio Layton OFFICE-N. [facility] a [address] [address] 7 09/10/2015 13:27:06 09/10/2015 15:08:56 Arthritis of knee 326654014 M17.11 [id number] Cl Christopher MD OFFICE-N. [facility] a [address] [address] 7 10/24/2015 14:38:57 10/24/2015 15:20:30 Arthritis of knee 725729402 M17.11 [id number] Mitch Toussaint M.D. OFFICE-N. [facility] a [address] [address] 7 10/29/2015 15:16:53 10/29/2015 15:48:23 Low back pain 178023419 M54.5 Degenerati on of lumbar intervertebral disc 75369189 M51.36 Lumbar spondylosis 92059 0009 M47.816 [id number] SHEILA CADENA D.P.M. OFFICE-N. [facility] a [address] [address] 7 11/18/2015 14:44:28 11/18/2015 15:18:23 Neuropathy 746987180 G62.9 [id number] Mitch Toussaint M.D. OFFICE-N. [facility] a [address] [address] 7 11/19/2015 14:22:26 11/19/2015 15:34:09 Lumbar spondylosis 772231433 M47.816 Degenerati on of lumbar intervertebral disc 83118672 M51.36 Neuropathy 238219198 G62 .9 Lumbar radiculopathy 128 869392 M54.16 [id number] Marco Antonio Layton OFFICE-N. [facility] ot a Service [address] [address] 7 11/21/2015 14:21:01 11/21/2015 16:02:09 Arthritis of knee 619636126 M17.11 [id number] Mitch [place] [address] 12/02/2015 09:40:58 2015 15:04:38 [id number] Mitch Toussaint M.D. OFFICE-N. [facility] ot a Service [address] [address] 7 12/05/2015 14:48:01 12/05/2015 15:31:56 Lumbar spondylosis 502516529 M47.816 Lumbar radiculopathy 128 775819 M54.16 [id number] Mitch Toussaint M.D. OFFICE-N. [facility] ot a Service [address] [address] 7 01/02/2016 14:09:55 01/02/2016 15:53:59 Lumbar spondylosis 494129470 M47.816 Lumbosacra l radiculopathy 7620263 M54.16 [id number] Mitch [place] [address] 01/10/2016 11:24:30 01/28/2016 10:52:43 [id number] Mitch [facility] [address] [address] 01/23/2016 13:48:55 01/23/2016 16:24:55 Lumbosacral radiculopathy 5074740 M54.16 Lumbar radiculopathy 128 568813 M54.16 Neuropathy 174443447 G62 .9 Degenerati on of lumbar intervertebral disc 23453942 M51.36 [id number] FREDY Holder [facility] Service [address] [place] [address] 03/12/2016 13:06:00 03/12/2016 13:59:57 Lumbar radiculopathy 246359192 M54.16 [id number] Marco Antonio Layton OFFICE-N. [facility] ot a [address] [address] 7 03/19/2016 13:37:20 03/19/2016 14:27:12 Arthritis of knee 310950531 M17.11 [id number] FREDY Holder OFFICE-N. [facility] ot a [address] [address] 7 04/16/2016 13:56:49 04/16/2016 14:49:54 Lumbar radiculopathy 435216296 M54.16 Lumbar spondylosis 18739 0009 M47.896 Degenerati on of lumbar intervertebral disc 42649041 M51.36 [id number] Cl Christopher MD OFFICE-N. [facility] a [address] [address] 7 04/23/2016 15:00:01 04/23/2016 15:41:54 Arthritis of knee 745960568 M17.11 Tear of me niscus of knee 199275274 S83.231D [id number] Mitch Toussaint M.D. OFFICE-N. [facility] a [address] [address] 05/28/2016 14:14:03 05/28/2016 15:18:23 Lumbosacral radiculopathy 5393217 M54.16 Lumbar radiculopathy 128 996274 M54.16 Neuropathy 654299600 G62 .9 Degenerati on of lumbar intervertebral disc 58619564 M51.36 [id number] FREDY Holder OFFICE-N. [facility] a [address] [address] 7 07/01/2016 13:09:07 07/01/2016 14:02:04 Lumbar radiculopathy 830815304 M54.16 Lumbar spondylosis 08891 0009 M47.896 Lumbosacra l radiculopathy 6209433 M54.16 Degenerati on of lumbar intervertebral disc 04746894 M51.36 [id number] Mitch Toussaint M.D. OFFICE-N. [facility] a Service [address] [address] 07/14/2016 14:46:25 07/14/2016 15:54:25 Lumbosacral radiculopathy 7725093 M54.16 Lumbar radiculopathy 128 197592 M54.16 Neuropathy 056216363 G62 .9 Degenerati on of lumbar intervertebral disc 89513981 M51.36 [id number] Mitch Toussaint M.D. OFFICE-N. [facility] a [address] [address] 7 08/18/2016 14:11:25 08/18/2016 15:23:44 Lumbar radiculopathy 992984067 M54.16 Lumbar spondylosis 95977 0009 M47.816 [id number] Mitch Toussaint M.D. OFFICE-N. [facility] a [address] [address] 7 02/02/2017 14:36:06 02/02/2017 15:54:06 Lumbar radiculopathy 411256262 M54.16 Knee pain 44740892 M25.5 69 Lumbar spondylosis 17314 0009 M47.816 Degenerati on of lumbar intervertebral disc 43976291 M51.36 Bilateral carpal tunnel syndrome 3677343638 1984813 G56.03 [id number] Ferny Martinez MD OFFICE-N. [facility] a Service [address] [address] 7 02/17/2017 14:00:03 02/17/2017 14:19:55 Carpal tunnel syndrome 70394817 G56.01 [id number] Natasha Morris OFFICE-N. [facility] a Service [address] [place] [address] 02/22/2017 14:26:53 02/22/2017 15:17:55 Carpal tunnel syndrome 02724957 G56.02 [id number] Mitch Toussaint M.D. [facility] - [address] [address] 03/16/2017 14:06:45 03/16/2017 14:42:22 Lumbar spondylosis 477663247 M47.816 Degenerati on of lumbar intervertebral disc 63620213 M51.36 [id number] Ferny Martinez MD OFFICE - [address] [address] 05/05/2017 14:21:28 05/05/2017 15:31:53 Shoulder joint pain 009783178 M25.519 Impingemen t syndrome of shoulder region 575204517 M75.42 [id number] Mitch Toussaint M.D. [facility] - [address] [address] 05/11/2017 14:53:59 05/11/2017 15:29:00 Lumbar radiculopathy 164074495 M54.16 Knee pain 26078880 M25.5 69 [id number] Cl Christopher MD OFFICE - [address] [address] 05/20/2017 14:19:19 05/20/2017 15:11:20 Knee pain 39462344 M25.561 Arthritis of knee 305237 002 M17.11 Tear of me niscus of knee 283031317 S83.231D [id number] Cl Christopher MD [facility] - [address] [address] 06/17/2017 14:31:56 06/17/2017 15:45:59 Osteoarthritis of knee 531333276 M17.11 Tear of me niscus of knee 268428641 S83.231D [id number] Mitch Toussaint M.D. [facility] - [address] [address] 1 07/15/2017 12:20:31 07/15/2017 14:04:16 Pain of shoulder region 69346350 M25.512 [id number] Mitch Toussaint M.D. [facility] - [address] [address] 09/23/2017 14:15:44 09/23/2017 15:06:52 Pain of shoulder region 65799779 M25.512 Lumbar spondylosis 24251 0009 M47.816 Degenerati on of lumbar intervertebral disc 91257800 M51.36 [id number] Mitch Toussaint M.D. OFFICE - [address] [address] 12/07/2017 12:44:03 12/07/2017 13:29:22 Lumbar radiculopathy 175509479 M54.16 Bilateral carpal tunnel syndrome 0334042431 6663702 G56.03 Pain of le ft shoulder joint 1291437652 0968987 M25.512 [id number] Cl Christopher MD OFFICE - [address] [address] 1 12/16/2017 12:48:48 12/16/2017 14:18:38 Inflammation of rotator cuff tendon 763351022 M65.812 Shoulder joint pain 2679 86172 M25.519 Neck pain 50626581 M54.2 [id number] Mitch Toussaint M.D. OFFICE - [address] [address] 12/20/2017 12:51:48 12/20/2017 13:30:52 Bilateral carpal tunnel syndrome 4556545264 6346037 G56.03 Cubital tu nnel syndrome 05996738 G56.21 [id number] Natasha Morris [facility] - [address] [address] 12/29/2017 12:54:27 12/29/2017 13:45:37 Cubital tunnel syndrome 49533375 G56.21 Carpal tye arely syndrome 93048683 G56.02 G56.01 [id number] Ferny Martinez MD OFFICE - [address] [address] 1 01/05/2018 13:29:56 01/05/2018 14:34:55 Cubital tunnel syndrome 23421315 G56.22 [id number] Cl Christopher MD OFFICE - [address] [address] 01/27/2018 13:43:10 01/27/2018 14:44:44 Inflammation of rotator cuff tendon 855512092 M65.812 [id number] Mitch Toussaint M.D. OFFICE - [place] [address] [place] [address] 1 03/22/2018 12:30:42 03/22/2018 13:38:02 Neck pain 81131410 M54.2 Pain of le ft shoulder joint 0869844846 0327976 M25.512 [id number] Mitch Toussaint M.D. OFFICE - [address] [address] 06/03/2018 13:52:33 06/03/2018 16:01:30 Lumbar radiculopathy 195930371 M54.16 Low back pain 855540449 M54.5 Lumbar spondylosis 44715 0009 M47.896 Degenerati on of lumbar intervertebral disc 00753804 M51.36 [id number] Mitch Toussaint M.D. OFFICE - [address] [address] 09/16/2018 15:26:42 09/16/2018 16:22:54 Lumbar radiculopathy 418962814 M54.16 Myofascial pain 81968946 9 M79.10 [id number] Mitch Toussaint M.D. OFFICE - [address] [address] 1 01/17/2019 13:14:55 01/17/2019 14:02:00 Lumbar radiculopathy 321056272 M54.16 Shoulder joint pain 2679 48416 M25.519 [id number] Cl Christopher MD OFFICE - [address] [address] 01/19/2019 08:10:40 01/19/2019 09:05:24 Inflammation of rotator cuff tendon 601739891 M65.812 Health Concerns Section Related Observation LastModified by Organization Detai ls LastModified Time None Recorded Concern Status LastModified by Organization Details LastModified Time None Recorded Advance Directives Directive None Recorded Payers Encounter Date Sequence Insurance Name Policy Number Policy Jain Covered Member ID Jain Member ID Guarantor Name 03/22/2018 1 [facility] [place]MEDICARE - MEDICAID REPLAC[place] [facility] [place] [id number] Ariana Swaintigua 06/03/2018 1 [facility] (MEDICARE - MEDICAID REPLACEMENT[place] [facility] [place] Muñoz Leisa [id number] Ariana E Leisa 09/16/2018 1 [facility] - [facility] OPTIONS (MEDICARE - MEDICAID REPLACEMENT[place] [facility] [place] E Leisa [id number] Ariana E Leisa 01/17/2019 1 [facility] - [facility] OPTIONS (MEDICARE - MEDICAID REPLACEMENT[place] [facility] [place] E Leisa [id number] Ariana E Leisa 01/19/2019 1 [facility] - [facility] OPTIONS (MEDICARE - MEDICAID REPLACEMENT) [facility] E Leisa [id number] Ariana E Leisa Notes Date Note Type [...] from 8-3 out of 10 with medications. [employer]IVE is reviewed and no aberrant activity noted Mitch Toussaint M.D. [address] [place] [address], [address], [facility] 03/22/2018 13:41:14 06/03/2018 [...] or home exercise program. Mitch Toussaint M.D. [address] [place] [address], [address], [facility] 06/06/2018 11:15:45 09/16/2018 [...] 6 out of 10 Mitch Toussaint M.D. [address] [place] [address], [address], [facility] 09/16/2018 17:13:11 01/17/2019 [...] pain or radicular pain Mitch Toussaint M.D. [address] [place] [address], [address], [facility] 01/17/2019 16:40:19 01/19/2019 [...] at the left shoulder. Cl Christopher MD [address] [place] [address], [address], [facility] 01/19/2019 08:43:11 OBGyn Episode No OBEpisode recorded.
--- OUTSIDE RECORDS SUMMARY | 2025-01-01 08:59 | XMS_ITS | Data Portability ---
Author Organization [place] - [facility]- Address [address] [place] [address] Care Team Providers Care School Photographer Name Role Phone CAM VICENTE Primary Care [...] cetirizine 10 mg tablet 2014 015 ATHENAFAX [facility], [address], [place], [place], [id number], 5 17:01:51 fluticason e propionate 50 mcg/actuat ion nasal spray,susp ension 2014 015 SACHA [facility], [address], [place], [place], [id number], 5 17:01:45 Patient TargetsNo targets recorded. Patient Instructions Encounter Date Encounter Id Patient Instructions Last Modified By Organization Details Last Modified Time 09/11/2015 [id number] rinitis: instrucciones de cuidado - [rhinitis: care instructions] [email or web address] Not available 09/17/2015 10:57:19 Reason for Referral None Reported. Results Created Date Observation Date Name Description Value Unit Range Abnormal Flag Note LastModifiedBy Organization Detail LastModifiedTime 09/04/19 16 09/05/2015 ige, total , serum immunoglobul in E 25 kU/L <or=11 4 normal Not Available [facility] [address], [address], 09/05/2015 21:52:25 09/04/19 16 09/05/2015 blueb erry IgE Ab, serum blueberry (F288) IgE <0.10 kU/L normal Not Available [facility] [place] [facility] [address], [address], 09/05/2015 21:52:25 09/04/19 16 09/05/2015 blueb erry IgE Ab, serum class 0 Not Available [facility] [address], [address], 09/05/2015 21:52:25 09/04/19 16 09/05/2015 cashe w nut ige, serum cashew nut (F202) IgE <0.10 kU/L normal Not Available [facility] [place] [facility] [address], [address], 09/05/2015 21:52:26 09/04/19 16 09/05/2015 cashe w nut ige, serum class 0 Not Available [facility] [address], [address], 09/05/2015 21:52:26 09/04/19 16 09/05/2015 green andrews IgE Ab, serum green andrews (F315) IgE <0.10 kU/L normal Not Available [facility] [place] [facility] [address] [place] B, [place], [address], 09/05/2015 21:52:26 09/04/19 16 09/05/2015 green andrews IgE Ab, serum class 0 Not Available [facility] [place] [facility] [address] [place] B, [place], [address], 09/05/2015 21:52:26 09/04/19 16 09/05/2015 wheat ige, serum wheat (F4) IgE <0.10 kU/L normal Not Available [facility] [place] [facility] [address] [place] David, [place], [address], 09/05/2015 21:52:26 09/04/19 16 09/05/2015 wheat ige, serum class 0 Not Available [facility] [place] [facility] [address] [place] B, [place], [address], 09/05/2015 21:52:26 09/04/19 16 09/05/2015 oat ige, serum oat (F7) IgE <0.10 kU/L normal Not Available [facility] [place] [facility] [address], [place], [address], 09/05/2015 21:52:27 09/04/19 16 09/05/2015 oat ige, serum class 0 Not Available [facility] [place] [facility] [address], [place], [address], 09/05/2015 21:52:27 09/04/19 16 09/05/2015 pork ige, serum pork (F26) IgE <0.10 kU/L normal Not Available [facility] [place] [facility] [address], [place], [address], 09/05/2015 21:52:27 09/04/19 16 09/05/2015 pork ige, serum class 0 Not Available [facility] [place] [facility] [address], [place], [address], 09/05/2015 21:52:27 09/04/19 16 09/05/2015 salmo n ige, serum salmon (F41) IgE <0.10 kU/L normal Not Available [facility] [place] [facility] [address], [place], [address], 09/05/2015 21:52:27 09/04/19 16 09/05/2015 salmo n ige, serum class 0 Not Available [facility] [place] [facility] [address], [place], [address], 09/05/2015 21:52:27 09/04/1909/05/2015 ames 's yeast IgE Ab, serum yeast (F45) IgE <0.10 kU/L normal Not Available [facility] [place] [facility] [address], [place], [address], 09/05/2015 21:52:28 09/04/19 16 09/05/2015 ames 's yeast IgE Ab, serum class 0 Not Available [facility] [place] [facility] [address], [place], [address], 09/05/2015 21:52:28 09/04/19 16 09/05/2015 celer y IgE Ab, serum celery (F85) IgE <0.10 kU/L normal Not Available [facility] [place] [facility] [address], [place], [address], 09/05/2015 21:52:28 09/04/19 16 09/05/2015 celer y IgE Ab, serum class 0 Not Available [facility] [place] [facility] [address] [place] B, [place], [address], 09/05/2015 21:52:28 09/04/19 16 09/05/2015 lettu ce IgE Ab, serum lettuce (F215) IgE <0.10 kU/L normal Not Available [facility] [place] [facility] [address], [place], [address], 09/05/2015 21:52:28 09/04/19 16 09/05/2015 lettu ce IgE Ab, serum class 0 Not Available [facility] [place] [facility] [address], [place], [address], 09/05/2015 21:52:28 09/04/19 16 09/05/2015 peach ige, serum peach (F95) IgE <0.10 kU/L normal Not Available [facility] [place] [facility] [address], [place], [address], 09/05/2015 21:52:28 09/04/1909/05/2015 peach ige, serum class 0 Not Available [facility] [place] [facility] [address], [place], [address], 09/05/2015 21:52:28 09/04/19 16 09/05/2015 water melon IgE Ab , serum watermelon (rf329) IgE <0.10 kU/L normal Not Available [facility] [place] [facility] [address], [place], [address], 09/05/2015 21:52:29 09/04/19 16 09/05/2015 water melon IgE Ab , serum class 0 Not Available [facility] [place] [facility] [address], [place], [address], 09/05/2015 21:52:29 09/04/1909/05/2015 inter preta tion interpretati [...] cteri stics have been deter mined by [facility]. It has not been clear ed or appro cristóbal by the U.S. Food and Drug Admin istra tion. The FDA has deter mined that such clear ance or appro danielito is not neces frances. This assay has been valid ated pursu ant to the CLIA regul ation s and is used for clini angelita purpo ses. Not Available [facility] [place] [facility] [address] [place] [address], [place], [address], 09/05/2015 21:52:29 Result Notes None recorded. Problems Name Problem SNOMED Code Status Onset Date Resolution Date Notes Provider Name and Address Organization Details Recorded Time Allergic rhinitis 91824263 Active [facility] 5 15:35:37 Environmental allergy 543303466 Active [facility] 5 16:32:59 Posterior end of inferior turbinate hypertrophy 504921034 Active [facility] 5 09:11:07 Otitis externa 4567494 Active [place] burgess [facility] 5 15:35:37 Vasomotor rhinitis 6529989 Active [place] burgess [facility] 6 14:17:59 Problem Notes None [...] Updated DateTime 07/10/2015 14 /min Julissa Avila [facility] 06/30 15:59:40 Date Recorded Body height Body mass index (BMI) Body weight Provider Name and Address Organization Details Last Updated DateTime 08/14/2015 162.56 cm 26.6 kg/m2 52188.37315 g Nalini Cortez [facility] 08/14/2015 08:51:35 Date Recorded Respiratory rate Provider Name a nd Address Organization Details Last Updated DateTime 08/14/2015 16 /min Srinivas Hager [facility] 08/14 09:06:42 Date Recorded Body weight Body mass index (BMI) Body height Provider Name and Address Organization Details Last Updated DateTime 08/28/2015 82757.47406 g 26.6 kg/m2 162.56 cm Nalini Cortez [facility] 08/28/2015 14:32:39 Date Recorded Respiratory rate Provider Name a nd Address Organization Details Last Updated DateTime 08/28/2015 15 /min [place] Hagan [facility] 2014 15:33:48 Date Recorded Body height Body weight Body mass index (BMI) Provider Name and Address Organization Details Last Updated DateTime 09/11/2015 162.56 cm 90977.15948 g 26.6 kg/m2 Nalini Cortez [facility] 09/11/2015 13:36:57 Social History Question Answer Notes LastModified by Organization D etails LastModified Time What Is Your Level Of Alcohol Consumption? None [email or web address] Information not available 08/14/2015 How Much Tobacco Do You Smoke? No Information not available 08/14/2015 Sex: Unknown Functional Status None recorded. Mental Status None recorded. Family History Nothing Reported. Medical History No medical history recorded. Gynecological HistoryNo gynecological history recorded. Obstetrics History GPAL:G 0 P 0 0 0 0 Past Encounters Encounter ID Performer Location Encounter Start Date Encounter Closed Date Diagnosis/Indication Diagnosis SNOMED-CT Code Diagnosis ICD10 Code Diagnosis Note [id number] Javi Mcdonnell MD Main Office [address] [facility],[address] [place] [address] 07/10/2015 15:57:56 07/10/2015 16:28:29 Allergic rhinitis 95308706 J30.9 - Symptomati c with nasal allergies. - Reviewed various measures to control allergy symptoms, including environmen raul control/al lergen avoidance. Will do a trial of Zyrtec and Flonase. -Follow up in 4 weeks to check progress. If symptoms persists despite these measures may need to repeat allergy test. Environmental allergy 42 9995471 T78.49XA -See #1 Posterior end of inferior turbinate hypertrophy 031039961 J34.3 -Secondary to nasal allergies. [id number] [place] Fields MD Main Office [address] [facility],[address] [place] [address] 08/14/2015 08:48:44 08/14/2015 09:10:33 Allergic rhinitis 70408289 J30.9 Discussed findings Hold meds Schedule for Allergy eval See after Posterior end of inferior turbinate hypertrophy 198976079 J34.3 [id number] [place] Hagan MD Main Office [address] [place] [address] 08/28/2015 14:31:39 08/28/2015 15:36:21 Allergic rhinitis 17430959 J30.9 Otitis externa 6770696 H 60.93 [id number] [place] Hagan MD Main Office [address] [place] [address] 09/11/2015 13:35:51 09/11/2015 14:12:20 Vasomotor rhinitis 8962213 J30.0 Health Concerns Section Related Observation LastModified by Organization Detai ls LastModified Time None Recorded Concern Status LastModified by Organization Details LastModified Time None Recorded Advance Directives Directive None Recorded Payers Encounter Date Sequence Insurance Name Policy Number Policy Jain Covered Member ID Jain Member ID Guarantor Name 07/10/2015 1 [place] [employer] Ariana E Leisa [id number] Airana Leisa 07/10/2015 2 [place] [facility] Ariana Leisa [id number] Ariana Leisa 08/14/2015 1 [place] [employer] Ariana E Leisa [id number] Ariana Leisa 08/14/2015 2 [place] [facility] Ariana Leisa [id number] Ariana Leisa 08/28/2015 1 [place] [employer] Ariana E Leisa [id number] Ariana Leisa 08/28/2015 2 [place] Ariana Leisa [id number] Ariana Leisa 09/11/2015 1 [place] [employer] Ariana E Leisa [id number] Ariana Leisa 09/11/2015 2 [place] [facility] Ariana Leisa [id number] Ariana Leisa Notes Date Note Type Note Provider Name a nd Address Organization Details Recorded Time 07/10/2015 text/html HPI This is a 64 y/o F here for evaluation of itchy throat, nose, and ears over the past few years. Bilateral otalgia, occasional nasal congestion, sneezing, PND. Using drops in ears for itch. History of allergies. Previous allergy testing over 10 years in [place] - positive for multiple sensitivities. Not on any antihistamine or nasal spray. No otorrhea, tinnitus, or vertigo.? Javi Mcdonnell MD [address] [facility] [address], [place], [address], [facility] 07/10/2015 18:45:29 08/14/2015 text/html HPI Returns for recheck of her allergy. Has used meds did not help. Has itching of ears, nose, PND, Phlegm. No new sx.? [place] Fields MD [address] [facility] [address], [place], [address], [facility] 08/14/2015 13:38:09 OBGyn Episode No OBEpisode recorded.
--- OUTSIDE RECORDS SUMMARY | 2025-01-01 08:59 | XMS_ITS | Encounter Summary ---
Author Organization [employer] Address [address] [facility] [address] [place] [address] Care Team Providers Care Deputy Sheriff K9 Handler Name Role Phone Eliane Noyola Primary Care Provider [phone] Anayeli Escamilla MD Primary Care Provide r Valentina Alarcon NP Primary Care Provider Reason for Visit * Reason Comments Med Refill Encounter Details Date Type Department Care Team (Late st Contact Info) Description 01/09/2024 Refill [facility] [address] [place], [place] [phone] Eliane Noyola FNP [address] [place] [address] Social History Tobacco Use Types Packs/Day Years [...] Description 02/19/2025 3:15 PM EDT Office Visit [facility] [address] [place] [address] Valentina Alarcon NP [address] [place] [address] documented as of this encounter Visit Diagnoses Not on filedocumented in this encounter Additional Health Concerns Assessment Noted Time PHQ-9 Depression Total Score: 8 12/29/19 4:22 PM EDT documented as of this encounter Care Teams Deputy Sheriff K9 Handler Relationship Specialty Start Date End Date Eliane Nooyla FNP [address] [place] [address] PCP - General Family Medicine 09/08/23 05/01/24 Anayeli Escamilla MD [address] [place] [address] PCP - General Internal Medicine 05/02/24 05/24/24 Valentina Alarcon NP [address] [place] [address] PCP - General Family Medicine 06/27/24 documented as of this encounter
--- OUTSIDE RECORDS SUMMARY | 2025-01-01 08:59 | XMS_ITS | Encounter Summary ---
Author Organization [employer] Address [address] [facility] 7t [place] [address] Care Team Providers Care Talent Development Director Name Role Phone Valentina Alarcon NP Primary Care Provider [phone] Reason for Visit * Reason Comments Med Refill Encounter Details Date Type Department Care Team ([facility] st Contact Info) Description 12/19/2024 Refill [facility] [address] [place], [place] [phone] Valentina Alarcon NP [address] [place] [address] Psychophysiological insomnia Social History Tobacco Use Types [...] Description 02/19/2025 3:15 PM EDT Office Visit [facility] [address] [place] [address] Valentina Alarcon NP [address] [place] [address] documented as of this encounter Visit Diagnoses Diagnosis Psychophysiological insomnia Persistent disorder of initiating or maintaining sleep documented in this encounter Additional Health Concerns Assessment Noted Time PHQ-9 Depression Total Score: 9 12/05/19 25 3:40 PM EDT documented as of this encounter Care Teams Talent Development Director Relationship Specialty Start Date End Date Valentina Alarcon NP [address] [place] [address] PCP - General Family Medicine 06/27/24 documented as of this encounter
--- OUTSIDE RECORDS SUMMARY | 2025-01-01 08:59 | XMS_ITS | Clinical Summary ---
Author Organization [facility] [facility] ity Address [address] [place] [address] Care Team Providers Care Pension Examiner Name Role Phone Unavailable Primary Care Provider [...]
--- OUTSIDE RECORDS SUMMARY | 2025-01-01 08:59 | XMS_ITS | Encounter Summary ---
Author Organization [employer] Address [address] [facility] 7t [place] [address] Care Team Providers Care Surgical Pathologist Name Role Phone Valentina Alarcon NP Primary Care Provider [phone] Reason for Visit * Reason Comments Med Refill Encounter Details Date Type Department Care Team ([facility] st Contact Info) Description 10/17/2024 Refill [facility] MED[facility]INE [address] [place], [place] [phone] Valentina Alarcon NP [address] [place], [place] [phone] Social History Tobacco Use Types Packs/Day Years [...] 3:15 PM EDT Office Visit [facility]INE [address] [place] [address] Valentina Alarcon NP [address] [place] [address] documented as of this encounter Visit Diagnoses Not on filedocumented in this encounter Additional Health Concerns Assessment Noted Time PHQ-9 Depression Total Score: 8 12/29/19 4:22 PM EDT documented as of this encounter Care Teams Surgical Pathologist Relationship Specialty Start Date End Date Valentina Alarcon NP [address] [place] [address] PCP - General Family Medicine 06/27/24 documented as of this encounter
== END 2025-01-01 08:54 | disposition home or self-care (01) ==
LOC: HO.HGS 08:37
PROVIDERS: PCP Nurse Practitioner Family; Visit Provider Surgery
DX: R92.8 Other abnormal and inconclusive findings on diagnostic imaging of breast (principal)
CPT/HCPCS: 99213

== ENCOUNTER → 2025-01-01 08:37 | Outpatient (BNVA) | payer OTHER, SELFPAY | PROVIDERS: PCP Nurse Practitioner Family; Visit Provider Surgery | DX: R92.8 Other abnormal and inconclusive findings on diagnostic imaging of breast (principal) | CPT/HCPCS: 99212 ==

== ENCOUNTER 2025-02-19 16:01 | Outpatient (REF) | payer OTHER, SELFPAY ==
--- NOTE | ~2025-02-19 | XR_ITS ---
EXAMINATION: XR CERVICAL SPINE CLINICAL INFORMATION: PAIN COMPARISON: None available. TECHNIQUE: AP oblique and lateral views. Atlantoodontoid view. FINDINGS: Craniocervical junction is intact. Syndesmophyte formation and marginal osteophyte formation from C2 to C7. 20% volume loss of the vertebral bodies at C5 and C6. No acute cortical disruption or malalignment. Right neuroforamina narrowing secondary to osteophyte formation at C3-4 C4-5 C5-6 and C6-7 levels. No lytic or blastic lesions. XR/XR cervical spine 5V IMPRESSION: Multilevel cervical spondylosis C3-C7 more pronounced at C5-6 and C3-4 levels. Electronically signed by: Gino Stanley MD 02/20/2025 01:47 PM EDT
--- NOTE | ~2025-02-19 | XR_ITS ---
EXAMINATION: XR KNEE, RIGHT CLINICAL INFORMATION: suspect OA related effusion , swelling COMPARISON: None available. TECHNIQUE: AP oblique lateral and swimmer's projection, of the right knee. FINDINGS: Joint space narrowing involving mostly the medial compartment. There is subtle chondrocalcinosis in the medial and lateral compartment. Small volume/trace effusion, suprapatellar bursa. No acute cortical disruption or malalignment. No lytic or blastic lesions. XR/XR knee RT 4V IMPRESSION: Medial compartmental arthrosis, mild to moderate. Consider CPPD. Small volume effusion, suprapatellar bursa joint . Electronically signed by: Gino Stanley MD 02/20/2025 01:49 PM EDT
--- OUTSIDE RECORDS SUMMARY | 2025-02-19 17:28 | XMS_ITS | Clinical Summary ---
Author Organization [employer] Address [address] [place] [address] Care Team Providers Care Emergency Services Director Name Role Phone Valentina Alarcon ISAIAS Primary Care Provider [phone] Allergies Active Allergy Reactions Criticality Noted Date Comments Aspirin Nausea 09/08/2023 Wild Lettuce Extract (Lactuca Virosa) Other 09/08/2023 Allergy testing reports she is allergic to lettuce Medications * This document contains information received from the source organization and may not represent a complete record from that organization. acetaminophen (Tylenol) 325 MG tablet 023 Active Diclofenac Sodium 1 % gel Apply 2 g topically 4 times daily. 023 Active polyvinyl alcohol (Liquifilm Tears) 1.4 % ophthalmic solution INSTILL 1 DROP TWICE DAILY IN BOTH EYES FOR 1MONTH. 023 Active senna (Senokot) 8.6 MG tabletIndicatio ns:Constipation , unspecified constipation type Take 1 tablet (8.6 mg) by mouth at bedtime. 120 tablet 2 024 Active sertraline (Zoloft) 100 MG tablet Take 100 mg by mouth Once per day. 024 Active Blood Pressure kit 1 each Once per day. 1 kit 024 Active metFORMIN (Glucophage) 850 MG tablet Take 1 tablet (850 mg) by mouth 2 times daily. With food 60 tablet 5 025 Active FreeStyle lancetsIndicati ons:Type 2 diabetes mellitus with hyperglycemia, unspecified whether senior living insulin use (CMS/HCC) USE TWO TIMES A DAY (BULK) 100 each 11 025 Active fluticasone (Flonase) 50 MCG/ACT nasal sprayIndication s:Seasonal allergic rhinitis due to pollen Administer 1 spray into each nostril Once per day. 16 g 3 025 Active rosuvastatin (Crestor) 10 MG tabletIndicatio ns:Hyperlipidem ia due to type 2 diabetes mellitus (CMS/HCC) (CMS/HCC) Take 1 tablet (10 mg) by mouth Once per day. 30 tablet 3 Active melatonin 5 MG tablet TAKE ONE TABLET BY MOUTH AT BEDTIME NEEDED FOR INSOMNIA ^1R4 30 tablet Active loratadine (Claritin) 10 MG tablet Take 1 tablet (10 mg) by mouth Once per day. 30 tablet 025 2025 Active clonazePAM (KlonoPIN) 1 MG tabletIndicatio ns:Psychophysio logical insomnia Take 1 tablet (1 mg) by mouth at bedtime. Do not start before January 05, 2025. 30 tablet 025 Active Calcium Carb-Cholecalci ferol 600-10 MG-MCG tablet TAKE 1 TABLET BY MOUTH TWICE A DAY ^1R1,1R4 56 tablet 5 025 Active FREESTYLE LITE test strip USE ONE STRIP TWO TIMES A DAY TO TEST BLOOD SUGAR (BULK) 100 strip 3 025 Active fluticasone (Cutivate) 0.05 % cream APPLY TO AFFECTED AREA(S) TWO TIMES A DAY (BULK) 45 g 025 Active omeprazole (PriLOSEC) [address] capsule TAKE ONE CAPSULE BY MOUTH EVERY DAY ^1R1 28 capsule 3 025 Active polyethylene glycol, PEG, 3350 (Glycolax) 17 GM/SCOOP powder MIX 17 GRAM(S) IN 8 OZ OF WATER AND DRINK BY MOUTH ONCE A DAY NEEDED FOR CONSTIPATION (BULK) 238 g 1 025 Active montelukast (Singulair) 10 MG tablet TAKE ONE TABLET BY MOUTH EVERY DAY ^1R4 28 tablet 1 025 Active losartan (Cozaar) 100 MG tablet Take 1 tablet (100 mg) by mouth Once per day. Take 100 mg by mouth in the morning. 28 tablet 5 025 Active gabapentin (Neurontin) 600 MG tabletIndicatio ns:Fibromyalgia TAKE 1 TABLET BY MOUTH THREE TIMES DAILY ^1R1,1R2,1R4 90 tablet 3 025 Active fluocinonide (Lidex) 0.05 % external solutionIndicat ions:Ear itching Apply topically 2 times daily. To ears 10 mL 025 2025 Active losartan (Cozaar) 100 MG tablet Take 100 mg by mouth in the morning. 023 2024 Discontinued(R eorder (will not trigger notification to Pharmacy)) gabapentin (Neurontin) 600 MG tabletIndicatio ns:Fibromyalgia Take 1 tablet (600 mg) by mouth 3 times daily. 90 tablet 3 025 2024 Discontinued omeprazole (PriLOSEC) [address] capsule TAKE ONE CAPSULE BY MOUTH EVERY DAY ^1R1 28 capsule 3 025 2024 Discontinued polyethylene glycol, PEG, 3350 (Glycolax) 17 GM/SCOOP powder MIX 17 GRAM(S) IN 8 OZ OF WATER AND DRINK BY MOUTH ONCE A DAY NEEDED FOR CONSTIPATION (BULK) 238 g 1 025 2024 Discontinued montelukast (Singulair) 10 MG tablet TAKE ONE TABLET BY MOUTH EVERY DAY ^1R4 28 tablet 1 025 2024 Discontinued fluticasone (Cutivate) 0.05 % cream APPLY TO AFFECTED AREA(S) TWO TIMES A DAY (BULK) 45 g 025 2024 Discontinued Active Problems Problem Noted Date Diagnosed Date Abnormal mammogram 02/19/2025 Cervicalgia 02/19/2025 Ear itching 02/19/2025 Dyspnea on exertion 02/19/2025 PTSD (post-traumatic stress disorder) 01/15/2025 Assessment & Plan (01/15/2025 11:27 AM EDT): Reviewed that while I would temporarily refill cloneazpam, I would encourage pt to consider gradual taper for sleep management due to age and risks with med Referred to behavioral health and psychiatry Major depressive disorder wi th single episode, in full remission 2024 Assessment & Plan (2024 4:06 PM EDT): In care with psychiatrybut has trouble understanding due to language barrier, has therapist as well Interested in faroese speaking provider Dietary counseling 2024 Assessment & Plan (01/15/2025 11:25 AM EDT): Dietary Recommendations: Fruits, vegetables, whole grains, protein foods, and fat-free or low-fat dairy products are healthy choices. Eat different types of protein foods in your diet. This can include seafood, lean meats, poultry, beans, peas, lentils, nuts, seeds, soy products, and eggs. Limit foods and beverages higher in added sugars, saturated fat, and sodium. Exercise Recommendations: At least 150 minutes of moderate-intensity physical activity per week, or an equivalent combination of moderate- and vigorous-intensity activity Exercise counseling 2024 Environmental allergies 11/24/2024 Hypertrophy [...] Plan (09/04/2024 5:25 PM EST): Referral to ortho, Walker ordered Shower chair ordered Eczema of both external ears 09/04/2024 Post-menopausal 09/04/2024 Chronic back pain 09/04/2024 Encounter for screening mamm ogram for malignant neoplasm of breast 09/03/2024 Diabetes mellitus 10/25/2023 Assessment & Plan (01/15/2025 11:25 AM EDT): Well managed on current reigmen Assessment & Plan (09/04/2024 5:25 PM EST): At goal, will not increase meds at this time Labs ordered Carpal tunnel syndrome 10/25/2023 Overview (10/25/2023): more on left. per records from Frantz Eller [place] Allergic rhinitis 10/25/2023 Fibromyalgia 10/25/2023 Overview (10/25/2023): per records from Frantz Eller [place] Hypertension 10/25/2023 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 2 diabetes mellitus ( CMS/[facility]) 10/25/2023 Varicose vein of leg 10/25/2023 Urticaria 10/25/2023 Tinnitus 10/25/2023 Overview (10/25/2023): per records from Frantz Eller [place] Microscopic hematuria 10/25/2023 Overview (10/25/2023): per records from Frantz Eller [place] Chronic right shoulder pain 10/25/2023 Assessment & Plan (01/15/2025 11:26 AM EDT): Referral to ortho Constipation 11/17/2018 Gastroesophageal reflux disease without esophagi tis 11/17/2018 Encounters * This document contains information received from the source organization and may not represent a complete record from that organization. Date Type Department Care Team Description 02/19/2025 3:15 PM EDT Office Visit [facility] [address] [place] [address] Valentina Alarcon NP Type 2 diabetes mellitus with other specified complication, without long-term current use of insulin ([facility]) (Primary Dx); Abnormal mammogram; Chronic pain of right knee; Cervicalgia; Ear itching; Dyspnea on exertion 02/19/2025 Travel 02/19/2025 Telephone [facility] [address] [place] [phone] Valentina Alarcon NP Med Refill 02/17/2025 Refill [facility] [address] [place] [address] Valentina Alarcon NP Fibromyalgia 01/30/2025 Refill [facility] [address], [place] [address] Valentina Alarcon NP Fibromyalgia 01/18/2025 Refill [facility] [address], [place] [address] Eliane Noyola FNP 01/01/2025 Refill [facility] [address] [facility] [place] [place] [address] Valentina Alarcon NP Psychophysiological insomnia 12/21/2024 Orders Only GENERIC EXTERNAL DATA DEPARTMENT Provider, Generic External Data 12/19/2024 Refill [facility] [address], [place] [address] Valentina Alarcon NP Psychophysiological insomnia 12/14/2024 Telephone [facility] [address], [place] [address] Valentina Alarcon NP 12/14/2024 Travel 12/13/2024 Telephone [facility] [address] [facility] [place] [address] Valentina Alarcon NP Appointment Request 12/07/2024 Refill [facility] [address] [facility] [place] [address] Valentina Alarcon NP 12/06/2024 Orders Only [facility] [address], [place] [address] Valentina Alarcon NP 2024 3:15 PM EDT Office Visit [facility] [facility] [place] [address] Valentina Alarcon NP Type 2 diabetes mellitus with hyperglycemia, 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 (CMS/[facility]) (Primary Dx); Chronic right shoulder pain; Major depressive disorder with single episode, in full remission (CMS/[facility]); Dietary counseling; Exercise counseling; Psychophysiological insomnia; PTSD (post-traumatic stress disorder) 2024 Travel 12/01/2024 Refill [facility] [address], [place] [address] Eliane Noyola FNP 12/01/2024 Refill [facility] [address] [facility] [place] [address] Valentina Alarcon NP 11/27/2024 Patient Outreach [facility] [address] [place] [address] Valentina Alarcon NP Pre-visit Planning (SDOH negative, Tobacco screening negative.) 11/24/2024 Telephone [facility] [address] [place], [place] [phone] Hilaria Stiles MA Chart Prep from Last 3 Months Immunizations Immunization Administration Dates Next Due Hep A / [...] Sign Reading Time Taken Comments Blood Pressure 130/74 02/19/2025 3:14 PM EDT Pulse 77 02/19/2025 3:14 PM EDT Temperature 36.2 C (97.1 F) 02/19/2025 3:14 PM EDT Respiratory Rate 16 02/19/2025 3:14 PM EDT Oxygen Saturation 97% 02/19/2025 3:14 PM EDT Inhaled Oxygen Concentration - - Weight 65.2 kg (143 lb 12.8 oz) 02/19/2025 3:14 PM EDT Height 160 cm (5' 3 ) 02/19/2025 3:14 PM EDT Body Mass Index 25.47 02/19/2025 3:14 PM EDT Plan of Treatment Upcoming Encounters Date Type Department Care Team (Late st Contact Info) Description 05/22/2025 1:45 PM EDT Office Visit [facility] [address] [place] [address] Valentina Alarcon, ISAIAS [address] [place] [address] Health Maintenance Due Date Last Done Comments CT Colonography 1950 Colonoscopy 1950 Colorectal Cancer Screening 1950 FIT DNA/Cologuard 1950 FIT 1950 FOBT 1950 Sigmoidoscopy 1950 Diabetes: Foot Exam 1960 Eye Exam 1960 Hepatitis C Screening 1968 Diabetes: Urine Protein Screening 1969 COVID-19 Vaccine ( season) 2024 06/03/2023, 12/20/2021, 07/28/2021, Additional history exists Lipid Panel 09/08/2024 09/08/2023 Depression Monitoring 06/05/2025 2024, 025 Diabetes: Hemoglobin A1C 08/21/2025 025, 06/30/2024, 12/29/2023, Additional history exists Alcohol/Substance Use Screening 09/04/2025 09/04/2024 SDOH Screening 2025 2024 Tobacco Screening 02/19/2026 02/19/2025 Mammogram 12/21/2026 12/21/2024, 0404/2025, 10/11/2024, Additional history exists DTaP/Tdap/Td Vaccines (6 [...] Name Priority Date/Time Associated Diagnosis Comments POCT GLYCATED HEMOGLOBIN, TOTAL Routine 02/19/2025 3:33 PM EDT Type 2 diabetes mellitus with other specified complication, without long-term current use of insulin ([facility]) POCT GLUCOSE Routine 02/19/2025 3:33 PM EDT Type 2 diabetes mellitus with other specified complication, without long-term current use of insulin ([facility]) GOMORI METHENAMINE STAIN Routine 12/21/2024 9:58 AM [...] 2 diabetes mellitus with hyperglycemia, 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 ([facility]) LIPID PANEL, STANDARD Routine 09/08/2023 4:25 PM EST Type 2 diabetes mellitus with hyperosmolarity without coma, without long-term current use of insulin ([facility]) Primary hypertension from Last 3 Months or Most Recently Relevant to Health Maintenance Results * POCT HGB A1C (02/19/2025 3:33 PM EDT) Hemoglobin A1C 5.8 4.0 - 6.0 % QC Media Lot # [id number] Lot# Expiration Date 11,727 Blood 02/19/2025 3:33 PM EDT Valentina Alarcon NP POINT OF CARE TEST ENTER/EDIT OR DERABLES Final Result * POCT Glucose (02/19/2025 3:33 PM EDT) Only the most recent of2 resultswithin the time period is included. Glucose Blood, POC 117 60 - 200 mg/dL QC Media Lot # [id number] Lot# Expiration Date 103,025 Blood Capillary blood specimen / Unknown 02/19/2025 3:33 PM EDT Valentina Alarcon NP POINT OF CARE TEST ENTER/EDIT OR DERABLES Final Result * Gomori Methenamine Stain (12/21/2024 9:58 AM EDT) 12/21/2024 9:58 AM EDT 12/21/2024 11:22 AM EDT [facility] - 12/25/2024 10:31 AM EDT ----- ------- Name: Ariana De La Fuente Age/Sex: 74/F : 1950 Unit#: [id number] Attend Dr: Matt Jon MD Re12/21/24 Status: DEP REF Location: [facility] Disch: ----- ------- SPEC : RECD: 12/21/24 STATUS: KELSEY BROWN NUM: [id number] DANIEL: 12/21/24-957 [facility] DR: Beverly Nichols DO ENTERED: 12/21/24-1130 SP TYPE: Surgical OTHR DR: Valentina Alarcon NP, John J MD ORDERED: Laverne Meth Stain/2, HE Stain/4, Acid Fast Stain/2, Gross Micro L4/2, GO, Specials Gr. 1/6, PASF/2 COMMENTS: Part A: As per the specimen requisition slip the specimen is collected at 0958 and placed in formalin at 1002. Part B: As per the specimen requisition slip the specimen is collected at 1000 and placed in formalin at 1005. Diagnosis A. Lymph node, right axilla, core needle biopsy: Granulomatous lymphadenitis. See description and comment. B. Lymph node, right axilla for flow cytometry, core needle biopsy: Negative - see report in its entirety in the EMR - Reports/Pathology section as a scanned report (camera icon). C. Breast, right mass at 10 o'clock, biopsy: - Fibrovascular and lymphoid tissue with granulomatous inflammation. - No breast epithelium identified. See description and comment. Comment: The differential for the granulomatous inflammation include sarcoid, infection, foreign body and drug. Please correlate with clinical findings. Clinical History Axillary node, right breast 10 o'clock mass Microscopic Description A, C. Sections from the lymph node have lymphoid tissue with abundant well-organized granulomata with focal necrosis and rare calcifications. No mycobacteria or fungi seen, supported by AFB, GMS and PAS stains. The background lymphocytes are reactive appearing. No metastatic carcinoma is identified. Sections from the breast mass have cores of fibrovascular and adipose tissue with associated dense lymphoid tissue and granuloma formation; similarly, no microorganisms are identified with AFB, GMS and PAS stains. No breast epithelium is seen. Material Received A. Right axillary node B. Right axillary node for flow cytometry C. Right breast mass 10 o'clock CONTINUED ON NEXT PAGE ----- ------- Name: Ariana De La Fuente Age/Sex: 74/F : 1950 Unit#: [id number] Attend Dr: Matt Jon MD Re12/21/24 Status: DEP REF Location: [facility] Disch: ----- ------- SPEC : [id number] RECD: 12/21/24 STATUS: KELSEY BROWN NUM: [id number] DANIEL: 12/21/24-957 [facility] DR: Beverly Nichols DO ENTERED: 12/21/24 SP TYPE: Surgical OTHR DR: Valentina Alarcon NP, John J MD ORDERED: Gom Meth Stain/2, HE Stain/4, Acid Fast Stain/2, Gross Micro L4/2, GO, Specials Gr. 1/, PASF/2 COMMENTS: Part A: As per the specimen requisition slip the specimen is collected at 0958 and placed in formalin at 1002. Part B: As per the specimen requisition slip the specimen is collected at 1000 and placed in formalin at 1005. Gross Description Received in three parts. Part A: Received in formalin labeled right axillary lymph node are multiple minute to 1.5 cm in greatest dimension irregular shards and cylindrical threads of hunter-peguero and peguero-pink tissue and blood submitted in toto in a cassette labeled A. Part B: Received in flow cytometry media labeled right axillary lymph node is an approximately 1.8 cm in length cylindrical thread of peguero-pink fibroadipose tissue versus lymphoid tissue, forwarded to [facility] for flow cytometry studies as requested on the specimen requisition slip. Gross description only. Part C: Received in formalin labeled right breast mass 10 o'clock are 4 irregular shards and cylindrical threads of peguero, white-pink fibrous tissue with scant blood ranging from 0.15-1.3 cm, submitted in toto in a cassette labeled C. CEDS This case was reviewed intradepartmentally. Special studies ordered and performed: AFB, GMS and PAS stains on A and C Copies To: Valentina Alarcon NP [address] [address] Matt Jon MD [facility] [address] [place] [phone] CONTINUED ON NEXT PAGE ----- ------- Name: Ariana De La Fuente Age/Sex: 74/F : 1950 Unit#: [id number] Attend Dr: Matt Jon MD Re12/21/24 Status: DEP REF Location: [facility] Disch: ----- ------- SPEC : [id number] RECD: 12/21/24 STATUS: KELSEY BROWN NUM: [id number] DANIEL: 12/21/24 [facility] DR: Beverly Nichols DO ENTERED: 12/21/24113 SP TYPE: Surgical OTHR DR: Valentina Alarcon NP, John J MD ORDERED: Gom Meth Stain/2, HE Stain/4, Acid Fast Stain/2, Gross Micro L4/2, GO, Specials Gr. 1/6, PASF/2 COMMENTS: Part A: As per the specimen requisition slip the specimen is collected at 0958 and placed in formalin at 1002. Part B: As per the specimen requisition slip the specimen is collected at 1000 and placed in formalin at 1005. Copies To: (Continued) Beverly Nichols DO [address] [place] [phone] ----- ------- Signed (signature on file) Nadeem Madrigal MD 12/25/24 1031 ----- ------- END OF REPORT us Generic External Data Provider LAB MICROBIOLOGY - GENERAL ORDERABLES Final Result [facility] [address] [place] [phone] * US BREAST NDL CORE BIOPSY RT (12/21/2024 9:40 AM EDT) Anatomical Region Laterality Modality Abdomen Ultrasound 12/21/2024 9:40 AM EDT Narrative 12/21/2024 12:45 PM EDT [facility] [address] [place] [address] Ultrasound Report Signed with Addenda Patient: Ariana De La Fuente MR#: [id number] : 1950 Acct:[id number] Age/Sex: 74 / F ADM Date: 12/21/24 Loc: [facility] Attending Dr: Matt Jon MD Ordering Physician: aMtt Jon MD Date of Service: 12/21/24 Procedure(s): US breast ndl core biopsy RT Accession Number(s): [id number] cc: Valentina Alarcon ASSET PROTECTION SPECIALIST; Matt Jon MD ADDENDUM ADDENDUM #1 ADDENDUM: [...] DO Addendum Signed By: <Electronically signed by Beverly Nichols DO in OV> 12/27/24 1543 Addendum Cosigned By: [...] 12/21/24 1242 DD/ 0940 TD/TT: 12/21/24 1022 Organ Assembler: Procedure Note Donotuseinterpreter, Image - 12/29/2024 [facility] [address] [place] [place] [address] Ultrasound Report Signed with Addenda Patient: Ramya De La Fuente#: [id number] : 1950cct:[id number] Age/Sex: 74 / FADM Date: 12/21/24 Loc: HO.MAMMO Attending Dr: Matt Jon MD Ordering Physician: Matt Jon MD Date of Service: 12/21/24 Procedure(s): US breast ndl core biopsy RT Accession Number(s): [id number] cc: Valentina Alarcon ASSET PROTECTION SPECIALIST; Matt Jon MD ADDENDUM ADDENDUM #1 ADDENDUM: [...] Beverly Nichols DO 12/21/2024 12:42 PM EDT Workstation: Revision3 Dictated By: Beverly Nichols DO Signed By: <Electronically signed by Beverly Nichols DO in OV> 12/21/24 1242 DD/ 0940 TD/TT: 12/21/24 1022 Organ Assembler: [facility] External Provider IMG US PROCEDURES Edited Result - Final * US BREAST NDL CORE BIO EA ADD (12/21/2024 9:40 AM EDT) Anatomical Region Laterality Modality Abdomen Ultrasound 12/21/2024 9:40 AM EDT Narrative 12/21/2024 12:45 PM EDT [facility] [place] [address] Ultrasound Report Signed with Addenda Patient: Ariana De La Fuente MR#: [id number] : 1950 Acct:[id number] Age/Sex: 74 / F ADM Date: 12/21/24 Loc: HO.MAMMO Attending Dr: Matt Jon MD Ordering Physician: Matt Jon MD Date of Service: 12/21/24 Procedure(s): US breast ndl core bio ea add Accession Number(s): [id number] cc: Valentina Alarcon ASSET PROTECTION SPECIALIST; Matt Jon MD ADDENDUM ADDENDUM #1 ADDENDUM: [...] DO Addendum Signed By: <Electronically signed by Beverly Nichols DO in OV> 12/27/24 1543 Addendum Cosigned By: [...] 12/21/24 1242 DD/ 0940 TD/TT: 12/21/24 1022 Organ Assembler: Procedure Note Donotuseinterpreter, Image - 12/29/2024 [facility] [address] [place] [place] [address] Ultrasound Report Signed with Addenda Patient: Ramya De La Fuente#: [id number] : 1950cct:[id number] Age/Sex: 74 / FADM Date: 12/21/24 Loc: HO.MAMMO Attending Dr: Matt Jon MD Ordering Physician: Matt Jon MD Date of Service: 12/21/24 Procedure(s): US breast ndl core bio ea add Accession Number(s): [id number] cc: Valentina Alarcon ASSET PROTECTION SPECIALIST; Matt Jon MD ADDENDUM ADDENDUM #1 ADDENDUM: [...] 12/21/24 1242 DD/ 0940 TD/TT: 12/21/24 1022 Organ Assembler: [facility] External Provider IMG US PROCEDURES Edited Result - Final * Mammogram Diagnostic Right (12/21/2024 9:40 AM EDT) Anatomical Region Laterality Modality Breast Right Mammography 12/21/2024 9:40 AM EDT Narrative 12/21/2024 12:45 PM EDT [facility] [address] [place] [address] Mammography Report Signed with Chelseaenda Patient: Ariana De La Fuente MR#: [id number] : 1950 Acct:[id number] Age/Sex: 74 / F ADM Date: 12/21/24 Loc: [facility] Attending Dr: Matt Jon MD Ordering Physician: Matt Jon MD Results: Date of Service: 12/21/24 Follow Up: Procedure(s): MM diagnostic mammo unilat RT Accession Number(s): [id number] cc: Valentina Alarcon ASSET PROTECTION SPECIALIST; Matt Jon MD ADDENDUM ADDENDUM #1 ADDENDUM: [...] Beverly Nichols DO 12/27/2024 03:43 PM EDT RP Addendum Dictated By: Beverly Nichols DO Addendum Signed By: <Electronically signed by Beverly Nichols DO in OV> 12/27/24 1543 Addendum Cosigned By: [...] 12/21/24 1242 DD/ 0940 TD/TT: 12/21/24 1024 Organ Assembler: Procedure Note Donotuseinterpreter, Image - 12/29/2024 [facility] [address] [place] [address] [place] [address] Mammography Report Signed with Mila Patient: Ariana De La Fuente#: [id number] : 1950cct:[id number] Age/Sex: 74 / FADM Date: 12/21/24 Loc: HO.MAMMO Attending Dr: Matt Jon MD Ordering Physician: Mtat Jon MDResults: Date of Service: 12/21/24Follow Up: Procedure(s): MM diagnostic mammo unilat RT Accession Number(s): [id number] cc: Valentina Alarcon ASSET PROTECTION SPECIALIST; Matt Jon MD ADDENDUM ADDENDUM #1 ADDENDUM: [...] 12/21/24 1242 DD/ 0940 TD/TT: 12/21/24 1024 Organ Assembler: [facility] External Provider IMG BI PROCEDURES Edited Result - Final * BI Mammogram Diagnostic Tomosynthesis added bilateral (12/06/2024 1:30 PM EDT) Anatomical Region Laterality Modality Breast Left Mammography 12/06/2024 1:30 PM EDT Narrative 12/07/2024 9:02 AM EDT [place] [facility] [address] [place] [place] [address] Mammography Report Signed Patient: Ariana De La Fuente MR#: [id number] : 1950 Acct:[id number] Age/Sex: 74 / F ADM Date: 12/06/24 Loc: HO.MAMMO Attending Dr: Valentina Alarcon ASSET PROTECTION SPECIALIST Ordering Physician: Valentina Alarcon ASSET PROTECTION SPECIALIST Results: 4Suspic ious Finding Date of Service: 12/06/24 Follow Up: Biopsy Recommend ed Procedure(s): MM tomosynthesis added view BI Accession Number(s): [id number] cc: Valentina Alarcon ASSET PROTECTION SPECIALIST EXAMINATION: MM DIAGNOSTIC DIGITAL BREAST TOMOSYNTHESIS, BILATERAL [...] 12/07/24 0859 DD/ 1330 TD/TT: 12/06/24 1345 Organ Assembler: Procedure Note Donotuseinterpreter, Image - 12/07/2024 [facility] [address] [place] [place] [address] Mammography Report Signed Patient: Ramya De La Fuente#: [id number] : 1950cct:[id number] Age/Sex: 74 / FADM Date: 12/06/24 Loc: HO.MAMMO Attending Dr: Valentina Alarcon ASSET PROTECTION SPECIALIST Ordering Physician: Valentina Alarcon NPResults: 4Suspic ious Finding Date of Service: 12/06/24Follow Up: Biopsy Recommend ed Procedure(s): MM tomosynthesis added view BI Accession Number(s): [id number] cc: Valentina Alarcon ASSET PROTECTION SPECIALIST EXAMINATION: MM DIAGNOSTIC DIGITAL BREAST TOMOSYNTHESIS, BILATERAL [...] 12/07/24 0859 DD/ 1330 TD/TT: 12/06/24 1345 Organ Assembler: us Valentina Alarcon NP IMG BI PROCEDURES Final Result * BI US Breast Limited Bilateral (12/06/2024 1:30 PM EDT) Anatomical Region Laterality Modality Breast Bilateral Ultrasound 12/06/2024 1:30 PM EDT Narrative 12/07/2024 9:02 AM EDT [facility] [place] [address] Ultrasound Report Signed Patient: Ariana De La Fuente MR#: [id number] : 1950 Acct:[id number] Age/Sex: 74 / F ADM Date: 12/06/24 Loc: HO.MAMMO Attending Dr: Valentina Alarcon NP Ordering Physician: Valentina Alarcon NP Date of Service: 12/06/24 Procedure(s): US breast BI limited mamm only Accession Number(s): [id number] cc: Valentina Alarcon ASSET PROTECTION SPECIALIST EXAMINATION: MM DIAGNOSTIC DIGITAL BREAST TOMOSYNTHESIS, BILATERAL [...] 12/07/24 0859 DD/ 1330 TD/TT: 12/06/24 1430 Organ Assembler: Procedure Note Donotuseinterpreter, Image - 12/07/2024 [facility] [address] [place], [place] [address] Ultrasound Report Signed Patient: Ramya De La Fuente#: [id number] : 1950cct:[id number] Age/Sex: 74 / FADM Date: 12/06/24 Loc: HO.MAMMO Attending Dr: Valentina Alarcon NP Ordering Physician: Valentina Alarcon NP Date of Service: 12/06/24 Procedure(s): US breast BI limited mamm only Accession Number(s): [id number] cc: Valentina Alarcon NP EXAMINATION: MM DIAGNOSTIC DIGITAL BREAST TOMOSYNTHESIS, BILATERAL [...] 12/07/24 0859 DD/ 1330 TD/TT: 12/06/24 1430 Organ Assembler: us Valentina Alarcon ASSET PROTECTION SPECIALIST IMG US PROCEDURES Final Result * Lipid Panel, Standard (09/08/2023 4:25 PM EST) Triglycerides 66 <150 mg/dL [facility] Comment:Desirable Triglyceri de: less than 150 mg/dLBorderline High Triglyceride 150-199 mg/dLHigh Triglyceride: 200-499 mg/dLVery High Triglyceride: greater than or equal to 5OO mg/dL Cholesterol 126 <200 mg/dL [facility] Comment:Desirable Cholestero l: less than 200 mg/dLBorderline High Cholesterol: 200-239 mg/dLHigh Cholesterol: greater than 239 mg/dL LDL Cholesterol Calculated 67 <100 mg/dL [facility] Comment:Desirable LDL: less than 100 mg/dLNear Optimal/Above Optimal LDL: 110- 129 mg/dLBorderline High LDL: 130-159 mg/dLHigh LDL: 160-189 mg/dLVery High LDL: greater than or equal to 190 mg/dL HDL Cholesterol 46 >40 mg/dL [facility] Comment:Desirable HDL: great er than 40 mg/dL Note: This HDL assay may give artificially low results in patients with liver disease. Blood Venous blood specimen / Unknown 09/08/2023 4:25 PM EST 09/08/2023 5:55 PM EST us Eliane Noyola PHARMACOVIGILANCE SPECIALIST LAB BLOOD ORDERABLES Final Resu lt [facility] [address] [place] [phone] from Last 3 Months or Most Recently Relevant to Health Maintenance Insurance [facility] [employer] (HMO D-SNP) [place] [id number] Care Teams Emergency Services Director Relationship Specialty Start Date End Date Valentina Alarcon NP [address] [place] [id number] PCP - General Family Medicine 06/27/24
== END 2025-02-19 16:02 | disposition home or self-care (01) ==
LOC: HO.HHCX 16:01
PROVIDERS: PCP Nurse Practitioner Family; Visit Provider Nurse Practitioner Family
DX: M25.561 Pain in right knee (principal); G89.29 Other chronic pain; M54.2 Cervicalgia
CPT/HCPCS: 72050; 73564

== ENCOUNTER → 2025-02-20 13:10 | Outpatient (BNV) | payer OTHER, SELFPAY | PROVIDERS: PCP Nurse Practitioner Family; Visit Provider Radiology Diagnostic Radiology | DX: M47.812 Spondylosis without myelopathy or radiculopathy, cervical region (principal); M17.11 Unilateral primary osteoarthritis, right knee; M25.461 Effusion, right knee; M70.51 Other bursitis of knee, right knee | CPT/HCPCS: 72050; 73564 ==

== ENCOUNTER 2025-03-14 08:45 | Outpatient (REF) | payer OTHER, SELFPAY ==
--- NOTE | ~2025-03-14 | XR_ITS ---
EXAMINATION: XR SHOULDER, RIGHT CLINICAL INFORMATION: M25.511 - Pain in right shoulder COMPARISON: September 08, 2023. TECHNIQUE: AP and Y-view projections of the right shoulder. FINDINGS: Subchondral cyst formation and sclerosis of the articular surface and marginal osteophyte formation at the acromioclavicular joint. Small marginal osteophyte formation greater tuberosity, right humerus. No acute cortical disruption or malalignment. Postop plaque thoracic aorta. Multilevel thoracic spondylosis no fully included in the cekna-yx-fqko. XR/XR shoulder RT min 2V IMPRESSION: Moderate osteoarthrosis, right shoulder involving mostly the acromioclavicular joint. Electronically signed by: Gino Stanley MD 03/14/2025 01:56 PM EDT
--- OUTSIDE RECORDS SUMMARY | 2025-03-15 08:56 | XMS_ITS | Clinical Summary ---
Author Organization [facility] Address [address] [facility] 7t [place] [address] Care Team Providers Care Lead Electrical Controls Engineer Name Role Phone Valentina Alarcon ISAIAS Primary Care Provider [phone] Allergies Active Allergy Reactions Criticality Noted Date [...] 2 diabetes mellitus with hyperglycemia, unspecified whether correction insulin use (CMS/HCC) USE TWO TIMES A [...] barrier, has therapist as well Interested in burundian speaking provider Dietary counseling 2024 Assessment & [...] due to type 2 diabetes mellitus ( [facility]) 10/25/2023 Varicose vein of leg 10/25/2023 [...] Date Type Department Care Team Description 02/27/2025 [facility] MEDICINE [address] [place], [place] [address] [address] Valentina Alarcon NP 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 2 diabetes mellitus ([facility]) ([facility]); Ear itching 02/19/2025 3:15 PM EDT Office Visit [facility] [place] [address] Valentina Alarcon NP Type 2 diabetes mellitus with other specified complication, without long-term current use of insulin ([facility]) (Primary Dx); Abnormal mammogram; Chronic pain of right knee; Cervicalgia; Ear itching; Dyspnea on exertion; Hx of abnormal mammogram 02/19/2025 Orders Only [facility] [address] [facility] [place] [address] Valentina Alarcon NP 02/19/2025 Travel 02/19/2025 Telephone [facility] [address] [facility] [place] [address] Valentina Alarcon NP Med Refill 02/17/2025 Refill [facility] [address] [place] [address] Valentina Alarcon NP Fibromyalgia 01/30/2025 Refill [facility] [address] [place] [address] Valentina Alarcon NP Fibromyalgia 01/18/2025 Refill [facility] [address] [place] [address] Eliane Noyola CHILD WELFARE CONSULTANT 01/01/2025 Refill [facility] [address] [place] [address] Valentina Alarcon NP Psychophysiological insomnia 12/21/2024 Orders Only GENERIC EXTERNAL DATA DEPARTMENT Provider, Generic External Data 12/19/2024 Refill [facility] [address] [place] [address] Valentina Alarcon NP Psychophysiological insomnia 12/14/2024 Telephone [facility] [address] [place] [address] Valentina Alarcon NP 12/14/2024 Travel from Last 3 Months Immunizations Immunization Administration [...] Description 05/22/2025 1:45 PM EDT Office Visit [facility] [address] [place] [address] Valentina Alarcon NP 230 [place] [address] Health Maintenance Due Date Last Done Comments [...] complication, without long-term current use of insulin ([facility]) POCT GLUCOSE Routine 02/19/2025 3:33 PM EDT Type 2 diabetes mellitus with other specified complication, without long-term current use of insulin ([facility]) GOMORI METHENAMINE STAIN Routine 12/21/2024 9:58 AM EDT US BREAST NDL CORE BIOPSY RT Routine 12/21/2024 9:40 AM EDT BI MAMMOGRAM DIAGNOSTIC RIGHT Routine 12/21/2024 9:40 AM EDT US BREAST NDL CORE BIO EA ADD Routine 12/21/2024 9:40 AM EDT LIPID PANEL, STANDARD Routine 09/08/2023 4:25 PM EST Type 2 diabetes mellitus with hyperosmolarity without coma, without long-term current use of insulin ([facility]) Primary hypertension from Last 3 Months or Most Recently Relevant to Health Maintenance Results * XR CERVICAL SPINE 5V (02/20/2025 1:11 PM EDT) Anatomical Region Laterality Modality Abdomen Radiographic Kadi ging 02/20/2025 1:11 PM EDT Narrative 02/20/2025 1:50 PM EDT [address] [address] XRay Report Signed Patient: Ariana De La Fuente MR#: [id number] : 1950 Acct:[id number] Age/Sex: 74 / F ADM Date: 02/19/25 Loc: .HHCX Attending Dr: Valentina Alarcon SENIOR PROJECT MANAGER ENGINEERING Ordering Physician: Valentina Alarcon NP Date of Service: 02/20/25 Procedure(s): XR cervical spine 5V Accession Number(s): [id number] cc: Valentina Alarcon SENIOR PROJECT MANAGER ENGINEERING EXAMINATION: XR CERVICAL SPINE CLINICAL INFORMATION: PAIN [...] Gino Stanley MD 02/20/2025 01:47 PM EDT RP Dictated By: Gino Suazo MD Signed By: <Electronically signed by Gino Ramirez MD in OV> 02/20/25 1347 DD/ 1311 TD/TT: 02/20/25 1320 Lead Javascript Engineer: Procedure Note Donotuseinterpreter, Image - 02/20/[address] [address] XRay Report Signed Patient: Ramya De La Fuente#: [id number] : 1Acct:[id number] Age/Sex: 74 / FADM Date: 02/19/25 Loc: HO.HHCX Attending Dr: Valentina Alarcon SENIOR PROJECT MANAGER ENGINEERING Ordering Physician: Valentina Alarcon NP Date of Service: 02/20/25 Procedure(s): XR cervical spine 5V Accession Number(s): [id number] cc: Valentina Alarcon SENIOR PROJECT MANAGER ENGINEERING EXAMINATION: XR CERVICAL SPINE CLINICAL INFORMATION: PAIN [...] 02/20/25 1347 DD/ 1311 TD/TT: 02/20/25 1320 Lead Javascript Engineer: us Valentina Alarcon SENIOR PROJECT MANAGER ENGINEERING IMG XR PROCEDURES Final Result * XR Knee 4+ Views Right (02/20/2025 12:33 PM EDT) Anatomical Region Laterality Modality Lower Extremities, Knee Right Radiogra phic Imaging 02/20/2025 12:3 3 PM EDT Narrative 02/20/2025 1:52 PM EDT [address] [place] [address] XRay Report Signed Patient: Ariana De La Fuente MR#: [id number] : 1950 Acct:[id number] Age/Sex: 74 / F ADM Date: 02/19/25 Loc: [facility] Attending Dr: Valentina Alarcon SENIOR PROJECT MANAGER ENGINEERING Ordering Physician: Valentina Alarcon SENIOR PROJECT MANAGER ENGINEERING Date of Service: 02/20/25 Procedure(s): XR knee RT 4V Accession Number(s): [id number] cc: Valentina Alarcon SENIOR PROJECT MANAGER ENGINEERING EXAMINATION: XR KNEE, RIGHT CLINICAL INFORMATION: suspect [...] 02/20/25 1349 DD/ 1233 TD/TT: 02/20/25 1240 Lead Javascript Engineer: Procedure Note Donotuseinterpreter, Image - 02/20/2025 [facility] [address] [place] [address] XRay Report Signed Patient: Ariana De La FuenteMR#: [id number] : 1950cct:[id number] Age/Sex: 74 / FADM Date: 02/19/25 Loc: [facility] Attending Dr: Valentina Alarcon SENIOR PROJECT MANAGER ENGINEERING Ordering Physician: Valentina Alarcon SENIOR PROJECT MANAGER ENGINEERING Date of Service: 02/20/25 Procedure(s): XR knee RT 4V Accession Number(s): [id number] cc: Valentina Alarcon NP EXAMINATION: XR KNEE, RIGHT CLINICAL INFORMATION: suspect [...] 02/20/25 1349 DD/ 1233 TD/TT: 02/20/25 1240 Lead Javascript Engineer: Valentina Alarcon SENIOR PROJECT MANAGER ENGINEERING IMG XR PROCEDURES Final Result * POCT HGB A1C (02/19/2025 3:33 PM EDT) Hemoglobin A1C 5.8 4.0 - 6.0 % QC Media Lot # [id number] Lot# Expiration Date 727 Blood 02/19/2025 3:33 PM EDT Valentina Alarcon [...] 9:58 AM EDT 12/21/2024 11:22 AM EDT [facility] - 12/25/2024 10:31 AM EDT ----- ------- Name: Ariana De La Fuente Age/Sex: 74/F : 1950 Unit#: [id number] Attend Dr: Matt Jon MD Re12/21/24 Status: DEP REF Location: HO.MAMMO Disch: ----- ------- SPEC : [id number] RECD: 12/21/24 STATUS: KELSEY KEVIN NUM: [id number] DANIEL: 12/21/24 [facility] DR: Beverly Nichols DO ENTERED: 12/21/24 SP [...] La Fuente Age/Sex: 74/F : 1950 Unit#: [id number] Attend Dr: Matt Jon MD Re12/21/24 Status: DEP REF Location: [facility] Disch: ----- ------- SPEC : [id number] RECD: 12/21/24 STATUS: KELSEY BROWN NUM: [id number] DANIEL: 12/21/24 [facility] DR: Beverly Nichols DO ENTERED: 12/21/24-113 SP [...] fibroadipose tissue versus lymphoid tissue, forwarded to [employer] for flow cytometry studies as requested on [...] and C Copies To: Valentina Alarcon NP [address] [phone] Matt Jon MD [facility] [address] [place] [phone] CONTINUED ON NEXT PAGE ----- ------- Name: Ariana De La Fuente Age/Sex: 74/F : 1950 Unit#: [id number] Attend Dr: Matt Jon MD Re12/21/24 Status: DEP REF Location: [facility] Disch: ----- ------- SPEC : [id number] RECD: 12/21/24 STATUS: KELSEY BROWN NUM: [id number] DANIEL: 12/21/24 [facility] DR: Beverly Nichols DO ENTERED: 12/21/24-113 SP [...] Copies To: (Continued) Beverly Nichols DO [address] [place] [phone] ----- ------- Signed (signature on file) Nadeem Madrigal MD 12/25/24 1031 ----- ------- END OF REPORT us Generic External Data Provider LAB MICROBIOLOGY - GENERAL ORDERABLES Final Result [facility] [address] [place] [phone] * US BREAST NDL CORE BIOPSY RT (12/21/2024 9:40 AM EDT) Anatomical Region Laterality Modality Abdomen Ultrasound 12/21/2024 9:40 AM EDT Narrative 12/21/2024 12:45 PM EDT [facility] [address] [place] [address] Ultrasound Report Signed with Mila Patient: Ariana De La Fuente MR#: [id number] : 1950 Acct:[id number] Age/Sex: 74 / F ADM Date: 12/21/24 Loc: [facility].MAMMO Attending Dr: Matt Jon MD Ordering Physician: Matt Jon MD Date of Service: 12/21/24 Procedure(s): US breast ndl core biopsy RT Accession Number(s): [id number] cc: Valentina Alarcon SENIOR PROJECT MANAGER ENGINEERING; Matt Jon MD ADDENDUM ADDENDUM #1 ADDENDUM: [...] 12/21/24 1242 DD/ 0940 TD/TT: 12/21/24 1022 Lead Javascript Engineer: Procedure Note Donotuseinterpreter, Image - 12/29/2024 [facility] [address] [place] [address] Ultrasound Report Signed with Addenda Patient: Ramya De La Fuente#: [id number] : 1950cct:[id number] Age/Sex: 74 / FADM Date: 12/21/24 Loc: HO.MAMMO Attending Dr: Matt Jon MD Ordering Physician: Matt Jon MD Date of Service: 12/21/24 Procedure(s): US breast ndl core biopsy RT Accession Number(s): [id number] cc: Valentina Alarcon SENIOR PROJECT MANAGER ENGINEERING; Matt Jon MD ADDENDUM ADDENDUM #1 ADDENDUM: [...] 12/21/24 1242 DD/ 0940 TD/TT: 12/21/24 1022 Lead Javascript Engineer: [facility] External Provider IMG US PROCEDURES Edited Result - Final * US BREAST NDL CORE BIO EA ADD (12/21/2024 9:40 AM EDT) Anatomical Region Laterality Modality Abdomen Ultrasound 12/21/2024 9:40 AM EDT Narrative 12/21/2024 12:45 PM EDT [facility] [address] [place] [address] Ultrasound Report Signed with Mila Patient: Ariana De La Fuente MR#: [id number] : 1950 Acct:[id number] Age/Sex: 74 / F ADM Date: 12/21/24 Loc: HO.MAMMO Attending Dr: Matt Jon MD Ordering Physician: Matt Jon MD Date of Service: 12/21/24 Procedure(s): US breast ndl core bio ea add Accession Number(s): [id number] cc: Valentina Alarcon SENIOR PROJECT MANAGER ENGINEERING; Matt Jon MD ADDENDUM ADDENDUM #1 ADDENDUM: [...] care instructions. Final pathology results are pending. US/ breast ndl core bio ea add IMPRESSION: [...] 12/21/24 1242 DD/ 0940 TD/TT: 12/21/24 1022 Lead Javascript Engineer: Procedure Note Donotuseinterpreter, Image - 12/29/2024 [facility] [address] [place] [address] Ultrasound Report Signed with Addenda Patient: Ramya De La Fuente#: [id number] : 1Acct:[id number] Age/Sex: 74 / FADM Date: 12/21/24 Loc: [facility] Attending Dr: Matt Jon MD Ordering Physician: Matt Jon MD Date of Service: 12/21/24 Procedure(s): US breast ndl core bio ea add Accession Number(s): [id number] cc: Valentina Alarcon SENIOR PROJECT MANAGER ENGINEERING; Matt Jon MD ADDENDUM ADDENDUM #1 ADDENDUM: [...] 12/21/24 1242 DD/ 0940 TD/TT: 12/21/24 1022 Lead Javascript Engineer: [facility] External Provider IMG US PROCEDURES Edited Result - Final * Mammogram Diagnostic Right (12/21/2024 9:40 AM EDT) Anatomical Region Laterality Modality Breast Right Mammography 12/21/2024 9:40 AM EDT Narrative 12/21/2024 12:45 PM EDT [facility] [address] [place] [place] [address] Mammography Report Signed with Addenda Patient: Ariana De La Fuente MR#: [id number] : 1950 Acct:[id number] Age/Sex: 74 / F ADM Date: 12/21/24 Loc: HO.MAMMO Attending Dr: Matt Jon MD Ordering Physician: Matt Jon MD Results: Date of Service: 12/21/24 Follow Up: Procedure(s): MM diagnostic mammo unilat RT Accession Number(s): [id number] cc: Valentina Alarcon SENIOR PROJECT MANAGER ENGINEERING; Matt Jon MD ADDENDUM ADDENDUM #1 ADDENDUM: [...] 12/21/24 1242 DD/ 0940 TD/TT: 12/21/24 1024 Lead Javascript Engineer: Procedure Note Donotuseinterpreter, Image - 12/29/2024 [facility] [address] [place] [address] [place] [address] Mammography Report Signed with Mila Patient: Ramya De La Fuente#: [id number] : 1Acct:[id number] Age/Sex: 74 / FADM Date: 12/21/24 Loc: HO.MAMMO Attending Dr: Matt Jon MD Ordering Physician: Matt Jon MDResults: Date of Service: 12/21/24Follow Up: Procedure(s): MM diagnostic mammo unilat RT Accession Number(s): [id number] cc: Valentina Alarcon SENIOR PROJECT MANAGER ENGINEERING; Matt Jon MD ADDENDUM ADDENDUM #1 ADDENDUM: [...] 12/21/24 1242 DD/ 0940 TD/TT: 12/21/24 1024 Lead Javascript Engineer: [facility] External Provider IMG BI PROCEDURES Edited Result - Final * Lipid Panel, Standard (09/08/2023 4:25 PM EST) Triglycerides 66 <150 mg/dL [facility] Comment:Desirable Triglyceri de: less than 150 mg/dLBorderline High Triglyceride 150-199 mg/dLHigh Triglyceride: 200-499 mg/dLVery High Triglyceride: greater than or equal to 5OO mg/dL Cholesterol 126 <200 mg/dL [facility] Comment:Desirable Cholestero l: less than 200 mg/dLBorderline High Cholesterol: 200-239 mg/dLHigh Cholesterol: greater than 239 mg/dL LDL Cholesterol Calculated 67 <100 mg/dL [facility] Comment:Desirable LDL: less than 100 mg/dLNear Optimal/Above Optimal LDL: 110- 129 mg/dLBorderline High LDL: 130-159 mg/dLHigh LDL: 160-189 mg/dLVery High LDL: greater than or equal to 190 mg/dL HDL Cholesterol 46 >40 mg/dL [facility] Comment:Desirable HDL: great er than 40 mg/dL Note: This HDL assay may give artificially low results in patients with liver disease. Blood Venous blood specimen / Unknown 09/08/2023 4:25 PM EST 09/08/2023 5:55 PM EST Eliane Noyola CHILD WELFARE CONSULTANT LAB BLOOD ORDERABLES Final Resu lt [facility] [address] [place] [phone] from Last 3 Months or Most Recently Relevant to Health Maintenance Insurance [facility] INTERMEDIATE OPTIONS (HMO D-SNP) [place] [id number] Care Teams Lead Electrical Controls Engineer Relationship Specialty Start Date End Date Valentina Alarcon NP [address] [place] [address] PCP - General Family Medicine 06/27/24
--- OUTSIDE RECORDS SUMMARY | 2025-03-15 08:56 | XMS_ITS | Clinical Summary ---
Author Organization [email or web address] [facility] ity Address [address] [place] [address] Care Team Providers Care Women Designer Name Role Phone Unavailable Primary Care Provider [...]
== END 2025-03-14 08:46 | disposition home or self-care (01) ==
LOC: HO.HOSX 08:45
PROVIDERS: Visit Provider Orthopaedic Surgery
DX: M25.311 Other instability, right shoulder (principal); M25.511 Pain in right shoulder; Z79.899 Other long term (current) drug therapy; Z79.84 Long term (current) use of oral hypoglycemic drugs
CPT/HCPCS: 73030; 99202

== ENCOUNTER 2025-03-14 13:43 | Outpatient (AMB) | payer OTHER, SELFPAY ==
[2025-03-14 13:52] VITALS: BMI 24.4
--- NOTE | 2025-03-14 13:52 | A.OFFVIS_ITS ---
Vital Signs 03/14/25 13:52 Height 5 ft 4 in Weight 142 lb BMI 24.4 Intake Visit Reasons: Right shoulder pain and weakness Intake Note: Ariana is a 74 year old right hand dominant female who presents with complaints of progressively worsening right shoulder pain and weakness. The patient states that her pain has gotten worse over the last few years. She has failed the last 6 weeks of conservative treatment which has included physical therapy exercises, a home exercise program, Tylenol and anti-inflammatory medicines. She reports weakness when lifting her right hand above shoulder height. She also has intermittent left shoulder pain. She states that at this point her left shoulder pain is tolerable to her. [employer] Specialist Required: Yes [employer] Specialist Language: Hand Miter Operator Services: [employer] Library Media Specialist Present [employer] Specialist Name: ALEJANDRO Feliz/ASA Allergies aspirin Adverse Reaction (Verified 03/14/25 13:59) stomach ache green vegetables Adverse Reaction (Uncoded 03/14/25 13:59) diarrhea Medication List - Last Reconciled 03/14/25 by Dilshad Vargas MD acetaminophen (Tylenol) 325 mg PO QID PRN calcium carbonate-vitamin D3 600 mg-10 mcg (400 unit) tabs PO fluticasone propionate 50 mcg/actuation (Flonase Allergy Relief) 1 spray intranasal DAILY fluticasone propionate 0.05% 1 appl topical BID gabapentin 600 mg PO TID loratadine (Claritin) 10 mg PO DAILY melatonin 10 mg PO BEDTIME PRN metformin 500 mg PO DAILY montelukast (Singulair) 10 mg PO BEDTIME omeprazole 20 mg PO DAILY rosuvastatin 10 mg PO DAILY [facility] Medical History Chronic back pain Post-menopausal Eczema of both external ears Chronic pain of right knee [place] Healthcare maintenance Encounter for screening mammogram for malignant neoplasm of breast Gastroesophageal reflux disease without esophagitis Constipation Chronic right shoulder pain Microscopic hematuria Tinnitus Urticaria Varicose veins of legs 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 2 diabetes mellitus Fibromyalgia Allergic rhinitis Carpal tunnel syndrome Insomnia Memory changes Hyperchloremia GERD (gastroesophageal reflux disease) Diabetes Hypertension Depressed Abnormal ultrasound of breast Surgical History H/O removal of cyst H/O section History of hemiarthroplasty of shoulder Social History Household Members: Other Household Members Other:: alone Alcohol intake: never Comment: only coffee Patient Tobacco Use Status: Never used Tobacco Female Reproductive History Menstrual Age of Menarche: 13 Physical Exam Vital Signs: BMI result Body Mass Index 24.4 Const Other: Well-nourished well-developed very friendly female awake alert and oriented x3 in no acute distress Extrem Other: Bilateral upper extremity examination shows good capillary refill, no skin lesions noted, normal sensation light touch Right shoulder examination shows decreased range of motion when compared to her left shoulder, 4+ out of 5 strength with supraspinatus testing, positive impingement signs, tenderness over her acromioclavicular joint, no instability Results Reviewed Results Reviewed: X-rays of the patient's right shoulder show severe acromioclavicular joint narrowing, a type 3 acromion, no acute bony abnormalities Assessment & Plan Assessment & Plan (1) Rotator cuff insufficiency of right shoulder: Code(s): M25.311 - Other instability, right shoulder Category: Medical Plan Ms. De La Fuente presents with progressively worsening right shoulder pain and weakness due to impingement syndrome and possible rotator cuff tearing. Thus, I will send the patient for an MRI of her right shoulder for further evaluation. I will see her back once the MRI is completed to discuss the findings and treatment options. Feel free to call me at any time should questions regarding her orthopedic management arise. Thank you very much for asking me to see this very friendly patient. I spent 22 minutes in reviewing the patient's records and imaging studies, seeing the patient and documenting in the medical record. Orders: Orders XR shoulder RT min 2V 03/14/25 M25.511 - Pain in right shoulder MR shoulder RT wo con Today M25.311 - Other instability, right shoulder Coding Level of Care Code New Pt Level 3 (23279) Complex EM visit Add On G2211 Diagnoses Rotator cuff insufficiency of right shoulder M25.311
--- OUTSIDE RECORDS SUMMARY | 2025-03-14 14:35 | XMS_ITS | Clinical Summary ---
Author Organization [employer] Address [address] [facility] [address] [place] [address] Care Team Providers Care Director Of Annual Giving Name Role Phone Valentina Alarcon ISAIAS Primary Care Provider [phone] Allergies Active Allergy Reactions Criticality Noted Date [...] topically 4 times daily. 08/02/20 23 Active polyvinyl alcohol (Liquifilm Tears) 1.4 [...] per day. 1 kit 07/14/20 24 Active metFORMIN (Glucophage) 850 MG tablet Take 1 tablet (850 mg) by mouth 2 times daily. With food 60 tablet 5 09/04/19 25 Active FreeStyle lancetsIndicati ons:Type 2 diabetes mellitus with hyperglycemia, unspecified whether shelter insulin use (CMS/HCC) USE TWO TIMES A DAY (BULK) 100 each 11 09/08/19 25 Active fluticasone (Flonase) 50 MCG/ACT nasal sprayIndication s:Seasonal allergic rhinitis due to pollen Administer 1 spray into each nostril Once per day. 16 g 3 11/07/19 25 Active rosuvastatin (Crestor) 10 MG tabletIndicatio ns:Hyperlipidem ia due to type 2 diabetes mellitus (CMS/HCC) (CMS/HCC) Take 1 tablet (10 mg) by mouth Once per day. 30 tablet 3 11/07/19 25 Active melatonin 5 MG tablet TAKE ONE TABLET BY MOUTH AT BEDTIME NEEDED FOR INSOMNIA ^1R4 30 tablet 11/08/19 25 Active loratadine (Claritin) 10 MG tablet Take 1 tablet (10 mg) by mouth Once per day. 30 tablet 11 12/02/19 25 2025 Active clonazePAM (KlonoPIN) 1 MG tabletIndicatio ns:Psychophysio logical insomnia Take 1 tablet (1 mg) by mouth at bedtime. Do not start before January 05, 2025. 30 tablet 01/06/20 25 Active Calcium Carb-Cholecalci ferol 600-10 MG-MCG tablet TAKE 1 TABLET BY MOUTH TWICE A DAY ^1R1,1R4 56 tablet 5 01/03/20 25 Active FREESTYLE LITE test strip USE ONE STRIP TWO TIMES A DAY TO TEST BLOOD SUGAR (BULK) 100 strip 3 01/20/20 25 Active fluticasone (Cutivate) 0.05 % cream APPLY TO AFFECTED AREA(S) TWO TIMES A DAY (BULK) 45 g 01/31/20 25 Active omeprazole (PriLOSEC) [address] capsule TAKE ONE CAPSULE BY MOUTH EVERY DAY ^1R1 28 capsule 3 01/31/20 25 Active polyethylene glycol, PEG, 3350 (Glycolax) 17 GM/SCOOP powder MIX 17 GRAM(S) IN 8 OZ OF WATER AND DRINK BY MOUTH ONCE A DAY NEEDED FOR CONSTIPATION (BULK) 238 g 1 01/31/20 25 Active montelukast (Singulair) 10 MG tablet TAKE ONE TABLET BY MOUTH EVERY DAY ^1R4 28 tablet 1 01/31/20 25 Active losartan (Cozaar) 100 MG tablet Take 1 tablet (100 mg) by mouth Once per day. Take 100 mg by mouth in the morning. 28 tablet 5 01/31/20 25 Active gabapentin (Neurontin) 600 MG tabletIndicatio ns:Fibromyalgia TAKE 1 TABLET BY MOUTH THREE TIMES DAILY ^1R1,1R2,1R4 90 tablet 3 02/20/20 Active fluocinonide (Lidex) 0.05 % external solutionIndicat ions:Ear itching Apply topically 2 times daily. To ears 10 mL 02/20/20 25 2025 Active gabapentin (Neurontin) 600 MG tabletIndicatio ns:Fibromyalgia Take 1 tablet (600 mg) by mouth 3 times daily. 90 tablet 3 11/07/19 25 2024 Discontinued Active Problems Problem Noted Date Diagnosed Date Hx of abnormal mammogram 03/09/2025 Overview (03/09/2025): 12/06/24: Solid mass versus complicated cyst at 10:00 12 cm from the nipple and enlarged axillary lymph node. Recommend ultrasound-guided core needle ADDENDUM: Right axillary lymph node: Granulomatous lymphadenitis [...] six-month follow-up right breast mammogram is recommended. Assessment & Plan (03/09/2025 4:13 PM EDT): Referral to surgery for opinion Abnormal mammogram 02/19/2025 Cervicalgia 02/19/2025 Assessment & Plan (03/09/2025 4:15 PM EDT): X-ray ordered, referral to physiatry as pt reports benefit from injections hx === 02/19/25 === XR CERVICAL SPINE 5V - Impression - Multilevel cervical spondylosis C3-C7 more pronounced at C5-6 and C3-4 levels. Electronically signed by: Gino Stanley MD 02/20/2025 01:47 PM EDT Ear itching 02/19/2025 Dyspnea on exertion 02/19/2025 Assessment & Plan (03/09/2025 4:16 PM EDT): Echo ordered PTSD (post-traumatic stress disorder) 01/15/2025 Assessment & [...] barrier, has therapist as well Interested in senegalese speaking provider Dietary counseling 2024 Assessment & [...] of right knee 09/04/2024 Assessment & Plan (03/09/2025 4:15 PM EDT): Effusion, suspect OA Referral to ortho. Assessment & Plan (09/04/2024 5:25 PM EST): [...] more on left. per records from [facility]z [facility] [place] Allergic rhinitis 10/25/2023 Fibromyalgia 10/25/2023 Overview (10/25/2023): per records from [facility]z Cifuent[facility] [place] Hypertension 10/25/2023 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 2 diabetes mellitus ( [facility]) 10/25/2023 Varicose vein of leg 10/25/2023 Urticaria 10/25/2023 Tinnitus 10/25/2023 Overview (10/25/2023): per records from Frantz Cifuentes [place] Microscopic hematuria 10/25/2023 Overview (10/25/2023): per records from Frantz Cifuentes [place] Chronic right shoulder pain 10/25/2023 Assessment & Plan (01/15/2025 11:26 AM EDT): Referral to ortho Constipation 11/17/2018 Gastroesophageal reflux disease without esophagi tis 11/17/2018 Encounters * This document contains information received from the source organization and may not represent a complete record from that organization. 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 2 diabetes mellitus ([facility]) ([facility]); Ear itching 02/19/2025 3:15 PM EDT Office Visit [facility] [address] [facility] [address] Valentina Alarcon NP Type 2 diabetes mellitus with other specified complication, without long-term current use of insulin ([facility]) (Primary Dx); Abnormal mammogram; Chronic pain of right knee; Cervicalgia; Ear itching; Dyspnea on exertion; Hx of abnormal mammogram 02/19/2025 Orders Only [facility] [address] [facility] [place] [address] Valentina Alarcon NP 02/19/2025 Travel 02/19/2025 Telephone [facility] [address] [facility] [place] [address] Valentina Alarcon NP Med Refill 02/17/2025 Refill [facility] [address] [facility] [place] [address] Valentina Alarcon NP Fibromyalgia 01/30/2025 Refill [facility] [address] [place] [address] Valentina Alarcon NP Fibromyalgia 01/18/2025 Refill [facility] [address] [place] [address] Eliane Noyola 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 01/01/2025 Refill [facility] [address] [place] [address] Valentina Alarcon NP Psychophysiological insomnia 12/21/2024 Orders Only GENERIC EXTERNAL DATA DEPARTMENT Provider, Generic External Data 12/19/2024 Refill [facility] [address] [place] [address] Valentina Alarcon NP Psychophysiological insomnia 12/14/2024 Telephone [facility] [address] [place] [address] Valentina Alarcon NP 12/14/2024 Travel 12/13/[address] [address] Valentina Alarcon NP Appointment Request from Last 3 Months Immunizations Immunization Administration [...] Description 05/22/2025 1:45 PM EDT Office Visit [facility] [address] [place] [address] Valentina Alarcon NP [address] [place] [address] Health Maintenance Due Date Last Done Comments CT Colonography 1950 Colonoscopy 1950 Colorectal Cancer Screening 1950 FIT DNA/Cologuard 1950 FIT 1950 FOBT 1950 Sigmoidoscopy 1950 Diabetes: Foot Exam 1960 Eye Exam 1960 Hepatitis C Screening 1968 Diabetes: Urine Protein Screening 1969 COVID-19 Vaccine ( season) 2024 06/03/2023, 12/20/2021, 07/28/2021, Additional history exists Lipid Panel 09/08/2024 09/08/2023 Influenza Vaccine (#1) 2025 , 06/03/2023, 06/08/2022, Additional history exists Depression Monitoring 06/05/2025 2024, 025 Diabetes: Hemoglobin A1C 08/21/2025 025, 06/30/2024, 12/29/2023, Additional history exists Alcohol/Substance Use Screening 09/04/2025 09/04/2024 SDOH Screening 2025 2024 Tobacco Screening 02/19/2026 02/19/2025 Mammogram 12/21/2026 12/21/2024, 04/0 04/2025, 10/11/2024, Additional [...] exists Zoster Vaccines Completed 01/15/2023, 11/29, 06/15/2016 RSV Patients and Patients Aged 60 years [...] Procedure Name Priority Date/Time Associated Diagnosis Comments XR CERVICAL SPINE 5V Routine 02/20/2025 1:11 PM EDT XR KNEE 4+ VIEWS RIGHT Routine 02/20/2025 12:33 PM EDT Chronic pain of right knee POCT GLYCATED HEMOGLOBIN, TOTAL Routine 02/19/2025 3:33 PM EDT Type 2 diabetes mellitus with other specified complication, without long-term current use of insulin ([facility]) POCT GLUCOSE Routine 02/19/2025 3:33 PM EDT Type 2 diabetes mellitus with other specified complication, without long-term current use of insulin ([facility]) GOMORI METHENAMINE STAIN Routine 12/21/2024 9:58 AM EDT US BREAST NDL CORE BIOPSY RT Routine 12/21/2024 9:40 AM EDT BI MAMMOGRAM DIAGNOSTIC RIGHT Routine 12/21/2024 9:40 AM EDT US BREAST NDL CORE BIO EA ADD Routine 12/21/2024 9:40 AM EDT LIPID PANEL, STANDARD Routine 09/08/2023 4:25 PM EST Type 2 diabetes mellitus with hyperosmolarity without coma, without long-term current use of insulin ([facility]) Primary hypertension from Last 3 Months or Most Recently Relevant to Health Maintenance Results * XR CERVICAL SPINE 5V (02/20/2025 1:11 PM EDT) Anatomical Region Laterality Modality Abdomen Radiographic Kadi ging 02/20/2025 1:11 PM EDT Narrative 02/20/2025 1:50 PM EDT [facility] [address] [place] [address] XRay Report Signed Patient: Ariana De La Fuente MR#: [id number] : 1950 Acct:[id number] Age/Sex: 74 / F ADM Date: 02/19/25 Loc: .HHX Attending Dr: Valentina Alarcon FABRIC LAY OUT WORKER Ordering Physician: Valentina Alarcon NP Date of Service: 02/20/25 Procedure(s): XR cervical spine 5V Accession Number(s): [id number] cc: Valentina Alarcon F[employer] LAY OUT WORKER EXAMINATION: XR CERVICAL SPINE CLINICAL INFORMATION: PAIN COMPARISON: None available. TECHNIQUE: AP oblique and lateral views. Atlantoodontoid view. FINDINGS: Craniocervical junction is intact. Syndesmophyte formation and marginal osteophyte formation from C2 to C7. 20% volume loss of the vertebral bodies at C5 and C6. No acute cortical disruption or malalignment. Right neuroforamina narrowing secondary to osteophyte formation at C3-4 C4-5 C5-6 and C6-7 levels. No lytic or blastic lesions. XR/XR cervical spine 5V IMPRESSION: Multilevel cervical spondylosis C3-C7 more pronounced at C5-6 and C3-4 levels. Electronically signed by: Gino Stanley MD 02/20/2025 01:47 PM EDT Dictated By: Gino Suazo MD Signed By: <Electronically signed by Gino Ramirez MD in OV> 02/20/25 1347 DD/ 1311 TD/TT: 02/20/25 1320 Playroom Attendant: Procedure Note Donotuseinterpreter, Image - 02/20/[address] [address] XRay Report Signed Patient: Ramya De La Fuente#: [id number] : 1950cct:[id number] Age/Sex: 74 / FADM Date: 02/19/25 Loc: HO.HHCX Attending Dr: Valentina Alarcon FABRIC LAY OUT WORKER Ordering Physician: Valentina Alarcon NP Date of Service: 02/20/25 Procedure(s): XR cervical spine 5V Accession Number(s): [id number] cc: Valentina Alarcon FABRIC LAY OUT WORKER EXAMINATION: XR CERVICAL SPINE CLINICAL INFORMATION: PAIN COMPARISON: None available. TECHNIQUE: AP oblique and lateral views. Atlantoodontoid view. FINDINGS: Craniocervical junction is intact. Syndesmophyte formation and marginal osteophyte formation from C2 to C7. 20% volume loss of the vertebral bodies at C5 and C6. No acute cortical disruption or malalignment. Right neuroforamina narrowing secondary to osteophyte formation at C3-4 C4-5 C5-6 and C6-7 levels. No lytic or blastic lesions. XR/XR cervical spine 5V IMPRESSION: Multilevel cervical spondylosis C3-C7 more pronounced at C5-6 and C3-4 levels. Electronically signed by: Gino Stanley MD 02/20/2025 01:47 PM EDT Dictated By: Gino Suazo MD Signed By: <Electronically signed by Gino Ramirez MDin OV> 02/20/25 1347 DD/ 1311 TD/TT: 02/20/25 1320 Playroom Attendant: us Valentina Alarcon NP IMG XR PROCEDURES Final Result * XR Knee 4+ Views Right (02/20/2025 12:33 PM EDT) Anatomical Region Laterality Modality Lower Extremities, Knee Right Radiogra phic Imaging 02/20/2025 12:3 3 PM EDT Narrative 02/20/2025 1:52 PM EDT [address] [address] XRay Report Signed Patient: Ariana De La Fuente MR#: [id number] : 1950 Acct:[id number] Age/Sex: 74 / F ADM Date: 02/19/25 Loc: HO.CX Attending Dr: Valentina Alarcon FABR[employer] LAY OUT WORKER Ordering Physician: Valentina Alarcon FABRIC LAY OUT WORKER Date of Service: 02/20/25 Procedure(s): XR knee RT 4V Accession Number(s): [id number] cc: Valentina Alarcon FABRIC LAY OUT WORKER EXAMINATION: XR KNEE, RIGHT CLINICAL INFORMATION: suspect OA related effusion , swelling COMPARISON: None available. TECHNIQUE: AP oblique lateral and swimmer's projection, of the right knee. FINDINGS: Joint space narrowing involving mostly the medial compartment. There is subtle chondrocalcinosis in the medial and lateral compartment. Small volume/trace effusion, suprapatellar bursa. No acute cortical disruption or malalignment. No lytic or blastic lesions. XR/XR knee RT 4V IMPRESSION: Medial compartmental arthrosis, mild to moderate. Consider CPPD. Small volume effusion, suprapatellar bursa joint . Electronically signed by: Gino Stanley MD 02/20/2025 01:49 PM EDT Dictated By: Gino Suazo MD Signed By: <Electronically signed by Gino Ramirez MD in OV> 02/20/25 1349 DD/ 1233 TD/TT: 02/20/25 1240 Playroom Attendant: Procedure Note Donotuseinterpreter, Image - 02/20/[address] [address] XRay Report Signed Patient: Ariana De La FuenteMR#: [id number] : 1950cct:[id number] Age/Sex: 74 / FADM Date: 02/19/25 Loc: DIAMANTECX Attending Dr: Valentina Alarcon FABRIC LAY OUT WORKER Ordering Physician: Valentina Alarcon FABRIC LAY OUT WORKER Date of Service: 02/20/25 Procedure(s): XR knee RT 4V Accession Number(s): [id number] cc: Valentina Alarcon FABRIC LAY OUT WORKER EXAMINATION: XR KNEE, RIGHT CLINICAL INFORMATION: suspect OA related effusion , swelling COMPARISON: None available. TECHNIQUE: AP oblique lateral and swimmer's projection, of the right knee. FINDINGS: Joint space narrowing involving mostly the medial compartment. There is subtle chondrocalcinosis in the medial and lateral compartment. Small volume/trace effusion, suprapatellar bursa. No acute cortical disruption or malalignment. No lytic or blastic lesions. XR/XR knee RT 4V IMPRESSION: Medial compartmental arthrosis, mild to moderate. Consider CPPD. Small volume effusion, suprapatellar bursa joint . Electronically signed by: Gino Stanley MD 02/20/2025 01:49 PM EDT RP Dictated By: Gino Suazo MD Signed By: <Electronically signed by Gino Ramirez MDin OV> 02/20/25 1349 DD/ 1233 TD/TT: 02/20/25 1240 Playroom Attendant: Valentina Alarcon FABRIC LAY OUT WORKER IMG XR PROCEDURES Final Result * POCT HGB A1C (02/19/2025 3:33 PM EDT) Hemoglobin A1C 5.8 4.0 - 6.0 % QC Media Lot # [id number] Lot# Expiration Date ,727 Blood 02/19/2025 3:33 PM EDT Valentina Alarcon FABRIC LAY OUT WORKER POINT OF CARE TEST ENTER/EDIT OR DERABLES Final Result * POCT Glucose (02/19/2025 3:33 PM EDT) Glucose Blood, POC 117 60 - 200 mg/dL QC Media Lot # [id number] Lot# Expiration Date 025 Blood Capillary blood specimen / Unknown 02/19/2025 3:33 PM EDT Result [facility] Valentina Alarcon NP POINT OF CARE TEST ENTER/EDIT OR DERABLES Final Result * Gomori Methenamine Stain (12/21/2024 9:58 AM EDT) 12/21/2024 9:58 AM EDT 12/21/2024 11:22 AM EDT Narrative [facility] - 12/25/2024 10:31 AM EDT ----- ------- Name: LeisaAriana harry Age/Sex: 74/F : 1950 Unit#: [id number] Attend Dr: Matt Jon MD Re12/21/24 Status: DEP REF Location: [facility] Disch: ----- ------- SPEC : [id number] RECD: 12/21/24 STATUS: KELSEY BROWN NUM: [id number] DANIEL: 12/21/[address] [facility] DR: Beverly Nichols DO ENTERED: 12/21/24-113 SP TYPE: Surgical OTHR DR: Valentina Alarcon [...] La Fuente Age/Sex: 74/F : 1950 Unit#: [id number] Attend Dr: Matt Jon MD Re12/21/24 Status: DEP [facility] Disch: ----- ------- SPEC : [id number] RECD: 12/21/24 STATUS: KELSEY BROWN NUM: [id number] DANIEL: 12/21/24 [facility] [address]: Beverly Nichols DO ENTERED: 12/21/24 SP [...] fibroadipose tissue versus lymphoid tissue, forwarded to [facility] for flow cytometry studies as requested on [...] and C Copies To: Valentina Alarcon NP [address] [address] Matt Jon MD [facility] [address] [place] [phone] CONTINUED ON NEXT PAGE ----- ------- Name: Ariana De aL Fuente Age/Sex: 74/F : 1950 Unit#: [id number] Attend Dr: Matt Jon MD Re12/21/24 Status: DEP REF Location: [facility] Disch: ----- ------- SPEC : [id number] RECD: 12/21/24 STATUS: KELSEY BROWN NUM: [id number] DANIEL: 12/21/[address] [facility] [address]: Beverly Nichols DO ENTERED: 12/21/24-113 SP TYPE: Surgical OTHR DR: Valentina Alarcon [...] 1005. Copies To: (Continued) Beverly Nichols DO [address] [place] [address] ----- ------- Signed (signature on file) Nadeem Madrigal MD 12/25/24 1031 ----- ------- END OF REPORT us Generic External Data Provider LAB MICROBIOLOGY - GENERAL ORDERABLES Final Result [facility] [address] [place] [phone] * US BREAST NDL CORE BIOPSY RT (12/21/2024 9:40 AM EDT) Anatomical Region Laterality Modality Abdomen Ultrasound 12/21/2024 9:40 AM EDT Narrative 12/21/2024 12:45 PM EDT [facility] [address] [place] [address] Ultrasound Report Signed with Addenda Patient: Ariana De La Fuente MR#: [id number] : 1950 Acct:[id number] Age/Sex: 74 / F ADM Date: 12/21/24 Loc: [facility] Attending Dr: Matt Jon MD Ordering Physician: Matt Jon MD Date of Service: 12/21/24 Procedure(s): US breast ndl core biopsy RT Accession Number(s): [id number] cc: Valentina Alarcon F[employer] LAY OUT WORKER; Matt Jon MD ADDENDUM ADDENDUM #1 ADDENDUM: [...] 12/21/24 1242 DD/ 0940 TD/TT: 12/21/24 1022 Playroom Attendant: Procedure Note Donotuseinterpreter, Image - 12/29/2024 [facility] [address] [place] [address] Ultrasound Report Signed with Addenda Patient: Ramya De La Fuente#: [id number] : 1950cct:[id number] Age/Sex: 74 / FADM Date: 12/21/24 Loc: [facility] Attending Dr: Matt Jon MD Ordering Physician: Matt Jon MD Date of Service: 12/21/24 Procedure(s): US breast ndl core biopsy RT Accession Number(s): [id number] cc: Valentina Alarcon FABRIC LAY OUT WORKER; Matt Jon MD ADDENDUM ADDENDUM #1 ADDENDUM: [...] Nichols DO 12/21/2024 12:42 PM EDT Workstation: [employer] Dictated By: Beverly Nichols DO Signed By: <Electronically signed by Beverly Nichols DO in OV> 12/21/24 1242 DD/ 0940 TD/TT: 12/21/24 1022 Playroom Attendant: [facility] External Provider IMG US PROCEDURES Edited Result - Final * US BREAST NDL CORE BIO EA ADD (12/21/2024 9:40 AM EDT) Anatomical Region Laterality Modality Abdomen Ultrasound 12/21/2024 9:40 AM EDT Narrative 12/21/2024 12:45 PM EDT [facility] [address] [place] [address] Ultrasound Report Signed with Chelseaenda Patient: Ariana De La Fuente MR#: [id number] : 1950 Acct:[id number] Age/Sex: 74 / F ADM Date: 12/21/24 Loc: HO.MAMMO Attending Dr: Matt Jon MD Ordering Physician: Matt Jon MD Date of Service: 12/21/24 Procedure(s): US breast ndl core bio ea add Accession Number(s): [id number] cc: Valentina Alarcon FABRIC LAY OUT WORKER; Matt Jon MD ADDENDUM ADDENDUM #1 ADDENDUM: [...] 12/21/24 1242 DD/ 0940 TD/TT: 12/21/24 1022 Playroom Attendant: Procedure Note Donbebainterpreter, Image - 12/29/2024 [facility] [address] [place], [place] [address] Ultrasound Report Signed with Addenda Patient: Ramya De La Fuente#: [id number] : 1950cct:[id number] Age/Sex: 74 / FADM Date: 12/21/24 Loc: HO.MAMMO Attending Dr: Matt Jon MD Ordering Physician: Matt Jon MD Date of Service: 12/21/24 Procedure(s): US breast ndl core bio ea add Accession Number(s): [id number] cc: Valentina Alarcon FABRIC LAY OUT WORKER; Matt Jon MD ADDENDUM ADDENDUM #1 ADDENDUM: [...] 12/21/24 1242 DD/ 0940 TD/TT: 12/21/24 1022 Playroom Attendant: [facility] External Provider IMG US PROCEDURES Edited Result - Final * Mammogram Diagnostic Right (12/21/2024 9:40 AM EDT) Anatomical Region Laterality Modality Breast Right Mammography 12/21/2024 9:40 AM EDT Narrative 12/21/2024 12:45 PM EDT [facility] [address] [place] [address] Mammography Report Signed with Addkeyshawn Patient: Ariana De La Fuente MR#: [id number] : 1950 Acct:[id number] Age/Sex: 74 / F ADM Date: 12/21/24 Loc: HO.MAMMO Attending Dr: Matt Jon MD Ordering Physician: Matt Jon MD Results: Date of Service: 12/21/24 Follow Up: Procedure(s): MM diagnostic mammo unilat RT Accession Number(s): [id number] cc: Valentina Alarcon FABRIC LAY OUT WORKER; Matt Jon MD ADDENDUM ADDENDUM #1 ADDENDUM: [...] Nichols DO in OV> 12/21/24 1242 DD/ 09 TD/TT: 12/21/241023 Playroom Attendant: Procedure Note Donotuseinterpreter, Image - 12/29/2024 [facility] [address] [place] [address] Mammography Report Signed with Mila Patient: Ramya De La Fuente#: [id number] : 1950cct:[id number] Age/Sex: 74 / FADM Date: 12/21/24 Loc: HO.MAMMO Attending Dr: Matt Jon MD Ordering Physician: Matt Jon MDResults: Date of Service: 12/21/24Follow Up: Procedure(s): MM diagnostic mammo unilat RT Accession Number(s): [id number] cc: Valentina Alarcon FABRIC LAY OUT WORKER; Matt Jon MD ADDENDUM ADDENDUM #1 ADDENDUM: [...] signed by Beverly Nichols DO in OV> 04/24/25 1242 DD/ 0940 TD/TT: 12/21/24 1024 Playroom Attendant: [facility] External Provider IMG BI PROCEDURES Edited Result - Final * Lipid Panel, Standard (09/08/2023 4:25 PM EST) Triglycerides 66 <150 mg/dL [facility] Comment:Desirable Triglyceri de: less than 150 mg/dLBorderline High Triglyceride 150-199 mg/dLHigh Triglyceride: 200-499 mg/dLVery High Triglyceride: greater than or equal to 5OO mg/dL Cholesterol 126 <200 mg/dL [facility] Comment:Desirable Cholestero l: less than 200 mg/dLBorderline High Cholesterol: 200-239 mg/dLHigh Cholesterol: greater than 239 mg/dL LDL Cholesterol Calculated 67 <100 mg/dL [facility] Comment:Desirable LDL: less than 100 mg/dLNear Optimal/Above Optimal LDL: 110- 129 mg/dLBorderline High LDL: 130-159 mg/dLHigh LDL: 160-189 mg/dLVery High LDL: greater than or equal to 190 mg/dL HDL Cholesterol 46 >40 mg/dL [facility] Comment:Desirable HDL: great er than 40 mg/dL Note: This HDL assay may give artificially low results in patients with liver disease. Blood Venous blood specimen / Unknown 09/08/2023 4:25 PM EST 09/08/2023 5:55 PM EST Eliane Noyola 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 LAB BLOOD ORDERABLES Final Resu lt [facility] [address] [place], [place] [phone] from Last 3 Months or Most Recently Relevant to Health Maintenance Insurance [facility] [employer] (HMO D-SNP) [place] [id number] Care Teams Director Of Annual Giving Relationship Specialty Start Date End Date Valentina Alarcon NP [address] [place] [id number] PCP - General Family Medicine 06/27/24
--- OUTSIDE RECORDS SUMMARY | 2025-03-14 14:36 | XMS_ITS | Data Portability ---
Author Organization [place] [facility] [place] Medicaid MRI Address [address] [place] [address] Care Team Providers Care Online Media Director Name Role Phone VIRGIL GRAVES Primary Care Provider [phone] VIRGIL GRAVES Referring Provider [phone] MIKA ROCHA Spinal Orthopedic Surgeon CAM Ballard [...] of severe pain and she can continue [id number] pain medications for the mild pain. She [...] tramadol that she takes p.r.n. I did deputy county counsel her on opiate medication use and she voiced her understanding. She will continue the home exercise program and see me as needed. If the knee pain persists we could consider referral to the graphic design specialist for that Not available 09/16/2018 17:12:52 [...] recorded. Procedures epidural steroid injection, lumbar (PROC) 10/08/ 2018 10/08/2 018 MICHELINE In-Office Order, Internal Use Only DO Not Attach Compendium DO Not Attach Compendium, Do Not Delete/merge, [id number] 8 12:16:07 Surgeries None recorded. Imaging None recorded. Medication Orders methylpredn isolone acetate 40 mg/mL suspension for injection 2018 019 [email or web address] Not available 9 14:48:02 tramadol 50 mg tablet [email or web address] [facility] [address], [address] [place], [place], [id number], 9 17:54:20 Voltaren 1 % topical gel [email or web address] [facility] [address], [address] [place], [place], [id number], 9 17:54:20 tramadol 50 mg tablet [email or web address] [facility] [address], [address] [place], [place], [id number], 9 13:30:59 tramadol 50 mg tablet [email or web address] [facility] [address], [address] [place], [place], [id number], 8 16:40:41 betamethaso ne acetate and sodium phos 6 mg/mL suspension for injection 2017 018 [email or web address] 5 Not available 8 09:29:44 Omnipaque 300 mg iodine/mL intravenous solution 2017 018 [email or web address] 5 Not available 8 09:29:45 lidocaine (PF) 10 mg/mL (1 %) injection solution 2017 018 [email or web address] 5 Not available 8 09:29:45 acetaminoph en 300 mg-codeine 30 mg tablet 2017 018 [facility] [address], [address] [facility], [place], [id number], 8 09:36:21 Patient TargetsNo targets recorded. Patient Instructions Encounter Date Encounter Id Patient Instructions Last Modified By Organization Details Last Modified Time 03/22/2018 [id number] dolor de no: instrucciones de cuidado - [neck pain: care instructions] Not available 03/23/2018 09:36:21 01/19/2019 [id number] Reviewed exam findings. Again reviewed treatment options. [...] Recorded Time Impingement syndrome of shoulder region 617258943 Active 2016 Ferny Martienz MD [address] [place] [address], [phone], [facility] 7 14:50:24 Cubital tunnel syndrome Active 2017 Natasha Morris [address] [place], [address], [facility] 8 13:40:44 Carpal tunnel syndrome 66435848 Active Mitch Toussaint M.D. [address] [place] [address], [address], [facility] 6 14:40:56 Low back pain [id number] Hina Toussaint M.D. [address] [place], [address], [facility] 6 14:40:56 Spinal enthesopathy 81769982 Active Mitch Toussaint M.D. [address] [place], [address], [facility] 6 14:40:56 Knee pain Hina Toussaint M.D. [address] [place] [address], [address], [facility] 6 14:40:56 Arthritis of knee 267342800 Active Mitch Toussaint M.D. [address] [place] [address], [address], [facility] 6 14:40:56 Degeneration of lumbar intervertebral disc [id number] Hina Toussaint M.D. [address] [place] [address], [address] 9, [facility] 6 14:51:06 Lumbar spondylosis [id number] Hina Toussaint M.D. [address] [place] [address], [address], [facility] 6 14:40:56 Neuropathy [id number] Hina Toussaint M.D. [address] [place] [address], [address] 9, [facility] 6 14:51:06 Lumbar radiculopathy 089165065 Active FREDY Holder [address] [place] [address], [address], [facility] 14:02:17 Lumbosacral radiculopathy [id number] Hina Toussaint M.D. [address] [place] [address], [address], [facility] 6 14:51:06 Problem Notes None recorded. Procedures Surgical History Date Name Laterality Status Provider Name and Address Organization Details Recorded Time 9 Shoulder Subacromial - LEFT - CS Injection completed Cl Christopher MD [address] [place] [address], [address], [facility] 01/19/2019 08:41:52 9 Trigger Point Injection - RIGHT completed Mitch Toussaint M.D. [address] [place] [address], [address], [facility] 09/16/2018 16:54:11 8 Shoulder Subacromial - LEFT - CS Injection completed Mitch Toussaint M.D. [address] [place] [address], [address], [facility] 03/22/2018 13:40:06 8 RC Generic CS Injection completed Ferny Martinez MD [address] [place] [address], [address], [facility] 01/05/2018 13:41:33 8 RC Generic CS Injection completed Natasha Morris [address] [place] [address], [address], [facility] 12/29/2017 13:39:27 8 Nerve Conduction, 9 - 10 studies completed Mitch Toussaint M.D. [address] [place] [address], [address], [facility] 12/24/2017 08:20:56 8 Needle EMG , 5 muscles or more completed Mitch Toussaint M.D. [address] [place] [address], [address], [facility] 12/24/2017 08:20:54 8 Shoulder Subacromial - LEFT - CS Injection completed Cl Christopher MD [address] [place] [address], [address], [facility] 12/16/2017 14:12:49 8 Shoulder Subacromial - LEFT - CS Injection completed Mitch Toussaint M.D. [address] [place] [address], [address], [facility] 09/23/2017 15:17:35 7 Shoulder Subacromial - LEFT - CS Injection completed Mitch Toussaint M.D. [address] [place], [address], [facility] 07/15/2017 18:22:00 7 Knee CS Injection - Right completed Cl Christopher MD [address] [place], [address], [facility] 05/20/2017 15:06:52 7 Shoulder Subacromial - LEFT - CS Injection completed Fenry Martinez MD [address] [place] [address], [address], [facility] 05/05/2017 14:50:15 7 Carpal Tunnel LEFT CS Injection completed Natasha Morris [address] [place], [address], [facility] 02/22/2017 14:51:45 7 Carpal Tunnel RIGHT CS Injection completed Ferny Martinez MD [address] [place], [address], [facility] 02/17/2017 14:12:37 7 Knee CS Injection - Left completed Mitch Toussaint M.D. [address] [place] [address], [address], [facility] 02/02/2017 16:25:10 6 Knee CS Injection - Right completed Cl Christopher MD [address] [place], [address], [facility] 04/23/2016 17:05:49 6 Knee CS Injection - Right completed Marco Antonio Layton [address] [place], [address], [facility] 11/21/2015 15:48:11 6 Knee CS Injection - Right completed Marco Antonio Layton [address] [place], [address], [facility] 09/10/2015 15:35:15 6 Trigger Point Injection - Bilateral - 2 muscles completed Mitch Toussaint M.D. [address] [place], [address], [facility] 09/03/2015 17:05:31 5 Carpal Tunnel LEFT CS Injection completed Ferny Martinez MD [address] [place] [address], [address], [facility] 08/14/2015 10:00:48 5 Carpal Tunnel RIGHT CS Injection completed Ferny Martinez MD [address] [place], [address], [facility] 08/07/2015 15:32:38 5 Nerve Conduction, 9 - 10 studies completed Mitch Toussaint M.D. [address] [place] [address], [address], [facility] 08/02/2015 11:33:49 5 Needle EMG , 5 muscles or more completed Mitch Toussaint M.D. [address] [place], [address], [facility] 08/02/2015 11:33:49 [...] Available Not Available N ot Available zostavax [id number] unt/0.65ml susr active Not Available Not Available [...] Updated DateTime 09/16/2018 162.56 cm 25.6 kg/m2 88456.26 g Priti Hamilton [facility] 09/16/2018 16:01:35 Date Recorded Body height Body mass index (BMI) Body weight Provider Name and Address Organization Details Last Updated DateTime 01/17/2019 162.56 cm 25.6 kg/m2 95624.26 g Priti Hamilton [facility] 01/17/2019 13:28:06 Date Recorded Body height Body mass index (BMI) Body weight Provider Name and Address Organization Details Last Updated DateTime 01/19/2019 162.56 cm 25.6 kg/m2 52772.26 g Kiik Aguilar [facility] 01/19/2019 08:22:26 Date Recorded Body height Body mass index (BMI) Body weight Provider Name and Address Organization Details Last Updated DateTime 03/22/2018 162.56 cm 25.6 kg/m2 81910.26 home Mitch Toussaint M.D. [address] [place] [address], [address], [facility] 03/22/2018 13:00:26 Date Recorded Body height Body mass index (BMI) Body weight Provider Name and Address Organization Details Last Updated DateTime 06/03/2018 162.56 cm 25.6 kg/m2 58231.26 home Marcos Hamilton [facility] 06/03/2018 14:06:00 Social History Question Answer Notes LastModified by Organizat ion Details LastModified Time Tobacco Smoking Status Never Smoker Alysa burgess [facility] 07/10/2015 14:25:07 Auto Related Injury? No Information not available 07/10/2015 Which Illicit Or Recreational Drugs Have You Used? No Information not available 07/10/2015 What Was The Date Of Your Most Recent Tobacco Screening? 01/19/2019 Information not available 03/24/2019 How Much Tobacco Do You Smoke? No [email or web address] Information not available 07/14/2016 Work Related Injury? No Information not available 07/10/2015 Sex: Unknown Functional Status Question Answer Note LastModified by Organization D etails LastModified Time What is your level of alcohol consumption? None Information not available 07/10/2015 Are you currently employed? No Information not available 07/10/2015 Mental Status None recorded. Family History Relationship [...] Disease/Problems N Breathing Problems N Heart Attack (AL) Y Sexually Transmitted Diseases N Bleeding Disorder/Tendencies [...] SNOMED-CT Code Diagnosis ICD10 Code Diagnosis Note [id number] Ferny [facility] [address] [address] 07/10/2015 14:14:06 07/10/2015 15:29:47 Carpal tunnel syndrome 16936540 G56.01 G56.02 [id number] Mitch Toussaint M.D. OFFICE-N. [facility] ot a [address] [address] 08/02/2015 10:08:15 08/02/2015 10:49:54 Carpal tunnel syndrome 88441661 G56.00 [id number] Ferny Martinez MD OFFICE-N. [facility] ot a [address] [address] 08/07/2015 15:05:18 08/07/2015 15:34:59 Carpal tunnel syndrome 95980806 G56.01 G56.02 [id number] Ferny Martinez MD OFFICE-N. [facility] ot a [address] [address] 08/14/2015 09:24:12 08/14/2015 10:11:59 Carpal tunnel syndrome 20957444 G56.02 [id number] Mitch Toussaint M.D. OFFICE-[facility]. [facility] ot a Service [address] [address] 09/03/2015 14:27:01 09/03/2015 16:59:09 Low back pain 708207448 M54.5 Spinal enthesopathy 1031 7009 M46.00 Knee pain 43849925 M25.5 69 [id number] Marco Antonio Calin OFFICE-N. [facility] a [address] [address] 09/10/2015 13:27:06 09/10/2015 15:08:56 Arthritis of knee 487320837 M17.11 [id number] Cl Christopher MD OFFICE-N. [facility] a [address] [address] 10/24/2015 14:38:57 10/24/2015 15:20:30 Arthritis of knee 564255241 M17.11 [id number] Mitch Toussaint M.D. OFFICE-N. [facility] a [address] [address] 10/29/2015 15:16:53 10/29/2015 15:48:23 Low back pain 067546790 M54.5 Degenerati on of lumbar intervertebral disc 17776038 M51.36 Lumbar spondylosis 43596 0009 M47.816 [id number] SHEILA CADENA D.P.M. OFFICE-N. [facility] a [address] [address] 11/18/2015 14:44:28 11/18/2015 15:18:23 Neuropathy 461316075 G62.9 [id number] Mitch Toussaint M.D. OFFICE-N. [facility] a [address] [address] 11/19/2015 14:22:26 11/19/2015 15:34:09 Lumbar spondylosis 637936040 M47.816 Degenerati on of lumbar intervertebral disc 33418406 M51.36 Neuropathy 301854573 G62 .9 Lumbar radiculopathy 128 597555 M54.16 [id number] Marco Antoino Layton [facility] ot a Service [address] [address] 11/21/2015 14:21:01 11/21/2015 16:02:09 Arthritis of knee 967490520 M17.11 [id number] [place] [address] 12/02/2015 09:40:58 2015 15:04:38 [id number] Mitch Toussaint M.D. [facility] a Service [address] [address] 12/05/2015 14:48:01 12/05/2015 15:31:56 Lumbar spondylosis 606943735 M47.816 Lumbar radiculopathy 128 133707 M54.16 [id number] Mitch Toussaint M.D. OFF[facility]. [facility] ot a Service [address] [address] 01/02/2016 14:09:55 01/02/2016 15:53:59 Lumbar spondylosis 237631408 M47.816 Lumbosacra l radiculopathy 4207442 M54.16 [id number] [place] [address] 01/10/2016 11:24:30 01/28/2016 10:52:43 [id number] Mitch Toussaint M.D. [facility] ot a [address] [address] 01/23/2016 13:48:55 01/23/2016 16:24:55 Lumbosacral radiculopathy 0309410 M54.16 Lumbar radiculopathy 128 151518 M54.16 Neuropathy 433166346 G62 .9 Degenerati on of lumbar intervertebral disc 73251450 M51.36 [id number] FREDY Holder OFFICE-N. [facility] ot a [address] [address] 03/12/2016 13:06:00 03/12/2016 13:59:57 Lumbar radiculopathy 244651040 M54.16 [id number] Marco Antonio Calin OFFICE-N. [facility] ot a [address] [address] 03/19/2016 13:37:20 03/19/2016 14:27:12 Arthritis of knee 737495817 M17.11 [id number] FREDY Holder OFFICE[facility]N. [facility] ot a [address] [address] 04/16/2016 13:56:49 04/16/2016 14:49:54 Lumbar radiculopathy 587830987 M54.16 Lumbar spondylosis 43694 0009 M47.896 Degenerati on of lumbar intervertebral disc 40867409 M51.36 [id number] Cl Christopher MD OFFICE-N. [facility] ot a [address] [address] 04/23/2016 15:00:01 04/23/2016 15:41:54 Arthritis of knee 380635071 M17.11 Tear of me niscus of knee 812412252 S83.231D [id number] Mitch Toussaint M.D. OFFICE-N. [facility] a [address] [address] 05/28/2016 14:14:03 05/28/2016 15:18:23 Lumbosacral radiculopathy 2746104 M54.16 Lumbar radiculopathy 128 729289 M54.16 Neuropathy 018227421 G62 .9 Degenerati on of lumbar intervertebral disc 56546756 M51.36 [id number] FREDY Holder OFFICE-N. [facility] ot a [address] [address] 07/01/2016 13:09:07 07/01/2016 14:02:04 Lumbar radiculopathy 160456333 M54.16 Lumbar spondylosis 73700 0009 M47.896 Lumbosacra l radiculopathy 6754173 M54.16 Degenerati on of lumbar intervertebral disc 16928101 M51.36 [id number] Mitch Toussaint M.D. OFFICE-N. [facility] a [address] [address] 07/14/2016 14:46:25 07/14/2016 15:54:25 Lumbosacral radiculopathy 8197366 M54.16 Lumbar radiculopathy 128 473228 M54.16 Neuropathy 577881407 G62 .9 Degenerati on of lumbar intervertebral disc 60472084 M51.36 [id number] Mitch Toussaint M.D. OFFICE-N. [facility] a [address] [address] 08/18/2016 14:11:25 08/18/2016 15:23:44 Lumbar radiculopathy 821800258 M54.16 Lumbar spondylosis 99365 0009 M47.816 [id number] Mitch Toussaint M.D. OFFICE-N. [facility] a [address] [address] 02/02/2017 14:36:06 02/02/2017 15:54:06 Lumbar radiculopathy 701525940 M54.16 Knee pain 69884421 M25.5 69 Lumbar spondylosis 52270 0009 M47.816 Degenerati on of lumbar intervertebral disc 55731551 M51.36 Bilateral carpal tunnel syndrome 1222731854 1414157 G56.03 [id number] Ferny Martinez MD OFFICE-N. [facility] a [address] [address] 02/17/2017 14:00:03 02/17/2017 14:19:55 Carpal tunnel syndrome 38859176 G56.01 [id number] Natasha Morris OFFICE-N. [facility] a Service [facility] t [address] [place] [address] 02/22/2017 14:26:53 02/22/2017 15:17:55 Carpal tunnel syndrome 98750762 G56.02 [id number] Mitch Toussaint M.D. OFFICE - [address] [address] 03/16/2017 14:06:45 03/16/2017 14:42:22 Lumbar spondylosis 258498138 M47.816 Degenerati on of lumbar intervertebral disc 20736731 M51.36 [id number] Ferny Martinez MD OFFICE - [address] [address] 05/05/2017 14:21:28 05/05/2017 15:31:53 Shoulder joint pain 281152791 M25.519 Impingemen t syndrome of shoulder region 343565895 M75.42 [id number] Mitch Toussaint M.D. OFFICE - [address] [address] 1 05/11/2017 14:53:59 05/11/2017 15:29:00 Lumbar radiculopathy 610940727 M54.16 Knee pain 71477811 M25.5 69 [id number] Cl Christopher MD OFFICE - [address] [address] 05/20/2017 14:19:19 05/20/2017 15:11:20 Knee pain 44944345 M25.561 Arthritis of knee 207851 002 M17.11 Tear of me niscus of knee 171290632 S83.231D [id number] Cl Christopher MD OFFICE - [address] [address] 06/17/2017 14:31:56 06/17/2017 15:45:59 Osteoarthritis of knee 389580125 M17.11 Tear of me niscus of knee 158870990 S83.231D [id number] Mitch Toussaint M.D. OFFICE - [address] [address] 07/15/2017 12:20:31 07/15/2017 14:04:16 Pain of shoulder region 00479619 M25.512 [id number] Mitch Toussaint M.D. OFFICE - [address] [address] 09/23/2017 14:15:44 09/23/2017 15:06:52 Pain of shoulder region 28464625 M25.512 Lumbar spondylosis 79709 0009 M47.816 Degenerati on of lumbar intervertebral disc 85436680 M51.36 [id number] Mitch Toussaint M.D. OFFICE - [address] [address] 1 12/07/2017 12:44:03 12/07/2017 13:29:22 Lumbar radiculopathy 209669007 M54.16 Bilateral carpal tunnel syndrome 0569816135 4044541 G56.03 Pain of le ft shoulder joint 4487863752 6560674 M25.512 [id number] Cl Christopher MD OFFICE - [address] [address] 1 12/16/2017 12:48:48 12/16/2017 14:18:38 Inflammation of rotator cuff tendon 990029668 M65.812 Shoulder joint pain 2679 53000 M25.519 Neck pain 64066081 M54.2 [id number] Mitch Toussaint M.D. OFFICE - [address] [address] 12/20/2017 12:51:48 12/20/2017 13:30:52 Bilateral carpal tunnel syndrome 1329756399 1030386 G56.03 Cubital tu nnel syndrome 78531048 G56.21 [id number] Natasha Morris OFFICE - [address] [address] 12/29/2017 12:54:27 12/29/2017 13:45:37 Cubital tunnel syndrome 76169512 G56.21 Carpal tye arely syndrome 62637452 G56.02 G56.01 [id number] Ferny Martinez MD OFFICE - [address] [address] 01/05/2018 13:29:56 01/05/2018 14:34:55 Cubital tunnel syndrome 46236350 G56.22 [id number] Cl Christopher MD OFFICE - [address] [address] 01/27/2018 13:43:10 01/27/2018 14:44:44 Inflammation of rotator cuff tendon 819341409 M65.812 [id number] Mitch Toussaint M.D. OFFICE - [place] [address] [place] [address] 1 03/22/2018 12:30:42 03/22/2018 13:38:02 Neck pain 23058662 M54.2 Pain of le ft shoulder joint 0445774864 9159879 M25.512 [id number] Mitch Toussaint M.D. OFFICE - [place] [address] [place] [address] 1 06/03/2018 13:52:33 06/03/2018 16:01:30 Lumbar radiculopathy 468132048 M54.16 Low back pain 435434209 M54.5 Lumbar spondylosis 11325 0009 M47.896 Degenerati on of lumbar intervertebral disc 72971566 M51.36 [id number] Mitch Toussaint M.D. OFFICE - [place] [address] [place] [address] 1 09/16/2018 15:26:42 09/16/2018 16:22:54 Lumbar radiculopathy 659625705 M54.16 Myofascial pain 96937974 9 M79.10 [id number] Mitch Toussaint M.D. OFFICE - [place] [address] [place] [address] 1 01/17/2019 13:14:55 01/17/2019 14:02:00 Lumbar radiculopathy 984037997 M54.16 Shoulder joint pain 2679 07014 M25.519 [id number] Cl Christopher MD OFFICE - [place] [address] [place] [address] 1 01/19/2019 08:10:40 01/19/2019 09:05:24 Inflammation of rotator cuff tendon 257671668 M65.812 Health Concerns Section Related Observation LastModified by Organization Detai ls LastModified Time None Recorded Concern Status LastModified by Organization Details LastModified Time None Recorded Advance Directives Directive None Recorded Payers Insurance Date Sequence Insurance Name Policy Number Policy Jain Covered Member ID Jain Member ID Guarantor Name 09/14/2020 [employer] - SPECIALITY CLAIMS (MEDICARE [facility] A) Ariana De La Fuente [id number] Ariana De La Fuente 01/02/2016 1 [place] [facility] Ariana De La Fuente [id number] Ariana Muñoz Leisa 01/02/2016 1 [place] [employer] Ariana E Leisa [id number] Ariana Muñoz Leisa 09/14/[address] [facility] [place] - LONGTERM OPTIONS (MEDICARE - MEDICAID REPLACEMENT ) [id number] Ariana Toni Leisa [id number] Ariana Swaintigua Notes Date Note Type Note Provider Name [...] from 8-3 out of 10 with medications. 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 [address] [place] [address], [address], [facility] 03/22/2018 13:41:14 [...] or home exercise program. Mitch Toussaint M.D. [address] [place] [address], [address], [facility] 06/06/2018 11:15:45 [...] 6 out of 10 Mitch Toussaint M.D. [address] [place] [address], [address], [facility] 09/16/2018 17:13:11 [...] pain or radicular pain Mitch Toussaint M.D. [address] [place] [address], [address], [facility] 01/17/2019 16:40:19 [...] at the left shoulder. Cl Christopher MD [address] [place] [address], [address], [facility] 01/19/2019 08:43:11 OBGyn Episode No OBEpisode recorded.
--- OUTSIDE RECORDS SUMMARY | 2025-03-14 14:36 | XMS_ITS | Clinical Summary ---
Author Organization [employer] [facility] ity Address [address] [place] [address] Care Team Providers Care Quality Assurance Inspector Name Role Phone Unavailable Primary Care Provider [...] - 2023-2 5 season) 2024 Influenza Vaccine (#1) 2025 RSV Immunization Adult Patie nts (1 [...]
== END 2025-03-14 14:09 | disposition home or self-care (01) ==
LOC: HO.HOS 13:43
PROVIDERS: PCP Nurse Practitioner Family; Visit Provider Orthopaedic Surgery
DX: M25.311 Other instability, right shoulder (principal)
CPT/HCPCS: 99203; G2211

== ENCOUNTER → 2025-03-14 13:48 | Outpatient (BNV) | payer OTHER, SELFPAY | PROVIDERS: Visit Provider Radiology Diagnostic Radiology | DX: M19.011 Primary osteoarthritis, right shoulder (principal) | CPT/HCPCS: 73030 ==

== ENCOUNTER 2025-04-26 14:18 | Outpatient (AMB) | payer OTHER, SELFPAY ==
--- NOTE | 2025-04-26 14:23 | MHC.OFFVIS ---
Vital Signs 04/26/25 14:33 Height 5 ft 6 in Weight 140 lb BMI 22.6 Intake Visit Reasons: Right knee pain and giving way Intake Note: Ariana is a 74 year old female who presents with complaints of progressively worsening right knee pain and giving way. She describes her pain as sharp in nature. She has failed the last 6 weeks of conservative treatment. The patient states that because of her right knee instability she has fallen 3-4 times over the last year. Most of the pain is along the medial aspect of her knee. She has tried Tylenol, anti-inflammatory medicines, a home exercise program and physical therapy exercises. At this point her right knee pain and mechanical symptoms interfering with activities of daily living and her ability to sleep well through the night. Cilnical Scientist Required: Yes Cilnical Scientist Services: Cilnical Scientist Present Cilnical Scientist Name: Ernesto Ribeiro [id number] Allergies aspirin Adverse Reaction (Verified 04/26/25 14:33) stomach ache green vegetables Adverse Reaction (Uncoded 03/14/25 13:59) diarrhea Medication List - Last Reconciled 04/26/25 by Dilshad Vargas MD acetaminophen (Tylenol) 325 mg PO QID PRN calcium carbonate-vitamin D3 600 mg-10 mcg (400 unit) tabs PO fluticasone propionate 50 mcg/actuation (Flonase Allergy Relief) 1 spray intranasal DAILY fluticasone propionate 0.05% 1 appl topical BID gabapentin 600 mg PO TID loratadine (Claritin) 10 mg PO DAILY melatonin 10 mg PO BEDTIME PRN metformin 500 mg PO DAILY montelukast (Singulair) 10 mg PO BEDTIME omeprazole 20 mg PO DAILY rosuvastatin 10 mg PO DAILY [facility] Medical History Chronic back pain Post-menopausal Eczema of both external ears Chronic pain of right knee [place] Healthcare maintenance Encounter for screening mammogram for malignant neoplasm of breast Gastroesophageal reflux disease without esophagitis Constipation Chronic right shoulder pain Microscopic hematuria Tinnitus Urticaria Varicose veins of legs 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 2 diabetes mellitus Fibromyalgia Allergic rhinitis Carpal tunnel syndrome Insomnia Memory changes Hyperchloremia GERD (gastroesophageal reflux disease) Diabetes Hypertension Depressed Abnormal ultrasound of breast Surgical History H/O removal of cyst H/O section History of hemiarthroplasty of shoulder Social History Household Members: Other Household Members Other:: alone Alcohol intake: never Comment: only coffee Patient Tobacco Use Status: Never used Tobacco Female Reproductive History Menstrual Age of Menarche: 13 Physical Exam Vital Signs: BMI result Body Mass Index 22.6 Const Other: Well-nourished well-developed very friendly female awake alert and oriented x3 in no acute distress Extrem Other: Bilateral lower extremity examination shows good capillary refill, no skin lesions noted, normal sensation light touch Right knee examination shows a minimal effusion, mild crepitus with range of motion, tenderness along her medial joint line, positive Babar's test, no instability Results Reviewed Results Reviewed: Standing full weight-bearing x-rays of the patient's right knee show mild diffuse joint space narrowing, no acute bony abnormalities Assessment & Plan Assessment & Plan (1) Tear of medial meniscus of right knee: Code(s): S83.241A - Other tear of medial meniscus, current injury, right knee, initial encounter Category: Medical Plan Ms. De La Fuente presents with progressively worsening right knee pain and mechanical symptoms most likely due to a medial meniscus tear. Thus, I will send the patient for an MRI of her right knee for further evaluation. I will see her back once the MRI is completed to discuss the findings and treatment options. I spent 22 minutes in reviewing the patient's records and imaging studies, seeing the patient and documenting in the medical record. Orders: Orders MR shoulder RT wo con 04/27/25 S83.241A - Other tear of medial meniscus, current injury, right knee, initial encounter Coding Level of Care Code Est Pt Level 3 (66808) Complex EM visit Add On G2211 Diagnoses Tear of medial meniscus of right knee S83.241A
[2025-04-26 14:33] VITALS: BMI 22.6
--- OUTSIDE RECORDS SUMMARY | 2025-04-26 15:07 | XMS_ITS | Encounter Summary ---
Author Organization [employer] Address [address] [facility] 7t [place] [address] Care Team Providers Care Side Laster Tack Name Role Phone Valentina Alarcon NP Primary Care Provider [phone] Reason for Visit * Reason Comments Med Refill Encounter Details Date Type Department Care Team ([facility] st Contact Info) Description 12/19/2024 Refill [facility] [address] [place], [place] [phone] Valentina Alarcon NP [address] [place] [address] Psychophysiological insomnia Social History Tobacco Use Types [...] Description 05/22/2025 1:45 PM EDT Office Visit [facility] [address] [place] [address] Valentina Alarcon NP [address] [place] [address] documented as of this encounter Visit Diagnoses Diagnosis Psychophysiological insomnia Persistent disorder of initiating or maintaining sleep documented in this encounter Additional Health Concerns Assessment Noted Time PHQ-9 Depression Total Score: 9 12/05/19 25 3:40 PM EDT documented as of this encounter Care Teams Side Laster Tack Relationship Specialty Start Date End Date Valentina Alarcon NP [address] [place] [phone] PCP - General Family Medicine 06/27/24 documented as of this encounter
--- OUTSIDE RECORDS SUMMARY | 2025-04-26 15:07 | XMS_ITS | Encounter Summary ---
Author Organization [employer] Address [address] [facility] [address] [place] [address] Care Team Providers Care Engineering Operations Leader Name Role Phone Eliane Noyola Primary Care Provider [phone] Anayeli Escamilla MD Primary Care Provide r Valentina Alarcon NP Primary Care Provider [phone] Reason for Visit * Reason Comments Med Refill Encounter Details Date Type Department Care Team (Late st Contact Info) Description 01/09/2024 Refill [facility] [address] [place] [address] Eilane Noyola FNP [address] [place] [address] Social History Tobacco Use Types Packs/Day Years [...] Description 05/22/2025 1:45 PM EDT Office Visit [facility] [address] [place] [address] Valentina Alarcon NP [address] [place] [address] documented as of this encounter Visit Diagnoses Not on filedocumented in this encounter Additional Health Concerns Assessment Noted Time PHQ-9 Depression Total Score: 8 12/29/19 4:22 PM EDT documented as of this encounter Care Teams Engineering Operations Leader Relationship Specialty Start Date End Date Eliane Noyola FNP [address] [place] [address] PCP - General Family Medicine 09/08/23 05/01/24 Anayeli Escamilla MD [address] [place] [phone] PCP - General Internal Medicine 05/02/24 05/24/24 Valentina Alarcon NP [address] [place] [address] PCP - General Family Medicine 06/27/24 documented as of this encounter
--- OUTSIDE RECORDS SUMMARY | 2025-04-26 15:07 | XMS_ITS | Clinical Summary ---
Author Organization [employer] [facility] ity Address [address] [place] [address] Care Team Providers Care Market Research Executive Name Role Phone Unavailable Primary Care Provider [...] Vaccines (1 of 2) 2000 COVID-19 Vaccine (1 - 2023-2 5 season) 2024 Depression Screening 08/30/2024 Influenza Vaccine (#1) 2025 RSV Immunization Adult [...]
--- OUTSIDE RECORDS SUMMARY | 2025-04-26 15:07 | XMS_ITS | Encounter Summary ---
Author Organization [employer] Address [address] [facility] [address] [place] [address] Care Team Providers Care Fitness Instructor Name Role Phone Valentina Alarcon NP Primary Care Provider [phone] Reason for Visit * Reason Comments Med Refill Encounter Details Date Type Department Care Team ([facility] st Contact Info) Description 10/17/2024 Refill [facility] [address] [place], [place] [phone] Valentina Alarcon NP [address] [place], [place] [phone] Social History Tobacco Use Types Packs/Day Years [...] Description 05/22/2025 1:45 PM EDT Office Visit [facility] [address] [place] [address] Valentina Alarcon NP [address] [place] [address] documented as of this encounter Visit Diagnoses Not on filedocumented in this encounter Additional Health Concerns Assessment Noted Time PHQ-9 Depression Total Score: 8 12/29/19 4:22 PM EDT documented as of this encounter Care Teams Fitness Instructor Relationship Specialty Start Date End Date Valentina Alarcon NP [address] [place] [address] PCP - General Family Medicine 06/27/24 documented as of this encounter
--- OUTSIDE RECORDS SUMMARY | 2025-04-26 15:07 | XMS_ITS | Encounter Summary ---
Author Organization [employer] Address [address] [facility] 7[address] [place] [address] Care Team Providers Care Authorization Representative Name Role Phone Valentina Alarcon NP Primary Care Provider [phone] Reason for Visit * Reason Comments Med Refill Encounter Details Date Type Department Care Team ([facility] st Contact Info) Description 02/27/2025 Refill [facility] [address] [place], [place] [phone] Valentina Alarcon NP [address] [place], [place] [phone] 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 2 diabetes mellitus (CMS/HCC) ([facility]/HCC); Ear itching Social History Tobacco Use Types Packs/Day Years [...] Description 05/22/2025 1:45 PM EDT Office Visit [facility] [address] [place] [address] Valentnia Alarcon NP [address] [place] [address] documented as of this encounter Visit Diagnoses Diagnosis 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 2 diabetes mellitus (CMS/HCC) (CMS/HCC) Ear itching documented in this encounter Additional Health Concerns Assessment Noted Time PHQ-9 Depression Total Score: 9 12/05/19 25 3:40 PM EDT documented as of this encounter Care Teams Authorization Representative Relationship Specialty Start Date End Date Valentina Alarcon NP [address] [place] [address] PCP - General Family Medicine 06/27/24 documented as of this encounter
--- OUTSIDE RECORDS SUMMARY | 2025-04-26 15:07 | XMS_ITS | Encounter Summary ---
Author Organization [employer] Address [address] [place] [address] 7 [place] [address] Care Team Providers Care Oracle Manager Name Role Phone Eliane Noyola Primary Care Provider [phone] Anayeli Escamilla MD Primary Care Provide r Valentina Alarcon NP Primary Care Provider [phone] Reason for Visit * Reason Comments Med Refill Encounter Details Date Type Department Care Team (Late st Contact Info) Description 01/13/2024 Refill [facility] [address] [place] [address] Eliane Noyola FNP [address] [place] [address] Social History Tobacco Use Types Packs/Day Years [...] is your housing situation today? I have mavr joyce 09/01/[address] you [...] Description 05/22/2025 1:45 PM EDT Office Visit [facility] [address] [place] [address] Valentina Alarocn NP 230 [place] [address] documented as of this encounter Visit Diagnoses Not on filedocumented in this encounter Additional Health Concerns Assessment Noted Time PHQ-9 Depression Total Score: 8 12/29/19 4:22 PM EDT documented as of this encounter Care Teams Oracle Manager Relationship Specialty Start Date End Date Eliane Noyola FNP [address] [place] [address] PCP - General Family Medicine 09/08/23 05/01/24 Anayeli Escamilla MD [address] [place] [address] [phone] PCP - General Internal Medicine 05/02/24 05/24/24 Valentina Alarcon NP [address] [place] [address] PCP - General Family Medicine 06/27/24 documented as of this encounter
--- OUTSIDE RECORDS SUMMARY | 2025-04-26 15:07 | XMS_ITS | Encounter Summary ---
Author Organization [employer] Address [address] [facility] 7 [place] [address] Care Team Providers Care Environmental Services Project Manager Name Role Phone Valentina Alarcon NP Primary Care Provider [phone] Reason for Visit * Reason Onset Date Comments Med Refill 02/19/2025 Encounter Details Date Type Department Care Team ([facility] st Contact Info) Description 02/19/2025 Telephone [facility] 230 [place], [place] [phone] Valentina Alarcon NP 230 [place] [address] Med Refill Social History Tobacco Use Types Packs/Day Years [...] encounter Miscellaneous Notes * Telephone Encounter - Olivia Neely LPN - 02/19/2025 10:23 AM EDT Medication pended to PCP. * Telephone Encounter - Marycruz Ascencio - 02/19/2025 10:18 AM EDT TC marsha Chiu with nakia requesting medication refill. Medications needing refill : gabapentin (Neurontin) 600 MG tablet [facility] [place], [place] - [address] [place] [address] documented in this encounter Plan of Treatment Upcoming Encounters Date Type Department Care Team (Late st Contact Info) Description 05/22/2025 1:45 PM EDT Office Visit [facility] 230 [place] [address] Valentina Alarcon NP 230 [place] [address] documented as of this encounter Visit Diagnoses Not on filedocumented in this encounter Additional Health Concerns Assessment Noted Time PHQ-9 Depression Total Score: 9 12/05/19 25 3:40 PM EDT documented as of this encounter Care Teams Environmental Services Project Manager Relationship Specialty Start Date End Date Valentina Alarcon NP 230 [place] [address] PCP - General Family Medicine 06/27/24 documented as of this encounter
--- OUTSIDE RECORDS SUMMARY | 2025-04-26 15:07 | XMS_ITS | Clinical Summary ---
Author Organization [employer] Address [address] [facility] 7t [place] [address] Care Team Providers Care Synchro Assembler Name Role Phone Valentina Alarcon ISAIAS Primary Care Provider [phone] Allergies Active Allergy Reactions Criticality Noted Date [...] diabetes mellitus with hyperglycemia, unspecified whether terminal operations supervisor insulin use (CMS/HCC) USE TWO TIMES A DAY (BULK) 100 each 11 09/08/19 25 Active fluticasone (Flonase) 50 MCG/ACT nasal sprayIndication s:Seasonal allergic rhinitis due to pollen Administer 1 spray into each nostril Once per day. 16 g 3 11/07/19 25 Active melatonin 5 MG tablet TAKE ONE TABLET BY MOUTH AT BEDTIME NEEDED FOR INSOMNIA ^1R4 30 tablet 11/08/19 25 Active loratadine (Claritin) 10 MG tablet Take 1 tablet (10 mg) by mouth Once per day. 30 tablet 12/02/19 25 2025 Active clonazePAM (KlonoPIN) 1 [...] TO TEST BLOOD SUGAR (BULK) 100 strip 01/20/20 25 Active omeprazole (PriLOSEC) [address] capsule TAKE ONE CAPSULE BY MOUTH EVERY DAY ^1R1 28 capsule 01/31/20 25 Active losartan (Cozaar) 100 MG tablet Take 1 tablet (100 mg) by mouth Once per day. Take 100 mg by mouth in the morning. 28 tablet 5 01/31/20 25 Active gabapentin (Neurontin) 600 MG tabletIndicatio ns:Fibromyalgia TAKE 1 TABLET BY MOUTH THREE TIMES DAILY ^1R1,1R2,1R4 90 tablet 3 02/20/20 25 Active montelukast (Singulair) 10 MG tablet TAKE ONE TABLET BY MOUTH EVERY DAY ^1R4 28 tablet 1 03/23/20 25 Active rosuvastatin (Crestor) 10 MG tabletIndicatio ns:Hyperlipidem ia due to type 2 diabetes mellitus (CMS/HCC) (CMS/HCC) TAKE ONE TABLET BY MOUTH EVERY DAY ^1R4 30 tablet 3 03/28/20 25 Active polyethylene glycol, PEG, 3350 (Glycolax) 17 GM/SCOOP powder MIX 17 GRAM(S) IN 8 OZ OF WATER AND DRINK BY MOUTH ONCE A DAY NEEDED FOR CONSTIPATION (BULK) 238 g 04/12/20 25 Active fluocinonide (Lidex) 0.05 % external solutionIndicat ions:Ear itching APPLY TOPICALLY TWO TIMES A DAY TO EARS (BULK) 60 mL 04/20/20 25 Active fluticasone (Cutivate) 0.05 % cream APPLY TO AFFECTED AREA(S) TWO TIMES A DAY (BULK) 45 g 04/20/20 25 Active rosuvastatin (Crestor) 10 MG tabletIndicatio ns:Hyperlipidem ia due to type 2 diabetes mellitus (CMS/HCC) (CMS/HCC) Take 1 tablet (10 mg) by mouth Once per day. 30 tablet 3 11/07/19 25 2024 Discontinued fluticasone (Cutivate) 0.05 % cream APPLY TO AFFECTED AREA(S) TWO TIMES A DAY (BULK) 45 g 01/31/20 25 2024 Discontinued polyethylene glycol, PEG, 3350 (Glycolax) 17 GM/SCOOP powder MIX 17 GRAM(S) IN 8 OZ OF WATER AND DRINK BY MOUTH ONCE A DAY NEEDED FOR CONSTIPATION (BULK) 238 g 1 01/31/20 25 2024 Discontinued fluocinonide (Lidex) 0.05 % external solutionIndicat ions:Ear itching Apply topically 2 times daily. To ears 10 mL 02/20/20 25 2024 Discontinued fluocinonide (Lidex) 0.05 % external solutionIndicat ions:Ear itching APPLY TOPICALLY TWO TIMES A DAY TO EARS (BULK) 20 mL 03/28/20 25 2024 Discontinued fluticasone (Cutivate) 0.05 % cream APPLY TO AFFECTED AREA(S) TWO TIMES A DAY (BULK) 45 g 03/28/20 25 2024 Discontinued Active Problems Problem Noted [...] Stanley MD 02/20/2025 01:47 PM EDT RP Ear itching 02/19/2025 Dyspnea on exertion 02/19/2025 [...] barrier, has therapist as well Interested in hungarian speaking provider Dietary counseling 2024 Assessment & [...] (10/25/2023): more on left. per records from [address] [place] [address] Allergic rhinitis 10/25/2023 Fibromyalgia 10/25/2023 Overview (10/25/2023): per records from [address] [place] Hypertension 10/25/2023 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 2 diabetes mellitus ( CMS/HCC) 10/25/2023 Varicose vein of leg 10/25/2023 Urticaria [...] organization. Date Type Department Care Team Description 04/20/2025 Refill [facility] [address] [place] [address] Valentina Alarcon NP Ear itching 04/12/2025 Refill [facility] [address] [place] [address] Valentina Alarcon NP 03/28/2025 Refill [facility] [address] [place] [address] Valentina Alarcon NP Ear itching; 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 2 diabetes mellitus (CMS/HCC) (CMS/HCC) 03/23/2025 Refill [facility] [address] [place] [address] Valentina Alarcon NP 02/27/2025 Refill [facility] [address] [place] [address] Valentina Alarcon NP 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 2 diabetes mellitus (CMS/HCC) (CMS/HCC); Ear itching 02/19/2025 3:15 PM EDT Office Visit [facility] [address] [place] [address] Valentina Alarcon NP Type 2 diabetes mellitus with other specified complication, without long-term current use of insulin ([facility]) (Primary Dx); Abnormal mammogram; Chronic pain of right knee; Cervicalgia; Ear itching; Dyspnea on exertion; Hx of abnormal mammogram 02/19/2025 Orders Only [facility] [address] [place] [address] Valentina Alarcon NP 02/19/2025 Travel 02/19/2025 Telephone [facility] [address] [place] [phone] Valentina Alarcon NP Med Refill 02/17/2025 Refill [facility] [address] [place] [address] Valentina Alarcon NP Fibromyalgia 01/30/[address] [phone] Valentina Alarcon NP Fibromyalgia from Last 3 Months Immunizations Immunization Administration [...] Description 05/22/2025 1:45 PM EDT Office Visit [facility] [address] [place], [place] [phone] Valentina Alarcon NP [address] [place] [address] Health Maintenance Due Date Last Done Comments [...] Additional history exists Depression Monitoring 06/05/2025 2024, 04/07/2 025 Diabetes: Hemoglobin A1C 08/21/2025 025, 06/30/2024, [...] complication, without long-term current use of insulin ([facility]/HCC) POCT GLUCOSE Routine 02/19/2025 3:33 PM EDT Type 2 diabetes mellitus with other specified complication, without long-term current use of insulin (CMS/HCC) BI MAMMOGRAM DIAGNOSTIC RIGHT Routine 12/21/2024 9:40 AM EDT LIPID PANEL, STANDARD Routine 09/08/2023 4:25 PM EST Type 2 diabetes mellitus with hyperosmolarity without coma, without long-term current use of insulin ([facility]) Primary hypertension from Last 3 Months or Most Recently Relevant to Health Maintenance Results * XR CERVICAL SPINE 5V (02/20/2025 1:11 PM EDT) Anatomical Region Laterality Modality Abdomen Radiographic Kadi ging 02/20/2025 1:1 1 PM EDT Narrative 02/20/2025 1:50 [place] [address] XRay Report Signed Patient: Ariana De La Fuente MR#: [id number] : 1950 Acct:[id number] Age/Sex: 74 / F ADM Date: 02/19/25 Loc: HO.HHCX Attending Dr: Valentina Alarcon OPTOMETRY DOCTOR Ordering Physician: Valentina Alarcon NP Date of Service: 02/20/25 Procedure(s): XR cervical spine 5V Accession Number(s): [id number] cc: Valentina Alarcon OPTOMETRY DOCTOR EXAMINATION: XR CERVICAL SPINE CLINICAL INFORMATION: PAIN [...] 02/20/25 1347 DD/ 1311 TD/TT: 02/20/25 1320 Capital Project Engineer: Procedure Note Donotuseinterpreter, Image - 02/20/[address] [address] XRay Report Signed Patient: Ramya De La Fuente#: [id number] : 1950cct:[id number] Age/Sex: 74 / FADM Date: 02/19/25 Loc: .HHCX Attending Dr: Valentina Alarcon OPTOMETRY DOCTOR Ordering Physician: Valentina Alarcon NP Date of Service: 02/20/25 Procedure(s): XR cervical spine 5V Accession Number(s): [id number] cc: Valentina Alarcon OPTOMETRY DOCTOR EXAMINATION: XR CERVICAL SPINE CLINICAL INFORMATION: PAIN [...] 02/20/25 1347 DD/ 1311 TD/TT: 02/20/25 1320 Capital Project Engineer: Valentina Alarcon OPTOMETRY DOCTOR IMG XR PROCEDURES Final Result * XR Knee 4+ Views Right (02/20/2025 12:33 PM EDT) Anatomical Region Laterality Modality Lower Extremities, Knee Right Radiogra phic Imaging 02/20/2025 12:3 3 PM EDT Narrative 02/20/2025 1:52 PM EDT [address] [address] XRay Report Signed Patient: Ariana De La Fuente MR#: [id number] : 1950 Acct:[id number] Age/Sex: 74 / F ADM Date: 02/19/25 [facility]: Valentina Alarcon OPTOMETRY DOCTOR Ordering Physician: Valentina Alarcon NP Date of Service: 02/20/25 Procedure(s): XR knee RT 4V Accession Number(s): [id number] cc: Valentina Alarcon OPTOMETRY DOCTOR EXAMINATION: XR KNEE, RIGHT CLINICAL INFORMATION: suspect [...] 02/20/25 1349 DD/ 1233 TD/TT: 02/20/25 1240 Capital Project Engineer: Procedure Note Donotuseinterpreter, Image - 02/20/[address] [address] XRay Report Signed Patient: Ramya De La Fuente#: [id number] : 1950cct:[id number] Age/Sex: 74 / FADM Date: 02/19/25 Loc: HO.CX Attending Dr: Valentina Alarcon OPTOMETRY DOCTOR Ordering Physician: Valentina Alarcon OPTOMETRY DOCTOR Date of Service: 02/20/25 Procedure(s): XR knee RT 4V Accession Number(s): [id number] cc: Valentina Alarcon OPTOMETRY DOCTOR EXAMINATION: XR KNEE, RIGHT CLINICAL INFORMATION: suspect [...] 02/20/25 1349 DD/ 1233 TD/TT: 02/20/25 1240 Capital Project Engineer: Valentina Alarcon OPTOMETRY DOCTOR IMG XR PROCEDURES Final Result * POCT HGB A1C (02/19/2025 3:33 PM EDT) Hemoglobin A1C 5.8 4.0 - 6.0 % QC Media Lot # [id number] Lot# Expiration Date Blood 02/19/2025 3:33 PM EDT Valentina Alarcon NP POINT OF CARE TEST ENTER/EDIT OR DERABLES Final Result * POCT Glucose (02/19/2025 3:33 PM EDT) Glucose Blood, POC 117 60 - 200 mg/dL QC Media Lot # [id number] Lot# Expiration Date Blood Capillary blood specimen / Unknown 02/19/2025 3:33 PM EDT Valentina Alarcon OPTOMETRY DOCTOR POINT OF CARE TEST ENTER/EDIT OR DERABLES Final Result * Mammogram Diagnostic Right (12/21/2024 9:40 AM EDT) Anatomical Region Laterality Modality Breast Right Mammography 12/21/2024 9:40 AM EDT Narrative 12/21/2024 12:45 PM EDT [facility] [address] [place] [place] [address] Mammography Report Signed with Addenda Patient: Ariana De La Fuente MR#: [id number] : 1950 Acct:[id number] Age/Sex: 74 / F ADM Date: 12/21/24 Loc: HO.MAMMO Attending Dr: Matt Jon MD Ordering Physician: Matt Jon MD Results: Date of Service: 12/21/24 Follow Up: Procedure(s): MM diagnostic mammo unilat RT Accession Number(s): [id number] cc: Valentina Alarcon OPTOMETRY DOCTOR; Matt Jon MD ADDENDUM ADDENDUM #1 ADDENDUM: [...] 12/21/24 1242 DD/ 0940 TD/TT: 12/21/24 1024 Capital Project Engineer: Procedure Note Donotuseinterpreter, Image - 12/29/2024 [facility] [address] [place] [address] Mammography Report Signed with Addenda Patient: Ramya De La Fuente#: [id number] : 1950cct:[id number] Age/Sex: 74 / FADM Date: 12/21/24 Loc: HO.MAMMO Attending Dr: Matt Jon MD Ordering Physician: Matt Jon MDResults: Date of Service: 12/21/24Follow Up: Procedure(s): MM diagnostic mammo unilat RT Accession Number(s): [id number] cc: Valentina Alarcon OPTOMETRY DOCTOR; Matt Jon MD ADDENDUM ADDENDUM #1 ADDENDUM: [...] 12/21/24 1242 DD/ 0940 TD/TT: 12/21/24 1024 Capital Project Engineer: [facility] External Provider IMG BI PROCEDURES Edited Result - Final * Lipid Panel, Standard (09/08/2023 4:25 PM EST) Triglycerides 66 <150 mg/dL [facility] Comment:Desirable Triglyceri de: less than 150 mg/dLBorderline High Triglyceride 150-199 mg/dLHigh Triglyceride: 200-499 mg/dLVery High Triglyceride: greater than or equal to 5OO mg/dL Cholesterol 126 <200 mg/dL [facility] Comment:Desirable Cholestero l: less than 200 mg/dLBorderline High Cholesterol: 200-239 mg/dLHigh Cholesterol: greater than 239 mg/dL LDL Cholesterol Calculated 67 <100 mg/dL [facility] Comment:Desirable LDL: less than 100 mg/dLNear Optimal/Above Optimal LDL: 110- 129 mg/dLBorderline High LDL: 130-159 mg/dLHigh LDL: 160-189 mg/dLVery High LDL: greater than or equal to 190 mg/dL HDL Cholesterol 46 >40 mg/dL [facility] Comment:Desirable HDL: great er than 40 mg/dL Note: This HDL assay may give artificially low results in patients with liver disease. Blood Venous blood specimen / Unknown 09/08/2023 4:25 PM EST 09/08/2023 5:55 PM EST Eliane Dennys CODING TECH LAB BLOOD ORDERABLES Final Resu lt [facility] [address] [place] [address] [phone] from Last 3 Months or Most Recently Relevant to Health Maintenance Insurance [facility] [employer] (HMO D-SNP) [place] [id number] Care Teams Synchro Assembler Relationship Specialty Start Date End Date Valentina Alarcon NP [address] [place] [address] PCP - General Family Medicine 06/27/24
--- OUTSIDE RECORDS SUMMARY | 2025-04-26 15:07 | XMS_ITS | Encounter Summary ---
Author Organization [employer] Address [address] [place] [address] Care Team Providers Care Aircraft Cylinder Mechanic Name Role Phone Eliane Noyola JOHN Primary Care Provider [phone] Anayeli Escamilla MD Primary Care Provide r Valentina Alarcon NP Primary Care Provider [phone] Reason for Visit * Reason Onset Date Comments New Patient 06/18/2023 Encounter Details Date Type Department Care Team (Late st Contact Info) Description 06/18/2023 Telephone [facility] [address] [place], [place] [phone] Rayray Vallecillo MD [address] [place], [place] [phone] New Patient Social History Tobacco Use Types [...] been transfer over to wait 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 EFFECTIVE SINCE 06/18/2023 documented in this encounter Plan of Treatment Upcoming Encounters Date Type Department Care Team (Late st Contact Info) Description 05/22/2025 1:45 PM EDT Office Visit [facility] [address] [place] [address] Valentina Alarcon NP [address] [place] [address] documented as of this encounter Visit Diagnoses Not on filedocumented in this encounter Care Teams Aircraft Cylinder Mechanic Relationship Specialty Start Date End Date Eliane Noyola FNP [address] [place] [address] PCP - General Family Medicine 09/08/23 05/01/24 Anayeli Escamilla MD [address] [place] [address] PCP - General Internal Medicine 05/02/24 05/24/24 Valentina Alarcon NP [address] [place] [address] PCP - General Family Medicine 06/27/24 documented as of this encounter
== END 2025-04-26 14:58 | disposition home or self-care (01) ==
LOC: HO.HOS 14:18
PROVIDERS: Visit Provider Orthopaedic Surgery
DX: S83.241A Other tear of medial meniscus, current injury, right knee, initial encounter (principal)
CPT/HCPCS: 99213; G2211

== ENCOUNTER → 2025-04-26 14:18 | Outpatient (BNVA) | payer OTHER, SELFPAY | PROVIDERS: Visit Provider Orthopaedic Surgery | DX: M25.561 Pain in right knee (principal); S83.241A Other tear of medial meniscus, current injury, right knee, initial encounter | CPT/HCPCS: 99212 ==

== ENCOUNTER 2025-05-07 14:20 | Outpatient (REF) | payer OTHER, SELFPAY ==
--- NOTE | ~2025-05-07 | XR_ITS ---
EXAMINATION: XR CHEST 2 VIEWS HISTORY: near syncope/ LUND COMPARISON: There are no prior studies available for comparison. FINDINGS: PA and lateral views of the chest are submitted. The lungs are expanded and clear. There is no pleural effusion, pneumothorax, or pulmonary vascular congestion. The heart is normal in size. There is calcification of the aortic knob. There is degenerative disc disease of the spine. XR/XR chest 2V IMPRESSION: Clear lungs. Electronically signed by: Valerio Funk MD 05/07/2025 03:14 PM EDT
--- OUTSIDE RECORDS SUMMARY | 2025-05-07 13:30 | XMS_ITS | Encounter Summary ---
Author Organization [employer] Address [address] [place] [address] 7 [place] [address] Care Team Providers Care Boiler/Chiller Operator Name Role Phone Agnes Valentina ISAIAS Primary Care Provider [phone] Reason for Referral * Imaging (Routine) - Pending Review Specialty Diagnoses / Procedures Referred By Jim cardoza Referred To Contact Cardiology Diagnoses Near syncope Dyspnea on exertion Procedures Transthoracic Echo (TTE) Complete Ariana Curtis MD [address] [place] [address] Phone: tel: fax: [address] Phone: tel: fax: Referral ID Status Reason Start Date Expiration Date Visits Requested Visits Authorized [id number] Pending Review Perform Procedure 05/07/2025 05/07/2026 1 1 Reason for Visit * Reason Comments sick visit Encounter Details Date Type Department Care Team (Late st Contact Info) Description 05/07/2025 1:30 PM EDT Office Visit [facility] [address] [place] [address] [phone] Ariana Curtis MD [address] [place], [place] [phone] Near syncope (Primary Dx); Dyspnea on exertion; Lower urinary tract symptoms (LUTS) Social History Tobacco Use Types Packs/Day Years [...] Sign Reading Time Taken Comments Blood Pressure 160/80 05/07/2025 1:17 PM EDT Pulse 90 05/07/2025 1:17 PM EDT Temperature 36.3 C (97.3 F) 05/07/2025 1:17 PM EDT Respiratory Rate 18 05/07/2025 1:17 PM EDT Oxygen Saturation - - Inhaled Oxygen Concentration - - Weight 64.4 kg (142 lb) 05/07/2025 1:17 PM EDT Height 162.6 cm (5' 4 ) 05/07/2025 1:17 PM EDT Body Mass Index 24.37 05/07/2025 1:17 PM EDT documented in this encounter Plan of Treatment Upcoming Encounters Date Type Department Care Team (Late st Contact Info) Description 05/22/2025 1:45 PM EDT Office Visit [facility]INE [address] [place], [place] [phone] Valentina Alarcon NP [address] [place] [address] Pending Results Name Type Priority Associated Diagnoses Date /Time Comprehensive Metabolic Panel Lab Routine Near syncope 05/07/2025 2:38 PM EDT Scheduled Orders Name Type Priority Associated Diagnoses Order Schedule TSH with Reflex to Free T4 Lab Routine Near syncope Expected: 05/07/2025 (Approximate), Expires: 05/07/2026 D-Dimer, Quantitative Lab Routine Near syncope Expected: 05/07/2025 (Approximate), Expires: 05/07/2026 Transthoracic Echo (TTE) Complete Echocardiography Routine Near syncope Dyspnea on exertion Expected: 05/07/2025 (Approximate), Expires: 05/07/2027 Culture, Urine, Routine Microbiology Routine Near syncope Expected: 05/07/2025 (Approximate), Expires: 05/07/2026 documented as of this encounter Procedures Procedure Name Priority Date/Time Associated Diagnosis Comments XR CHEST 2 VIEWS Routine 05/07/2025 3:03 PM EDT Near syncope CBC WITH AUTO DIFFERENTIAL Routine 05/07/2025 2:38 PM EDT Near syncope COMPREHENSIVE METABOLIC PANEL Routine 05/07/2025 2:38 PM EDT Near syncope POCT URINALYSIS DIPSTICK Routine 05/07/2025 2:30 PM EDT Near syncope documented in this encounter Results * XR Chest 2 Views (05/07/2025 3:03 PM EDT) Anatomical Region Laterality Modality Chest Radiographic Kadi ging 05/07/2025 3:03 PM EDT Narrative 05/07/2025 3:16 PM EDT [facility] [address] [place] [address] XRay Report Signed Patient: Ariana De La Fuente MR#: [id number] : 1950 Acct:[id number] Age/Sex: 74 / F ADM Date: 05/07/25 [facility] Att[facility] Dr: Ariana Curtis MD Ordering Physician: Ariana Curtis MD Date of Service: 05/07/25 Procedure(s): XR chest 2V Accession Number(s): [id number] cc: Ariana Curtis MD Reason for Exam: near syncope/ LUND EXAMINATION: XR CHEST 2 VIEWS HISTORY: near syncope/ LUND COMPARISON: There are no prior studies available for comparison. FINDINGS: PA and lateral views of the chest are submitted. The lungs are expanded and clear. There is no pleural effusion, pneumothorax, or pulmonary vascular congestion. The heart is normal in size. There is calcification of the aortic knob. There is degenerative disc disease of the spine. XR/XR chest 2V IMPRESSION: Clear lungs. Electronically signed by: Valerio Funk MD 05/07/2025 03:14 PM EDT RP Dictated By: Valeiro Funk MD Signed By: <Electronically signed by Valerio Funk MD in OV> 05/07/25 1514 DD/ 1503 TD/TT: 05/07/25 1504 Junior Automation Engineer: Procedure Note Donotuseinterpreter, Image - 05/07/2025 [facility] [address] [place] [address] XRay Report Signed Patient: Ariana De La FuenteMR#: [id number] : 1950cct:[id number] Age/Sex: 74 / FADM Date: 05/07/25 Loc: .CX Attending Dr: Ariana Curtis MD Ordering Physician: Ariana Curtis MD Date of Service: 05/07/25 Procedure(s): XR chest 2V Accession Number(s): [id number] cc: Ariana Curtis MD Reason for Exam: near syncope/ LUND EXAMINATION: XR CHEST 2 VIEWS HISTORY: near syncope/ LUND COMPARISON: There are no prior studies available for comparison. FINDINGS: PA and lateral views of the chest are submitted. The lungs are expanded and clear. There is no pleural effusion, pneumothorax, or pulmonary vascular congestion. The heart is normal in size. There is calcification of the aortic knob. There is degenerative disc disease of the spine. XR/XR chest 2V IMPRESSION: Clear lungs. Electronically signed by: Valerio Funk MD 05/07/2025 03:14 PM EDT RP Dictated By: Valerio Funk MD Signed By: <Electronically signed by Valerio Funk MD in OV> 05/07/25 1514 DD/ 1503 TD/TT: 05/07/25 1504 Junior Automation Engineer: Ariana Curtis MD IMG XR PROCEDURES Edited Result - Final * (ABNORMAL) CBC auto differential (05/07/2025 2:38 PM EDT) White Blood Count 7.1 4.8 - 10.8 X10*3/uL [facility] Red Blood Count 3.79(L) 4.20 - 5.50 X10*6/uL [facility] Hemoglobin 11.5(L) 12.0 - 16.0 g/dl [facility] Hematocrit 35.7(L) 37.0 - 47.0 % [facility] Mean Corpuscular Volume 94.2 80.0 - 98.0 fL [facility] Mean Corpuscular Hemoglobin 30.3 27.0 - 33.0 pg [facility] Mean Corpuscular HGB Conc 32.2 31.0 - 35.0 g/dl [facility] Red Cell Distribution Width 13.9 11.0 - 16.0 % [facility] Platelet Count 179 160 - 400 X10*3/uL [facility] Mean Platelet Volume 9.9 9.4 - 12.3 fL [facility] Neutrophils Percent Auto 65.2 45 - 73 % [facility] Imm Gran Pct Auto 0.4 0.0 - 0.4 % [facility] Lymphocytes Percent Auto 25.1 20 - 40 % [facility] Monocytes Percent Auto 8.5 2 - 11 % [facility] Eosinophils Percent Auto 0.4 0 - 4 % [facility] Basophils Percent Auto 0.4 0 - 2 % [facility] NRBC Pct Auto 0.0 0.0 - 0.2 /100WBC [facility] Neutrophils Absolute Auto 4.6 2.0 - 8.3 x10*3/uL [facility] Imm Gran Abs Auto 0.03 0.00 - 0.03 X10*3/uL [facility] Lymphocytes Absolute Auto 1.8 1.2 - 4.9 X10*3/uL [facility] Monocytes Absolute Auto 0.6 0.1 - 1.2 X10*3/uL [facility] Eosinophils Absolute Auto 0.0 0.0 - 0.4 X10*3/uL [facility] Basophils Absolute Auto 0.0 0.0 - 0.2 X10*3/uL [facility] NRBC Abs Auto 0.000 0.0 - 0.012 X10*3/uL [facility] Blood Venous blood specimen / Unknown 05/07/2025 2:38 PM EDT 05/07/2025 4:02 PM EDT us Ariana Curtis MD LAB BLOOD ORDERABLES Fin al Result [facility] [address] [place] [phone] [phone] * (ABNORMAL) POCT Urinalysis (05/07/2025 2:30 PM EDT) Color, UA Yellow Clarity, UA Clear Glucose, UA Negative Bilirubin, UA Negative Ketones, UA Negative Spec Grav, UA 1.015 Blood, UA Positive(A) Negative, None Detected pH, UA 7.0 Protein, UA Negative Urobilinogen, UA 0.2 Leukocytes, UA Trace Negative, Rare, Trace Nitrite, UA Negative Negative, None Detected Appearance, UA clear QC Media Lot # [id number] Lot# Expiration Date Urine 05/07/2025 2:30 PM EDT Ariana Curtis MD POINT OF CARE TEST ENTER /EDIT ORDERABLES Final Result documented in this encounter Visit Diagnoses Diagnosis Near syncope- Primary Dyspnea on exertion Other dyspnea and respiratory abnormality Lower urinary tract symptoms (LUTS) documented in this encounter Additional Health Concerns Assessment Noted Time PHQ-9 Depression Total Score: 9 12/05/19 25 3:40 PM EDT documented as of this encounter Care Teams Boiler/Chiller Operator Relationship Specialty Start Date End Date Valentina Alarcon NP [address] [place] [phone] PCP - General Family Medicine 06/27/24 documented as of this encounter
[2025-05-07 16:09] LABS: MANUAL DIFF FLAG NO
[2025-05-07 16:15] LABS: Hematocrit 35.7 % (37.0-47.0); Hemoglobin 11.5 g/dl (12.0-16.0); Imm Gran Abs Auto 0.03 X10*3/uL (0.00-0.03); Imm Gran Pct Auto 0.4 % (0.0-0.4); Lymphocytes Absolute Auto 1.8 X10*3/uL (1.2-4.9); Mean Corpuscular HGB Conc 32.2 g/dl (31.0-35.0); Mean Corpuscular Hemoglobin 30.3 pg (27.0-33.0); Mean Corpuscular Volume 94.2 fL (80.0-98.0); NRBC Abs Auto 0.000 X10*3/uL (0.0-0.012); NRBC Pct Auto 0.0 /100WBC (0.0-0.2); Platelet Count 179 X10*3/uL (160-400); Red Blood Count 3.79 X10*6/uL (4.20-5.50); White Blood Count 7.1 X10*3/uL (4.8-10.8)
[2025-05-07 16:38] LABS: Alanine Aminotransferase 21 U/L (0-31); Albumin Level 4.2 g/dL (3.5-5.0); Alkaline Phosphatase 65 U/L (39-117); Anion Gap 12 (12-20); Aspartate Amino Transferase 29 U/L (5-31); Blood Urea Nitrogen 9 mg/dL (9-16); Calcium 9.1 mg/dL (8.4-10.2); Carbon Dioxide 27 mmol/L (22-29); Chloride 104 mmol/L (96-108); Cholesterol 141 mg/dL (<200); Estimated Glomerular Filt Rate > 60; HDL Cholesterol 49 mg/dL (>40); Potassium 3.9 mmol/L (3.3-5.1); Sodium 139 mmol/L (135-145); Total Protein 6.9 g/dL (6.5-8.0); Triglycerides 52 mg/dL (<150)
--- OUTSIDE RECORDS SUMMARY | 2025-05-07 16:46 | XMS_ITS | Encounter Summary ---
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) ([facility]/HCC); Ear itching Social History Tobacco Use Types [...] Description 05/22/2025 1:45 PM EDT Office Visit [facility] [address] [place] [address] Valentina Alarcon NP [address] [place] [address] documented as of this encounter Visit Diagnoses Diagnosis 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 2 diabetes mellitus (CMS/HCC) (CMS/HCC) Ear itching documented in this encounter Additional Health Concerns Assessment Noted Time PHQ-9 Depression Total Score: 9 12/05/19 25 3:40 PM EDT documented as of this encounter Care Teams Channel Rougher Relationship Specialty Start Date End Date Valentina Alarcon NP [address] [place] [address] PCP - General Family Medicine 06/27/24 documented as of this encounter
--- OUTSIDE RECORDS SUMMARY | 2025-05-07 16:46 | XMS_ITS | Encounter Summary ---
Author Organization [employer] Address [address] [place] [address] Care Team Providers Care Community Organization Aide Name Role Phone Eliane Noyola JOHN Primary Care Provider [phone] Anayeli Escamilla MD Primary Care Provide r Valentina Alarcon NP Primary Care Provider [phone] Reason for Visit * Reason Onset Date Comments New Patient 06/18/2023 Encounter Details Date Type Department Care Team (Late st Contact Info) Description 06/18/2023 Telephone [facility]INE [address] [place], [place] [phone] Rayray Vallecillo MD [address] [place], [place] [phone] New Patient Social History Tobacco Use Types [...] 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 EFFECTIVE SINCE 06/18/2023 documented in this encounter Plan of Treatment Upcoming Encounters Date Type Department Care Team (Late st Contact Info) Description 05/22/2025 1:45 PM EDT Office Visit [facility] [address] [place] [address] Valentina Alarcon NP [address] [place] [address] documented as of this encounter Visit Diagnoses Not on filedocumented in this encounter Care Teams Community Organization Aide Relationship Specialty Start Date End Date Eliane Noyola FNP [address] [place] [address] PCP - General Family Medicine 09/08/23 05/01/24 Anayeli Escamilla MD [address] [place] [address] PCP - General Internal Medicine 05/02/24 05/24/24 Valentina Alarcon NP [address] [place] [address] PCP - General Family Medicine 06/27/24 documented as of this encounter
--- OUTSIDE RECORDS SUMMARY | 2025-05-07 16:46 | XMS_ITS | Encounter Summary ---
Author Organization [employer] Address [address] [facility] [address] [place] [address] Care Team Providers Care Manager Harbor Name Role Phone Valentina Alarcon NP Primary Care Provider [phone] Reason for Visit * Reason Comments Med Refill Encounter Details Date Type Department Care Team ([facility] st Contact Info) Description 10/17/2024 Refill [facility]INE [address] [place], [place] [phone] Valentina Alarcon NP [address] [place], [place] [phone] Social History Tobacco Use Types Packs/Day Years [...] Description 05/22/2025 1:45 PM EDT Office Visit [facility]INE [address] [place] [address] Valentina Alarcon NP [address] [place] [address] documented as of this encounter Visit Diagnoses Not on filedocumented in this encounter Additional Health Concerns Assessment Noted Time PHQ-9 Depression Total Score: 8 12/29/19 4:22 PM EDT documented as of this encounter Care Teams Manager Harbor Relationship Specialty Start Date End Date Valentina Alarcon NP [address] [place] [address] PCP - General Family Medicine 06/27/24 documented as of this encounter
--- OUTSIDE RECORDS SUMMARY | 2025-05-07 16:46 | XMS_ITS | Encounter Summary ---
Author Organization [employer] Address [address] [facility] 7[address] [place] [address] Care Team Providers Care Financial Dealers Name Role Phone Valentina Alarcon ISAIAS Primary Care Provider [phone] Encounter Details Date Type Department Care Team (Latest Contact Info) Description 05/07/2025 Travel Social History Tobacco Use Types Packs/Day [...] Description 05/22/2025 1:45 PM EDT Office Visit [facility] [address] [place] [address] Valentina Alarcon NP [address] [place] [address] documented as of this encounter Visit Diagnoses Not on filedocumented in this encounter Additional Health Concerns Assessment Noted Time PHQ-9 Depression Total Score: 9 12/05/19 25 3:40 PM EDT documented as of this encounter Care Teams Financial Dealers Relationship Specialty Start Date End Date Valentina Alarcon NP [address] [place] [address] PCP - General Family Medicine 06/27/24 documented as of this encounter
--- OUTSIDE RECORDS SUMMARY | 2025-05-07 16:46 | XMS_ITS | Encounter Summary ---
Author Organization [employer] Address [address] [facility] 7 [place] [address] Care Team Providers Care Hotel Service Manager Name Role Phone Valentina Alarcon NP Primary Care Provider [phone] Reason for Visit * Reason Onset Date Comments Med Refill 02/19/2025 Encounter Details Date Type Department Care Team ([facility] st Contact Info) Description 02/19/2025 Telephone [facility] MEDICINE [address] [place], [place] [phone] Valentina Alarcon NP [address] [place] [address] Med Refill Social History Tobacco Use Types [...] 600 MG tablet [facility] [place], [place] - [address] [place] [address] documented in this encounter Plan of Treatment Upcoming Encounters Date Type Department Care Team (Late st Contact Info) Description 05/22/2025 1:45 PM EDT Office Visit [facility] [address] [place] [address] Valentina Alarcon NP [address] [place] [address] documented as of this encounter Visit Diagnoses Not on filedocumented in this encounter Additional Health Concerns Assessment Noted Time PHQ-9 Depression Total Score: 9 12/05/19 25 3:40 PM EDT documented as of this encounter Care Teams Hotel Service Manager Relationship Specialty Start Date End Date Valentina Alarcon NP [address] [place] [address] PCP - General Family Medicine 06/27/24 documented as of this encounter
--- OUTSIDE RECORDS SUMMARY | 2025-05-07 16:46 | XMS_ITS | Encounter Summary ---
Author Organization [employer] Address [address] [facility] 7 [place] [address] Care Team Providers Care Sales Service Supervisor Name Role Phone Eliane Noyola Primary Care Provider [phone] Anayeli Escamilla MD Primary Care Provide r Valentina Alarcon NP Primary Care Provider [phone] Reason for Visit * Reason Comments Med Refill Encounter Details Date Type Department Care Team (Late st Contact Info) Description 01/09/2024 Refill [facility] [address] [place] [address] Eliane Noyola FNP [address] [place] [address] Social History Tobacco Use Types Packs/Day Years [...] Office Visit [facility] MEDICINE [address] [place] [address] Valentina Alarcon NP [address] [place] [address] documented as of this encounter Visit Diagnoses Not on filedocumented in this encounter Additional Health Concerns Assessment Noted Time PHQ-9 Depression Total Score: 8 12/29/19 4:22 PM EDT documented as of this encounter Care Teams Sales Service Supervisor Relationship Specialty Start Date End Date Eliane Noyola FNP [address] [place] [address] PCP - General Family Medicine 09/08/23 05/01/24 Anayeli Escamilla MD [address] [place] [phone] PCP - General Internal Medicine 05/02/24 05/24/24 Valentina Alarcon NP [address] [place] [address] PCP - General Family Medicine 06/27/24 documented as of this encounter
--- OUTSIDE RECORDS SUMMARY | 2025-05-07 16:46 | XMS_ITS | Encounter Summary ---
Author Organization [employer] Address [address] [facility] 7[address] [place] [address] Care Team Providers Care Transit Proof Machine Operator Name Role Phone Valentina Alarcon NP Primary Care Provider [phone] Reason for Visit * Reason Comments Med Refill Encounter Details Date Type Department Care Team ([facility] st Contact Info) Description 12/19/2024 Refill [facility]INE [address] [place], [place] [phone] Valentina Alarcon NP [address] [place] [address] Psychophysiological insomnia Social History Tobacco Use Types [...] Description 05/22/2025 1:45 PM EDT Office Visit [facility]INE [address] [place] [address] Valentina Alarcon NP [address] [place] [address] documented as of this encounter Visit Diagnoses Diagnosis Psychophysiological insomnia Persistent disorder of initiating or maintaining sleep documented in this encounter Additional Health Concerns Assessment Noted Time PHQ-9 Depression Total Score: 9 12/05/19 25 3:40 PM EDT documented as of this encounter Care Teams Transit Proof Machine Operator Relationship Specialty Start Date End Date Valentina Alarcon NP [address] [place] [phone] PCP - General Family Medicine 06/27/24 documented as of this encounter
--- OUTSIDE RECORDS SUMMARY | 2025-05-07 16:46 | XMS_ITS | Clinical Summary ---
Author Organization [employer] Address [address] [facility] [address] [place] [address] Care Team Providers Care Crime Scene Photographer Name Role Phone Valentina Alarcon ISAIAS Primary Care Provider [phone] Allergies Active Allergy Reactions Criticality Noted Date [...] with hyperglycemia, unspecified whether long term care administrator insulin use (CMS/HCC) USE TWO TIMES A [...] DAY (BULK) 45 g 04/20/20 25 Active sulfamethoxazol e-trimethoprim (Bactrim DS) 800-160 MG tablet Take 1 tablet by mouth 2 times daily for 5 days. 10 tablet 05/07/20 25 2024 Active polyethylene glycol, PEG, 3350 (Glycolax) 17 [...] Active Problems Problem Noted Date Diagnosed Date Near syncope 05/07/2025 Lower urinary tract symptoms (LUTS) 05/07/2025 Hx of abnormal mammogram 03/09/2025 Overview (03/09/2025): [...] barrier, has therapist as well Interested in khmer speaking provider Dietary counseling 2024 Assessment & [...] (10/25/2023): more on left. per records from [address] [place] [address] Allergic rhinitis 10/25/2023 Fibromyalgia 10/25/2023 Overview (10/25/2023): per records from [address] [place] [address] Hypertension 10/25/2023 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 2 diabetes mellitus ( [facility]) 10/25/2023 Varicose vein of leg 10/25/2023 Urticaria 10/25/2023 Tinnitus 10/25/2023 Overview (10/25/2023): [facility] [place] [place] Microscopic hematuria 10/25/2023 Overview (10/25/2023): per [facility] [place] Chronic right shoulder pain 10/25/2023 Assessment & Plan (01/15/2025 11:26 AM EDT): Referral to ortho Constipation 11/17/2018 Gastroesophageal reflux disease without esophagi tis 11/17/2018 Encounters * This document contains information received from the source organization and may not represent a complete record from that organization. Date Type Department Care Team Description 05/07/2025 1:30 PM EDT Office Visit [facility] [address] [place] [address] Ariana Curtis MD Near syncope (Primary Dx); Dyspnea on exertion; Lower urinary tract symptoms (LUTS) 05/07/2025 Travel 05/07/2025 Telephone [facility] [address] [place] [address] Valentina Alarcon NP Nurse Triage 04/20/2025 Refill [facility] [address] [place] [address] Valentina Alarcon NP Ear itching 04/12/2025 Refill [facility] [address] [place] [address] Valentina Alarcon NP 03/28/2025 Refill [facility] [address] [place] [address] Valentina Alarcon NP Ear itching; 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 2 diabetes mellitus (CMS/HCC) (CMS/HCC) 03/23/2025 Refill [facility] [address] [place] [address] Valentina Alarcon NP 02/27/2025 Refill [facility] [address] [place] [address] Valentina Alarcon NP 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 2 diabetes mellitus (CMS/HCC) (CMS/HCC); Ear itching 02/19/2025 3:15 PM EDT Office Visit [address] [address] Valentina Alarcon NP Type 2 diabetes mellitus with other specified complication, without long-term current use of insulin ([facility]) (Primary Dx); Abnormal mammogram; Chronic pain of right knee; Cervicalgia; Ear itching; Dyspnea on exertion; Hx of abnormal mammogram 02/19/2025 Orders Only [address] [address] Valentina Alarcon NP 02/19/2025 Travel 02/19/[address] [address] Valentina Alarcon NP Med Refill 02/17/[address] [address] Valentina Alarcon NP Fibromyalgia from Last 3 [...] 18 05/07/2025 1:17 PM EDT Oxygen Saturation 97% 02/19/2025 3:14 PM EDT Inhaled Oxygen Concentration - - Weight 64.4 kg (142 lb) 05/07/2025 1:17 PM EDT Height 162.6 cm (5' 4 ) 05/07/2025 1:17 PM EDT Body Mass Index 24.37 05/07/2025 1:17 PM EDT Plan of Treatment Upcoming Encounters Date Type Department Care Team (Late st Contact Info) Description 05/22/2025 1:45 PM EDT Office Visit [facility] [address] [place], [place] [phone] Valentina Alarcon NP [address] [place], [place] [phone] Health Maintenance Due Date Last Done Comments CT Colonography 1950 Colonoscopy 1950 Colorectal Cancer Screening 1950 FIT DNA/Cologuard 1950 FIT 1950 FOBT 1950 Sigmoidoscopy 1950 Diabetes: Foot Exam 1960 Eye Exam 1960 Hepatitis C Screening 1968 Diabetes: Urine Protein Screening 1969 Lipid Panel 09/08/2024 05/07/2025, 09/08/2023 COVID-19 Vaccine ( season) 2025 06/03/2023, 12/20/2021, 07/28/2021, Additional history exists Influenza Vaccine (#1) 2025 , 06/03/2023, 06/08/2022, [...] Routine 05/07/2025 3:03 PM EDT Near syncope COMPREHENSIVE METABOLIC PANEL Routine 05/07/2025 2:38 PM EDT Near syncope CBC WITH AUTO DIFFERENTIAL Routine 05/07/2025 2:38 PM EDT Near syncope LIPID PANEL, STANDARD Routine 05/07/2025 2:38 PM EDT 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 2 diabetes mellitus (CMS/HCC) ([facility]) POCT URINALYSIS DIPSTICK Routine 05/07/2025 2:30 PM EDT Near syncope XR CERVICAL SPINE 5V Routine 02/20/2025 1:11 PM EDT XR KNEE 4+ VIEWS RIGHT Routine 12:33 PM EDT Chronic pain of right knee POCT GLYCATED HEMOGLOBIN, TOTAL Routine 02/19/2025 3:33 PM EDT Type 2 diabetes mellitus with other specified complication, without long-term current use of insulin ([facility]) POCT GLUCOSE Routine 02/19/2025 3:33 PM EDT Type 2 diabetes mellitus with other specified complication, without long-term current use of insulin ([facility]) BI MAMMOGRAM DIAGNOSTIC RIGHT Routine 12/21/2024 9:40 AM EDT from Last 3 Months or Most Recently Relevant to Health Maintenance Results * XR Chest 2 Views (05/07/2025 3:03 PM EDT) Anatomical Region Laterality Modality Chest Radiographic Kadi ging 05/07/2025 3:03 PM EDT Narrative 05/07/2025 3:16 PM EDT [address] [address] XRay Report Signed Patient: Ariana De La Fuente MR#: [id number] : 1950 Acct:[id number] Age/Sex: 74 / F ADM Date: 05/07/25 Loc: .HHCX Attending Dr: Ariana Curtis MD Ordering Physician: Ariana Curtis MD Date of Service: 05/07/25 Procedure(s): XR chest 2V Accession Number(s): [id number] cc: Ariana Curtis MD Reason for Exam: [...] 05/07/25 1514 DD/ 1503 TD/TT: 05/07/25 1504 Client Services Analyst: Procedure Note Donotuseinterpreter, Image - 05/07/2025 [place] [address] XRay Report Signed Patient: Ramya De La Fuente#: [id number] : 1950cct:[id number] Age/Sex: 74 / FADM Date: 05/07/25 Loc: HO.HHCX Attending Dr: Ariana Curtis MD Ordering Physician: Ariana Curtis MD Date of Service: 05/07/25 Procedure(s): XR chest 2V Accession Number(s): [id number] cc: Ariana Curtis MD Reason for Exam: [...] 05/07/25 1514 DD/ 1503 TD/TT: 05/07/25 1504 Client Services Analyst: Ariana Curtis MD IMG XR PROCEDURES Edited Result - Final * (ABNORMAL) CBC auto differential (05/07/2025 2:38 PM EDT) White Blood Count 7.1 4.8 - 10.8 X10*3/uL [facility] Red Blood Count 3.79(L) 4.20 - 5.50 X10*6/uL [facility] Hemoglobin 11.5(L) 12.0 - 16.0 g/dl [facility] Hematocrit 35.7(L) 37.0 - 47.0 % [facility] Mean Corpuscular Volume 94.2 80.0 - 98.0 fL [facility] Mean Corpuscular Hemoglobin 30.3 27.0 - 33.0 pg [facility] Mean Corpuscular HGB Conc 32.2 31.0 - 35.0 g/dl [facility] Red Cell Distribution Width 13.9 11.0 - 16.0 % [facility] Platelet Count 179 160 - 400 X10*3/uL [facility] Mean Platelet Volume 9.9 9.4 - 12.3 fL [facility] Neutrophils Percent Auto 65.2 45 - 73 % [facility] Imm Gran Pct Auto 0.4 0.0 - 0.4 % [facility] Lymphocytes Percent Auto 25.1 20 - 40 % [facility] Monocytes Percent Auto 8.5 2 - 11 % [facility] Eosinophils Percent Auto 0.4 0 - 4 % [facility] Basophils Percent Auto 0.4 0 - 2 % [facility] NRBC Pct Auto 0.0 0.0 - 0.2 /100WBC [facility] Neutrophils Absolute Auto 4.6 2.0 - 8.3 x10*3/uL [facility] Imm Gran Abs Auto 0.03 0.00 - 0.03 X10*3/uL [facility] Lymphocytes Absolute Auto 1.8 1.2 - 4.9 X10*3/uL [facility] Monocytes Absolute Auto 0.6 0.1 - 1.2 X10*3/uL [facility] Eosinophils Absolute Auto 0.0 0.0 - 0.4 X10*3/uL [facility] Basophils Absolute Auto 0.0 0.0 - 0.2 X10*3/uL [facility] NRBC Abs Auto 0.000 0.0 - 0.012 X10*3/uL [facility] Blood Venous blood specimen / Unknown 05/07/2025 2:38 PM EDT 05/07/2025 4:02 PM EDT Ariana Curtis MD LAB BLOOD ORDERABLES Fin al Result [facility] [address] [place] [phone] * (ABNORMAL) POCT Urinalysis (05/07/2025 2:30 [...] CARE TEST ENTER /EDIT ORDERABLES Final Result * XR CERVICAL SPINE 5V (02/20/2025 1:11 PM EDT) Anatomical Region Laterality Modality Abdomen Radiographic Kadi ging 02/20/2025 1:11 PM EDT Narrative 02/20/2025 1:50 PM EDT [address] [address] XRay Report Signed Patient: Ariana De La Fuente MR#: [id number] : 1950 Acct:[id number] Age/Sex: 74 / F ADM Date: 02/19/25 [facility] Dr: Valentina Alarcon STONEMASON HELPER Ordering Physician: Valentina Alarcon STONEMASON HELPER Date of Service: 02/20/25 Procedure(s): XR cervical spine 5V Accession Number(s): [id number] cc: Valentina Alarcon STONEMASON HELPER EXAMINATION: XR CERVICAL SPINE CLINICAL INFORMATION: PAIN [...] 02/20/25 1347 DD/ 1311 TD/TT: 02/20/25 1320 Client Services Analyst: Procedure Note Donotuseinterpreter, Image - 02/20/2025 [facility] [address] [place] [address] XRay Report Signed Patient: Ariana De La FuenteMR#: [id number] : 1950cct:[id number] Age/Sex: 74 / FADM Date: 02/19/25 Loc: HO.CX Attending Dr: Valentina Alarcon STONEMASON HELPER Ordering Physician: Graef,Valentina B STONEMASON HELPER Date of Service: 02/20/25 Procedure(s): XR cervical spine 5V Accession Number(s): [id number] cc: Valentina Alarcon STONEMASON HELPER EXAMINATION: XR CERVICAL SPINE CLINICAL INFORMATION: PAIN [...] 02/20/25 1347 DD/ 1311 TD/TT: 02/20/25 1320 Client Services Analyst: us Valentina Alarcon STONEMASON HELPER IMG XR PROCEDURES Final Result * XR Knee 4+ Views Right (02/20/2025 12:33 PM EDT) Anatomical Region Laterality Modality Lower Extremities, Knee Right Radiogra phic Imaging 02/20/2025 12:3 3 PM EDT Narrative 02/20/2025 1:52 PM EDT [address] [address] XRay Report Signed Patient: Ariana De La Fuente MR#: [id number] : 1950 Acct:[id number] Age/Sex: 74 / F ADM Date: 02/19/25 Loc: HO.HHCX Attending Dr: Valentina Alarcon STONEMASON HELPER Ordering Physician: Valentina Alarcon NP Date of Service: 02/20/25 Procedure(s): XR knee RT 4V Accession Number(s): [id number] cc: Valentina Alarcon STONEMASON HELPER EXAMINATION: XR KNEE, RIGHT CLINICAL INFORMATION: suspect [...] 02/20/25 1349 DD/ 1233 TD/TT: 02/20/25 1240 Client Services Analyst: Procedure Note Donotuseinterpreter, Image - 02/20/2025 [place] [address] XRay Report Signed Patient: Ramya De La Fuente#: [id number] : 1950cct:[id number] Age/Sex: 74 / FADM Date: 02/19/25 Loc: .HHCX Attending Dr: Valentina Alracon STONEMASON HELPER Ordering Physician: Valentina Alarcon STONEMASON HELPER Date of Service: 02/20/25 Procedure(s): XR knee RT 4V Accession Number(s): [id number] cc: Valentina Alarcon STONEMASON HELPER EXAMINATION: XR KNEE, RIGHT CLINICAL INFORMATION: suspect [...] 02/20/25 1349 DD/ 1233 TD/TT: 02/20/25 1240 Client Services Analyst: Valentina Alarcon STONEMASON HELPER IMG XR PROCEDURES Final Result * POCT HGB A1C (02/19/2025 3:33 PM EDT) Hemoglobin A1C 5.8 4.0 - 6.0 % QC Media Lot # [id number] Lot# Expiration Date 72 Blood 02/19/2025 3:33 PM EDT Valentina Alarcon NP POINT OF CARE TEST ENTER/EDIT OR DERABLES Final Result * POCT Glucose (02/19/2025 3:33 PM EDT) Glucose Blood, POC 117 60 - 200 mg/dL QC Media Lot # [id number] Lot# Expiration Date 103,025 Blood Capillary blood specimen / Unknown 02/19/2025 3:33 PM EDT Valentina Alarcon STONEMASON HELPER POINT OF CARE TEST ENTER/EDIT OR DERABLES Final Result * Mammogram Diagnostic Right (12/21/2024 9:40 AM EDT) Anatomical Region Laterality Modality Breast Right Mammography 12/21/2024 9:40 AM EDT Narrative 12/21/2024 12:45 PM EDT [facility] [address] [place], [place] [address] Mammography Report Signed with Addenda Patient: Ariana De La Fuente MR#: [id number] : 1950 Acct:[id number] Age/Sex: 74 / F ADM Date: 12/21/24 Loc: HO.MAMMO Attending Dr: Matt Jon MD Ordering Physician: Matt Jon MD Results: Date of Service: 12/21/24 Follow Up: Procedure(s): MM diagnostic mammo unilat RT Accession Number(s): [id number] cc: Valentina Alarcon STONEMASON HELPER; Matt Jon MD ADDENDUM ADDENDUM #1 ADDENDUM: [...] 12/21/24 1242 DD/ 0940 TD/TT: 12/21/24 1024 Client Services Analyst: Procedure Note Donotuseinterpreter, Image - 12/29/2024 [facility] [address] [place] [address] Mammography Report Signed with Addkeyshawn Patient: Ramya De La Fuente#: [id number] : 1950cct:[id number] Age/Sex: 74 / FADM Date: 12/21/24 Loc: HO.MAMMO Attending Dr: Matt Jon MD Ordering Physician: Matt Jon MDResults: Date of Service: 12/21/24Follow Up: Procedure(s): MM diagnostic mammo unilat RT Accession Number(s): [id number] cc: Valentina Alarcon STONEMASON HELPER; Matt Jon MD ADDENDUM ADDENDUM #1 ADDENDUM: [...] 12/21/24 1242 DD/ 0940 TD/TT: 12/21/24 1024 Client Services Analyst: [facility] External Provider IMG BI PROCEDURES Edited Result - Final from Last 3 Months or Most Recently Relevant to Health Maintenance Insurance [employer] (HMO D-SNP) [place] [id number] Care Teams Crime Scene Photographer Relationship Specialty Start Date End Date Valentina Alarcon NP [address] [place] [address] PCP - General Family Medicine 06/27/24
--- OUTSIDE RECORDS SUMMARY | 2025-05-07 16:46 | XMS_ITS | Encounter Summary ---
Author Organization [employer] Address [address] [facility] [address] [place] [address] Care Team Providers Care Tugboat Operator Name Role Phone Eliane Noyola Primary Care Provider [phone] Anayeli Escamilla MD Primary Care Provide r Valentina Alarcon NP Primary Care Provider [phone] Reason for Visit * Reason Comments Med Refill Encounter Details Date Type Department Care Team (Late st Contact Info) Description 01/13/2024 Refill [facility] [address] [place] [address] Eliane Noyola FNP [address] [place] [address] Social History Tobacco Use Types Packs/Day Years [...] 05/22/2025 1:45 PM EDT Office Visit [facility] [address] [place] [address] Valentina Alarcon NP [address] [place] [address] documented as of this encounter Visit Diagnoses Not on filedocumented in this encounter Additional Health Concerns Assessment Noted Time PHQ-9 Depression Total Score: 8 12/29/19 4:22 PM EDT documented as of this encounter Care Teams Tugboat Operator Relationship Specialty Start Date End Date Eliane Noyola FNP [address] [place] [address] PCP - General Family Medicine 09/08/23 05/01/24 Anayeli Escamilla MD [address] [place] [phone] PCP - General Internal Medicine 05/02/24 05/24/24 Valentina Alarcon NP [address] [place] [address] PCP - General Family Medicine 06/27/24 documented as of this encounter
--- OUTSIDE RECORDS SUMMARY | 2025-05-07 16:46 | XMS_ITS | Encounter Summary ---
Author Organization [employer] Address [address] [facility] [address] [place] [address] Care Team Providers Care Asset Management Analyst Name Role Phone Valentina Alarcon NP Primary Care Provider [phone] Reason for Visit * Reason Onset Date Comments Nurse Triage 05/07/2025 Encounter Details Date Type Department Care Team ([facility] st Contact Info) Description 05/07/2025 Telephone [facility] [address] [place], [place] [phone] Valentina Alarcon NP [address] [place] [address] Nurse Triage Social History Tobacco Use Types Packs/Day Years [...] encounter Miscellaneous Notes * Telephone Encounter - Michelle Hurtado RN - 05/07/2025 8:29 AM EDT Call returned to Ariana De La Fuente to triage below at [phone]. Denies having had any fall. Denies any dizziness or lightheadedness. Pt states did not have any loss of consciousness. Pt states SBP of 158. This was after taking meds. Pt states also having bilateral pedal edema x 1 week. Does improve with elevation. No hand or face numbness. Pt gave verbal consent to speak with son to discuss maria antonia kline for call. Call to pt son at number listed. Son was not available per female who answered. Call returned to patient. Agrees to sick onsite with team provider to discuss concerns of elevated BP bilateral pedal edema. Protocol Used: Leg Swelling and Edema (Adult) Protocol-Based Disposition: See in Office or Video Visit Today Future Appointments Date Time Provider Department Center 05/07/2025 1:30 PM Ariana Curtis MD MEDICINE [facility] 05/22/2025 1:45 PM Valentina Alarcon NP MEDICINE [facility] Insurance verified as active per Real Time Eligibility in [facility]. Positive Triage Question: * Moderate swelling of both ankles (e.g., swelling extends up to the knees) AND new-onset or getting worse * All higher-acuity triage questions were negative Care Advice Discussed: * Reasons To Call Back - Swelling becomes worse - Calf pain occurs and becomes constant - You become worse * Telephone Encounter - Amanda Sarmiento - 05/07/2025 8:18 AM EDT Symptom: Fall Outcome: Transfer to a nurse or provider NOW! Reason: Was knocked out (was unconscious) The caller accepted this outcome. Contact pt at [phone] documented in this encounter Plan of Treatment Upcoming Encounters Date Type Department Care Team (Late st Contact Info) Description 05/22/2025 1:45 PM EDT Office Visit [facility] [address] [place] [address] Valentina Alarcon NP [address] [place] [address] documented as of this encounter Visit Diagnoses Not on filedocumented in this encounter Additional Health Concerns Assessment Noted Time PHQ-9 Depression Total Score: 9 12/05/19 25 3:40 PM EDT documented as of this encounter Care Teams Asset Management Analyst Relationship Specialty Start Date End Date Valentina Alarcon NP [address] [place] [address] PCP - General Family Medicine 06/27/24 documented as of this encounter
[2025-05-07 17:01] LABS: Vitamin B12 329 pg/mL (200-900)
== END 2025-05-07 14:21 | disposition home or self-care (01) ==
LOC: HO.HHCX 14:20
PROVIDERS: Nurse Practitioner Family; PCP Internal Medicine; Visit Provider Internal Medicine
DX: E11.69 Type 2 diabetes mellitus with other specified complication (principal); R55 Syncope and collapse; E78.5 Hyperlipidemia, unspecified; E11.00 Type 2 diabetes mellitus with hyperosmolarity without nonketotic hyperglycemic-hyperosmolar coma (NKHHC)
CPT/HCPCS: 36415; 71046; 80053; 80061; 82607; 84443; 85025; 87086

== ENCOUNTER → 2025-05-07 14:51 | Outpatient (BNV) | payer OTHER, SELFPAY | PROVIDERS: PCP Internal Medicine; Visit Provider Radiology Diagnostic Radiology | DX: R55 Syncope and collapse (principal) | CPT/HCPCS: 71046 ==

== ENCOUNTER → 2025-05-16 13:01 | Outpatient (REF) | payer OTHER, SELFPAY ==
--- NOTE | 2025-05-16 13:04 | CA_ITS ---
Transthoracic Echocardiogram Patient (Last, First, Middle): Ariana De La Fuente, Gender: Female Date of : 1950 Age: 74 Procedure Date: 05/16/2025 Procedure Type: Transthoracic Echocardiogram Location: OP Height: 162.56 cm Weight: 73.51 kg BSA: 1.79 m2 Heart Rate: 88 bpm BP: 162 / 80 mmHg Manager Rail: SB Referring MD: Ariana Curtis MD Symptoms: NEAR SYNCOPE R55 Study Quality: Adequate ECG Rhythm: Sinus Conclusions: - The left ventricular systolic function is normal. The calculated ejection fraction is 66% by biplane method. - No obvious valvular pathology seen on this study. Findings Left Ventricle Normal left ventricular cavity size. There is normal left ventricular wall thickness. The left ventricular systolic function is normal. The calculated ejection fraction is 66% by biplane method. There is no evidence of regional wall motion abnormalities. Diastolic function is normal for age. Right Ventricle Normal right ventricular cavity size and systolic function. Atria Both atria are normal in size. Aortic Valve There is a normal trileaflet aortic valve. There is mild calcification of the aortic valve. There is no aortic valve stenosis. There is no aortic valve regurgitation. Mitral Valve The mitral valve appears normal. There is no mitral valve regurgitation. There is no mitral valve stenosis. Pulmonic Valve The pulmonic valve is likely normal. Tricuspid Valve Normal tricuspid valve structure. There is trace tricuspid valve regurgitation. There is no evidence of pulmonary hypertension. Great Vessels The asc aorta is normal in size. Venous The inferior vena cava is normal in size and collapses greater than 50% with inspiration. Pericardium/Pleural There is no evidence of pericardial effusion. Prior Study Comparison No prior study available for comparison. Recommendations, Care & Conclusions No obvious valvular pathology seen on this study. Measurements 2D Linear Measurements IVSd: 0.92 0.6-0.9/0.6-1.0 cm LVIDd: 4.43 3.9-5.3/4.2-5.9 cm LVIDd Index: 2.47 2.4-3.2/2.2-3.1 cm/m2 LVIDs: 2.50 2.0-3.6 cm LVPWd: 0.84 0.7-1.1 cm LA Diam: 2.90 2.7-3.8/3.0-4.0 cm LAIDs Index: 1.62 1.5-2.3 cm/m2 LV Mass: 156.61 67-162/88-224 g LV Mass Index: 87.49 43-95/49-115 g/m2 LVOT Diam: 1.90 3.0+(-)1.3 cm 2D Systolic Function EF 4C: 55.90 >55% EF 2C: 72.70 >55% EF BiP: 65.50 >55% Mitral Valve MV Pk E: 0.73 MV PK A: 0.87 MV Decel Time: 217.00 E/A: 0.80 E'Lateral: 5.66 E'Medial: 6.20 E/E' Med: 11.70 E/E' Lat: 12.90 PHT: 63.00 MVA PHT: 3.49 Decel Sargent: 3.36 Aortic Valve AoV Pk Luis Armando: 2.05 AoV Mn Luis Armando: 1.33 AoV VTI: 0.35 AoV Pk Grad: 17.00 Aov Mn Grad: 9.00 DANYEL Cont.VTI: 1.89 LVOT LVOT Pk Luis Armando: 1.34 LVOT Mn Luis Armando: 0.82 LVOT VTI: 0.23 LVOT Pk Grad: 7.00 LVOT Mn Grad: 4.00 LVOT Diam: 1.90 LVOT Area: 2.84 Diastolic Function MV Pk E: 0.73 MV Pk A: 0.87 E/A: 0.80 E'Medial: 6.20 E/E' Med: 11.70 E' Laterial: 5.66 E/E' Lat: 12.90 Right Ventricle TAPSE (mm): 19.50 TVS' Luis Amrando: 20.70 Tricuspid Valve RA Press: 3.00 Great Vessels Aorta Sinus of Valsalva: 3.30 2.0-3.5 cm Ao Asc: 3.10 2.1-3.4 cm Pulmonary Veins Pulm Vein S/D 1.70 Pulmonary Valve PV Pk Luis Armando: 0.99 Peak PV Grad: 4.00 Updated in Other Vendor System with Status of Final Devon Guardado MD electronically signed on 05/18/2025 9:14:01 AM with status of Final
--- OUTSIDE RECORDS SUMMARY | 2025-05-16 16:29 | XMS_ITS | Encounter Summary ---
Author Organization [employer] Address [address] [facility] 7 [place] [address] Care Team Providers Care Vice President And Portfolio Manager Name Role Phone Valentina Alarcon NP Primary Care Provider [phone] Reason for Visit * Reason Comments Med Refill Encounter Details Date Type Department Care Team ([facility] st Contact Info) Description 12/19/2024 Refill [facility] [address] [place], [place] [phone] Valentina Alarcon NP [address] [place] [address] Psychophysiological insomnia Social History Tobacco Use Types [...] 05/22/2025 1:45 PM EDT Office Visit [facility] [address] [place] [address] Valentina Alarcon NP [address] [place] [address] documented as of this encounter Visit Diagnoses Diagnosis Psychophysiological insomnia Persistent disorder of initiating or maintaining sleep documented in this encounter Additional Health Concerns Assessment Noted Time PHQ-9 Depression Total Score: 9 12/05/19 25 3:40 PM EDT documented as of this encounter Care Teams Vice President And Portfolio Manager Relationship Specialty Start Date End Date Valentina Alarcon NP [address] [place] [id number] PCP - General Family Medicine 06/27/24 documented as of this encounter
--- OUTSIDE RECORDS SUMMARY | 2025-05-16 16:29 | XMS_ITS | Encounter Summary ---
Author Organization [employer] Address [address] [facility] [address] [place] [address] Care Team Providers Care Wheat Cleaner Name Role Phone Eliane Noyola Primary Care Provider [phone] Anayeli Escamilla MD Primary Care Provide r Valentina Alarcon NP Primary Care Provider [phone] Reason for Visit * Reason Comments Med Refill Encounter Details Date Type Department Care Team (Late st Contact Info) Description 01/09/2024 Refill [facility] MEDICINE [address] [place] [address] Eliane Noyola FNP [address] [place] [address] Social History Tobacco Use Types Packs/Day Years [...] Description 05/22/2025 1:45 PM EDT Office Visit [facility] MEDICINE [address] [place] [address] Valentina Alarcon NP [address] [place] [address] documented as of this encounter Visit Diagnoses Not on filedocumented in this encounter Additional Health Concerns Assessment Noted Time PHQ-9 Depression Total Score: 8 12/29/19 4:22 PM EDT documented as of this encounter Care Teams Wheat Cleaner Relationship Specialty Start Date End Date Eliane Noyola FNP [address] [place] [address] PCP - General Family Medicine 09/08/23 05/01/24 Anayeli Escamilla MD [address] [place] [address] [id number] PCP - General Internal Medicine 05/02/24 05/24/24 Valentina Alarcon NP [address] [place] [id number] PCP - General Family Medicine 06/27/24 documented as of this encounter
--- OUTSIDE RECORDS SUMMARY | 2025-05-16 16:29 | XMS_ITS | Encounter Summary ---
Author Organization [employer] Address [address] [facility] [address] [place] [address] Care Team Providers Care Deicer Element Winder Machine Name Role Phone Valentina Alarcon NP Primary Care Provider [phone] Reason for Visit * Reason Comments Med Refill Encounter Details Date Type Department Care Team ([facility] st Contact Info) Description 10/17/2024 Refill [facility] MEDICINE [address] [place], [place] [phone] Valentina Alarcon NP [address] [place], [place] [phone] Social History Tobacco Use Types Packs/Day Years [...] Description 05/22/2025 1:45 PM EDT Office Visit [facility] MEDICINE [address] [place] [address] Valentina Alarcon NP [address] [place] [address] documented as of this encounter Visit Diagnoses Not on filedocumented in this encounter Additional Health Concerns Assessment Noted Time PHQ-9 Depression Total Score: 8 12/29/19 4:22 PM EDT documented as of this encounter Care Teams Deicer Element Winder Machine Relationship Specialty Start Date End Date Valentina Alarcon NP [address] [place] [address] PCP - General Family Medicine 06/27/24 documented as of this encounter
--- OUTSIDE RECORDS SUMMARY | 2025-05-16 16:29 | XMS_ITS | Encounter Summary ---
Author Organization [employer] Address [address] [facility] [address] [place] [address] Care Team Providers Care Player Piano Technician Name Role Phone Eliane Noyola Primary Care Provider [phone] Anayeli Escamilla MD Primary Care Provide r Valentina Alarcon NP Primary Care Provider [phone] Reason for Visit * Reason Comments Med Refill Encounter Details Date Type Department Care Team (Late st Contact Info) Description 01/13/2024 Refill [facility] MEDICINE [address] [place] [address] Eliane Noyola FNP [address] [place] [address] Social History Tobacco Use Types Packs/Day Years [...] [facility] MEDICINE [address] [place] [address] Valentina Alarcon NP [address] [place] [address] documented as of this encounter Visit Diagnoses Not on filedocumented in this encounter Additional Health Concerns Assessment Noted Time PHQ-9 Depression Total Score: 8 12/29/19 4:22 PM EDT documented as of this encounter Care Teams Player Piano Technician Relationship Specialty Start Date End Date Eliane Noyola FNP [address] [place] [address] PCP - General Family Medicine 09/08/23 05/01/24 Anayeli Escamilla MD [address] [place] [address] [id number] PCP - General Internal Medicine 05/02/24 05/24/24 Valentina Alarcon NP [address] [place] [id number] PCP - General Family Medicine 06/27/24 documented as of this encounter
--- OUTSIDE RECORDS SUMMARY | 2025-05-16 16:29 | XMS_ITS | Clinical Summary ---
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 10 tablet 05/07/20 25 2024 Active Problems Problem Noted Date Diagnosed Date Near syncope 05/07/2025 Assessment & Plan (05/07/2025 5:52 PM EDT): It seems to have been related to hypotension related to patient's underlying URI and diarrhea, now resolved. Order labs and follow-up Advised regarding increase water intake, rest at home and take Tylenol as needed + antibiotics for UTI. Patient will check BP daily and follow-up with PCP in 2 weeks, she come to [facility] if BP is above 160 over 95 x 3 days Rx was discussed with her son and they both agreed to POC Lower urinary tract symptoms (LUTS) 05/07/2025 Assessment & Plan (05/07/2025 5:49 PM EDT): Rx Bactrim x 5 days Increase p.o. water, rest at home and follow-up culture results Hx of abnormal mammogram 03/09/2025 Overview (03/09/2025): [...] Dyspnea on exertion 02/19/2025 Assessment & Plan (05/07/2025 5:48 PM EDT): It could be related to uncontrolled hypertension, rule out CHF Order echo Patient will check BP and follow-up with PCP regarding BP control Assessment & Plan (03/09/2025 4:16 PM EDT): [...] barrier, has therapist as well Interested in pashto speaking provider Dietary counseling 2024 Assessment & [...] on left. per records from [facility] [place] Allergic rhinitis 10/25/2023 Fibromyalgia 10/25/2023 Overview (10/25/2023): per records from [facility] [place] Hypertension 10/25/2023 Assessment & Plan (05/07/2025 5:51 PM EDT): Uncontrolled today, probably related to patient's acute illness as above Continue losartan and check BP daily and follow-up with PCP in 2 weeks To come to walk-in center if BP is above 160 over 95 x 3 days consecutively 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 2 diabetes mellitus ( [facility]) 10/25/2023 Varicose vein of leg 10/25/2023 Urticaria 10/25/2023 Tinnitus 10/25/2023 Overview (10/25/2023): per records from [facility] [place] Microscopic hematuria 10/25/2023 Overview (10/25/2023): per records from [facility] [place] Chronic right shoulder pain 10/25/2023 Assessment & Plan (01/15/2025 11:26 AM EDT): Referral to ortho Constipation 11/17/2018 Gastroesophageal reflux disease without esophagi tis 11/17/2018 Encounters * This document contains information received from the source organization and may not represent a complete record from that organization. Date Type Department Care Team Description 05/14/2025 Results Follow-Up [facility] [address] [place] [phone] Valentina Alarcon NP Vitamin B12 05/10/2025 Refill [facility] [address] [place] [address] Ariana Curtis MD 05/09/2025 Telephone [facility] [address] [place] [phone] Valentina Alarcon NP Referral 05/09/2025 Telephone [facility] [address] [place] [address] Valentina Alarcon NP ER Follow-up 05/07/2025 1:30 PM EDT Office Visit [address] [address] Ariana Curtis MD Near syncope (Primary Dx); Dyspnea on exertion; Lower urinary tract symptoms (LUTS); Primary hypertension 05/07/2025 Orders Only [facility] [address] [place] [address] Valentina Alarcon NP 05/07/2025 Travel 05/07/[address] [address] Valentina Alarcon NP Nurse Triage 04/20/2025 Refill [facility] [address] [place] [address] Valentina Alarcon NP Ear itching 04/12/2025 Refill [facility] [address] [place] [address] Valentina Alarcon NP 03/28/2025 Refill [facility] [address] [place] [address] Valentina Alarcon NP Ear itching; 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 2 diabetes mellitus (CMS/HCC) ([facility]) 03/23/2025 Refill [facility] [address] [place] [address] Valentina Alarcon NP 02/27/2025 Refill [facility] [address] [place] [address] Valentina Alarcon NP 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 2 diabetes mellitus (CMS/HCC) (CMS/[facility]); Ear itching 02/19/2025 3:15 PM EDT Office Visit [facility] [address] [place] [address] Valentina Alarcon NP Type 2 diabetes mellitus with other specified complication, without long-term current use of insulin (CMS/HCC) (Primary Dx); Abnormal mammogram; Chronic pain of right knee; Cervicalgia; Ear itching; Dyspnea on exertion; Hx of abnormal mammogram 02/19/2025 Orders Only [facility] [address] [place] [address] Valentina Alarcon NP 02/19/2025 Travel 02/19/[address] [address] Valentina Alarcon, ISAIAS Med Refill 02/17/[address] [address] Valentina Alarcon NP Fibromyalgia from Last 3 [...] 05/22/2025 1:45 PM EDT Office Visit [facility] [address] [place], [place] [phone] Valentina Alarcon NP [address] [place], [place] [phone] Health Maintenance Due Date Last Done Comments CT Colonography 1950 Colonoscopy 1950 Colorectal Cancer Screening 1950 FIT DNA/Cologuard 1950 FIT 1950 FOBT 1950 Sigmoidoscopy 1950 Diabetes: Foot Exam 1960 Eye Exam 1960 Hepatitis C Screening 1968 Diabetes: Urine Protein Screening 1969 COVID-19 Vaccine ( season) 2025 06/03/2023, 12/20/2021, 07/28/2021, Additional history exists Influenza Vaccine (#1) 2025 , 06/03/2023, 06/08/2022, Additional history exists Depression Monitoring 06/05/2025 2024, 025 Diabetes: Hemoglobin A1C 08/21/2025 025, 06/30/2024, 12/29/2023, Additional history exists Alcohol/Substance Use Screening 09/04/2025 09/04/2024 SDOH Screening 2025 2024 Tobacco Screening 02/19/2026 02/19/2025 Lipid Panel 05/07/2026 05/07/2025, 09/08/2023 Mammogram 12/21/2026 12/21/2024, 04/0 04/2025, 10/11/2024, Additional [...] Procedure Name Priority Date/Time Associated Diagnosis Comments ECG 12-LEAD Routine 05/07/2025 6:02 PM EDT Near syncope XR CHEST 2 VIEWS Routine 05/07/2025 3:03 PM EDT Near syncope VITAMIN B12 Routine 05/07/2025 2:38 PM EDT TSH W/REFLEX TO FT4 Routine 05/07/2025 2 :38 PM EDT Near syncope COMPREHENSIVE METABOLIC PANEL Routine 05/07/2025 2:38 PM EDT Near syncope CBC WITH AUTO DIFFERENTIAL Routine 05/07/2025 2:38 PM EDT Near syncope LIPID PANEL, STANDARD Routine 05/07/2025 2:38 PM EDT 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 2 diabetes mellitus ([facility]/HCC) ([facility]) POCT URINALYSIS DIPSTICK Routine 05/07/2025 2:30 PM EDT Near syncope CULTURE, URINE, ROUTINE Routine 05/07/2025 2:24 PM EDT Near syncope XR CERVICAL SPINE 5V Routine 02/20/2025 1:11 PM EDT XR KNEE 4+ VIEWS RIGHT Routine 12:33 PM EDT Chronic pain of right knee POCT GLYCATED HEMOGLOBIN, TOTAL Routine 02/19/2025 3:33 PM EDT Type 2 diabetes mellitus with other specified complication, without long-term current use of insulin ([facility]) POCT GLUCOSE Routine 02/19/2025 3:33 PM EDT Type 2 diabetes mellitus with other specified complication, without long-term current use of insulin ([facility]) BI MAMMOGRAM DIAGNOSTIC RIGHT Routine 12/21/2024 9:40 AM EDT from Last 3 Months or Most Recently Relevant to Health Maintenance Results * ECG 12 lead (05/07/2025 6:02 PM EDT) Ariana Diallo MD - 05/07/2025 6:02 PM EDT NSR@ 96bpm, normal axis. RSR' and inverted T in V2 only. Otherwise a normal EKG us Ariana Curtis MD ECG ORDERABLES Final Re sult * XR Chest 2 Views (05/07/2025 3:03 PM EDT) Anatomical Region Laterality Modality Chest Radiographic Kadi ging 05/07/2025 3:03 PM EDT Narrative 05/07/2025 3:16 PM EDT [address] [address] XRay Report Signed Patient: Ariana De La Fuente MR#: [id number] : 1950 Acct:[id number] Age/Sex: 74 / F ADM Date: 05/07/25 [facility]: Ariana Curtis MD Ordering Physician: Ariana Curtis MD Date of Service: 05/07/25 Procedure(s): XR chest 2V Accession Number(s): [id number] cc: Ariana Curtis MD Reason for Exam: [...] Valerio Funk MD 05/07/2025 03:14 PM EDT Dictated By: Valerio Funk MD Signed By: <Electronically signed by Valerio Funk MD in OV> 05/07/25 1514 DD/ 1503 TD/TT: 05/07/25 1504 Director Process Engineering: Procedure Note Donotuseinterpreter, Image - 05/07/[address] [address] XRay Report Signed Patient: Ariana De La FuenteMR#: [id number] : 1950cct:[id number] Age/Sex: 74 / FADM Date: 05/07/25 Loc: .CX Attending Dr: Ariana Curtis MD Ordering Physician: Ariana Curtis MD Date of Service: 05/07/25 Procedure(s): XR chest 2V Accession Number(s): [id number] cc: Ariana Curtis MD Reason for Exam: [...] 05/07/25 1514 DD/ 1503 TD/TT: 05/07/25 1504 Director Process Engineering: us Ariana Curtis MD IMG XR PROCEDURES Edited Result - Final * TSH with Reflex to Free T4 (05/07/2025 2:38 PM EDT) Pathologist [facility] TSH reflex Free T4 1.21 0.32 - 4.0 uIU/mL [facility] Blood 05/07/2025 2:38 PM EDT 05/07/2025 4:02 PM EDT Ariana Curtis MD LAB BLOOD ORDERABLES Fin al Result [facility] [address] [place] [phone] * (ABNORMAL) CBC auto differential (05/07/2025 2:38 PM EDT) White Blood Count 7.1 4.8 - 10.8 X10*3/uL [facility] Red Blood Count 3.79(L) 4.20 - 5.50 X10*6/uL [facility] Hemoglobin 11.5(L) 12.0 - 16.0 g/dl [facility] Hematocrit 35.7(L) 37.0 - 47.0 % [facility] Mean Corpuscular Volume 94.2 80.0 - 98.0 fL [facility] Mean Corpuscular Hemoglobin 30.3 27.0 - 33.0 pg [facility] Mean Corpuscular HGB Conc 32.2 31.0 - 35.0 g/dl [facility] Red Cell Distribution Width 13.9 11.0 - 16.0 % [facility] Platelet Count 179 160 - 400 X10*3/uL [facility] Mean Platelet Volume 9.9 9.4 - 12.3 fL [facility] Neutrophils Percent Auto 65.2 45 - 73 % [facility] Imm Gran Pct Auto 0.4 0.0 - 0.4 % [facility] Lymphocytes Percent Auto 25.1 20 - 40 % [facility] Monocytes Percent Auto 8.5 2 - 11 % [facility] Eosinophils Percent Auto 0.4 0 - 4 % [facility] Basophils Percent Auto 0.4 0 - 2 % [facility] NRBC Pct Auto 0.0 0.0 - 0.2 /100WBC [facility] Neutrophils Absolute Auto 4.6 2.0 - 8.3 x10*3/uL [facility] Imm Gran Abs Auto 0.03 0.00 - 0.03 X10*3/uL [facility] Lymphocytes Absolute Auto 1.8 1.2 - 4.9 X10*3/uL [facility] Monocytes Absolute Auto 0.6 0.1 - 1.2 X10*3/uL [facility] Eosinophils Absolute Auto 0.0 0.0 - 0.4 X10*3/uL [facility] Basophils Absolute Auto 0.0 0.0 - 0.2 X10*3/uL [facility] NRBC Abs Auto 0.000 0.0 - 0.012 X10*3/uL [facility] Blood Venous blood specimen / Unknown 05/07/2025 2:38 PM EDT 05/07/2025 4:02 PM EDT us Ariana Curtis MD LAB BLOOD ORDERABLES Fin al Result Performing Organization Address [facility]/ZIP Co de Phone Number [facility] [address] [place] [phone] * Vitamin B12 (05/07/2025 2:38 PM EDT) Vitamin B12 329 200 - 900 pg/mL [facility] Comment:NORMAL 200-900 PG/ML INDETERMINATE 160-199 PG/ML DEFICIENT < 160 PG/ML 05/07/2025 2:38 PM EDT 05/07/2025 4:02 PM EDT us Valentina Alarcon NP LAB BLOOD ORDERABLES Final Resul t Performing Organization Address [facility] Co de Phone Number [facility] [address] [place] [phone] * Lipid Panel, Standard (05/07/2025 2:38 PM EDT) Triglycerides 52 <150 mg/dL [facility] Comment:Desirable Triglyceri de: less than 150 mg/dLBorderline High Triglyceride 150-199 mg/dLHigh Triglyceride: 200-499 mg/dLVery High Triglyceride: greater than or equal to 5OO mg/dL Cholesterol 141 <200 mg/dL [facility] Comment:Desirable Cholestero l: less than 200 mg/dLBorderline High Cholesterol: 200-239 mg/dLHigh Cholesterol: greater than 239 mg/dL LDL Cholesterol Calculated 82 <100 mg/dL [facility] Comment:Desirable LDL: less than 100 mg/dLNear Optimal/Above Optimal LDL: 110- 129 mg/dLBorderline High LDL: 130-159 mg/dLHigh LDL: 160-189 mg/dLVery High LDL: greater than or equal to 190 mg/dL HDL Cholesterol 49 >40 mg/dL [facility] Comment:Desirable HDL: great er than 40 mg/dL Note: This HDL assay may give artificially low results in patients with liver disease. Blood Venous blood specimen / Unknown 05/07/2025 2:38 PM EDT 05/07/2025 4:02 PM EDT us Valentina Alarcon PLAY BACK OPERATOR LAB BLOOD ORDERABLES Final Resul t [facility] [address] [place] [phone] * (ABNORMAL) Comprehensive Metabolic Panel (05/07/2025 2:38 PM EDT) Sodium 139 135 - 145 mmol/L [facility] Potassium 3.9 3.3 - 5.1 mmol/L [facility] Chloride 104 96 - 108 mmol/L [facility] Carbon Dioxide 27 22 - 29 mmol/L [facility] Anion Gap 12 12 - 20 [facility] Urea Nitrogen (BUN) 9 9 - 16 mg/dL [facility] Creatinine, Serum 0.63 0.5 - 1.4 mg/dL [facility] Estimated Glomerular Filt Rate >60 [facility] Comment:Chronic Kidney Disea se: Estimated GFR < 60 mL/min/1.32i9Engkrr Kidney Disease: Estimated GFR < 15 mL/min/1.73m2 Glucose 135(H) 60 - 115 mg/dL [facility] Calcium 9.1 8.4 - 10.2 mg/dL [facility] Bilirubin, Total 0.4 0.0 - 1.0 mg/dL [facility] Aspartate Amino Transferase 29 5 - 31 U/L [facility] Alanine Aminotransferase 21 0 - 31 U/L [facility] Total Protein 6.9 6.5 - 8.0 g/dL [facility] Albumin Level 4.2 3.5 - 5.0 g/dL [facility] Alkaline Phosphatase 65 39 - 117 U/L [facility] Blood Venous blood specimen / Unknown 05/07/2025 2:38 PM EDT 05/07/2025 4:02 PM EDT us Ariana Curtis MD LAB BLOOD ORDERABLES Fin al Result Performing Organization Address [facility] Co de Phone Number [facility] [address] [place] [phone] * (ABNORMAL) POCT Urinalysis (05/07/2025 2:30 [...] TEST ENTER /EDIT ORDERABLES Final Result * Culture, Urine, Routine (05/07/2025 2:24 PM EDT) Urine Urine specimen obtained by clean catch procedure / Unknown 05/07/2025 2:24 PM EDT 05/07/2025 4:24 PM EDT Comment:UACC Narrative [facility] - 05/09/2025 8:41 AM EDT Urine Culture No growth. Specimen Source: Urine clean catch Ariana Curtis MD LAB MICROBIOLOGY - GENER AL ORDERABLES Final Result Performing Organization Address [facility]/ZIP Co de Phone Number [facility] [address] [place] [phone] * XR CERVICAL SPINE 5V (02/20/2025 1:11 PM EDT) Anatomical Region Laterality Modality Abdomen Radiographic Kadi ging 02/20/2025 1:11 PM EDT Narrative 02/20/2025 1:50 PM EDT [address] [address] XRay Report Signed Patient: Ariana De La Fuente MR#: [id number] : 1950 Acct:[id number] Age/Sex: 74 / F ADM Date: 02/19/25 [facility] Attending Dr: Valentina Alarcon PLAY BACK OPERATOR Ordering Physician: Valentina Alarcon PLAY BACK OPERATOR Date of Service: 02/20/25 Procedure(s): XR cervical spine 5V Accession Number(s): [id number] cc: Valentina Alarcon PLAY BACK OPERATOR EXAMINATION: XR CERVICAL SPINE CLINICAL INFORMATION: PAIN [...] 02/20/25 1347 DD/ 1311 TD/TT: 02/20/25 1320 Director Process Engineering: Procedure Note Donotuseinterpreter, Image - 02/20/[address] [address] XRay Report Signed Patient: Ariana De La FuenteMR#: [id number] : 1950cct:[id number] Age/Sex: 74 / FADM Date: 02/19/25 Loc: HO.CX Attending Dr: Valentina Alarcon PLAY BACK OPERATOR Ordering Physician: Valentina Alarcon NP Date of Service: 02/20/25 Procedure(s): XR cervical spine 5V Accession Number(s): [id number] cc: Valentina Alarcon PLAY BACK OPERATOR EXAMINATION: XR CERVICAL SPINE CLINICAL INFORMATION: PAIN [...] 02/20/25 1347 DD/ 1311 TD/TT: 02/20/25 1320 Director Process Engineering: us Valentina Alarcon PLAY BACK OPERATOR IMG XR PROCEDURES Final Result * XR Knee 4+ Views Right (02/20/2025 12:33 PM EDT) Anatomical Region Laterality Modality Lower Extremities, Knee Right Radiogra phic Imaging 02/20/2025 12:3 3 PM EDT Narrative 02/20/2025 1:52 PM EDT [address] [address] XRay Report Signed Patient: Ariana De La Fuente MR#: [id number] : 1950 Acct:[id number] Age/Sex: 74 / F ADM Date: 02/19/25 Loc: HO.[facility] Attending Dr: Valentina Alarcon PLAY BACK OPERATOR Ordering Physician: Valentina Alarcon NP Date of Service: 02/20/25 Procedure(s): XR knee RT 4V Accession Number(s): [id number] cc: Valentina Alarcon PLAY BACK OPERATOR EXAMINATION: XR KNEE, RIGHT CLINICAL INFORMATION: suspect [...] 02/20/25 1349 DD/ 1233 TD/TT: 02/20/25 1240 Director Process Engineering: Procedure Note Donotuseinterpreter, Image - 02/20/[address] [address] XRay Report Signed Patient: Ramya De La Fuente#: [id number] : 1950cct:[id number] Age/Sex: 74 / FADM Date: 02/19/25 Loc: .[facility] Attending Dr: Valentina Alarcon PLAY BACK OPERATOR Ordering Physician: Valentina Alarcon PLAY BACK OPERATOR Date of Service: 02/20/25 Procedure(s): XR knee RT 4V Accession Number(s): [id number] cc: Valentina Alarcon PLAY BACK OPERATOR EXAMINATION: XR KNEE, RIGHT CLINICAL INFORMATION: suspect [...] 02/20/25 1349 DD/ 1233 TD/TT: 02/20/25 1240 Director Process Engineering: Valentina Alarcon PLAY BACK OPERATOR IMG XR PROCEDURES Final Result * POCT HGB A1C (02/19/2025 3:33 PM EDT) Hemoglobin A1C 5.8 4.0 - 6.0 % QC Media Lot # [id number] Lot# Expiration Date 72 Blood 02/19/2025 3:33 PM EDT Valentina Alarcon PLAY BACK OPERATOR POINT OF CARE TEST ENTER/EDIT OR DERABLES Final Result * POCT Glucose (02/19/2025 3:33 PM EDT) Glucose Blood, POC 117 60 - 200 mg/dL QC Media Lot # [id number] Lot# Expiration Date 103,025 Blood Capillary blood specimen / Unknown 02/19/2025 3:33 PM EDT Valentina Alarcon PLAY BACK OPERATOR POINT OF CARE TEST ENTER/EDIT OR DERABLES Final Result * Mammogram Diagnostic Right (12/21/2024 9:40 AM EDT) Anatomical Region Laterality Modality Breast Right Mammography 12/21/2024 9:40 AM EDT Narrative 12/21/2024 12:45 PM EDT [facility] [address] [place], [place] [address] Mammography Report Signed with Addenda Patient: Ariana De La Fuente MR#: [id number] : 1950 Acct:[id number] Age/Sex: 74 / F ADM Date: 12/21/24 Loc: HO.MAMMO Attending Dr: Matt Jon MD Ordering Physician: Matt Jon MD Results: Date of Service: 12/21/24 Follow Up: Procedure(s): MM diagnostic mammo unilat RT Accession Number(s): [id number] cc: Valentina Alarcon PLAY BACK OPERATOR; Matt Jon MD ADDENDUM ADDENDUM #1 ADDENDUM: [...] 12/21/24 1242 DD/ 0940 TD/TT: 12/21/24 1024 Director Process Engineering: Procedure Note Donotuseinterpreter, Image - [facility]/29/[facility] [address] [place], [place] [address] Mammography Report Signed with Addenda Patient: Ramya De La Fuente#: [id number] : 1950cct:[id number] Age/Sex: 74 / FADM Date: 12/21/24 Loc: HO.MAMMO Attending Dr: Matt Jon MD Ordering Physician: Matt Jon MDResults: Date of Service: 12/21/24Follow Up: Procedure(s): MM diagnostic mammo unilat RT Accession Number(s): [id number] cc: Valentina Alacron PLAY BACK OPERATOR; Matt Jon MD ADDENDUM ADDENDUM #1 ADDENDUM: [...] 12/21/24 1242 DD/ 0940 TD/TT: 12/21/24 1024 Director Process Engineering: [facility] External Provider IMG BI PROCEDURES Edited Result - Final from Last 3 Months or Most Recently Relevant to Health Maintenance Insurance [facility] ASSISTED OPTIONS (HMO D-SNP) [place] [id number] Care Teams Market Gardener Relationship Specialty Start Date End Date Valentina Alarcon NP [address] [place] [phone] PCP - General Family Medicine 06/27/24
--- OUTSIDE RECORDS SUMMARY | 2025-05-16 16:29 | XMS_ITS | Encounter Summary ---
Author Organization [employer] Address [address] [facility] [address] [place] [address] Care Team Providers Care Marketing Account Manager Name Role Phone Valentina Alarcon NP Primary Care Provider [phone] Reason for Visit * Reason Onset Date Comments Med Refill 02/19/2025 Encounter Details Date Type Department Care Team ([facility] st Contact Info) Description 02/19/2025 Telephone [facility] [address] [place], [place] [phone] Valentina Alarcon NP [address] [place] [address] Med Refill Social History Tobacco Use Types [...] 600 MG [facility] [place], [place] - [address] [place] [address] documented in this encounter Plan of Treatment Upcoming Encounters Date Type Department Care Team (Late st Contact Info) Description 05/22/2025 1:45 PM EDT Office Visit [facility] [address] [place] [address] Valentina Alarcon NP [address] [place] [address] documented as of this encounter Visit Diagnoses Not on filedocumented in this encounter Additional Health Concerns Assessment Noted Time PHQ-9 Depression Total Score: 9 12/05/19 25 3:40 PM EDT documented as of this encounter Care Teams Marketing Account Manager Relationship Specialty Start Date End Date Valentina Alarcon NP [address] [place] [address] PCP - General Family Medicine 06/27/24 documented as of this encounter
--- OUTSIDE RECORDS SUMMARY | 2025-05-16 16:29 | XMS_ITS | Encounter Summary ---
Author Organization [employer] Address [address] [facility] [address] [place] [address] Care Team Providers Care Loader Unloader Name Role Phone Valentina Alarcon NP Primary Care Provider [phone] Reason for Visit * Reason Comments Med Refill Encounter Details Date Type Department Care Team ([facility] st Contact Info) Description 02/27/2025 Refill [facility] [address] [place], [place] [phone] Valentina Alarcon NP [address] [place], [place] [phone] 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 2 diabetes mellitus (CMS/HCC) ([facility]/HCC); Ear itching Social History Tobacco Use Types [...] Description 05/22/2025 1:45 PM EDT Office Visit [facility] [address] [place] [address] Valentina Alarcon NP [address] [place] [address] documented as of this encounter Visit Diagnoses Diagnosis 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 2 diabetes mellitus (CMS/HCC) (CMS/HCC) Ear itching documented in this encounter Additional Health Concerns Assessment Noted Time PHQ-9 Depression Total Score: 9 12/05/19 25 3:40 PM EDT documented as of this encounter Care Teams Loader Unloader Relationship Specialty Start Date End Date Valentina Alarcon NP [address] [place] [address] PCP - General Family Medicine 06/27/24 documented as of this encounter
--- OUTSIDE RECORDS SUMMARY | 2025-05-16 16:29 | XMS_ITS | Encounter Summary ---
Author Organization [employer] Address [address] [place] [address] Care Team Providers Care Reporter Name Role Phone Eliane Noyola JOHN Primary Care Provider [phone] Anayeli Escamilla MD Primary Care Provide r Vlaentina Alarcon NP Primary Care Provider [phone] Reason for Visit * Reason Onset Date Comments New Patient 06/18/2023 Encounter Details Date Type Department Care Team (Late st Contact Info) Description 06/18/2023 Telephone [facility] [address] [place], [place] [phone] Rayray Vallecillo MD [address] [place], [place] [phone] New Patient Social History Tobacco Use Types [...] 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 EFFECTIVE SINCE 06/18/2023 documented in this encounter Plan of Treatment Upcoming Encounters Date Type Department Care Team (Late st Contact Info) Description 05/22/2025 1:45 PM EDT Office Visit [facility] [address] [place] [address] Valentina Alarcon NP [address] [place] [address] documented as of this encounter Visit Diagnoses Not on filedocumented in this encounter Care Teams Reporter Relationship Specialty Start Date End Date Eliane Noyola FNP [address] [place] [address] PCP - General Family Medicine 09/08/23 05/01/24 Anayeli Escamilla MD [address] [place] [address] PCP - General Internal Medicine 05/02/24 05/24/24 Valentina Alarcon NP [address] [place] [address] PCP - General Family Medicine 06/27/24 documented as of this encounter
--- OUTSIDE RECORDS SUMMARY | 2025-05-16 16:29 | XMS_ITS | Encounter Summary ---
Author Organization [employer] Address [address] [facility] 7 [place] [address] Care Team Providers Care Machining Engineer Name Role Phone Valentina Alarcon NP Primary Care Provider [phone] Encounter Details Date Type Department Care Team ([facility] st Contact Info) Description 05/14/2025 Results Follow-Up [facility] [address] [place], [place] [phone] Valentina Alarcon NP 230 [place] [address] Vitamin B12 Social History Tobacco Use Types Packs/Day Years [...] Description 05/22/2025 1:45 PM EDT Office Visit [facility] [address] [place] [address] Valentina Alarcon NP [address] [place] [address] documented as of this encounter Visit Diagnoses Not on filedocumented in this encounter Additional Health Concerns Assessment Noted Time PHQ-9 Depression Total Score: 9 12/05/19 25 3:40 PM EDT documented as of this encounter Care Teams Machining Engineer Relationship Specialty Start Date End Date Valentina Alarcon NP [address] [place] [address] PCP - General Family Medicine 06/27/24 documented as of this encounter
--- OUTSIDE RECORDS SUMMARY | 2025-05-16 16:29 | XMS_ITS | Encounter Summary ---
Author Organization [employer] Address [address] [facility] 7[address] [place] [address] Care Team Providers Care Cna Per Diem Name Role Phone Valentina Alarcon ISAIAS Primary Care Provider Reason for Visit * Reason Comments Med Refill Encounter Details Date Type Department Care Team ([facility] st Contact Info) Description 05/10/2025 Refill [facility] [address] [place], [place] [phone] Ariana Curtis MD [address] [place] [address] Social History Tobacco Use Types Packs/Day Years [...] Description 05/22/2025 1:45 PM EDT Office Visit [facility] [address] [place] [address] Valentina Alarcon NP 230 [place] [address] documented as of this encounter Visit Diagnoses Not on filedocumented in this encounter Additional Health Concerns Assessment Noted Time PHQ-9 Depression Total Score: 9 12/05/19 25 3:40 PM EDT documented as of this encounter Care Teams Cna Per Diem Relationship Specialty Start Date End Date Valentina Alarcon NP [address] [place] [address] PCP - General Family Medicine 06/27/24 documented as of this encounter
== END ==
LOC: HO.CARD 13:01
PROVIDERS: PCP Nurse Practitioner Family; Visit Provider Internal Medicine
DX: R55 Syncope and collapse (principal); R06.09 Other forms of dyspnea
CPT/HCPCS: 93306

== ENCOUNTER → 2025-05-16 13:04 | Outpatient (BNV) | payer OTHER, SELFPAY | PROVIDERS: PCP Nurse Practitioner Family; Visit Provider Internal Medicine | DX: I35.8 Other nonrheumatic aortic valve disorders (principal) | CPT/HCPCS: 93306 ==

== ENCOUNTER → 2025-05-22 17:14 | Outpatient (BNV) | payer OTHER, SELFPAY | PROVIDERS: PCP Nurse Practitioner Family; Visit Provider Radiology Diagnostic Radiology | DX: M23.231 Derangement of other medial meniscus due to old tear or injury, right knee (principal); M17.11 Unilateral primary osteoarthritis, right knee; M75.121 Complete rotator cuff tear or rupture of right shoulder, not specified as traumatic; M75.31 Calcific tendinitis of right shoulder | CPT/HCPCS: 73221; 73721 ==

== ENCOUNTER 2025-05-22 17:26 | Outpatient (REF) | payer OTHER, SELFPAY ==
--- NOTE | ~2025-05-22 | MR_ITS ---
CLINICAL HISTORY: S83.241A - Other tear of medial meniscus, current injury, right knee, in... MR right knee without contrast Comparison: CR/SR - XR KNEE 4 OR MORE VIEWS RIGHT - 02/20/25 13:33 EDT Findings: Tear of the body and posterior horn of the medial meniscus. Increased signal in the lateral meniscus without definitive tear. The anterior and posterior cruciate ligaments are intact. The medial and lateral collateral ligaments are intact without periligamentous edema. No edema in the posterior lateral corner. The extensor mechanism is intact. Small joint effusion. Trace Garcia's cyst. No fracture, stress reaction or osseous lesion. Mild tricompartmental osteophytosis, degenerative. Tricompartmental partial-thickness chondromalacia, degenerative. Impression: Tear of the medial meniscus. No cruciate or collateral ligament tears. Small joint effusion. Mild tricompartmental osteophytosis and partial-thickness chondromalacia, degenerative. This document has been electronically signed by: Kellie Live MD on 05/25/2025 01:08:48
--- NOTE | ~2025-05-22 | MR_ITS ---
CLINICAL HISTORY: Rotator cuff insufficiency of right shoulder MR right shoulder Comparison: DX/SR - XR SHOULDER 2 OR MORE VIEWS RIGHT - 03/14/25 13:48 EDT CR/NE/SR - XR SHOULDER 2 OR MORE VIEWS RIGHT - 09/08/23 16:19 EST Findings: No fracture or dislocation of the osseous structures. Mild amount of edema at the acromioclavicular joint, degenerative, with moderate to severe joint space narrowing and moderate osteophytosis. Cystic change in the humeral head measuring up to 7 mm. Trace joint effusion and fluid in the subacromial/subdeltoid bursa. There is increased signal in the supraspinatus tendon with a full-thickness tear measuring 0.8 x 1.1 cm. No retraction or muscular atrophy. There is increased signal in the infraspinatus and subscapularis tendons with partial tears. No complete tear, retraction or muscular atrophy. Teres minor is unremarkable. Intact labrum. Partial-thickness glenohumeral chondromalacia, degenerative. The biceps tendon and bicipital-labral anchor are normal. The coracoacromial and coracohumeral ligaments are intact. Cutaneous and subcutaneous tissues are normal. The quadrilateral space is unremarkable. Impression: Supraspinatus tendinopathy. Full-thickness tear of the supraspinatus tendon. No retraction or muscular atrophy. Infraspinatus and subscapularis tendinopathy with partial tears. Moderate to severe acromioclavicular joint degenerative change. This document has been electronically signed by: Kellie Live MD on 05/25/2025 01:05:13
--- OUTSIDE RECORDS SUMMARY | 2025-05-22 13:45 | XMS_ITS | Encounter Summary ---
Author Organization [employer] Address [address] [place] [id number] Care Team Providers Care Green Inspector Name Role Phone Valentina Alarcon NP Primary Care Provider [phone] Reason for Referral * Imaging (Urgent) - Pending Review Specialty Diagnoses / Procedures Referred By Jim cardoza Referred To Contact Radiology Diagnoses Near syncope Right arm weakness Right leg weakness Palpitations Hypertension, unspecified type Procedures CT Head w/o Contrast Valentina Alarcon NP [address] [place] [address] Phone: tel: fax: Referral ID Status Reason Start Date Expiration Date V isits Requested Visits Authorized [id number] Pending Review 05/22/2025 05/22/2026 1 1 * Imaging (STAT) - Pending Review Specialty Diagnoses / Procedures Referred By Jim cardoza Referred To Contact Cardiology Diagnoses Near syncope Hypertension, unspecified type Procedures Echocardiogram stress test Valentina Alarcon NP [address] [place] [address] Phone: tel: fax: [facility] [address] [place] [address] Phone: tel: fax: Referral ID Status Reason Start Date Expiration Date Visits Requested Visits Authorized [id number] Pending Review Perform Procedure 05/22/2025 05/22/2026 1 1 Reason for Visit * Reason Comments Follow-up Encounter Details Date Type Department Care Team (Late st Contact Info) Description 05/22/2025 1:45 PM EDT Office Visit [facility] MED[facility] [address] [place] [address] Valentina Alarcon NP [address] [place] [address] Near syncope (Primary Dx); Anemia, unspecified type; Type 2 diabetes mellitus with other specified complication, without long-term current use of insulin (CMS/HCC); Type 2 diabetes mellitus with hyperglycemia, unspecified whether assisted insulin use (CMS/[facility]); Right arm weakness; Right leg weakness; Palpitations; [...] complication, without long-term current use of insulin ([facility]) Orders: POCT Glucose Type 2 diabetes mellitus with 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 Advised to monitor blood pressure. Urgent cardiology [...] heart monitor (Holter monitor) as instructed. - supervisor assembly and packing your new blood pressure medicine at [facility] pharmacy, [address] [place] [address], and start taking it as directed. - [...] of this technology: Yes Visit Conducted in: Welsh Translation by: Provided by [employer] Attendant Phone Service ID # [id number] [1] Patient Active Problem List Diagnosis Diabetes mellitus (CMS/HCC) Carpal tunnel syndrome Allergic rhinitis Fibromyalgia Hypertension 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 2 diabetes mellitus (CMS/HCC) (CMS/HCC) Varicose vein of leg Urticaria Tinnitus Microscopic [...] disorder with single episode, in full remission (CMS/HCC) Dietary counseling Exercise counseling PTSD (post-traumatic stress [...] Care Team (Late st Contact Info) Description 05/23/2025 2:15 PM EDT Office Visit [facility] OPTOMETRY [address] [place] [address] Ivory Victoria, AMINA [address] [place] [address] 06/06/2025 11:30 AM EDT Office Visit [facility] MEDICINE [address] [place] [address] Valentina Alarcon NP [address] [place] [address] Scheduled Orders Name Type Priority Associated Diagnoses [...] complication, without long-term current use of insulin ([facility]) documented in this encounter Results * POCT Glucose (05/22/2025 1:25 PM EDT) Pathologist [facility] Glucose Blood, POC [phone] - 200 mg/dL QC Media Lot # [id number] Lot# Expiration Date Blood Capillary blood specimen / Unknown 05/22/2025 1:25 PM EDT Valentina Alarcon NP POINT OF CARE TEST ENTER/EDIT OR DERABLES Final Result documented in this encounter Visit Diagnoses Diagnosis Near syncope- Primary Anemia, unspecified type Type 2 diabetes mellitus with other specified complication, without long-term current use of insulin ([facility]) Type 2 diabetes mellitus with hyperglycemia, 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 ([facility]) Right arm weakness Other musculoskeletal symptoms referable to limbs Right leg weakness Muscle weakness (generalized) Palpitations Hypertension, unspecified type Right eye sensitive to light documented in this encounter Additional Health Concerns Assessment Noted Time PHQ-9 Depression Total Score: 9 12/05/19 25 3:40 PM EDT documented as of this encounter Care Teams Green Inspector Relationship Specialty Start Date End Date Valentina Alarcon NP [address] [place] [address] PCP - General Family Medicine 06/27/24 documented as of this encounter
--- OUTSIDE RECORDS SUMMARY | 2025-05-22 18:50 | XMS_ITS | Encounter Summary ---
Author Organization [employer] Address [address] [facility] [address] [place] [address] Care Team Providers Care Hoop Maker Helper Machine Name Role Phone Valentina Alarcon ISAIAS Primary Care Provider [phone] Reason for Visit * Reason Comments Med Refill Encounter Details Date Type Department Care Team ([facility] st Contact Info) Description 05/18/2025 Refill [facility] MEDICINE [address] [place], [place] [phone] Kaity Chacko ANP [address] [place], [place] [phone] Constipation, unspecified constipation type Social History Tobacco Use Types Packs/Day Years [...] Description 05/23/2025 2:15 PM EDT Office Visit [facility] OPTOMETRY [address] [place] [address] Ivory Victoria, OD [address] [place] [address] 06/06/2025 11:30 AM EDT Office Visit [facility] MEDICINE [address] [place] [address] Valentina Alarcon NP [address] [place] [address] documented as of this encounter Visit Diagnoses Diagnosis Constipation, unspecified constipation type documented in this encounter Additional Health Concerns Assessment Noted Time PHQ-9 Depression Total Score: 9 12/05/19 25 3:40 PM EDT documented as of this encounter Care Teams Hoop Maker Helper Machine Relationship Specialty Start Date End Date Valentina Alarcon NP [address] [place] [address] PCP - General Family Medicine 06/27/24 documented as of this encounter
--- OUTSIDE RECORDS SUMMARY | 2025-05-22 18:50 | XMS_ITS | Encounter Summary ---
Author Organization [employer] Address [address] [facility] [address] [place] [address] Care Team Providers Care Ibm Websphere Commerce Consultant Name Role Phone Valentina Alarcon NP Primary Care Provider [phone] Reason for Visit * Reason Comments Med Refill Encounter Details Date Type Department Care Team ([facility] st Contact Info) Description 02/27/2025 Refill [facility] MED[facility]INE [address] [place], [place] [phone] Valentina Alarcon NP [address] [place], [place] [phone] 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 2 diabetes mellitus (CMS/HCC) ([facility]/HCC); Ear itching Social History Tobacco Use Types [...] Description 05/23/2025 2:15 PM EDT Office Visit [facility] OPTOMETRY [address] [place] [address] Tarka, Ivory, OD [address] [place] [address] 06/06/2025 11:30 AM EDT Office Visit [facility] MEDICINE [address] [place] [address] Valentina Alarcon NP [address] [place] [address] documented as of this encounter Visit Diagnoses Diagnosis 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 2 diabetes mellitus (CMS/HCC) (CMS/HCC) Ear itching documented in this encounter Additional Health Concerns Assessment Noted Time PHQ-9 Depression Total Score: 9 12/05/19 25 3:40 PM EDT documented as of this encounter Care Teams Ibm Websphere Commerce Consultant Relationship Specialty Start Date End Date Valentina Alarcon NP [address] [place] [address] PCP - General Family Medicine 06/27/24 documented as of this encounter
--- OUTSIDE RECORDS SUMMARY | 2025-05-22 18:50 | XMS_ITS | Encounter Summary ---
Author Organization [employer] Address [address] [facility] [address] [place] [address] Care Team Providers Care Manager Of Compliance Name Role Phone Valentina Alarcon NP Primary Care Provider [phone] Reason for Visit * Reason Onset Date Comments Med Refill 02/19/2025 Encounter Details Date Type Department Care Team ([facility] st Contact Info) Description 02/19/2025 Telephone [facility] MEDICINE [address] [place], [place] [phone] Valentina Alarcon NP [address] [place] [address] Med Refill Social History Tobacco Use Types [...] 600 MG tablet To be sent to: [facility] - [place], [place] - [address] [place] [address] documented in this encounter Plan of Treatment Upcoming Encounters Date Type Department Care Team (Late st Contact Info) Description 05/23/2025 2:15 PM EDT Office Visit [facility] OPTOMETRY [address] [place] [address] Ivory Victoria, AMINA [address] [place] [address] 06/06/2025 11:30 AM EDT Office Visit [facility] MEDICINE [address] [place] [address] Valentina Alarcon NP [address] [place] [address] documented as of this encounter Visit Diagnoses Not on filedocumented in this encounter Additional Health Concerns Assessment Noted Time PHQ-9 Depression Total Score: 9 12/05/19 25 3:40 PM EDT documented as of this encounter Care Teams Manager Of Compliance Relationship Specialty Start Date End Date Valentina Alarcon NP [address] [place] [address] PCP - General Family Medicine 06/27/24 documented as of this encounter
--- OUTSIDE RECORDS SUMMARY | 2025-05-22 18:50 | XMS_ITS | Encounter Summary ---
Author Organization [employer] Address [address] [facility] [address] [place] [address] Care Team Providers Care Pulp Maker Name Role Phone Valentina Alarcon NP Primary Care Provider [phone] Reason for Visit * Reason Comments Med Refill Encounter Details Date Type Department Care Team ([facility] st Contact Info) Description 10/17/2024 Refill [facility] MEDICINE [address] [place], [place] [phone] Valentina Alarcon NP [address] [place], [place] [phone] Social History Tobacco Use Types Packs/Day Years [...] Description 05/23/2025 2:15 PM EDT Office Visit [facility] OPTOMETRY [address] [place] [address] Ivory Victoria, OD [address] [place] [address] 06/06/2025 11:30 AM EDT Office Visit [facility] MEDICINE [address] [place] [address] Valentina Alarcon NP [address] [place] [address] documented as of this encounter Visit Diagnoses Not on filedocumented in this encounter Additional Health Concerns Assessment Noted Time PHQ-9 Depression Total Score: 8 12/29/19 4:22 PM EDT documented as of this encounter Care Teams Pulp Maker Relationship Specialty Start Date End Date Valentina Alarcon NP [address] [place] [address] PCP - General Family Medicine 06/27/24 documented as of this encounter
--- OUTSIDE RECORDS SUMMARY | 2025-05-22 18:50 | XMS_ITS | Encounter Summary ---
Author Organization [employer] Address [address] [facility] [address] [place] [address] Care Team Providers Care Video Game Developer Name Role Phone Valentina Alarcon NP Primary Care Provider [phone] Reason for Visit * Reason Comments Med Refill Encounter Details Date Type Department Care Team ([facility] st Contact Info) Description 12/19/[address] [facility] MEDICINE [address] [place], [place] [phone] Valentina Alarcon NP [address] [place] [address] Psychophysiological insomnia Social History Tobacco Use Types [...] Description 05/23/2025 2:15 PM EDT Office Visit [facility] OPTOMETRY [address] [place] [address] Ivory Victoria, OD [address] [place] [address] 06/06/2025 11:30 AM EDT Office Visit [facility] MEDICINE [address] [place] [address] Valentina Alarcon NP [address] [place] [address] documented as of this encounter Visit Diagnoses Diagnosis Psychophysiological insomnia Persistent disorder of initiating or maintaining sleep documented in this encounter Additional Health Concerns Assessment Noted Time PHQ-9 Depression Total Score: 9 12/05/19 25 3:40 PM EDT documented as of this encounter Care Teams Video Game Developer Relationship Specialty Start Date End Date Valentina Alarcon NP [address] [place] [address] PCP - General Family Medicine 06/27/24 documented as of this encounter
--- OUTSIDE RECORDS SUMMARY | 2025-05-22 18:50 | XMS_ITS | Encounter Summary ---
Author Organization [employer] Address [address] [facility] [address] [place] [address] Care Team Providers Care Rn Building Name Role Phone Valentina Alarcon ISAIAS Primary Care Provider [phone] Reason for Visit * Reason Comments Med Refill Encounter Details Date Type Department Care Team ([facility] st Contact Info) Description 05/10/2025 Refill [facility] MEDICINE [address] [place], [place] [phone] Ariana Curtis MD [address] [place] [address] Social History Tobacco Use Types Packs/Day Years [...] Description 05/23/2025 2:15 PM EDT Office Visit [facility] OPTOMETRY [address] [place] [address] Ivory Victoria, OD [address] [place] [address] 06/06/2025 11:30 AM EDT Office Visit [facility] MEDICINE [address] [place] [address] Valentina Alarcon NP [address] [place] [address] documented as of this encounter Visit Diagnoses Not on filedocumented in this encounter Additional Health Concerns Assessment Noted Time PHQ-9 Depression Total Score: 9 12/05/19 25 3:40 PM EDT documented as of this encounter Care Teams Rn Building Relationship Specialty Start Date End Date Valentina Alarcon NP [address] [place] [address] PCP - General Family Medicine 06/27/24 documented as of this encounter
--- OUTSIDE RECORDS SUMMARY | 2025-05-22 18:50 | XMS_ITS | Clinical Summary ---
Author Organization [employer] Address [address] [facility] [address] [place] [address] Care Team Providers Care Solar Development Engineer Name Role Phone Valentina Alarcon ISAIAS Primary Care Provider [phone] Allergies Active Allergy Reactions Criticality Noted Date [...] diabetes mellitus with hyperglycemia, unspecified whether terminal system operator insulin use (CMS/HCC) USE TWO TIMES A [...] DAY (BULK) 45 g 04/20/20 25 Active amLODIPine (Norvasc) 5 MG tabletIndicatio ns:Palpitations ,Hypertension, unspecified type Take 1 tablet (5 mg) by mouth Once per day. 30 tablet 2 05/22/20 25 2025 Active sulfamethoxazol e-trimethoprim (Bactrim DS) 800-160 MG tablet Take 1 tablet by mouth 2 times daily for 5 days. 10 tablet 05/07/20 25 2024 amLODIPine (Norvasc) 5 MG tabletIndicatio ns:Palpitations ,Hypertension, unspecified type Take 1 tablet (5 mg) by mouth Once per day. 30 tablet 2 05/22/20 25 2024 Discontinued Active Problems Problem Noted Date Diagnosed Date Anemia 05/22/2025 Assessment & Plan (05/22/2025 4:17 PM EDT): Right arm pain 05/22/2025 Assessment & Plan (05/22/2025 4:17 PM EDT): Orders: Sed Rate by Modified Westergren; Future C-reactive Protein; Future CT Head w/o Contrast; Future Right leg weakness 05/22/2025 Assessment & Plan (05/22/2025 4:17 PM EDT): Orders: CT Head w/o Contrast; Future Palpitations 05/22/2025 Assessment & Plan (05/22/2025 4:17 PM EDT): Orders: amLODIPine (Norvasc) 5 MG tablet; Take 1 tablet (5 mg) by mouth Once per day. CT Head w/o Contrast; Future Right eye sensitive to light 05/22/2025 Assessment & Plan (05/22/2025 4:17 PM EDT): Near syncope 05/07/2025 Overview (05/22/2025): Echo 05/24: Conclusions No obvious valvular pathology seen on this study. Assessment & Plan (05/22/2025 4:17 PM EDT): Orders: Echocardiogram stress test; Future CT Head w/o Contrast; Future Assessment & Plan (05/07/2025 5:52 PM EDT): It seems to have been related to hypotension related to patient's underlying URI and diarrhea, now resolved. Order labs and follow-up Advised regarding increase water intake, rest at home and take Tylenol as needed + antibiotics for UTI. Patient will check BP daily and follow-up with PCP in 2 weeks, she come to [facility] if BP is above 160 over 95 [...] barrier, has therapist as well Interested in zambian speaking provider Dietary counseling 2024 Assessment & [...] 09/03/2024 Diabetes mellitus 10/25/2023 Assessment & Plan (05/22/2025 4:17 PM EDT): Assessment & Plan (05/22/2025 4:17 PM EDT): Orders: POCT Glucose Assessment & Plan (01/15/2025 11:25 AM EDT): Well managed on current reigmen Assessment & Plan (09/04/2024 5:25 PM EST): At goal, will not increase meds at this time Labs ordered Carpal tunnel syndrome 10/25/2023 Overview (10/25/2023): more on left. per records from [address] [place] [address] Allergic rhinitis 10/25/2023 Fibromyalgia 10/25/2023 Overview (10/25/2023): per records from [facility] Hypertension 10/25/2023 Assessment & Plan (05/22/2025 4:17 PM EDT): Orders: Echocardiogram stress test; Future amLODIPine (Norvasc) 5 MG tablet; Take 1 tablet (5 mg) by mouth Once per day. CT Head w/o Contrast; Future Assessment & Plan (05/07/2025 5:51 PM EDT): Uncontrolled today, probably related to patient's acute illness as above Continue losartan and check BP daily and follow-up with PCP in 2 weeks To come to walk-in center if BP is above 160 over 95 x 3 days consecutively 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 2 diabetes mellitus ( [facility]) 10/25/2023 Varicose vein of leg 10/25/2023 Urticaria [...] organization. Date Type Department Care Team Description 05/22/2025 1:45 PM EDT Office Visit [facility] [address] [place] [address] [phone] Valentina Alarcon NP Near syncope (Primary Dx); Anemia, unspecified type; Type 2 diabetes mellitus with other specified complication, without long-term current use of insulin ([facility]); Type 2 diabetes mellitus with hyperglycemia, unspecified whether terminal system operator insulin use ([facility]); Right arm weakness; Right leg weakness; Palpitations; Hypertension, unspecified type; Right eye sensitive to light 05/22/2025 Travel 05/21/[address] [address] Heidi Downey [place] CHART PREP 05/18/2025 Refill [facility] [address] [place] [phone] Kaity Chacko ANP Constipation, unspecified constipation type 05/18/2025 Refill [facility] [address] [place] [phone] Valentina Alarcon NP Ear itching; Seasonal allergic rhinitis due to pollen; Fibromyalgia 05/14/2025 Results Follow-Up [address] [address] Valentina Alarcon NP Vitamin B12 05/10/[address] [address] Ariana Curtis MD 05/09/[address] [address] Valentina Alarcon NP Referral 05/09/[address] [address] Valentina Alarcon NP ER Follow-up 05/07/2025 1:30 PM EDT Office Visit [address] [address] Ariana Curtis MD Near syncope (Primary Dx); Dyspnea on exertion; Lower urinary tract symptoms (LUTS); Primary hypertension 05/07/2025 Orders Only [facility] [address] [place] [phone] Valentina Alarcon NP 05/07/2025 Travel 05/07/[address] [address] Valentina Alarcon NP Nurse Triage 04/20/2025 Refill [facility] [address] [place] [address] Valentina Alarcon NP Ear itching 04/12/2025 Refill [facility] [address] [place] [address] Valentina Alarcon NP 03/28/2025 Refill [facility] [address] [place] [address] [place] [address] Valentina Alarcon NP Ear itching; 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 2 diabetes mellitus ([facility]) ([facility]) 03/23/2025 Refill [facility] [address] [place] [address] Valentina Alarcon NP 02/27/2025 Refill [facility] [address] [place] [address] Valentina Alarcon NP 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 2 diabetes mellitus ([facility]) ([facility]); Ear itching 02/19/2025 3:15 PM EDT Office Visit [address] [phone] Valentina Alarcon NP Type 2 diabetes mellitus with other specified complication, without long-term current use of insulin ([facility]) (Primary Dx); Abnormal mammogram; Chronic pain of right knee; Cervicalgia; Ear itching; Dyspnea on exertion; Hx of abnormal mammogram 02/19/2025 Orders Only [facility] [address] [place] [phone] Valentina Alarcon NP 02/19/2025 Travel 02/19/[address] [address] Valentina Alarcon NP Med Refill from Last 3 Months Immunizations Immunization Administration [...] Mass Index 23.76 05/22/2025 1:26 PM EDT Plan of Treatment Upcoming Encounters Date Type Department Care Team (Late st Contact Info) Description 05/23/2025 2:15 PM EDT Office Visit [facility] [address] [place] [address] Ivory Victoria, OD [address] [place] [address] 06/06/2025 11:30 AM EDT Office Visit [facility] [address] [place] [address] Valentina Alarcon NP [address] [place] [address] Health Maintenance Due Date Last Done Comments [...] Screening 09/04/2025 09/04/2024 SDOH Screening 2025 2024 Lipid Panel 05/07/2026 05/07/2025, 09/08/2023 Tobacco Screening 05/22/2026 05/22/2025 Mammogram 12/21/2026 12/21/2024, 04/0 04/2025, 10/11/2024, Additional [...] complication, without long-term current use of insulin ([facility]) ECG 12-LEAD Routine 05/07/2025 6:02 PM EDT [...] 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 2 diabetes mellitus ([facility]) ([facility]) POCT URINALYSIS DIPSTICK Routine 05/07/2025 2:30 PM [...] complication, without long-term current use of insulin ([facility]) POCT GLUCOSE Routine 02/19/2025 3:33 PM EDT Type 2 diabetes mellitus with other specified complication, without long-term current use of insulin ([facility]) BI MAMMOGRAM DIAGNOSTIC RIGHT Routine 12/21/2024 9:40 AM EDT from Last 3 Months or Most Recently Relevant to Health Maintenance Results * POCT Glucose (05/22/2025 1:25 PM EDT) Only the most recent of2 resultswithin the time period is included. [facility] Glucose Blood, POC 185 60 - 200 mg/dL QC Media Lot # [id number] Lot# Expiration Date 3652 Blood Capillary blood specimen / Unknown 05/22/2025 1:25 PM EDT us Valentina Alarcon NP POINT OF CARE TEST ENTER/EDIT OR DERABLES Final Result * ECG 12 lead (05/07/2025 6:02 PM EDT) Narrative Ariana Curtis MD - 05/07/2025 6:02 PM EDT NSR@ 96bpm, normal axis. RSR' and inverted T in V2 only. Otherwise a normal EKG us Ariana Curtis MD ECG ORDERABLES Final Re sult * XR Chest 2 Views (05/07/2025 3:03 PM EDT) Anatomical Region Laterality Modality Chest Radiographic Kadi ging 05/07/2025 3:03 PM EDT Narrative 05/07/2025 3:16 PM EDT [address] [address] XRay Report Signed Patient: Ariana De La Fuente MR#: [id number] : 1950 Acct:[id number] Age/Sex: 74 / F ADM Date: 05/07/25 Loc: [facility] Attending Dr: Ariana Curtis MD Ordering Physician: Ariana Curtis MD Date of Service: 05/07/25 Procedure(s): XR chest 2V Accession Number(s): [id number] cc: Ariana Curtis MD Reason for Exam: [...] 05/07/25 1514 DD/ 1503 TD/TT: 05/07/25 1504 Manager Area: Procedure Note Donotuseinterpreter, Image - 05/07/2025 [facility] [address] [place] [address] XRay Report Signed Patient: Ariana De La FuenteMR#: [id number] : 1950cct:[id number] Age/Sex: 74 / FADM Date: 05/07/25 Loc: [facility] Attending Dr: Ariana Curtis MD Ordering Physician: Ariana Curtis MD Date of Service: 05/07/25 Procedure(s): XR chest 2V Accession Number(s): [id number] cc: Ariana Curtis MD Reason for Exam: [...] 05/07/25 1514 DD/ 1503 TD/TT: 05/07/25 1504 Manager Area: Ariana Curtis MD IMG XR PROCEDURES Edited Result - Final * TSH with Reflex to Free T4 (05/07/2025 2:38 PM EDT) Pathologist [facility] TSH reflex Free T4 1.21 0.32 - 4.0 uIU/mL [facility] Blood 05/07/2025 2:38 PM EDT 05/07/2025 4:02 PM EDT us Ariana Curtis MD LAB BLOOD ORDERABLES Fin al Result [facility] [address] [place] [address] [phone] * (ABNORMAL) CBC auto differential (05/07/2025 2:38 PM EDT) White Blood Count 7.1 4.8 - 10.8 X10*3/uL [facility] Red Blood Count 3.79(L) 4.20 - 5.50 X10*6/uL [facility] Hemoglobin 11.5(L) 12.0 - 16.0 g/dl [facility] Hematocrit 35.7(L) 37.0 - 47.0 % [facility] Mean Corpuscular Volume 94.2 80.0 - 98.0 fL [facility] Mean Corpuscular Hemoglobin 30.3 27.0 - 33.0 pg [facility] Mean Corpuscular HGB Conc 32.2 31.0 - 35.0 g/dl [facility] Red Cell Distribution Width 13.9 11.0 - 16.0 % [facility] Platelet Count 179 160 - 400 X10*3/uL [facility] Mean Platelet Volume 9.9 9.4 - 12.3 fL [facility] Neutrophils Percent Auto 65.2 45 - 73 % [facility] Imm Gran Pct Auto 0.4 0.0 - 0.4 % [facility] Lymphocytes Percent Auto 25.1 20 - 40 % [facility] Monocytes Percent Auto 8.5 2 - 11 % [facility] Eosinophils Percent Auto 0.4 0 - 4 % [facility] Basophils Percent Auto 0.4 0 - 2 % [facility] NRBC Pct Auto 0.0 0.0 - 0.2 /100WBC [facility] Neutrophils Absolute Auto 4.6 2.0 - 8.3 x10*3/uL [facility] Imm Gran Abs Auto 0.03 0.00 - 0.03 X10*3/uL [facility] Lymphocytes Absolute Auto 1.8 1.2 - 4.9 X10*3/uL [facility] Monocytes Absolute Auto 0.6 0.1 - 1.2 X10*3/uL [facility] Eosinophils Absolute Auto 0.0 0.0 - 0.4 X10*3/uL [facility] Basophils Absolute Auto 0.0 0.0 - 0.2 X10*3/uL [facility] NRBC Abs Auto 0.000 0.0 - 0.012 X10*3/uL [facility] Blood Venous blood specimen / Unknown 05/07/2025 2:38 PM EDT 05/07/2025 4:02 PM EDT us Ariana Curtis MD LAB BLOOD ORDERABLES Fin al Result Performing Organization Address City/[facility]/ZIP Co de Phone Number [facility] [address] [place] [address] [phone] * Vitamin B12 (05/07/2025 2:38 PM EDT) Vitamin B12 329 200 - 900 pg/mL [facility] Comment:NORMAL 200-900 PG/ML INDETERMINATE 160-199 PG/ML DEFICIENT < 160 PG/ML 05/07/2025 2:38 PM EDT 05/07/2025 4:02 PM EDT us Valentnia Alarcon NP LAB BLOOD ORDERABLES Final Resul t Performing Organization Address [facility] Co de Phone Number [facility] [address] [place] [address] [phone] * Lipid Panel, Standard (05/07/2025 2:38 PM EDT) Triglycerides 52 <150 mg/dL [facility] Comment:Desirable Triglyceri de: less than 150 mg/dLBorderline High Triglyceride 150-199 mg/dLHigh Triglyceride: 200-499 mg/dLVery High Triglyceride: greater than or equal to 5OO mg/dL Cholesterol 141 <200 mg/dL [facility] Comment:Desirable Cholestero l: less than 200 mg/dLBorderline High Cholesterol: 200-239 mg/dLHigh Cholesterol: greater than 239 mg/dL LDL Cholesterol Calculated 82 <100 mg/dL [facility] Comment:Desirable LDL: less than 100 mg/dLNear Optimal/Above Optimal LDL: 110- 129 mg/dLBorderline High LDL: 130-159 mg/dLHigh LDL: 160-189 mg/dLVery High LDL: greater than or equal to 190 mg/dL HDL Cholesterol 49 >40 mg/dL [facility] Comment:Desirable HDL: great er than 40 mg/dL Note: This HDL assay may give artificially low results in patients with liver disease. Blood Venous blood specimen / Unknown 05/07/2025 2:38 PM EDT 05/07/2025 4:02 PM EDT us Valentina Alarcon SET UP MECHANIC COATING MACHINES LAB BLOOD ORDERABLES Final Resul t [facility] [address] [place] [address] [phone] * (ABNORMAL) Comprehensive Metabolic Panel (05/07/2025 2:38 PM EDT) Sodium 139 135 - 145 mmol/L [facility] Potassium 3.9 3.3 - 5.1 mmol/L [facility] Chloride 104 96 - 108 mmol/L [facility] Carbon Dioxide 27 22 - 29 mmol/L [facility] Anion Gap 12 12 - 20 [facility] Urea Nitrogen (BUN) 9 9 - 16 mg/dL [facility] Creatinine, Serum 0.63 0.5 - 1.4 mg/dL [facility] Estimated Glomerular Filt Rate >60 [facility] Comment:Chronic Kidney Disea se: Estimated GFR < 60 mL/min/1.83e8Ypbiov Kidney Disease: Estimated GFR < 15 mL/min/1.73m2 Glucose 135(H) 60 - 115 mg/dL [facility] Calcium 9.1 8.4 - 10.2 mg/dL [facility] Bilirubin, Total 0.4 0.0 - 1.0 mg/dL [facility] Aspartate Amino Transferase 29 5 - 31 U/L [facility] Alanine Aminotransferase 21 0 - 31 U/L [facility] Total Protein 6.9 6.5 - 8.0 g/dL [facility] Albumin Level 4.2 3.5 - 5.0 g/dL [facility] Alkaline Phosphatase 65 39 - 117 U/L [facility] Blood Venous blood specimen / Unknown 05/07/2025 2:38 PM EDT 05/07/2025 4:02 PM EDT us Ariana Curtis MD LAB BLOOD ORDERABLES Fin al Result [facility] [address] [place] [address] [phone] * (ABNORMAL) POCT Urinalysis (05/07/2025 2:30 [...] EDT 05/07/2025 4:24 PM EDT Comment:UACC Narrative [facility] - 05/09/2025 8:41 AM EDT Urine Culture No growth. Specimen Source: Urine clean catch Ariana Curtis MD LAB MICROBIOLOGY - GENER AL ORDERABLES Final Result [facility] [address] [place] [address] [phone] * XR CERVICAL SPINE 5V (02/20/2025 1:11 PM EDT) Anatomical Region Laterality Modality Abdomen Radiographic Kadi ging 02/20/2025 1:11 PM EDT Narrative 02/20/2025 1:50 PM EDT [address] [address] XRay Report Signed Patient: Ariana De La Fuente MR#: [id number] : 1950 Acct:[id number] Age/Sex: 74 / F ADM Date: 02/19/25 [facility]: Valentina Alarcon SET UP MECHANIC COATING MACHINES Ordering Physician: Valentina Alarcon SET UP MECH[employer]ATING MACHINES Date of Service: 02/20/25 Procedure(s): XR cervical spine 5V Accession Number(s): [id number] cc: Valentina Alarcon SET UP MECHANIC COATING MACHINES EXAMINATION: XR CERVICAL SPINE CLINICAL INFORMATION: PAIN [...] 02/20/25 1347 DD/ 1311 TD/TT: 02/20/25 1320 Manager Area: Procedure Note Donotuseinterpreter, Image - 02/20/[address] [address] XRay Report Signed Patient: Ramya De La Fuente#: [id number] : 1950cct:[id number] Age/Sex: 74 / FADM Date: 02/19/25 Loc: HO.CX Attending Dr: Valentina Alarcon SET UP MECHANIC COATING MACHINES Ordering Physician: Valentina Alarcon NP Date of Service: 02/20/25 Procedure(s): XR cervical spine 5V Accession Number(s): [id number] cc: Valentina Alarcon SET UP MECHANIC COATING MACHINES EXAMINATION: XR CERVICAL SPINE CLINICAL INFORMATION: PAIN [...] 02/20/25 1347 DD/ 1311 TD/TT: 02/20/25 1320 Manager Area: us Valentina Alarcon SET UP MECHAN[employer] COATING MACHINES IMG XR PROCEDURES Final Result * XR Knee 4+ Views Right (02/20/2025 12:33 PM EDT) Anatomical Region Laterality Modality Lower Extremities, Knee Right Radiogra phic Imaging 02/20/2025 12:3 3 PM EDT Narrative 02/20/2025 1:52 [place] [address] XRay Report Signed Patient: Ariana De La Fuente MR#: [id number] : 1950 Acct:[id number] Age/Sex: 74 / F ADM Date: 02/19/25 Loc: .[facility]HCX Attending Dr: Valentina Alarcon SET UP MECHANIC COATING MACHINES Ordering Physician: Valentina Alarcon NP Date of Service: 02/20/25 Procedure(s): XR knee RT 4V Accession Number(s): [id number] cc: Valentina Alarcon SET UP MECHAN[employer] COATING MACHINES EXAMINATION: XR KNEE, RIGHT CLINICAL INFORMATION: suspect [...] 02/20/25 1349 DD/ 1233 TD/TT: 02/20/25 1240 Manager Area: Procedure Note Donotuseinterpreter, Image - 02/20/[address] [address] XRay Report Signed Patient: Ramya De La Fuente#: [id number] : 1950cct:[id number] Age/Sex: 74 / FADM Date: 02/19/25 Loc: HO.HHCX Attending Dr: Valentina Alarcon SET UP MECHAN[employer] COATING MACHINES Ordering Physician: Valentina Alarcon NP Date of Service: 02/20/25 Procedure(s): XR knee RT 4V Accession Number(s): [id number] cc: Valentina Alarcon SET UP MECHAN[employer] COATING MACHINES EXAMINATION: XR KNEE, RIGHT CLINICAL INFORMATION: suspect [...] 02/20/25 1349 DD/ 1233 TD/TT: 02/20/25 1240 Manager Area: Valentina Alarcon SET UP MECHAN[employer] COATING MACHINES IMG XR PROCEDURES Final Result * POCT [...] AM EDT Narrative 12/21/2024 12:45 PM EDT [facility] [address] [place] [place] [address] Mammography Report Signed with Addenda Patient: Ariana De La Fuente MR#: [id number] : 1950 Acct:[id number] Age/Sex: 74 / F ADM Date: 12/21/24 Loc: HO.MAMMO Attending Dr: Matt Jon MD Ordering Physician: Matt Jon MD Results: Date of Service: 12/21/24 Follow Up: Procedure(s): MM diagnostic mammo unilat RT Accession Number(s): [id number] cc: Valentina Alarcon SET UP MECH[employer] COATING MACHINES; Matt Jon MD ADDENDUM ADDENDUM #1 ADDENDUM: [...] 12/21/24 1242 DD/ 0940 TD/TT: 12/21/24 1024 Manager Area: Procedure Note Donotuseinterpreter, Image - 12/29/[facility] [address] [place], [place] [address] Mammography Report Signed with Addenda Patient: Ramya De La Fuente#: [id number] : 1950cct:[id number] Age/Sex: 74 / FADM Date: 12/21/24 Loc: [facility] Attending Dr: Matt Jon MD Ordering Physician: Matt Jonesults: Date of Service: 12/21/24Follow Up: Procedure(s): MM diagnostic mammo unilat RT Accession Number(s): [id number] cc: Valentina Alarcon SET UP MECHANIC COATING MACHINES; Matt Jon MD ADDENDUM ADDENDUM #1 ADDENDUM: [...] 12/21/24 1242 DD/ 0940 TD/TT: 12/21/24 1024 Manager Area: [facility] External Provider IMG BI PROCEDURES Edited Result - Final from Last 3 Months or Most Recently Relevant to Health Maintenance Insurance [facility] [employer] (O D-SNP) Care Teams Solar Development Engineer Relationship Specialty Start Date End Date Valentina Alarcon NP [address] [place] [address] PCP - General Family Medicine 06/27/24
--- OUTSIDE RECORDS SUMMARY | 2025-05-22 18:50 | XMS_ITS | Encounter Summary ---
Author Organization [employer] Address [address] [facility] [address] [place] [address] Care Team Providers Care Search Engine Marketing Strategist Name Role Phone Eliane Noyola Primary Care Provider [phone] Anayeli Escamilla MD Primary Care Provide r Valentina Alarcon NP Primary Care Provider [phone] Reason for Visit * Reason Comments Med Refill Encounter Details Date Type Department Care Team (Late st Contact Info) Description 01/09/2024 Refill [facility] [address] [place] [address] Eliane Noyola FNP [address] [place] [address] Social History Tobacco Use Types Packs/Day Years [...] 2:15 PM EDT Office Visit [facility] [address] [place] [address] TarkaIvory, OD [address] [place] [address] 06/06/2025 11:30 AM EDT Office Visit [facility] [address] [place] [address] Valentina Alarcon, SENIOR RESEARCH PROJECT MANAGER [address] [place] [address] documented as of this encounter Visit Diagnoses Not on filedocumented in this encounter Additional Health Concerns Assessment Noted Time PHQ-9 Depression Total Score: 8 12/29/19 4:22 PM EDT documented as of this encounter Care Teams Search Engine Marketing Strategist Relationship Specialty Start Date End Date Eliane Noyola FNP [address] [place] [address] PCP - General Family Medicine 09/08/23 05/01/24 Anayeli Escamilla MD [address] [place] [phone] PCP - General Internal Medicine 05/02/24 05/24/24 Valentina Alarcon NP [address] [place] [address] PCP - General Family Medicine 06/27/24 documented as of this encounter
--- OUTSIDE RECORDS SUMMARY | 2025-05-22 18:50 | XMS_ITS | Encounter Summary ---
Author Organization [employer] Address 75 [facility] [address] [place] [address] Care Team Providers Care Automotive Instructor Name Role Phone Valentina Alarcon ISAIAS Primary Care Provider [phone] Reason for Visit * Reason Onset Date Comments CHART PREP 05/21/2025 Encounter Details Date Type Department Care Team (Late st Contact Info) Description 05/21/2025 Telephone [facility] MEDICINE [address] [place] [address] Heidi Downey MA CHART PREP Social History Tobacco Use Types Packs/Day Years [...] encounter Miscellaneous Notes * Telephone Encounter - Heidi Downey MA - 05/21/2025 1:31 PM EDT Chart Prep Labs: done Images: done Referrals: appointment pending-CARDIOLOGY [place] 06/14/25 3:00 PM [facility] NOTES IN CHART 05/16/25 1:00 PM [facility] Tu 03/20/25 9:15 AM [facility] [place] Surgeons Matt Jon MD Vaccines due: Covid and Flu Screenings: colonoscopy, eye exam, and foot exam Overdue care gaps: Glucose and SHELIA-7 documented in this encounter Plan of Treatment Upcoming Encounters Date Type Department Care Team (Late st Contact Info) Description 05/23/2025 2:15 PM EDT Office Visit [facility] OPTOMETRY [address] [place] [address] Ivory Victoria, OD [address] [place] [address] 06/06/2025 11:30 AM EDT Office Visit [facility] MEDICINE [address] [place] [address] Valentina Alarcon, ISAIAS [address] [place] [address] documented as of this encounter Visit Diagnoses Not on filedocumented in this encounter Additional Health Concerns Assessment Noted Time PHQ-9 Depression Total Score: 9 12/05/19 25 3:40 PM EDT documented as of this encounter Care Teams Automotive Instructor Relationship Specialty Start Date End Date Valentina Alarcon NP [address] [place] [address] PCP - General Family Medicine 06/27/24 documented as of this encounter
--- OUTSIDE RECORDS SUMMARY | 2025-05-22 18:50 | XMS_ITS | Encounter Summary ---
Author Organization [employer] Address 75 [facility] [address] [place] [address] Care Team Providers Care Junior Estimator Name Role Phone Valentina Alarcon NP Primary Care Provider [phone] Reason for Visit * Reason Comments Med Refill Encounter Details Date Type Department Care Team ([facility] st Contact Info) Description 05/18/2025 Refill [facility] MEDICINE [address] [place], [place] [phone] Valentina Alarcon NP [address] [place] [address] Ear itching; Seasonal allergic rhinitis due to pollen; Fibromyalgia Social History Tobacco Use Types Packs/Day Years [...] Description 05/23/2025 2:15 PM EDT Office Visit [facility] OPTOMETRY [address] [place] [address] TarIvory danielle, OD [address] [place] [address] 06/06/2025 11:30 AM EDT Office Visit [facility] MEDICINE [address] [place] [address] Valentina Alarcon NP [address] [place] [address] documented as of this encounter Visit Diagnoses Diagnosis Ear itching Seasonal allergic rhinitis due to pollen Fibromyalgia Unspecified myalgia and myositis documented in this encounter Additional Health Concerns Assessment Noted Time PHQ-9 Depression Total Score: 9 12/05/19 25 3:40 PM EDT documented as of this encounter Care Teams Junior Estimator Relationship Specialty Start Date End Date Valentina Alarcon NP [address] [place] [address] PCP - General Family Medicine 06/27/24 documented as of this encounter
--- OUTSIDE RECORDS SUMMARY | 2025-05-22 18:50 | XMS_ITS | Encounter Summary ---
Author Organization [employer] Address 75 [facility] [address] [place] [address] Care Team Providers Care Wildlife Rehabilitator Name Role Phone Eliane Noyola Primary Care Provider [phone] Anayeli Escamilla MD Primary Care Provide r Valentina Alarcon NP Primary Care Provider [phone] Reason for Visit * Reason Comments Med Refill Encounter Details Date Type Department Care Team (Late st Contact Info) Description 01/13/2024 Refill [facility] MEDICINE [address] [place] [address] Eliane Noyola FNP [address] [place] [address] Social History Tobacco Use Types Packs/Day Years [...] Office Visit [facility] OPTOMETRY [address] [place] [address] TarkaIvory, OD [address] [place] [address] 06/06/2025 11:30 AM EDT Office Visit [facility] MEDICINE [address] [place] [address] Valentina Alarcon, FUEL EFFICIENT AUTOMOBILE DESIGNER [address] [place] [address] documented as of this encounter Visit Diagnoses Not on filedocumented in this encounter Additional Health Concerns Assessment Noted Time PHQ-9 Depression Total Score: 8 12/29/19 4:22 PM EDT documented as of this encounter Care Teams Wildlife Rehabilitator Relationship Specialty Start Date End Date Eliane Noyola FNP [address] [place] [address] PCP - General Family Medicine 09/08/23 05/01/24 Anayeli Escamilla MD [address] [place] [address] PCP - General Internal Medicine 05/02/24 05/24/24 Valentina Alarcon NP [address] [place] [address] PCP - General Family Medicine 06/27/24 documented as of this encounter
--- OUTSIDE RECORDS SUMMARY | 2025-05-22 18:50 | XMS_ITS | Encounter Summary ---
Author Organization [employer] Address 75 [facility] 7[address] [place] [address] Care Team Providers Care Speech Therapy Assistant Name Role Phone Valentina Alarcon ISAIAS Primary Care Provider [phone] Encounter Details Date Type Department Care Team (Latest Contact Info) Description 05/22/2025 Travel Social History Tobacco Use Types Packs/Day [...] Description 05/23/2025 2:15 PM EDT Office Visit [facility] OPTOMETRY [address] [place] [address] Ivory Victoria, OD [address] [place] [address] 06/06/2025 11:30 AM EDT Office Visit [facility] MEDICINE [address] [place] [address] Valentina Alarcon NP [address] [place] [address] documented as of this encounter Visit Diagnoses Not on filedocumented in this encounter Additional Health Concerns Assessment Noted Time PHQ-9 Depression Total Score: 9 12/05/19 25 3:40 PM EDT documented as of this encounter Care Teams Speech Therapy Assistant Relationship Specialty Start Date End Date Valentina Alarcon NP [address] [place] [address] PCP - General Family Medicine 06/27/24 documented as of this encounter
--- OUTSIDE RECORDS SUMMARY | 2025-05-22 18:50 | XMS_ITS | Encounter Summary ---
Author Organization [employer] Address [address] [place] [address] Care Team Providers Care Manager Primary Care Name Role Phone Eliane Noyola JOHN Primary Care Provider [phone] Anayeli Escamilla MD Primary Care Provide r Valentina Alarcon NP Primary Care Provider [phone] Reason for Visit * Reason Onset Date Comments New Patient 06/18/2023 Encounter Details Date Type Department Care Team (Late st Contact Info) Description 06/18/2023 Telephone [facility] MEDICINE [address] [place], [place] [phone] Rayray Vallecillo MD [address] [place], [place] [phone] New Patient Social History Tobacco Use Types [...] been transfer over to wait list for MELTER SUPERVISOR ELECTRIC ARC FURNACE. EFFECTIVE SINCE 06/18/2023 documented in this encounter Plan of Treatment Upcoming Encounters Date Type Department Care Team (Late st Contact Info) Description 05/23/2025 2:15 PM EDT Office Visit [facility] OPTOMETRY [address] [place] [address] CandisshashiIvory, OD [address] [place] [address] 06/06/2025 11:30 AM EDT Office Visit [facility] MEDICINE [address] [place] [address] Valentina Alarcon NP [address] [place] [address] documented as of this encounter Visit Diagnoses Not on filedocumented in this encounter Care Teams Manager Primary Care Relationship Specialty Start Date End Date Eliane Noyola FNP [address] [place] [address] PCP - General Family Medicine 09/08/23 05/01/24 Anayeli Escamilla MD [address] [place] [address] PCP - General Internal Medicine 05/02/24 05/24/24 Valentina Alarcon NP [address] [place] [address] PCP - General Family Medicine 06/27/24 documented as of this encounter
== END 2025-05-22 17:27 | disposition home or self-care (01) ==
LOC: HO.MRI 17:26
PROVIDERS: PCP Nurse Practitioner Family; Visit Provider Orthopaedic Surgery
DX: S83.241A Other tear of medial meniscus, current injury, right knee, initial encounter (principal); M25.311 Other instability, right shoulder
CPT/HCPCS: 73221; 73721

== ENCOUNTER → 2025-05-25 10:47 | Outpatient (REF) | payer OTHER, SELFPAY ==
--- OUTSIDE RECORDS SUMMARY | 2025-05-22 13:45 | XMS_ITS | Encounter Summary ---
Author Organization [employer] Address [address] [place] [address] 7 [place] [address] Care Team Providers Care Tip Cementer Name Role Phone Valentina Alarcon NP Primary Care Provider [phone] Reason for Referral * Imaging (Urgent) - Pending Review Specialty Diagnoses / Procedures Referred By Jim cardoza Referred To Contact Radiology Diagnoses Near syncope Right arm weakness Right leg weakness Palpitations Hypertension, unspecified type Procedures CT Head w/o Contrast Valentina Alarcon NP [address] [place] [address] Phone: tel: fax: [address] Phone: tel: fax: Referral ID Status Reason Start Date Expiration Date V isits Requested Visits Authorized [id number] Pending Review 05/22/2025 05/22/2026 1 1 * Imaging (STAT) - Authorized Specialty Diagnoses / Procedures Referred By Jim cardoza Referred To Contact Cardiology Diagnoses Near syncope Hypertension, unspecified type Procedures Echocardiogram stress test Valentina Alarcon NP [address] [place] [address] Phone: tel: fax: [address] Phone: tel: fax: Referral ID Status Reason Start Date Expiration Date Visits Requested Visits Authorized [id number] Authorized Perform Procedure 05/22/2025 05/22/2026 1 1 Reason for Visit * Reason Comments Follow-up Encounter Details Date Type Department Care Team ([facility] st Contact Info) Description 05/22/2025 1:45 PM EDT Office Visit [facility] [address] [place] [address] Valentina Alarcon NP [address] [place] [address] Near syncope (Primary Dx); Anemia, unspecified type; Type 2 diabetes mellitus with other specified complication, without long-term current use of insulin (CMS/HCC); Type 2 diabetes mellitus with hyperglycemia, unspecified whether longterm insulin use ([facility]); Right arm weakness; Right leg weakness; Palpitations; Hypertension, unspecified type; Right eye sensitive to light Social History Tobacco Use Types Packs/Day Years [...] t he electric, gas, oil or water [employer] threatened to shut off services in your [...] Sign Reading Time Taken Comments Blood Pressure 156/89 05/22/2025 1:26 PM EDT Pulse 99 05/22/2025 1:26 PM EDT Temperature 36.4 C (97.6 F) 05/22/2025 1:26 PM EDT Respiratory Rate 16 05/22/2025 1:26 PM EDT Oxygen Saturation 98% 05/22/2025 1:26 PM EDT Inhaled Oxygen Concentration - - Weight 62.8 kg (138 lb 6.4 oz) 05/22/2025 1:26 P M EDT Height 162.6 cm (5' 4 ) 05/22/2025 1:26 PM EDT Body Mass Index 23.76 05/22/2025 1:26 PM EDT documented in this encounter Progress Notes * Valentina Alarcon NP - 05/22/2025 1:45 PM EDT Ariana De La Fuente is a 74 y.o. female presenting for follow up for the following conditions: - Ariana De La Fuente, 74-year-old female - History of high blood pressure with episodes of headache when blood pressure is elevated - Swelling and discomfort in the eye following increased blood pressure; reported seeing something red in the eye during headache episode, vision now improved - Persistent eye swelling not resolved prior to visit No know history of migraines though does endorse light and sound sensitivity - Recent episode of feeling faint or briefly unconscious during the night, went to er - Discomfort and sharp, constant pain affecting the whole right side of the body, including right arm and shoulder, right arm is weak, chronic issue - Sensation of a prick in the big toe, right leg also feels heavy -endorses exertional chest pain and palpitations, this is new, went to ER, recent EKG wnl has not seen cardiology yet - Recent echocardiogram performed prior to visit, described as reassuring Problem List[1] Review of Systems Eyes: Positive for photophobia, pain and visual disturbance. Respiratory: Negative for shortness of breath. Cardiovascular: Positive for chest pain and palpitations. Negative for leg swelling. Neurological: Positive for weakness and headaches. Negative for facial asymmetry. BP (!) 156/89 (BP Location: Left arm, Patient Position: Sitting, BP Cuff Size: Adult) Pulse 99 Temp 97.6 ??F (36.4 ??C) (Oral) Resp 16 Ht 5' 4 (1.626 m) Wt 138 lb 6.4 oz (62.8 kg) BMI 23.76 kg/m?? Physical Exam Vitals reviewed. HENT: Head: Normocephalic and atraumatic. Nose: Nose normal. Eyes: Conjunctiva/sclera: Conjunctivae normal. Cardiovascular: Rate and Rhythm: Normal rate and regular rhythm. Pulmonary: Effort: Pulmonary effort is normal. Breath sounds: Normal breath sounds. Musculoskeletal: Cervical back: Normal range of motion and neck supple. Neurological: General: No focal deficit present. Mental Status: She is alert. - HEENT: Periorbital edema observed around the right eye. Office Visit on 05/22/2025 Component Date Value Glucose Blood, POC 05/22/2025 185 QC Media Lot # 05/22/2025 [id number] Lot# Expiration Date 05/22/2025 [id number] Orders Only on 05/07/2025 Component Date Value Vitamin B12 05/07/2025 329 Office Visit on 05/07/2025 Component Date Value White Blood Count 05/07/2025 7.1 Red Blood Count 05/07/2025 3.79 (L) Hemoglobin 05/07/2025 11.5 (L) Hematocrit 05/07/2025 35.7 (L) Mean Corpuscular Volume 05/07/2025 94.2 Mean Corpuscular Hemoglo* 05/07/2025 30.3 Mean Corpuscular HGB Conc 05/07/2025 32.2 Red Cell Distribution Wi* 05/07/2025 13.9 Platelet Count 05/07/2025 179 Mean Platelet Volume 05/07/2025 9.9 Neutrophils Percent Auto 05/07/2025 65.2 Imm Gran Pct Auto 05/07/2025 0.4 Lymphocytes Percent Auto 05/07/2025 25.1 Monocytes Percent Auto 05/07/2025 8.5 Eosinophils Percent Auto 05/07/2025 0.4 Basophils Percent Auto 05/07/2025 0.4 NRBC Pct Auto 05/07/2025 0.0 Neutrophils Absolute Auto 05/07/2025 4.6 Imm Gran Abs Auto 05/07/2025 0.03 Lymphocytes Absolute Au* 05/07/2025 1.8 Monocytes Absolute Auto 05/07/2025 0.6 Eosinophils Absolute Auto 05/07/2025 0.0 Basophils Absolute Auto 05/07/2025 0.0 NRBC Abs Auto 05/07/2025 0.000 Sodium 05/07/2025 139 Potassium 05/07/2025 3.9 Chloride 05/07/2025 104 Carbon Dioxide 05/07/2025 27 Anion Gap 05/07/2025 12 Urea Nitrogen (BUN) 05/07/2025 9 Creatinine, Serum 05/07/2025 0.63 Estimated Glomerular Jozef* 05/07/2025 >60 Glucose 05/07/2025 135 (H) Calcium 05/07/2025 9.1 Bilirubin, Total 05/07/2025 0.4 Aspartate Amino Transfer* 05/07/2025 29 Alanine Aminotransferase 05/07/2025 21 Total Protein 05/07/2025 6.9 Albumin Level 05/07/2025 4.2 Alkaline Phosphatase 05/07/2025 65 TSH reflex Free T4 05/07/2025 1.21 Color, UA 05/07/2025 Yellow Clarity, UA 05/07/2025 Clear Glucose, UA 05/07/2025 Negative Bilirubin, UA 05/07/2025 Negative Ketones, UA 05/07/2025 Negative Spec Grav, UA 05/07/2025 1.015 Blood, UA 05/07/2025 Positive (A) pH, UA 05/07/2025 7.0 Protein, UA 05/07/2025 Negative Urobilinogen, UA 05/07/2025 0.2 Leukocytes, UA 05/07/2025 Trace Nitrite, UA 05/07/2025 Negative Appearance, UA 05/07/2025 clear QC Media Lot # 05/07/2025 [id number] Lot# Expiration Date 05/07/2025 [id number] IMAGES: Encounter Date: 05/07/25 ECG 12 lead Narrative NSR@ 96bpm, normal axis. RSR' and inverted T in V2 only. Otherwise a normal EKG - Echocardiogram: reassuring findings Assessment & Plan Near syncope Orders: Echocardiogram stress test; Future CT Head w/o Contrast; Future Anemia, unspecified type Type 2 diabetes mellitus with other specified complication, without long-term current use of insulin ([facility]) Orders: POCT Glucose Type 2 diabetes mellitus with hyperglycemia, unspecified whether longterm insulin use ([facility]) Right arm weakness Orders: Sed Rate by Modified Westergren; Future C-reactive Protein; Future CT Head w/o Contrast; Future Right leg weakness Orders: CT Head w/o Contrast; Future Palpitations Orders: amLODIPine (Norvasc) 5 MG tablet; Take 1 tablet (5 mg) by mouth Once per day. CT Head w/o Contrast; Future Hypertension, unspecified type Orders: Echocardiogram stress test; Future amLODIPine (Norvasc) 5 MG tablet; Take 1 tablet (5 mg) by mouth Once per day. CT Head w/o Contrast; Future Right eye sensitive to light Assessment & Plan Near syncope: - Near syncope episode reported, including transient loss of consciousness. - Ordered head CT to evaluate for possible stroke or other neurological causes. Ordered urgent cardiology referral. Ordered stress test. Advised to go to emergency room if chest pain or loss of vision occurs. Anemia, unspecified type: - Ordered blood work to be completed before next visit. Right arm weakness: - Right arm weakness noted, possible neurological etiology considered. - Ordered head CT to evaluate for stroke. Will address shoulder and spine after initial imaging. Right leg weakness: - Right leg weakness noted, possible neurological etiology considered. - Ordered head CT to evaluate for stroke. Will address further after initial imaging. Palpitations: - Palpitations described as irregular and strong. - Ordered Holter monitor. Urgent cardiology referral placed. Ordered stress test. Hypertension, unspecified type: - Hypertension with associated headache and right eye swelling. - Prescribed new antihypertensive medication, to be picked up at [facility] pharmacy, [address] [place] [address]. Advised to monitor blood pressure. Urgent cardiology referral placed. Right eye sensitive to light: - Right eye swelling and sensitivity to light following hypertensive episode. No current vision changes. Suspect migraine but call into eye care who will outreach directly for visit this week - Recommended ophthalmology evaluation. Advised to go to emergency room if vision loss or pain occurs. Appointments - Eye examination appointment tomorrow - Urgent cardiology appointment for Holter monitor and echo review - Follow-up appointment in three weeks Based on our discussion, I have outlined the following instructions for you: - Go for your head scan (CT) as soon as possible to check for any problems in your brain. - Go for your heart stress test as soon as possible. - Get your blood work done before your next visit. - Wear the heart monitor (Holter monitor) as instructed. - puppet engineer your new blood pressure medicine at [facility] pharmacy, [address] [place] [address], and start taking it as directed. - Check your blood pressure regularly and keep a record of your readings. - Go for your eye check-up as recommended. - Go to the emergency room right away if you have chest pain, lose vision, or have pain in your eye. Next appointment(s): - Eye examination appointment tomorrow - Urgent cardiology appointment for Holter monitor and echo review - Follow-up appointment in three weeks Thank you again for your visit, and we look forward to supporting you in your journey to better health. This note was drafted using Ambient (AI) technology. The patient/patient's guardian has been informed and has consented to the use of this technology: Yes Visit Conducted in: Romanian Translation by: Provided by [employer] Master[employer]Mist[employer] Phone Service ID # [id number] [1] Patient Active Problem List Diagnosis Diabetes mellitus ([facility]/HCC) Carpal tunnel syndrome Allergic rhinitis Fibromyalgia Hypertension 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 2 diabetes mellitus (CMS/HCC) ([facility]) Varicose vein of leg Urticaria Tinnitus Microscopic hematuria Chronic right shoulder pain Constipation Gastroesophageal reflux disease without esophagitis Encounter for screening mammogram for malignant neoplasm of breast Healthcare maintenance Frequent falls Chronic pain of right knee Eczema of both external ears Post-menopausal Chronic back pain Other screening mammogram Environmental allergies Hypertrophy of posterior end of inferior turbinate Otitis externa Vasomotor rhinitis Major depressive disorder with single episode, in full remission ([facility]) Dietary counseling Exercise counseling PTSD (post-traumatic stress disorder) Abnormal mammogram Cervicalgia Ear itching Dyspnea on exertion Hx of abnormal mammogram Near syncope Lower urinary tract symptoms (LUTS) Anemia Right arm pain Right leg weakness Palpitations Right eye sensitive to light documented in this encounter Miscellaneous Notes * Assessment & Plan Note - Valentina Alarcon NP - 05/22/2025 1:45 PM EDTAssociated Problem(s): Near syncope Orders: Echocardiogram stress test; Future CT Head w/o Contrast; Future * Assessment & Plan Note - Valentina Alarcon NP - 05/22/2025 1:45 PM EDTAssociated Problem(s): Anemia * Assessment & Plan Note - Valentina Alarocn NP - 05/22/2025 1:45 PM EDTAssociated Problem(s): Diabetes mellitus (CMS/HCC) Orders: POCT Glucose * Assessment & Plan Note - Valentina Alarcon NP - 05/22/2025 1:45 PM EDTAssociated Problem(s): Diabetes mellitus (CMS/HCC) * Assessment & Plan Note - Valentina Alarcon NP - 05/22/2025 1:45 PM EDTAssociated Problem(s): Right arm pain Orders: Sed Rate by Modified Westergren; Future C-reactive Protein; Future CT Head w/o Contrast; Future * Assessment & Plan Note - Valentina Alarcon NP - 05/22/2025 1:45 PM EDTAssociated Problem(s): Right leg weakness Orders: CT Head w/o Contrast; Future * Assessment & Plan Note - Valentina Alarcon NP - 05/22/2025 1:45 PM EDTAssociated Problem(s): Palpitations Orders: amLODIPine (Norvasc) 5 MG tablet; Take 1 tablet (5 mg) by mouth Once per day. CT Head w/o Contrast; Future * Assessment & Plan Note - Valentina Alarcon NP - 05/22/2025 1:45 PM EDTAssociated Problem(s): Hypertension Orders: Echocardiogram stress test; Future amLODIPine (Norvasc) 5 MG tablet; Take 1 tablet (5 mg) by mouth Once per day. CT Head w/o Contrast; Future * Assessment & Plan Note - Valentina Alarcon NP - 05/22/2025 1:45 PM EDTAssociated Problem(s): Right eye sensitive to light documented in this encounter Plan of Treatment Upcoming Encounters Date Type Department Care Team (Late st Contact Info) Description 06/06/2025 11:30 AM EDT Office Visit [facility] [address] [place] [address] Valentina Alarcon NP [address] [place] [address] Scheduled Orders Name Type Priority Associated Diagnoses Order Schedule Sed Rate by Modified Westergren Lab Routine Right arm weakness Expected: 05/22/2025, Expires: 05/22/2026 C-reactive Protein Lab Routine Right arm weakness Expected: 05/22/2025 (Approximate), Expires: 05/22/2026 Echocardiogram stress test Stress Echocardiography STAT Near syncope Hypertension, unspecified type Expected: 05/22/2025 (Approximate), Expires: 05/22/2027 CT Head w/o Contrast Imaging Urgent Near syncope Right arm weakness Right leg weakness Palpitations Hypertension, unspecified type Expected: 05/22/2025, Expires: 05/22/2026 documented as of this encounter Procedures Procedure Name Priority Date/Time Associated Diagnosis Comments POCT GLUCOSE Routine 05/22/2025 1:25 PM EDT Type 2 diabetes mellitus with other specified complication, without long-term current use of insulin ([facility]) documented in this encounter Results * POCT Glucose (05/22/2025 1:25 PM EDT) Glucose Blood, POC 185 60 - 200 mg/dL QC Media Lot # [id number] Lot# Expiration Date 3 Blood Capillary blood specimen / Unknown 05/22/2025 1:25 PM EDT Valentina Alarcon NP POINT OF CARE TEST ENTER/EDIT OR DERABLES Final Result documented in this encounter Visit Diagnoses Diagnosis Near syncope- Primary Anemia, unspecified type Type 2 diabetes mellitus with other specified complication, without long-term current use of insulin ([facility]) Type 2 diabetes mellitus with hyperglycemia, unspecified whether 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 manager insulin use ([facility]) Right arm weakness Other musculoskeletal symptoms referable to limbs Right leg weakness Muscle weakness (generalized) Palpitations Hypertension, unspecified type Right eye sensitive to light documented in this encounter Additional Health Concerns Assessment Noted Time PHQ-9 Depression Total Score: 9 12/05/19 25 3:40 PM EDT documented as of this encounter Care Teams Tip Cementer Relationship Specialty Start Date End Date Valentina Alarcon NP [address] [place] [address] PCP - General Family Medicine 06/27/24 documented as of this encounter
--- OUTSIDE RECORDS SUMMARY | 2025-05-23 14:15 | XMS_ITS | Encounter Summary ---
Author Organization [employer] Address [address] [place] [address] 7[address] [place] [address] Care Team Providers Care Mixed Signal Design Engineer Name Role Phone Valentina Alarcon ISAIAS Primary Care Provider Encounter Details Date Type Department Care Team ([facility] st Contact Info) Description 05/23/2025 2:15 PM EDT Office Visit [facility] OPTOMETRY [address] [place] [address] Ivory Victoria, OD [address] [place] [address] Hordeolum internum of right upper eyelid (Primary Dx) Social History Tobacco Use Types Packs/Day Years [...] PM EST documented as of this encounter Progress Notes * Ivory Victoria, OD - 05/23/2025 2:15 PM EDT Eye Care Progress Note Patient ID: Ariana De La Fuente is a 74 y.o. female. HPI Patient reports swelling of UL OD with itching, burning, pain. Patient reports that symptoms are improving slowly. She has been using artificial tears BID both eyes (OU). Patient also notes that this started around the same time as a very high BP spike, headache and toepain that was followed by PCP & ER. Last edited by Ivory Victoria, OD on 05/23/2025 2:55 PM. Current Medications[1] Medical History[2] Surgical History[3] Family History[4] Tobacco Use: Medium Risk (05/22/2025) Tobacco Smoking Tobacco Use: Former Smokeless Tobacco Use: Never Passive Exposure: Past Allergies[5] ROS Positive for: Eyes Negative for: Constitutional, Gastrointestinal, Neurological, Skin, Genitourinary, Musculoskeletal,HENT, Endocrine, Cardiovascular, Respiratory, Psychiatric, Allergic/Imm, Heme/Lymph Last edited by Ivory Victoria, OD on 05/23/2025 2:55 PM. Base Eye Exam Visual Acuity (Snellen - Linear) Right Left Dist sc 20/50 20/25 Dist ph sc 20/25 20/20 Tonometry ([facility] , 2:12 PM) Right Left Pressure 8 8 Pupils Pupils APD Right PERRL None Left PERRL None Visual Oconnor (Counting fingers) Left Right Full Full Extraocular Movement Right Left Full Full Neuro/Psych Oriented x3: Yes Mood/Affect: Normal Slit Lamp and Fundus Exam External Exam Right Left External Normal Normal Slit Lamp Exam Right Left Lids/Lashes Internal hordeolum upper lid (UL), 1+ superior periorbital edema Clean and clear Conjunctiva/Sclera White and quiet White and quiet Cornea Clear Clear Anterior Chamber Deep and quiet, angles open Deep and quiet, angles open Iris Flat, round Flat, round Lens PC-IOL PC-IOL Assessment and Plan Diagnoses and all orders for this visit: Hordeolum internum of right upper eyelid - Patient educated on findings. Recommended warm compresses 4x/day for 10 minutes at time. Also continue use of artificial tears 2-4x/day - Rx sent to pharmacy per patient request - polyvinyl alcohol (Liquifilm Tears) 1.4 % ophthalmic solution; Administer 1 drop into both eyes if needed for dry eyes. - RTC if symptoms worsen or persist RTC for KARI at next available Ivory Victoria, OD 05/23/2025, 3:01 PM Inclusion Teacher Source: __ None _x_ Bilingual Staff __ Qualified Staff Store Receiver __ Telephone Inclusion Teacher; ID# __ Inclusion Teacher brought by patient (family member, friend, TOP ICER, etc) __ In person paper bag maker __ Ipad Inclusion Teacher; ID#: Language Spoken During Exam: Armenian [1] Current Outpatient Medications Medication Sig Dispense Refill acetaminophen (Tylenol) 325 MG tablet amLODIPine (Norvasc) 5 MG tablet Take 1 tablet (5 mg) by mouth Once per day. 30 tablet 2 Blood Pressure kit 1 each Once per day. 1 kit 0 Calcium Carb-Cholecalciferol 600-10 MG-MCG tablet TAKE 1 TABLET BY MOUTH TWICE A DAY ^1R1,1R4 56 tablet 5 clonazePAM (KlonoPIN) 1 MG tablet Take 1 tablet (1 mg) by mouth at bedtime. Do not start before 2024. 30 tablet 0 Diclofenac Sodium 1 % gel Apply 2 g topically 4 times daily. fluocinonide (Lidex) 0.05 % external solution APPLY TOPICALLY TWO TIMES A DAY TO EARS (BULK) 60 mL 0 fluticasone (Cutivate) 0.05 % cream APPLY TO AFFECTED AREA(S) TWO TIMES A DAY (BULK) 45 g 0 fluticasone (Flonase) 50 MCG/ACT nasal spray Administer 1 spray into each nostril Once per day. 16 g 3 FreeStyle lancets USE TWO TIMES A DAY (BULK) 100 each 11 FREESTYLE LITE test strip USE ONE STRIP TWO TIMES A DAY TO TEST BLOOD SUGAR (BULK) 100 strip 3 gabapentin (Neurontin) 600 MG tablet TAKE 1 TABLET BY MOUTH THREE TIMES DAILY ^1R1,1R2,1R4 90 tablet 3 loratadine (Claritin) 10 MG tablet Take 1 tablet (10 mg) by mouth Once per day. 30 tablet 11 losartan (Cozaar) 100 MG tablet Take 1 tablet (100 mg) by mouth Once per day. Take 100 mg by mouth in the morning. 28 tablet 5 melatonin 5 MG tablet TAKE ONE TABLET BY MOUTH AT BEDTIME NEEDED FOR INSOMNIA ^1R4 30 tablet 11 metFORMIN (Glucophage) 850 MG tablet Take 1 tablet (850 mg) by mouth 2 times daily. With food 60 tablet 5 montelukast (Singulair) 10 MG tablet TAKE ONE TABLET BY MOUTH EVERY DAY ^1R4 28 tablet 1 omeprazole (PriLOSEC) [address] capsule TAKE ONE CAPSULE BY MOUTH EVERY DAY ^1R1 28 capsule 3 polyethylene glycol, PEG, 3350 (Glycolax) 17 GM/SCOOP powder MIX 17 GRAM(S) IN 8 OZ OF WATER AND DRINK BY MOUTH ONCE A DAY NEEDED FOR CONSTIPATION (BULK) 238 g 1 polyvinyl alcohol (Liquifilm Tears) 1.4 % ophthalmic solution Administer 1 drop into both eyes if needed for dry eyes. 15 mL 5 rosuvastatin (Crestor) 10 MG tablet TAKE ONE TABLET BY MOUTH EVERY DAY ^1R4 30 tablet 3 senna (Senokot) 8.6 MG tablet Take 1 tablet (8.6 mg) by mouth at bedtime. 120 tablet 2 sertraline (Zoloft) 100 MG tablet Take 100 mg by mouth Once per day. No current facility-administered medications for this visit. [2] Past Medical History: Diagnosis Date Arthritis Diabetes mellitus (CMS/HCC) GERD (gastroesophageal reflux disease) Hyperlipidemia Hypertension [3] Past Surgical History: Procedure Laterality Date SECTION, LOW TRANSVERSE CYST REMOVAL Right right axilla [4] Family History Family history unknown: Yes [5] Allergies Allergen Reactions Aspirin Nausea Wild Lettuce Extract (Lactuca Virosa) Other Allergy testing reports she is allergic to lettuce documented in this encounter Plan of Treatment Upcoming Encounters Date Type Department Care Team (Late st Contact Info) Description 06/06/2025 11:30 AM EDT Office Visit [facility] MEDICINE [address] [place] [address] Valentina Alarcon NP [address] [place] [address] documented as of this encounter Visit Diagnoses Diagnosis Hordeolum internum of right upper eyelid- Primary documented in this encounter Additional Health Concerns Assessment Noted Time PHQ-9 Depression Total Score: 9 12/05/19 25 3:40 PM EDT documented as of this encounter Care Teams Mixed Signal Design Engineer Relationship Specialty Start Date End Date Valentina Alarcon NP [address] [place] [address] PCP - General Family Medicine 06/27/24 documented as of this encounter
--- NOTE | 2025-05-25 10:50 | CA_ITS ---
Acquisition Time: 2025-05-25 11:43:00 Total Exercise Time: 00:06:02 Test Indications: R55, HTN Medications: SEE H&P Protocol: CHA Max HR: 134 BPM 91% of Pred: 146 BPM Max BP: 138/70 mmHG Max Work Load: 4.8 METS Exercise stress test with exercise 6 mins of Cha Protocol at reduced speed of 1.6mph due to trouble walking on treadmill, achieving 91% MPHR, without any reports of CP, SOB or dizziness, with isolated PACs and PVCs, with ventricular couplets, with normotensive response to exercise. Without any EKG changes meeting criteria for ischemia. In recovery, pt continued to feel well. Echo images were obtained by tech at rest and post peak exercise. Definity contrast utilized. Test reviewed with Dr. Bolanos. Referred By: Valentina Alarcon Electronically Signed By: Eric Elmore
--- OUTSIDE RECORDS SUMMARY | 2025-05-25 12:26 | XMS_ITS | Encounter Summary ---
Author Organization [email or web address] Address 75 [facility] 7 [place] [address] Care Team Providers Care Operations Plant Attendant Name Role Phone Valentina Alarcon NP Primary Care Provider [phone] Reason for Visit * Reason Comments Med Refill Encounter Details Date Type Department Care Team ([facility] st Contact Info) Description 10/17/2024 Refill [facility] MEDICINE [address] [place], [place] [phone] Valentina Alarcon NP [address] [place], [place] [phone] Social History Tobacco Use Types Packs/Day Years [...] Description 06/06/2025 11:30 AM EDT Office Visit [facility] MEDICINE [address] [place] [address] Valentina Alarcon NP [address] [place] [address] documented as of this encounter Visit Diagnoses Not on filedocumented in this encounter Additional Health Concerns Assessment Noted Time PHQ-9 Depression Total Score: 8 12/29/19 4:22 PM EDT documented as of this encounter Care Teams Operations Plant Attendant Relationship Specialty Start Date End Date Valentina Alarcon NP [address] [place] [address] PCP - General Family Medicine 06/27/24 documented as of this encounter
--- OUTSIDE RECORDS SUMMARY | 2025-05-25 12:26 | XMS_ITS | Encounter Summary ---
Author Organization [employer] Address 75 [facility] [address] [place] [address] Care Team Providers Care Fish Bait Processing Supervisor Name Role Phone Valentina Alarcon NP Primary Care Provider [phone] Reason for Visit * Reason Comments Med Refill Encounter Details Date Type Department Care Team ([facility] st Contact Info) Description 02/27/2025 Refill [facility] MEDICINE [address] [place], [place] [phone] Valentina Alarcon NP [address] [place], [place] [phone] 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 2 diabetes mellitus (CMS/HCC) ([facility]/HCC); Ear itching Social History Tobacco Use Types [...] Description 06/06/2025 11:30 AM EDT Office Visit [facility] MEDICINE [address] [place] [address] Valentina Alarcon NP [address] [place] [address] documented as of this encounter Visit Diagnoses Diagnosis 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 2 diabetes mellitus (CMS/HCC) (CMS/HCC) Ear itching documented in this encounter Additional Health Concerns Assessment Noted Time PHQ-9 Depression Total Score: 9 12/05/19 25 3:40 PM EDT documented as of this encounter Care Teams Fish Bait Processing Supervisor Relationship Specialty Start Date End Date Valentina Alarcon NP [address] [place] [address] PCP - General Family Medicine 06/27/24 documented as of this encounter
--- OUTSIDE RECORDS SUMMARY | 2025-05-25 12:26 | XMS_ITS | Encounter Summary ---
Author Organization [employer] Address 75 [facility] [address] [address] Care Team Providers Care Tapper Bit Name Role Phone Valentina Alarcon NP Primary Care Provider [phone] Reason for Visit * Reason Comments Med Refill Encounter Details Date Type Department Care Team ([facility] st Contact Info) Description 05/18/2025 Refill [facility] MEDICINE [address] [place], [place] [phone] Valentina Alarcon NP [address] [place] [address] Ear itching; Seasonal allergic rhinitis due to [...] Description 06/06/2025 11:30 AM EDT Office Visit [facility] MEDICINE [address] [place] [address] Valentina Alarcon NP [address] [place] [address] documented as of this encounter Visit Diagnoses Diagnosis Ear itching Seasonal allergic rhinitis due to pollen Fibromyalgia Unspecified myalgia and myositis documented in this encounter Additional Health Concerns Assessment Noted Time PHQ-9 Depression Total Score: 9 12/05/19 25 3:40 PM EDT documented as of this encounter Care Teams Tapper Bit Relationship Specialty Start Date End Date Valentina Alarcon NP [address] [place] [address] PCP - General Family Medicine 06/27/24 documented as of this encounter
--- OUTSIDE RECORDS SUMMARY | 2025-05-25 12:26 | XMS_ITS | Encounter Summary ---
Author Organization [employer] Address 75 [facility] [address] [place] [address] Care Team Providers Care Returns Supervisor Name Role Phone Valentina Alarcon ISAIAS Primary Care Provider [phone] Reason for Visit * Reason Onset Date Comments CHART PREP 05/21/2025 Encounter Details Date Type Department Care Team (Late st Contact Info) Description 05/21/2025 Telephone [facility] MEDICINE [address] [place] [address] Heidi Downey MA CHART PREP Social History [...] Referrals: appointment pending-CARDIOLOGY [place] 06/14/25 3:00 PM [facility] NOTES IN CHART 05/16/25 1:00 PM [facility] [place] 03/20/25 9:15 AM [facility] [place] Matt Jon MD Vaccines due: Covid and Flu Screenings: colonoscopy, eye exam, and foot exam Overdue care gaps: Glucose and SHELIA-7 documented in this encounter Plan of Treatment Upcoming Encounters Date Type Department Care Team (Late st Contact Info) Description 06/06/2025 11:30 AM EDT Office Visit [facility] MEDICINE [address] [place] [address] Valentina Alarcon NP [address] [place] [address] documented as of this encounter Visit Diagnoses Not on filedocumented in this encounter Additional Health Concerns Assessment Noted Time PHQ-9 Depression Total Score: 9 12/05/19 3:40 PM EDT documented as of this encounter Care Teams Returns Supervisor Relationship Specialty Start Date End Date Valentina Alarcon NP [address] [place] [address] PCP - General Family Medicine 06/27/24 documented as of this encounter
--- OUTSIDE RECORDS SUMMARY | 2025-05-25 12:26 | XMS_ITS | Encounter Summary ---
Author Organization [employer] Address [address] [place] [address] Care Team Providers Care Four Slide Machine Setter Name Role Phone Valentina Alarcon ISAIAS Primary Care Provider [phone] Reason for Visit * Reason Comments Med Refill Encounter Details Date Type Department Care Team ([facility] st Contact Info) Description 05/18/2025 Refill [facility] MEDICINE [address] [place], [place] [phone] Kaity Chacko ANP [address] [place], [place] [phone] Constipation, unspecified constipation type Social History Tobacco [...] Description 06/06/2025 11:30 AM EDT Office Visit [facility] MEDICINE [address] [place] [address] Valentina Alarcon NP [address] [place] [address] documented as of this encounter Visit Diagnoses Diagnosis Constipation, unspecified constipation type documented in this encounter Additional Health Concerns Assessment Noted Time PHQ-9 Depression Total Score: 9 12/05/19 25 3:40 PM EDT documented as of this encounter Care Teams Four Slide Machine Setter Relationship Specialty Start Date End Date Valentina Alarcon NP [address] [place] [address] PCP - General Family Medicine 06/27/24 documented as of this encounter
--- OUTSIDE RECORDS SUMMARY | 2025-05-25 12:26 | XMS_ITS | Clinical Summary ---
Author Organization [employer] Address [address] [facility] [address] [place] [address] Care Team Providers Care Science Instructor Name Role Phone Valentina Alarcon ISAIAS Primary Care Provider [phone] Allergies Active Allergy Reactions Criticality Noted Date [...] g topically 4 times daily. 023 Active senna (Senokot) 8.6 MG tabletIndicatio [...] 2 diabetes mellitus with hyperglycemia, unspecified whether prison insulin use ([facility]) USE TWO TIMES A DAY (BULK) 100 each 11 025 Active fluticasone (Flonase) 50 MCG/ACT nasal sprayIndication s:Seasonal allergic rhinitis due to pollen Administer 1 spray into each nostril Once per day. 16 g 3 025 Active melatonin 5 MG tablet TAKE ONE TABLET BY MOUTH AT BEDTIME NEEDED FOR INSOMNIA ^1R4 30 tablet 11 025 Active loratadine (Claritin) 10 MG tablet [...] SUGAR (BULK) 100 strip 3 025 Active omeprazole (PriLOSEC) [address] capsule TAKE ONE CAPSULE BY MOUTH EVERY DAY ^1R1 28 capsule 3 025 Active losartan (Cozaar) 100 MG tablet Take 1 tablet (100 mg) by mouth Once per day. Take 100 mg by mouth in the morning. 28 tablet 5 025 Active gabapentin (Neurontin) 600 MG tabletIndicatio ns:Fibromyalgia TAKE 1 TABLET BY MOUTH THREE TIMES DAILY ^1R1,1R2,1R4 90 tablet 3 025 Active montelukast (Singulair) 10 MG tablet TAKE ONE TABLET BY MOUTH EVERY DAY ^1R4 28 tablet 1 025 Active rosuvastatin (Crestor) 10 MG tabletIndicatio ns:Hyperlipidem ia due to type 2 diabetes mellitus (CMS/HCC) (CMS/HCC) TAKE ONE TABLET BY MOUTH EVERY DAY ^1R4 30 tablet 3 025 Active polyethylene glycol, PEG, 3350 (Glycolax) 17 GM/SCOOP powder MIX 17 GRAM(S) IN 8 OZ OF WATER AND DRINK BY MOUTH ONCE A DAY NEEDED FOR CONSTIPATION (BULK) 238 g 1 025 Active fluocinonide (Lidex) 0.05 % external solutionIndicat ions:Ear itching APPLY TOPICALLY TWO TIMES A DAY TO EARS (BULK) 60 mL 025 Active fluticasone (Cutivate) 0.05 % cream APPLY TO AFFECTED AREA(S) TWO TIMES A DAY (BULK) 45 g Active amLODIPine (Norvasc) 5 MG tabletIndicatio ns:Palpitations ,Hypertension, unspecified type Take 1 tablet (5 mg) by mouth Once per day. 30 tablet 2 025 2025 Active polyvinyl alcohol (Liquifilm Tears) 1.4 % ophthalmic solutionIndicat ions:Hordeolum internum of right upper eyelid Administer 1 drop into both eyes if needed for dry eyes. 15 mL 5 Active polyvinyl alcohol (Liquifilm Tears) 1.4 % ophthalmic solution INSTILL 1 DROP TWICE DAILY IN BOTH EYES FOR 1MONTH. 023 2024 Discontinued(T herapy completed) sulfamethoxazol e-trimethoprim (Bactrim DS) 800-160 MG tablet Take 1 tablet by mouth 2 times daily for 5 days. 10 tablet 025 2024 amLODIPine (Norvasc) 5 MG tabletIndicatio ns:Palpitations ,Hypertension, unspecified type Take 1 tablet (5 mg) by mouth Once per day. 30 tablet 2 025 2024 Discontinued Active Problems Problem Noted [...] PCP in 2 weeks, she come to [facility] if BP is above 160 [...] barrier, has therapist as well Interested in italian speaking provider Dietary counseling 2024 Assessment & [...] [place] Hypertension 10/25/2023 Assessment & Plan (05/22/2025 4:17 [...] due to type 2 diabetes mellitus ( [facility]) 10/25/2023 Varicose vein of leg [...] organization. Date Type Department Care Team Description 05/23/2025 2:15 PM EDT Office Visit [facility] [address] [place] [address] Tarka, Ivory, OD Hordeolum internum of right upper eyelid (Primary Dx) 05/23/2025 Travel 05/23/2025 Telephone [facility] [address] [place] [phone] Valentina Alarcon NP Medication Question 05/22/2025 1:45 PM EDT Office Visit [address] [address] Valentina Alarcon NP Near syncope (Primary Dx); Anemia, unspecified type; Type 2 diabetes mellitus with other specified complication, without long-term current use of insulin ([facility]); Type 2 diabetes mellitus with hyperglycemia, unspecified whether 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 manager insulin use ([facility]); Right arm weakness; Right leg weakness; Palpitations; Hypertension, unspecified type; Right eye sensitive to light 05/22/2025 Travel 05/21/[address] [address] Heidi Downey [place] CHART PREP 05/18/[address] [address] Kaity Chacko ANP Constipation, unspecified constipation type 05/18/2025 Refill [facility] [address] [place] [phone] Valentina Alarcon NP Ear itching; Seasonal allergic rhinitis due to pollen; Fibromyalgia 05/14/2025 Results Follow-Up [address] [address] Valentina Alarcon NP Vitamin B12 05/10/[address] [address] Ariana Curtis MD 05/09/2025 Telephone [facility] [address] [place] [phone] Valentina Alarcon NP Referral 05/09/2025 Telephone [facility] [address] [place] [phone] Valentina Alarcon NP ER Follow-up 05/07/2025 1:30 PM EDT Office Visit [address] [address] Ariana Curtis MD Near syncope (Primary Dx); Dyspnea on exertion; Lower urinary tract symptoms (LUTS); Primary hypertension 05/07/2025 Orders Only [facility] [address] [place] [address] Valentina Alarcon FOLDER INSPECTOR 05/07/2025 Travel 05/07/2025 Telephone [facility] [address] [place] [address] Valentina Alarcon, FOLDER INSPECTOR Nurse Triage 04/20/2025 Refill [facility] [address] [place] [address] Valentina Alarcon NP Ear itching 04/12/2025 Refill [facility] [address] [place] [address] Valentina Alarcon NP 03/28/2025 Refill [facility] [address] [place] [address] Valentina Alarcon NP Ear itching; 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 2 diabetes mellitus (CMS/HCC) ([facility]) 03/23/2025 Refill [facility] [address] [place] [address] Valentina Alarcon NP 02/27/2025 Refill [facility] [address] [place] [address] Valentina Alarcon NP 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 2 diabetes mellitus ([facility]/HCC) ([facility]); Ear itching from Last 3 Months Immunizations Immunization Administration [...] AM EDT Office Visit [facility] [address] [place] [address] Valentina Alarcon NP [address] [place] [address] Health Maintenance Due Date Last Done Comments CT Colonography 1950 Colonoscopy 1950 Colorectal Cancer Screening 1950 FIT DNA/Cologuard 1950 FIT 1950 FOBT 1950 Sigmoidoscopy 1950 Diabetes: Foot Exam 1960 Hepatitis C Screening 1968 Diabetes: [...] 12/21/2024, 04/0 04/2025, 10/11/2024, Additional history exists Eye Exam 05/23/2027 05/23/2025 DTaP/Tdap/Td Vaccines (6 - Td or Tdap) [...] Procedure Name Priority Date/Time Associated Diagnosis Comments MR KNEE WO CONTRAST RIGHT Routine 05/25/2025 1:08 AM EDT MR SHOULDER WO CONTRAST RIGHT Routine 05/25/2025 1:05 AM EDT POCT GLUCOSE Routine 05/22/2025 1:25 PM EDT Type 2 diabetes mellitus with other specified complication, without long-term current use of insulin ([facility]) ECG 12-LEAD Routine 05/07/2025 6:02 PM EDT [...] due to type 2 diabetes mellitus (CMS/HCC) ([facility]) POCT URINALYSIS DIPSTICK Routine 05/07/2025 2:30 PM EDT Near syncope CULTURE, URINE, ROUTINE Routine 05/07/2025 2:24 PM EDT Near syncope POCT GLYCATED HEMOGLOBIN, TOTAL Routine 02/19/2025 3:33 PM EDT Type 2 diabetes mellitus with other specified complication, without long-term current use of insulin (CMS/[facility]) BI MAMMOGRAM DIAGNOSTIC RIGHT Routine 12/21/2024 9:40 AM EDT from Last 3 Months or Most Recently Relevant to Health Maintenance Results * MR Knee w/o Contrast Right (05/25/2025 1:08 AM EDT) Anatomical Region Laterality Modality Magnetic Resonan ce 05/25/2025 1:08 AM EDT Narrative 05/25/2025 1:10 AM EDT [address] [address] Magnetic Resonance Report Signed Patient: Ariana De La Fuente MR#: [id number] : 1950 Acct:[id number] Age/Sex: 74 / F ADM Date: 05/22/25 Loc: HO.MRI Attending Dr: Dilshad Vargas MD Ordering Physician: Dilshad Vargas MD Date of Service: 05/22/25 Procedure(s): MR knee RT wo con Accession Number(s): [id number] cc: Valentina Alarcon FOLDER INSPECTOR; Dilshad Vargas MD Reason for Exam: S83.241A - Other tear of medial meniscus, current injury, right knee, in... CLINICAL HISTORY: S83.241A - Other tear of medial meniscus, current injury, right knee, in... MR right knee without contrast Comparison: CR/SR - XR KNEE 4 OR MORE VIEWS RIGHT - 02/20/25 13:33 EDT Findings: Tear of the body and posterior horn of the medial meniscus. Increased signal in the lateral meniscus without definitive tear. The anterior and posterior cruciate ligaments are intact. The medial and lateral collateral ligaments are intact without periligamentous edema. No edema in the posterior lateral corner. The extensor mechanism is intact. Small joint effusion. Trace Garcia's cyst. No fracture, stress reaction or osseous lesion. Mild tricompartmental osteophytosis, degenerative. Tricompartmental partial-thickness chondromalacia, degenerative. Impression: Tear of the medial meniscus. No cruciate or collateral ligament tears. Small joint effusion. Mild tricompartmental osteophytosis and partial-thickness chondromalacia, degenerative. This document has been electronically signed by: Kellie Live MD on 05/25/2025 01:08:48 Dictated By: Kellie Naik MD Signed By: <Electronically signed by Kellie Naik MD in OV> 05/25/25109 DD/ 7 TD/TT: 05/25/25107 Design Leader: Procedure Note Donotuseinterpreter, Image - 05/25/[address] [address] Magnetic Resonance Report Signed Patient: Ramya De La Fuente#: [id number] : 1950cct:[id number] Age/Sex: 74 / FADM Date: 05/22/25 Loc: HO.MRI Attending Dr: Dilshad Vargas MD Ordering Physician: Dilshad Vargas MD Date of Service: 05/22/25 Procedure(s): MR knee RT wo con Accession Number(s): [id number] cc: Valentina Alarcon FOLDER INSPECTOR; Dilshad Vargas MD Reason for Exam: S83.241A - Other tear of medial meniscus, currentinjury, right knee, in... CLINICAL HISTORY: S83.241A - Other tear of medial meniscus, currentinjury, right knee, in... MR right knee without contrast Comparison: CR/SR - XR KNEE 4 OR MORE VIEWS RIGHT - 02/20/25 13:33 EDT Findings: Tear of the body and posterior horn of the medial meniscus. Increased signal in the lateral meniscus without definitive tear. The anterior and posterior cruciate ligaments are intact. The medial and lateral collateral ligaments are intact without periligamentous edema. No edema in the posterior lateral corner. The extensor mechanism is intact. Small joint effusion. Trace Garcia's cyst. No fracture, stress reaction or osseous lesion. Mild tricompartmental osteophytosis, degenerative. Tricompartmental partial-thickness chondromalacia, degenerative. Impression: Tear of the medial meniscus. No cruciate or collateral ligament tears. Small joint effusion. Mild tricompartmental osteophytosis and partial-thickness chondromalacia, degenerative. This document has been electronically signed by: Kellie Live MD on 05/25/2025 01:08:48 Dictated By: Kellie Naik MD Signed By: <Electronically signed by Kellie Naki MD in OV> 05/25/25109 DD/ 7 TD/TT: 05/25/25107 Design Leader: [facility] External Provider IMG MRI PROCEDURES Edited Result - Final * MR Shoulder w/o Contrast Right (05/25/2025 1:05 AM EDT) Anatomical Region Laterality Modality Upper Extremities, Shoulder Right Magn etic Resonance 05/25/2025 1:05 AM EDT Narrative 05/25/2025 1:06 AM EDT [address] [address] Magnetic Resonance Report Signed Patient: Ariana De La Fuente MR#: [id number] : 1950 Acct:[id number] Age/Sex: 74 / F ADM Date: 05/22/25 Loc: HO.MRI Attending Dr: Dilshad Vargas MD Ordering Physician: Dilshad Vargas MD Date of Service: 05/22/25 Procedure(s): MR shoulder RT wo con Accession Number(s): [id number] cc: Valentina Alarcon FOLDER INSPECTOR; Dilshad Vargas MD Reason for Exam: Rotator cuff insufficiency of right shoulder CLINICAL HISTORY: Rotator cuff insufficiency of right shoulder MR right shoulder Comparison: DX/SR - XR SHOULDER 2 OR MORE VIEWS RIGHT - 03/14/25 13:48 EDT CR/VT/SR - XR SHOULDER 2 OR MORE VIEWS RIGHT - 09/08/23 16:19 EST Findings: No fracture or dislocation of the osseous structures. Mild amount of edema at the acromioclavicular joint, degenerative, with moderate to severe joint space narrowing and moderate osteophytosis. Cystic change in the humeral head measuring up to 7 mm. Trace joint effusion and fluid in the subacromial/subdeltoid bursa. There is increased signal in the supraspinatus tendon with a full-thickness tear measuring 0.8 x 1.1 cm. No retraction or muscular atrophy. There is increased signal in the infraspinatus and subscapularis tendons with partial tears. No complete tear, retraction or muscular atrophy. Teres minor is unremarkable. Intact labrum. Partial-thickness glenohumeral chondromalacia, degenerative. The biceps tendon and bicipital-labral anchor are normal. The coracoacromial and coracohumeral ligaments are intact. Cutaneous and subcutaneous tissues are normal. The quadrilateral space is unremarkable. Impression: Supraspinatus tendinopathy. Full-thickness tear of the supraspinatus tendon. No retraction or muscular atrophy. Infraspinatus and subscapularis tendinopathy with partial tears. Moderate to severe acromioclavicular joint degenerative change. This document has been electronically signed by: Kellie Live MD on 05/25/2025 01:05:13 Dictated By: Kellie Naik MD Signed By: <Electronically signed by Kellie Naik MD in OV> 05/25/25104 DD/ 4 TD/TT: 05/25/25104 Design Leader: Procedure Note Donotuseinterpreter, Image - 05/25/[address] [address] Magnetic Resonance Report Signed Patient: Ramya De La Fuente#: [id number] : 1950cct:[id number] Age/Sex: 74 / FADM Date: 05/22/25 Loc: HO.MRI Attending Dr: Dilshad Vargas MD Ordering Physician: Dilshad Vargas MD Date of Service: 05/22/25 Procedure(s): MR shoulder RT wo con Accession Number(s): [id number] cc: Valentina Alarcon FOLDER INSPECTOR; Dilshad Vargas MD Reason for Exam: Rotator cuff insufficiency of right shoulder CLINICAL HISTORY: Rotator cuff insufficiency of right shoulder MR right shoulder Comparison: DX/SR - XR SHOULDER 2 OR MORE VIEWS RIGHT - 03/14/25 13:48 EDT CR/VT/SR - XR SHOULDER 2 OR MORE VIEWS RIGHT - 09/08/23 16:19 EST Findings: No fracture or dislocation of the osseous structures. Mild amount of edema at the acromioclavicular joint, degenerative, with moderate to severe joint space narrowing and moderate osteophytosis. Cystic change in the humeral head measuring up to 7 mm. Trace joint effusion and fluid in the subacromial/subdeltoid bursa. There is increased signal in the supraspinatus tendon with a full-thickness tear measuring 0.8 x 1.1 cm. No retraction or muscular atrophy. There is increased signal in the infraspinatus and subscapularis tendons with partial tears. No complete tear, retraction or muscular atrophy. Teres minor is unremarkable. Intact labrum. Partial-thickness glenohumeral chondromalacia, degenerative. The biceps tendon and bicipital-labral anchor are normal. The coracoacromial and coracohumeral ligaments are intact. Cutaneous and subcutaneous tissues are normal. The quadrilateral space is unremarkable. Impression: Supraspinatus tendinopathy. Full-thickness tear of the supraspinatus tendon. No retraction or muscular atrophy. Infraspinatus and subscapularis tendinopathy with partial tears. Moderate to severe acromioclavicular joint degenerative change. This document has been electronically signed by: Kellie Live MD on 05/25/2025 01:05:13 Dictated By: Kellie Naik MD Signed By: <Electronically signed by Kellie Naik MD in OV> 05/25/25104 DD/ 4 TD/TT: 05/25/25104 Design Leader: [facility] External Provider IMG MRI PROCEDURES Edited Result - Final * POCT Glucose (05/22/2025 1:25 PM EDT) Glucose Blood, POC 185 60 - 200 mg/dL QC Media Lot # [id number] Lot# Expiration Date 3759,902 Blood Capillary blood specimen / Unknown 05/22/2025 [...] PM EDT Narrative 05/07/2025 3:16 PM EDT [facility] [address] [place] [address] XRay Report Signed Patient: Ariana De La Fuente MR#: [id number] : 1950 Acct:[id number] Age/Sex: 74 / F ADM Date: 05/07/25 [facility]: Ariana Curtis MD Ordering Physician: Ariana Curtis MD Date of Service: 05/07/25 Procedure(s): XR chest 2V Accession Number(s): [id number] cc: Ariana Curtis MD Reason for Exam: [...] 05/07/25 1514 DD/ 1503 TD/TT: 05/07/25 1504 Design Leader: Procedure Note Donotuseinterpreter, Image - 05/07/2025 [facility] [address] [place] [address] XRay Report Signed Patient: Ramya De La Fuente#: [id number] : 1950cct:[id number] Age/Sex: 74 / FADM Date: 05/07/25 Loc: HO.HHCX Attending Dr: Ariana Curtis MD Ordering Physician: Ariana Curtis MD Date of Service: 05/07/25 Procedure(s): XR chest 2V Accession Number(s): [id number] cc: Ariana Curtis MD Reason for Exam: [...] 05/07/25 1514 DD/ 1503 TD/TT: 05/07/25 1504 Design Leader: us Ariana Curtis MD IMG XR PROCEDURES Edited Result - Final * TSH with Reflex to Free T4 (05/07/2025 2:38 PM EDT) TSH reflex Free T4 1.21 0.32 - 4.0 uIU/mL [facility] Blood 05/07/2025 2:38 PM EDT 05/07/2025 4:02 PM EDT us Ariana Curtis MD LAB BLOOD ORDERABLES Fin al Result [facility] [address] [place] [address] [phone] * (ABNORMAL) CBC auto differential (05/07/2025 2:38 PM EDT) White Blood Count 7.1 4.8 - 10.8 X10*3/uL [facility] Red Blood Count 3.79(L) 4.20 - 5.50 X10*6/uL [facility] Hemoglobin 11.5(L) 12.0 - 16.0 g/dl [facility] Hematocrit 35.7(L) 37.0 - 47.0 % [facility] Mean Corpuscular Volume 94.2 80.0 - 98.0 fL [facility] Mean Corpuscular Hemoglobin 30.3 27.0 - 33.0 pg [facility] Mean Corpuscular HGB Conc 32.2 31.0 - 35.0 g/dl [facility] Red Cell Distribution Width 13.9 11.0 - 16.0 % [facility] Platelet Count 179 160 - 400 X10*3/uL [facility] Mean Platelet Volume 9.9 9.4 - 12.3 fL [facility] Neutrophils Percent Auto 65.2 45 - 73 % [facility] Imm Gran Pct Auto 0.4 0.0 - 0.4 % [facility] Lymphocytes Percent Auto 25.1 20 - 40 % [facility] Monocytes Percent Auto 8.5 2 - 11 % [facility] Eosinophils Percent Auto 0.4 0 - 4 % [facility] Basophils Percent Auto 0.4 0 - 2 % [facility] NRBC Pct Auto 0.0 0.0 - 0.2 /100WBC [facility] Neutrophils Absolute Auto 4.6 2.0 - 8.3 x10*3/uL [facility] Imm Gran Abs Auto 0.03 0.00 - 0.03 X10*3/uL [facility] Lymphocytes Absolute Auto 1.8 1.2 - 4.9 X10*3/uL [facility] Monocytes Absolute Auto 0.6 0.1 - 1.2 X10*3/uL [facility] Eosinophils Absolute Auto 0.0 0.0 - 0.4 X10*3/uL [facility] Basophils Absolute Auto 0.0 0.0 - 0.2 X10*3/uL [facility] NRBC Abs Auto 0.000 0.0 - 0.012 X10*3/uL [facility] Blood Venous blood specimen / Unknown 05/07/2025 2:38 PM EDT 05/07/2025 4:02 PM EDT us Ariana Curtis MD LAB BLOOD ORDERABLES Fin al Result Performing Organization Address [facility]/ZIP Co de Phone Number [facility] [address] [place] [phone] * Vitamin B12 (05/07/2025 2:38 PM EDT) Vitamin B12 329 200 - 900 pg/mL [facility] Comment:NORMAL 200-900 PG/ML INDETERMINATE 160-199 PG/ML DEFICIENT < 160 PG/ML 05/07/2025 2:3 8 PM EDT 05/07/2025 4:02 PM EDT us Valentina Alarcon NP LAB BLOOD ORDERABLES Final Resul t Performing Organization Address [facility] Co de Phone Number [facility] [address] [place] [phone] * Lipid Panel, Standard (05/07/2025 2:38 PM EDT) Triglycerides 52 <150 mg/dL [facility] Comment:Desirable Triglyceri de: less than 150 mg/dLBorderline High Triglyceride 150-199 mg/dLHigh Triglyceride: 200-499 mg/dLVery High Triglyceride: greater than or equal to 5OO mg/dL Cholesterol 141 <200 mg/dL [facility] Comment:Desirable Cholestero l: less than 200 mg/dLBorderline High Cholesterol: 200-239 mg/dLHigh Cholesterol: greater than 239 mg/dL LDL Cholesterol Calculated 82 <100 mg/dL [facility] Comment:Desirable LDL: less than 100 mg/dLNear Optimal/Above Optimal LDL: 110- 129 mg/dLBorderline High LDL: 130-159 mg/dLHigh LDL: 160-189 mg/dLVery High LDL: greater than or equal to 190 mg/dL HDL Cholesterol 49 >40 mg/dL [facility] Comment:Desirable HDL: great er than 40 mg/dL Note: This HDL assay may give artificially low results in patients with liver disease. Blood Venous blood specimen / Unknown 05/07/2025 2:38 PM EDT 05/07/2025 4:02 PM EDT us Valentina Alarcon NP LAB BLOOD ORDERABLES Final Resul t [facility] [address] [place] [address] [phone] * (ABNORMAL) Comprehensive Metabolic Panel (05/07/2025 2:38 PM EDT) Sodium 139 135 - 145 mmol/L [facility] Potassium 3.9 3.3 - 5.1 mmol/L [facility] Chloride 104 96 - 108 mmol/L [facility] Carbon Dioxide 27 22 - 29 mmol/L [facility] Anion Gap 12 12 - 20 [facility] Urea Nitrogen (BUN) 9 9 - 16 mg/dL [facility] Creatinine, Serum 0.63 0.5 - 1.4 mg/dL [facility] Estimated Glomerular Filt Rate >60 [facility] Comment:Chronic Kidney Disea se: Estimated GFR < 60 mL/min/1.55w1Tosidd Kidney Disease: Estimated GFR < 15 mL/min/1.73m2 Glucose 135(H) 60 - 115 mg/dL [facility] Calcium 9.1 8.4 - 10.2 mg/dL [facility] Bilirubin, Total 0.4 0.0 - 1.0 mg/dL [facility] Aspartate Amino Transferase 29 5 - 31 U/L [facility] Alanine Aminotransferase 21 0 - 31 U/L [facility] Total Protein 6.9 6.5 - 8.0 g/dL [facility] Albumin Level 4.2 3.5 - 5.0 g/dL [facility] Alkaline Phosphatase 65 39 - 117 U/L [facility] Blood Venous blood specimen / Unknown 05/07/2025 2:38 PM EDT 05/07/2025 4:02 PM EDT Ariana Curtis MD LAB BLOOD ORDERABLES Fin al Result Performing Organization Address City/[facility]/ZIP Co de Phone Number [facility] [address] [place] [phone] * (ABNORMAL) POCT Urinalysis (05/07/2025 2:30 [...] EDT 05/07/2025 4:24 PM EDT Comment:UACC Narrative [facility] - 05/09/2025 8:41 AM EDT Urine Culture No growth. Specimen Source: Urine clean catch Ariana Curtis MD LAB MICROBIOLOGY - GENER AL ORDERABLES Final Result [facility] [address] [facility] [place] [address] [phone] * POCT HGB A1C (02/19/2025 3:33 PM [...] AM EDT Narrative 12/21/2024 12:45 PM EDT [address] [place] [address] Mammography Report Signed with Addenda Patient: Ariana De La Fuente MR#: [id number] : 1950 Acct:[id number] Age/Sex: 74 / F ADM Date: 12/21/24 Loc: HO.MAMMO Attending Dr: Matt Jon MD Ordering Physician: Matt Jon MD Results: Date of Service: 12/21/24 Follow Up: Procedure(s): MM diagnostic mammo unilat RT Accession Number(s): [id number] cc: Valentina Alarcon FOLDER INSPECTOR; Matt Jon MD ADDENDUM ADDENDUM #1 ADDENDUM: [...] 12/21/24 1242 DD/ 0940 TD/TT: 12/21/24 1024 Design Leader: Procedure Note Donotuseinterpreter, Image - 12/29/2024 [facility] [address] [place] [place] [address] Mammography Report Signed with Addenda Patient: Ramya De La Fuente#: [id number] : 1950cct:[id number] Age/Sex: 74 / FADM Date: 12/21/24 Loc: HO.MAMMO Attending Dr: Matt Jon MD Ordering Physician: Matt Jon MDResults: Date of Service: 12/21/24Follow Up: Procedure(s): MM diagnostic mammo unilat RT Accession Number(s): [id number] cc: Valentina Alarcon FOLDER INSPECTOR; Matt Jon MD ADDENDUM ADDENDUM #1 ADDENDUM: [...] 12/21/24 1242 DD/ 0940 TD/TT: 12/21/24 1024 Design Leader: [facility] External Provider IMG BI PROCEDURES Edited Result - Final from Last 3 Months or Most Recently Relevant to Health Maintenance Insurance [facility] LONG TERM OPTIONS (O D-SNP) [place] [id number] Care Teams Science Instructor Relationship Specialty Start Date End Date Valentina Alarcon NP [address] [place] [phone] PCP - General Family Medicine 06/27/24
--- OUTSIDE RECORDS SUMMARY | 2025-05-25 12:26 | XMS_ITS | Encounter Summary ---
Author Organization [employer] Address 75 [facility] [address] [place] [address] Care Team Providers Care Hvac Design Engineer Name Role Phone Valentina Alarcon NP Primary Care Provider [phone] Reason for Visit * Reason Onset Date Comments Med Refill 02/19/2025 Encounter Details Date Type Department Care Team ([facility] st Contact Info) Description 02/19/2025 Telephone [facility] MEDICINE [address] [place], [place] [phone] Valentina Alarcon NP [address] [place] [address] Med Refill Social History Tobacco Use Types [...] 600 MG [facility] [place], [place] - [address] [place] [address] documented in this encounter Plan of Treatment Upcoming Encounters Date Type Department Care Team (Late st Contact Info) Description 06/06/2025 11:30 AM EDT Office Visit [facility] MED[facility]INE [address] [place] [address] Valentina Alarcon NP [address] [place] [address] documented as of this encounter Visit Diagnoses Not on filedocumented in this encounter Additional Health Concerns Assessment Noted Time PHQ-9 Depression Total Score: 9 12/05/19 25 3:40 PM EDT documented as of this encounter Care Teams Hvac Design Engineer Relationship Specialty Start Date End Date Valentina Alarcon NP [address] [place] [address] PCP - General Family Medicine 06/27/24 documented as of this encounter
--- OUTSIDE RECORDS SUMMARY | 2025-05-25 12:26 | XMS_ITS | Encounter Summary ---
Author Organization [employer] Address 75 [facility] 7t [place] [address] Care Team Providers Care Manager Cafe Name Role Phone Valentina Aalrcon ISAIAS Primary Care Provider [phone] Encounter Details Date Type Department Care Team [...] Description 06/06/2025 11:30 AM EDT Office Visit [facility] [address] [place] [address] Valentina Alarcon NP [address] [place] [address] documented as of this encounter Visit Diagnoses Not on filedocumented in this encounter Additional Health Concerns Assessment Noted Time PHQ-9 Depression Total Score: 9 12/05/19 25 3:40 PM EDT documented as of this encounter Care Teams Manager Cafe Relationship Specialty Start Date End Date Valentina Alarcon NP 230 [place] [address] PCP - General Family Medicine 06/27/24 documented as of this encounter
--- OUTSIDE RECORDS SUMMARY | 2025-05-25 12:27 | XMS_ITS | Encounter Summary ---
Author Organization [employer] Address 75 [facility] 7 [place] [address] Care Team Providers Care Fueler Name Role Phone Valentina Alarcon NP Primary Care Provider [phone] Reason for Visit * Reason Onset Date Comments Medication Question 05/23/2025 Encounter Details Date Type Department Care Team ([facility] st Contact Info) Description 05/23/2025 Telephone [facility]INE [address] [place], [place] [phone] Valentina Alarcon NP [address] [place] [address] Medication Question Social History Tobacco Use Types [...] encounter Miscellaneous Notes * Telephone Encounter - [place] [facility] - 05/23/2025 10:39 AM EDT TC from son reports pt was recently prescribed amLODIPine (Norvasc) 5 MG tablet . Wanted to know ifpt should be stopping losartan (Cozaar) 100 MG tablet . documented in this encounter Plan of Treatment Upcoming Encounters Date Type Department Care Team (Late st Contact Info) Description 06/06/2025 11:30 AM EDT Office Visit [facility] [address] [place] [address] Valentina Alarcon NP [address] [place] [address] documented as of this encounter Visit Diagnoses Not on filedocumented in this encounter Additional Health Concerns Assessment Noted Time PHQ-9 Depression Total Score: 9 12/05/19 25 3:40 PM EDT documented as of this encounter Care Teams Fueler Relationship Specialty Start Date End Date Valentina Alarcon NP [address] [place] [address] PCP - General Family Medicine 06/27/24 documented as of this encounter
--- OUTSIDE RECORDS SUMMARY | 2025-05-25 12:27 | XMS_ITS | Encounter Summary ---
Author Organization [employer] Address 75 [facility] 7t [place] [address] Care Team Providers Care Security Solutions Architect Name Role Phone Valentina Alarcon NP Primary Care Provider [phone] Reason for Visit * Reason Comments Med Refill Encounter Details Date Type Department Care Team ([facility] st Contact Info) Description 12/19/2024 Refill [facility] MEDICINE [address] [place], [place] [phone] Valentina Alarcon NP [address] [place] [address] Psychophysiological insomnia Social History Tobacco Use Types [...] Description 06/06/2025 11:30 AM EDT Office Visit [facility] MEDICINE [address] [place] [address] Valentina Alarcon NP [address] [place] [address] documented as of this encounter Visit Diagnoses Diagnosis Psychophysiological insomnia Persistent disorder of initiating or maintaining sleep documented in this encounter Additional Health Concerns Assessment Noted Time PHQ-9 Depression Total Score: 9 12/05/19 25 3:40 PM EDT documented as of this encounter Care Teams Security Solutions Architect Relationship Specialty Start Date End Date Valentina Alarcon NP [address] [place] [address] PCP - General Family Medicine 06/27/24 documented as of this encounter
--- OUTSIDE RECORDS SUMMARY | 2025-05-25 12:27 | XMS_ITS | Encounter Summary ---
Author Organization [employer] Address 75 [facility] 7t [place] [address] Care Team Providers Care Tube Puller Name Role Phone Valentina Alarcon ISAIAS Primary Care Provider [phone] Encounter Details Date Type Department Care Team (Latest Contact Info) Description 05/23/2025 Travel Social History Tobacco Use Types Packs/Day [...] Description 06/06/2025 11:30 AM EDT Office Visit [facility] MEDICINE [address] [place] [address] Valentina Alarcon NP [address] [place] [address] documented as of this encounter Visit Diagnoses Not on filedocumented in this encounter Additional Health Concerns Assessment Noted Time PHQ-9 Depression Total Score: 9 12/05/19 25 3:40 PM EDT documented as of this encounter Care Teams Tube Puller Relationship Specialty Start Date End Date Valentina Alarcon NP [address] [place] [address] PCP - General Family Medicine 06/27/24 documented as of this encounter
--- OUTSIDE RECORDS SUMMARY | 2025-05-25 12:27 | XMS_ITS | Encounter Summary ---
Author Organization [employer] Address [address] [place] [address] Care Team Providers Care Casino Floor Runner Name Role Phone Eliane Noyola JOHN Primary Care Provider [phone] Anayeli Escamilla MD Primary Care Provide r Valentina Alarcon NP Primary Care Provider [phone] Reason for Visit * Reason Onset Date Comments New Patient 06/18/2023 Encounter Details Date Type Department Care Team (Late st Contact Info) Description 06/18/2023 Telephone [facility] MEDICINE [address] [place], [place] [phone] Rayray Vallecillo MD 230 [place], [place] [phone] New Patient Social History Tobacco Use Types [...] been 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 EFFECTIVE SINCE 06/18/2023 documented in this encounter Plan of Treatment Upcoming Encounters Date Type Department Care Team (Late st Contact Info) Description 06/06/2025 11:30 AM EDT Office Visit [facility] MEDICINE [address] [place] [address] Valentina Alarcon NP [address] [place] [address] documented as of this encounter Visit Diagnoses Not on filedocumented in this encounter Care Teams Casino Floor Runner Relationship Specialty Start Date End Date Eliane Noyola FNP [address] [place] [address] PCP - General Family Medicine 09/08/23 05/01/24 Anayeli Escamilla MD [address] [place] [address] PCP - General Internal Medicine 05/02/24 05/24/24 Valentina Alarcon NP [address] [place] [address] PCP - General Family Medicine 06/27/24 documented as of this encounter
--- OUTSIDE RECORDS SUMMARY | 2025-05-25 12:27 | XMS_ITS | Encounter Summary ---
Author Organization [employer] Address 75 [facility] 7 [place] [address] Care Team Providers Care Social Work Program Coordinator Name Role Phone Eliane Noyola Primary Care Provider [phone] Anayeli Escamlila MD Primary Care Provide r Valentina Alarcon NP Primary Care Provider [phone] Reason for Visit * Reason Comments Med Refill Encounter Details Date Type Department Care Team (Late st Contact Info) Description 01/09/2024 Refill [facility] MEDICINE [address] [place] [address] Eliane Noyola FNP [address] [place] [address] Social History Tobacco Use Types Packs/Day Years [...] Description 06/06/2025 11:30 AM EDT Office Visit [facility] MEDICINE [address] [place] [address] Valentina Alarcon NP [address] [place] [address] documented as of this encounter Visit Diagnoses Not on filedocumented in this encounter Additional Health Concerns Assessment Noted Time PHQ-9 Depression Total Score: 8 12/29/19 4:22 PM EDT documented as of this encounter Care Teams Social Work Program Coordinator Relationship Specialty Start Date End Date Eliane Noyola FNP [address] [place] [address] PCP - General Family Medicine 09/08/23 05/01/24 Anayeli Escamilla MD [address] [place] [phone] PCP - General Internal Medicine 05/02/24 05/24/24 Valentina Alarcon NP [address] [place] [address] PCP - General Family Medicine 06/27/24 documented as of this encounter
--- OUTSIDE RECORDS SUMMARY | 2025-05-25 12:27 | XMS_ITS | Encounter Summary ---
Author Organization [employer] Address 75 [facility] 7 [place] [address] Care Team Providers Care Agency Trainer Name Role Phone Eliane Noyola Primary Care Provider [phone] Anayeli Escamilla MD Primary Care Provide r Valentina Alarcon NP Primary Care Provider [phone] Reason for Visit * Reason Comments Med Refill Encounter Details Date Type Department Care Team (Late st Contact Info) Description 01/13/2024 Refill [facility] MEDICINE [address] [place] [address] Eliane Noyola FNP [address] [place] [address] Social History Tobacco Use Types Packs/Day Years [...] 06/06/2025 11:30 AM EDT Office Visit [facility] MEDICINE [address] [place] [address] Valentina Alarcon NP [address] [place] [address] documented as of this encounter Visit Diagnoses Not on filedocumented in this encounter Additional Health Concerns Assessment Noted Time PHQ-9 Depression Total Score: 8 12/29/19 4:22 PM EDT documented as of this encounter Care Teams Agency Trainer Relationship Specialty Start Date End Date Eliane Noyola FNP [address] [place] [address] PCP - General Family Medicine 09/08/23 05/01/24 Anayeli Escamilla MD [address] [place] [address] [phone] PCP - General Internal Medicine 05/02/24 05/24/24 Valentina Alarcon NP [address] [place] [address] PCP - General Family Medicine 06/27/24 documented as of this encounter
--- OUTSIDE RECORDS SUMMARY | 2025-05-25 12:27 | XMS_ITS | Encounter Summary ---
Author Organization [employer] Address 75 [facility] 7t [place] [address] Care Team Providers Care Gate Supervisor Name Role Phone Valentina Alarcon ISAIAS Primary Care Provider [phone] Reason for Visit * Reason Comments Med Refill Encounter Details Date Type Department Care Team ([facility] st Contact Info) Description 05/10/2025 Refill [facility] MEDICINE [address] [place], [place] [phone] Ariana Curtis MD [address] [place] [address] Social History Tobacco Use Types Packs/Day Years [...] Description 06/06/2025 11:30 AM EDT Office Visit [facility] MEDICINE [address] [place] [address] Valentina Alarcon NP [address] [place] [address] documented as of this encounter Visit Diagnoses Not on filedocumented in this encounter Additional Health Concerns Assessment Noted Time PHQ-9 Depression Total Score: 9 12/05/19 25 3:40 PM EDT documented as of this encounter Care Teams Gate Supervisor Relationship Specialty Start Date End Date Valentina Alarcon NP [address] [place] [address] PCP - General Family Medicine 06/27/24 documented as of this encounter
== END ==
LOC: HO.CARD 10:47
PROVIDERS: Visit Provider Nurse Practitioner Family
DX: R55 Syncope and collapse (principal); I10 Essential (primary) hypertension
CPT/HCPCS: 93350; Q9957

== ENCOUNTER → 2025-05-25 10:50 | Outpatient (BNV) | payer OTHER, SELFPAY | DX: R94.31 Abnormal electrocardiogram [ECG] [EKG] (principal); I49.1 Atrial premature depolarization; I49.3 Ventricular premature depolarization | CPT/HCPCS: 93016; 93018; 93350; 93352 ==

== ENCOUNTER 2025-06-06 13:09 | Outpatient (AMB) | payer OTHER, SELFPAY ==
--- NOTE | 2025-06-06 13:30 | A.OFFVIS_ITS ---
Vital Signs 06/06/25 13:33 Height 5 ft 4 in Weight 140 lb BMI 24.0 Intake Visit Reasons: Right shoulder pain and weakness Intake Note: Ariana is a 74 year old right hand dominant female who presents with complaints of progressively worsening right shoulder pain and weakness. The patient states that her pain has gotten worse over the last few years. She has failed the last 6 weeks of conservative treatment which has included physical therapy exercises, a home exercise program, Tylenol and anti-inflammatory medicines. She reports weakness when lifting her right hand above shoulder height. She also has intermittent left shoulder pain. She states that at this point her left shoulder pain is tolerable to her. The patient also has intermittent discomfort in her right knee. She states that her right knee discomfort is tolerable to her at this point. Engineering Systems Analyst Required: Yes Engineering Systems Analyst Services: Engineering Systems Analyst Offered & Declined Engineering Systems Analyst Name: Anaid- Granddaughter Allergies aspirin Adverse Reaction (Verified 06/06/25 13:33) stomach ache green vegetables Adverse Reaction (Uncoded 03/14/25 13:59) diarrhea Medication List - Last Reconciled 06/06/25 by Dilshad Vargas MD acetaminophen (Tylenol) 325 mg PO QID PRN calcium carbonate-vitamin D3 600 mg-10 mcg (400 unit) tabs PO fluticasone propionate 50 mcg/actuation (Flonase Allergy Relief) 1 spray intranasal DAILY fluticasone propionate 0.05% 1 appl topical BID gabapentin 600 mg PO TID loratadine (Claritin) 10 mg PO DAILY melatonin 10 mg PO BEDTIME PRN metformin 500 mg PO DAILY montelukast (Singulair) 10 mg PO BEDTIME omeprazole 20 mg PO DAILY rosuvastatin 10 mg PO DAILY [facility] Medical History Chronic back pain Post-menopausal Eczema of both external ears Chronic pain of right knee [place] Healthcare maintenance Encounter for screening mammogram for malignant neoplasm of breast Gastroesophageal reflux disease without esophagitis Constipation Chronic right shoulder pain Microscopic hematuria Tinnitus Urticaria Varicose veins of legs 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 2 diabetes mellitus Fibromyalgia Allergic rhinitis Carpal tunnel syndrome Insomnia Memory changes Hyperchloremia GERD (gastroesophageal reflux disease) Diabetes Hypertension Depressed Abnormal ultrasound of breast Surgical History H/O removal of cyst H/O section History of hemiarthroplasty of shoulder Social History Household Members: Other Household Members Other:: alone Alcohol intake: never Comment: only coffee Patient Tobacco Use Status: Never used Tobacco Female Reproductive History Menstrual Age of Menarche: 13 Physical Exam Vital Signs: BMI result Body Mass Index 24.0 Const Other: Well-nourished well-developed very friendly female awake alert and oriented x3 in no acute distress Extrem Other: Right shoulder examination shows decreased range of motion when compared to her left shoulder, 4/5 strength with supraspinatus testing, positive impingement signs, tenderness over her acromioclavicular joint, no instability Results Reviewed Results Reviewed: MRI of the patient's right shoulder show severe acromioclavicular joint narrowing, a type 2 acromion, a full-thickness tear of the supraspinatus tendon Assessment & Plan Assessment & Plan (1) Rotator cuff insufficiency of right shoulder: Code(s): M25.311 - Other instability, right shoulder Category: Medical Plan Ms. De La Fuente presents with progressively worsening right shoulder pain and weakness due to impingement syndrome, acromioclavicular joint arthritis and a full-thickness rotator cuff tear. I had a lengthy discussion with the patient regarding the treatment options. At this point she has failed continued non operative treatments. The risks and benefits of right shoulder surgery were discussed at length with the patient. The patient wishes to proceed with surgery. Surgery will involve right shoulder arthroscopic distal clavicle excision, right shoulder arthroscopic acromioplasty and right shoulder mini open rotator cuff repair. She will follow up as instructed. Feel free to call me at any time should questions regarding her orthopedic management arise. I spent 21 minutes in reviewing the patient's records and imaging studies, seeing the patient and documenting in the medical record. Coding Level of Care Code Est Pt Level 3 (18241) Complex EM visit Add On G2211 Diagnoses Rotator cuff insufficiency of right shoulder M25.311
[2025-06-06 13:33] VITALS: BMI 24.0
== END 2025-06-06 13:50 | disposition home or self-care (01) ==
LOC: HO.HOS 13:10
PROVIDERS: PCP Nurse Practitioner Family; Visit Provider Orthopaedic Surgery
DX: M25.311 Other instability, right shoulder (principal)
CPT/HCPCS: 99214; G2211

== ENCOUNTER → 2025-06-06 13:09 | Outpatient (BNVA) | payer OTHER, SELFPAY | PROVIDERS: PCP Nurse Practitioner Family; Visit Provider Orthopaedic Surgery | DX: M25.511 Pain in right shoulder (principal); M25.311 Other instability, right shoulder | CPT/HCPCS: 99212 ==

== ENCOUNTER 2025-06-21 14:14 | Outpatient (REF) | payer OTHER, SELFPAY ==
--- NOTE | ~2025-06-21 | MM_ITS ---
EXAMINATION: MM DIAGNOSTIC DIGITAL MAMMOGRAPHY, RIGHT CLINICAL INFORMATION: 6 month follow-up for right breast asymmetry in the far axilla. 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 Patient states she has multiple areas which were excised a reminder body from granulomatous inflammation. History of benign right low axillary breast excision 20 years ago outside institution. COMPARISON: Mammography: Priors on PACS. TECHNIQUE: Digital mammography is performed in craniocaudal and mediolateral oblique views along with computer-aided detection (CAD). FINDINGS: There are scattered areas of fibroglandular density. Two Marker clips are seen in the axilla from previous benign granulomatous inflammation pathology for which the patient has history of multiple areas. Bilobed asymmetry in the axilla is slightly decreased from prior in size and does demonstrate some irregular borders however 2 recent biopsies adjacent in the axilla similar-appearing with benign pathology this area was not originally seen on ultrasound. Previously this bilobed area measured 6 and 9 mm today the bilobed areas measure 4 and 6 mm. No suspicious calcifications or other abnormal findings. Results are discussed with the patient at time of visit. MM/MM diagnostic mammo unilat RT IMPRESSION: Bilobed irregular asymmetry in the axilla which could represent an additional area of granulomatous inflammation granulomatous mastitis appears slightly decreased from priors. Postsurgical changes as well in the axilla from benign excisional biopsy 20 years ago. 2 recent marker clips from recent biopsies with benign granulomatous inflammation pathology. The patient declined having ultrasound today which was recommended but will have the ultrasound in 6 months for further evaluation of the bilobed area that is being followed. ASSESSMENT: BI-RADS Category 3: Probably benign RECOMMENDATION: 6 Month F/U Mammogram and ultrasound for further evaluation of right axilla. If bilobed focal asymmetry has a correlate on ultrasound in 6 months biopsy could be considered. This patient's information was entered into a reminder system with a target due date for their next mammogram. Electronically signed by: Beverly Nichols DO 06/22/2025 08:46 AM EDT
--- OUTSIDE RECORDS SUMMARY | 2025-06-21 18:07 | XMS_ITS | Clinical Summary ---
Author Organization [employer] Address [address] [facility] [facility] [address] [place] [address] Care Team Providers Care Bull Rider Name Role Phone Valentina Alarcon ISAIAS Primary Care Provider [phone] Allergies Active Allergy Reactions Criticality Noted Date [...] g topically 4 times daily. 023 Active sertraline (Zoloft) 100 MG tablet Take 100 mg by mouth Once per day. 024 Active Blood Pressure kit 1 each Once per day. 1 kit 024 Active metFORMIN (Glucophage) 850 MG tablet Take 1 tablet (850 mg) by mouth 2 times daily. With food 60 tablet 5 025 Active FreeStyle lancetsIndicati ons:Type 2 diabetes mellitus with hyperglycemia, unspecified whether termite exterminator helper insulin use (HCC) USE TWO TIMES A DAY (BULK) 100 each 11 025 Active melatonin 5 MG tablet TAKE [...] start before January 05, 2025. 30 tablet Active Calcium Carb-Cholecalci ferol 600-10 MG-MCG tablet TAKE 1 TABLET BY MOUTH TWICE A DAY ^1R1,1R4 56 tablet 5 Active FREESTYLE LITE test strip USE ONE [...] the morning. 28 tablet 5 025 Active rosuvastatin (Crestor) 10 MG tabletIndicatio ns:Hyperlipidem ia due to type 2 diabetes mellitus (HCC) TAKE ONE TABLET BY MOUTH EVERY DAY ^1R4 30 tablet 3 025 Active amLODIPine (Norvasc) 5 MG tabletIndicatio ns:Palpitations ,Hypertension, unspecified type Take 1 tablet (5 mg) by mouth Once per day. 30 tablet 2 025 2025 Active polyvinyl alcohol (Liquifilm Tears) 1.4 % ophthalmic solutionIndicat ions:Hordeolum internum of right upper eyelid Administer 1 drop into both eyes if needed for dry eyes. 15 mL 025 Active fluticasone (Flonase) 50 MCG/ACT nasal sprayIndication s:Seasonal allergic rhinitis due to pollen APPLY 1 SPRAY IN EACH NOSTRIL EVERY MORNING (BULK) 16 g 025 Active fluocinonide (Lidex) 0.05 % external solutionIndicat ions:Ear itching APPLY TOPICALLY TWO TIMES A DAY TO EARS (BULK) 60 mL 025 Active fluticasone (Cutivate) 0.05 % cream APPLY TO AFFECTED AREA(S) TWO TIMES A DAY (BULK) 45 g 025 Active gabapentin (Neurontin) 600 MG tabletIndicatio ns:Fibromyalgia TAKE 1 TABLET BY MOUTH THREE TIMES DAILY ^1R1,1R2,1R4 90 tablet 3 025 Active montelukast (Singulair) 10 MG tablet TAKE ONE TABLET BY MOUTH EVERY DAY ^1R4 28 tablet 1 025 Active polyethylene glycol, PEG, 3350 (Glycolax) 17 GM/SCOOP powder MIX 17 GRAM(S) IN 8 OZ OF WATER AND DRINK BY MOUTH ONCE A DAY NEEDED FOR CONSTIPATION (BULK) 238 g 1 025 Active senna (Senokot) 8.6 MG tabletIndicatio ns:Constipation , unspecified constipation type TAKE 1 TABLET BY MOUTH AT BEDTIME 90 tablet 3 025 Active polyvinyl alcohol (Liquifilm Tears) 1.4 % ophthalmic solution INSTILL 1 DROP TWICE DAILY IN BOTH EYES FOR 1MONTH. 023 2024 Discontinued(T herapy completed) senna (Senokot) 8.6 MG tabletIndicatio ns:Constipation , unspecified constipation type Take 1 tablet (8.6 mg) by mouth at bedtime. 120 tablet 2 024 2024 Discontinued(R eorder (will not trigger notification to Pharmacy)) fluticasone (Flonase) 50 MCG/ACT nasal sprayIndication s:Seasonal allergic rhinitis due to pollen Administer 1 spray into each nostril Once per day. 16 g 3 025 2024 Discontinued gabapentin (Neurontin) 600 MG tabletIndicatio ns:Fibromyalgia TAKE 1 TABLET BY MOUTH THREE TIMES DAILY ^1R1,1R2,1R4 90 tablet 3 025 2024 Discontinued montelukast (Singulair) 10 MG tablet TAKE ONE TABLET BY MOUTH EVERY DAY ^1R4 28 tablet 1 025 2024 Discontinued polyethylene glycol, PEG, 3350 (Glycolax) 17 GM/SCOOP powder MIX 17 GRAM(S) IN 8 OZ OF WATER AND DRINK BY MOUTH ONCE A DAY NEEDED FOR CONSTIPATION (BULK) 238 g 1 025 2024 Discontinued fluocinonide (Lidex) 0.05 % external solutionIndicat ions:Ear itching APPLY TOPICALLY TWO TIMES A DAY TO EARS (BULK) 60 mL 025 2024 Discontinued fluticasone (Cutivate) 0.05 % [...] PCP in 2 weeks, she come to [facility] if BP is above 160 over 95 [...] barrier, has therapist as well Interested in bangladeshi speaking provider Dietary counseling 2024 Assessment & [...] Plan (09/04/2024 5:25 PM EST): Referral to eric Walker ordered Shower chair ordered Eczema of [...] (10/25/2023): more on left. per records from [address] [place] [address] Allergic rhinitis 10/25/2023 Fibromyalgia 10/25/2023 Overview (10/25/2023): per records from [address] [place] [address] Hypertension 10/25/2023 Assessment & Plan (05/22/2025 4:17 [...] 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 2 diabetes mellitus 0 10/25/2023 Varicose vein of leg 10/25/2023 Urticaria 10/25/2023 Tinnitus 10/25/2023 Overview (10/25/2023): per records from [address] [place] [address] Microscopic hematuria 10/25/2023 Overview (10/25/2023): per records from [address] [place] [address] Chronic right shoulder pain 10/25/2023 Assessment & Plan (01/15/2025 11:26 AM EDT): Referral to ortho Constipation 11/17/2018 Gastroesophageal reflux disease without esophagi tis 11/17/2018 Encounters * This document contains information received from the source organization and may not represent a complete record from that organization. Date Type Department Care Team Description 06/18/2025 Refill [facility] [address] [place] [phone] Valentina Alarcon NP Ear itching 06/12/2025 Refill [facility] [address] [place] [address] Valentina Alarcon NP Constipation, unspecified constipation type 06/09/2025 Refill [facility] [address] [place] [address] Valentina Alarcon NP Seasonal allergic rhinitis due to pollen; Ear itching; Fibromyalgia 06/08/2025 Telephone [facility] [address] [place] [phone] Valentina Alarcon NP Preop 06/07/2025 Telephone [facility] [address] [place] [address] Valentina Alarcon NP 06/06/2025 Telephone [facility] [address] [place] [address] Valentina Alarcon NP Call Back Request 06/05/2025 Telephone [facility] [address] [place] [phone] Valentina Alarcon NP CHARTPREP 05/23/2025 2:15 PM EDT Office Visit [facility] [address] [place] [address] Ivory Victoria, OD Hordeolum internum of right upper eyelid (Primary Dx) 05/23/2025 Travel 05/23/[address] [address] Valentina Alarcon NP Medication Question 05/22/2025 1:45 PM EDT Office Visit [address] [address] Valentina Alarcon NP Near syncope (Primary Dx); Anemia, unspecified type; Type 2 diabetes mellitus with other specified complication, without long-term current use of insulin ([facility]); Type 2 diabetes mellitus with hyperglycemia, unspecified whether termite exterminator helper insulin use ([facility]); Right arm weakness; Right leg weakness; Palpitations; Hypertension, unspecified type; Right eye sensitive to light 05/22/2025 Travel 05/21/[address] [address] Heidi Downey [place] CHART PREP 05/18/[address] [address] Kaity Chacko ANP Constipation, unspecified constipation type 05/18/[address] [address] Valentina Alarcon NP Ear itching; Seasonal allergic rhinitis due to pollen; Fibromyalgia 05/14/2025 Results Follow-Up [address] [address] Valentina Alarcon NP Vitamin B12 05/10/[address] [address] Ariana Curtis MD 05/09/[address] [address] Valentina Alarcon NP Referral 05/09/[address] [address] Valentina Alarcon NP ER Follow-up 05/07/2025 1:30 PM EDT Office Visit [address] [address] Ariana Curtis MD Near syncope (Primary Dx); Dyspnea on exertion; Lower urinary tract symptoms (LUTS); Primary hypertension 05/07/2025 Orders Only [facility] [address] [place] [address] Valentina Alarcon, ISAIAS 05/07/2025 Travel 05/07/2025 Telephone [facility] [address] [place] [address] Valentina Alarcon, ISAIAS Nurse Triage 04/20/2025 Refill [facility] [address] [place] [address] Valentina Alarcon, ISAIAS Ear itching 04/12/2025 Refill [facility] [address] [place] [address] Valentina Alarcon CHIEF ENVIRONMENTAL COMMITMENT OFFICER 03/28/2025 Refill [facility] [address] [place] [address] Valentina Alarcon NP Ear itching; 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 2 diabetes mellitus ([facility]) ([facility]) 03/23/2025 Refill [facility] [address] [place] [address] Valentina Alarcon NP from Last 3 Months Immunizations Immunization Administration [...] Care Team (Late st Contact Info) Description 07/02/2025 2:30 PM EST Office Visit [address] [address] Valentina Alarcon, ISAIAS [address] [place] [address] 07/16/2025 1:15 PM EST Office Visit [address] [address] Valentina Alarcon, ISAIAS [address] [place] [address] Health Maintenance Due Date Last Done Comments [...] complication, without long-term current use of insulin ([facility]) ECG 12-LEAD Routine 05/07/2025 6:02 PM EDT [...] due to type 2 diabetes mellitus (CMS/HCC) ([facility]) POCT URINALYSIS DIPSTICK Routine 05/07/2025 2:30 PM EDT Near syncope CULTURE, URINE, ROUTINE Routine 05/07/2025 2:24 PM EDT Near syncope POCT GLYCATED HEMOGLOBIN, TOTAL Routine 02/19/2025 3:33 PM EDT Type 2 diabetes mellitus with other specified complication, without long-term current use of insulin ([facility]) BI MAMMOGRAM DIAGNOSTIC RIGHT Routine 12/21/2024 9:40 AM EDT from Last 3 Months or Most Recently Relevant to Health Maintenance Results * MR Knee w/o Contrast Right (05/25/2025 1:08 AM EDT) Anatomical Region Laterality Modality Magnetic Resonan ce 05/25/2025 1:08 AM EDT Narrative 05/25/2025 1:10 AM EDT [place] [address] Magnetic Resonance Report Signed Patient: Ariana De La Fuente MR#: [id number] : 1950 Acct:[id number] Age/Sex: 74 / F ADM Date: 05/22/25 Loc: HO.MRI Attending Dr: Dilshad Vargas MD Ordering Physician: Dilshad Vargas MD Date of Service: 05/22/25 Procedure(s): MR knee RT wo con Accession Number(s): [id number] cc: Valentina Alarcon CHIEF ENVIRONMENTAL COMMITMENT OFFICER; Dilshad Vargas MD Reason for Exam: S83.241A [...] signed by Kellie Naik MD in OV> 05/25/25 0110 DD/ 7 TD/TT: 05/25/25107 Weather Forcaster: Procedure Note Donotuseinterpreter, Image - 05/25/[address] [address] Magnetic Resonance Report Signed Patient: Ramya De La Fuente#: [id number] : 1950cct:[id number] Age/Sex: 74 / FADM Date: 05/22/25 Loc: HO.MRI Attending Dr: Dilshad Vargas MD Ordering Physician: Dilshad Vargas MD Date of Service: 05/22/25 Procedure(s): MR knee RT wo con Accession Number(s): [id number] cc: Valentina Alarcon CHIEF ENVIRONMENTAL COMMITMENT OFFICER; Dilshad Vargas MD Reason for Exam: S83.241A [...] in OV> 05/25/25109 DD/ 7 TD/TT: 05/25/25107 Weather Forcaster: [facility] External Provider IMG MRI PROCEDURES Edited Result - Final * MR Shoulder w/o Contrast Right (05/25/2025 1:05 AM EDT) Anatomical Region Laterality Modality Upper Extremities, Shoulder Right Magn etic Resonance 05/25/2025 1:05 AM EDT Narrative 05/25/2025 1:06 AM EDT [address] [address] Magnetic Resonance Report Signed Patient: Ariana De La Fuente MR#: [id number] : 1950 Acct:[id number] Age/Sex: 74 / F ADM Date: 05/22/25 Loc: HO.MRI Attending Dr: Dilshad Vargas MD Ordering Physician: Dilshad Vargas MD Date of Service: 05/22/25 Procedure(s): MR shoulder RT wo con Accession Number(s): [id number] cc: Valentina Alarcon CHIEF ENVIRONMENTAL COMMITMENT OFFICER; Dilshad Vargas MD Reason for Exam: Rotator cuff insufficiency of right shoulder CLINICAL HISTORY: Rotator cuff insufficiency of right shoulder MR right shoulder Comparison: DX/SR - XR SHOULDER 2 OR MORE VIEWS RIGHT - 03/14/25 13:48 EDT CR/SC/SR - XR SHOULDER 2 OR MORE VIEWS [...] in OV> 05/25/25104 DD/ 4 TD/TT: 05/25/25104 Weather Forcaster: Procedure Note Donotuseinterpreter, Image - 05/25/[address] [address] Magnetic Resonance Report Signed Patient: Ramya De La Fuente#: [id number] : 1950cct:[id number] Age/Sex: 74 / FADM Date: 05/22/25 Loc: HO.MRI Attending Dr: Dilshad Vargas MD Ordering Physician: Dilshad Vargas MD Date of Service: 05/22/25 Procedure(s): MR shoulder RT wo con Accession Number(s): [id number] cc: Valentina Alarcon CHIEF ENVIRONMENTAL COMMITMENT OFFICER; Dilshad Vargas MD Reason for Exam: Rotator cuff insufficiency of right shoulder CLINICAL HISTORY: Rotator cuff insufficiency of right shoulder MR right shoulder Comparison: DX/SR - XR SHOULDER 2 OR MORE VIEWS RIGHT - 03/14/25 13:48 EDT CR/SC/SR - XR SHOULDER 2 OR MORE VIEWS [...] in OV> 05/25/25104 DD/ 4 TD/TT: 05/25/25104 Weather Forcaster: [facility] External Provider IMG MRI PROCEDURES Edited Result - Final * POCT Glucose (05/22/2025 1:25 PM EDT) Glucose Blood, POC 185 60 - 200 mg/dL QC Media Lot # [id number] Lot# Expiration Date 3720,026 Blood Capillary blood specimen / Unknown 05/22/2025 [...] EDT Narrative 05/07/2025 3:16 PM EDT [address] [address] XRay Report Signed Patient: Ariana De La Fuente MR#: [id number] : 1950 Acct:[id number] Age/Sex: 74 / F ADM Date: 05/07/25 [facility]: Ariana Curtis MD Ordering Physician: Ariana Curtis MD Date of Service: 05/07/25 Procedure(s): XR chest 2V Accession Number(s): [id number] cc: Ariana Curtis MD Reason for Exam: [...] 05/07/25 1514 DD/ 1503 TD/TT: 05/07/25 1504 Weather Forcaster: Procedure Note Donotuseinterpreter, Image - 05/07/[address] [facility] [address] [place] [address] XRay Report Signed Patient: Ramya De La Fuente#: [id number] : 1Acct:[id number] Age/Sex: 74 / FADM Date: 05/07/25 [facility]: Ariana Curtis MD Ordering Physician: Ariana Curtis MD Date of Service: 05/07/25 Procedure(s): XR chest 2V Accession Number(s): [id number] cc: Ariana Curtis MD Reason for Exam: [...] 05/07/25 1514 DD/ 1503 TD/TT: 05/07/25 1504 Weather Forcaster: us Ariana Curtis MD IMG XR PROCEDURES Edited Result - Final * TSH with Reflex to Free T4 (05/07/2025 2:38 PM EDT) TSH reflex Free T4 1.21 0.32 - 4.0 uIU/mL [facility] Blood 05/07/2025 2:38 PM EDT 05/07/2025 4:02 PM EDT us Ariana Curtis MD LAB BLOOD ORDERABLES Fin al Result [facility] [address] [place], [place] [phone] * (ABNORMAL) CBC auto differential (05/07/2025 2:38 PM EDT) White Blood Count 7.1 4.8 - 10.8 X10*3/uL [facility] Red Blood Count 3.79(L) 4.20 - 5.50 X10*6/uL [facility] Hemoglobin 11.5(L) 12.0 - 16.0 g/dl [facility] Hematocrit 35.7(L) 37.0 - 47.0 % [facility] Mean Corpuscular Volume 94.2 80.0 - 98.0 fL [facility] Mean Corpuscular Hemoglobin 30.3 27.0 - 33.0 pg [facility] Mean Corpuscular HGB Conc 32.2 31.0 - 35.0 g/dl [facility] Red Cell Distribution Width 13.9 11.0 - 16.0 % [facility] Platelet Count 179 160 - 400 X10*3/uL [facility] Mean Platelet Volume 9.9 9.4 - 12.3 fL [facility] Neutrophils Percent Auto 65.2 45 - 73 % [facility] Imm Gran Pct Auto 0.4 0.0 - 0.4 % [facility] Lymphocytes Percent Auto 25.1 20 - 40 % [facility] Monocytes Percent Auto 8.5 2 - 11 % [facility] Eosinophils Percent Auto 0.4 0 - 4 % [facility] Basophils Percent Auto 0.4 0 - 2 % [facility] NRBC Pct Auto 0.0 0.0 - 0.2 /100WBC [facility] Neutrophils Absolute Auto 4.6 2.0 - 8.3 x10*3/uL [facility] Imm Gran Abs Auto 0.03 0.00 - 0.03 X10*3/uL [facility] Lymphocytes Absolute Auto 1.8 1.2 - 4.9 X10*3/uL [facility] Monocytes Absolute Auto 0.6 0.1 - 1.2 X10*3/uL [facility] Eosinophils Absolute Auto 0.0 0.0 - 0.4 X10*3/uL [facility] Basophils Absolute Auto 0.0 0.0 - 0.2 X10*3/uL [facility] NRBC Abs Auto 0.000 0.0 - 0.012 X10*3/uL [facility] Blood Venous blood specimen / Unknown 05/07/2025 2:38 PM EDT 05/07/2025 4:02 PM EDT us Ariana Curtis MD LAB BLOOD ORDERABLES Fin al Result Performing Organization Address [facility] Co de Phone Number [facility] [address] [place] [phone] * Vitamin B12 (05/07/2025 2:38 PM EDT) Vitamin B12 329 200 - 900 pg/mL [facility] Comment:NORMAL 200-900 PG/ML INDETERMINATE 160-199 PG/ML DEFICIENT < 160 PG/ML 05/07/2025 2:38 PM EDT 05/07/2025 4:02 PM EDT us Valenitna Alarcon NP LAB BLOOD ORDERABLES Final Resul t Performing Organization Address [facility]/ZIP Co de Phone Number [facility] [address] [place] [phone] * Lipid Panel, Standard (05/07/2025 2:38 PM EDT) Triglycerides 52 <150 mg/dL [facility] Comment:Desirable Triglyceri de: less than 150 mg/dLBorderline High Triglyceride 150-199 mg/dLHigh Triglyceride: 200-499 mg/dLVery High Triglyceride: greater than or equal to 5OO mg/dL Cholesterol 141 <200 mg/dL [facility] Comment:Desirable Cholestero l: less than 200 mg/dLBorderline High Cholesterol: 200-239 mg/dLHigh Cholesterol: greater than 239 mg/dL LDL Cholesterol Calculated 82 <100 mg/dL [facility] Comment:Desirable LDL: less than 100 mg/dLNear Optimal/Above Optimal LDL: 110- 129 mg/dLBorderline High LDL: 130-159 mg/dLHigh LDL: 160-189 mg/dLVery High LDL: greater than or equal to 190 mg/dL HDL Cholesterol 49 >40 mg/dL [facility] Comment:Desirable HDL: great er than 40 mg/dL Note: This HDL assay may give artificially low results in patients with liver disease. Blood Venous blood specimen / Unknown 05/07/2025 2:38 PM EDT 05/07/2025 4:02 PM EDT us Valentina Alarcon NP LAB BLOOD ORDERABLES Final Resul t [facility] [address] [place] [address] [phone] * (ABNORMAL) Comprehensive Metabolic Panel (05/07/2025 2:38 PM EDT) Sodium 139 135 - 145 mmol/L [facility] Potassium 3.9 3.3 - 5.1 mmol/L [facility] Chloride 104 96 - 108 mmol/L [facility] Carbon Dioxide 27 22 - 29 mmol/L [facility] Anion Gap 12 12 - 20 [facility] Urea Nitrogen (BUN) 9 9 - 16 mg/dL [facility] Creatinine, Serum 0.63 0.5 - 1.4 mg/dL [facility] Estimated Glomerular Filt Rate >60 [facility] Comment:Chronic Kidney Disea se: Estimated GFR < 60 mL/min/1.59p6Cvmwri Kidney Disease: Estimated GFR < 15 mL/min/1.73m2 Glucose 135(H) 60 - 115 mg/dL [facility] Calcium 9.1 8.4 - 10.2 mg/dL [facility] Bilirubin, Total 0.4 0.0 - 1.0 mg/dL [facility] Aspartate Amino Transferase 29 5 - 31 U/L [facility] Alanine Aminotransferase 21 0 - 31 U/L [facility] Total Protein 6.9 6.5 - 8.0 g/dL [facility] Albumin Level 4.2 3.5 - 5.0 g/dL [facility] Alkaline Phosphatase 65 39 - 117 U/L [facility] Blood Venous blood specimen / Unknown 05/07/2025 2:38 PM EDT 05/07/2025 4:02 PM EDT Ariana Curtis MD LAB BLOOD ORDERABLES Fin al Result [facility] [address] [place] [phone] * (ABNORMAL) POCT Urinalysis (05/07/2025 2:30 [...] EDT 05/07/2025 4:24 PM EDT Comment:UACC Narrative [facility] - 05/09/2025 8:41 AM EDT Urine Culture No growth. Specimen Source: Urine clean catch Ariana Curtis MD LAB MICROBIOLOGY - GENER AL ORDERABLES Final Result [facility] [address] [facility] [place] [address] [phone] * POCT HGB A1C (02/19/2025 3:33 [...] AM EDT Narrative 12/21/2024 12:45 PM EDT [address] [place] [address] Mammography Report Signed with Addenda Patient: Ariana De La Fuente MR#: [id number] : 1950 Acct:[id number] Age/Sex: 74 / F ADM Date: 12/21/24 Loc: HO.MAMMO Attending Dr: Matt Jon MD Ordering Physician: Matt Jon MD Results: Date of Service: 12/21/24 Follow Up: Procedure(s): MM diagnostic mammo unilat RT Accession Number(s): [id number] cc: Valentina Alarcon CHIEF ENVIRONMENTAL COMMITMENT OFFICER; Matt Jon MD ADDENDUM ADDENDUM #1 ADDENDUM: [...] 12/21/24 1242 DD/ 0940 TD/TT: 12/21/24 1024 Weather Forcaster: Procedure Note Donotuseinterpreter, Image - [facility]29/[facility] [address] [place] [place] [address] Mammography Report Signed with Addenda Patient: Ramya De La Fuente#: [id number] : 1950cct:[id number] Age/Sex: 74 / FADM Date: 12/21/24 Loc: HO.MAMMO Attending Dr: Matt Jon MD Ordering Physician: Matt Jon MDResults: Date of Service: 12/21/24Follow Up: Procedure(s): MM diagnostic mammo unilat RT Accession Number(s): [id number] cc: Valentina Alarcon CHIEF ENVIRONMENTAL COMMITMENT OFFICER; Matt Jon MD ADDENDUM ADDENDUM #1 ADDENDUM: [...] 12/21/24 1242 DD/ 0940 TD/TT: 12/21/24 1024 Weather Forcaster: [facility] External Provider IMG BI PROCEDURES Edited Result - Final from Last 3 Months or Most Recently Relevant to Health Maintenance Insurance [facility] [employer] (O D-SNP) Care Teams Bull Rider Relationship Specialty Start Date End Date Valnetina Alarcon NP [address] [place] [phone] PCP - General Family Medicine 10/29/24
--- OUTSIDE RECORDS SUMMARY | 2025-06-21 18:07 | XMS_ITS | Encounter Summary ---
Author Organization [employer] Address [address] [place] [address] Care Team Providers Care Architectural Project Captain Name Role Phone Valentina Alarcon NP Primary Care Provider [phone] Reason for Visit * Reason Comments Med Refill Encounter Details Date Type Department Care Team ([facility] st Contact Info) Description 05/18/2025 Refill [facility] [address] [place], [place] [phone] Valentina Alarcon NP [address] [place] [address] Ear itching; Seasonal allergic rhinitis due to [...] Description 07/02/2025 2:30 PM EST Office Visit [facility] [address] [place] [phone] Valentina Alarcon NP [address] [place] [address] 07/16/2025 1:15 PM EST Office Visit [facility] [address] [place] [phone] Valentina Alarcon NP [address] [place] [address] documented as of this encounter Visit Diagnoses Diagnosis Ear itching Seasonal allergic rhinitis due to pollen Fibromyalgia Unspecified myalgia and myositis documented in this encounter Additional Health Concerns Assessment Noted Time PHQ-9 Depression Total Score: 9 12/05/19 25 3:40 PM EDT documented as of this encounter Care Teams Architectural Project Captain Relationship Specialty Start Date End Date Valentina Alarcon NP [address] [place] [phone] PCP - General Family Medicine 06/27/24 documented as of this encounter
--- OUTSIDE RECORDS SUMMARY | 2025-06-21 18:07 | XMS_ITS | Encounter Summary ---
Author Organization [employer] Address 75 [facility] [address] [place] [address] Care Team Providers Care Blender Snuff Name Role Phone Valentina Alarcon NP Primary Care Provider [phone] Reason for Visit * Reason Comments Med Refill Encounter Details Date Type Department Care Team ([facility] st Contact Info) Description 02/27/2025 Refill [facility] MEDICINE [address] [place], [place] [phone] Valentina Alarcon NP 230 [place], [place] [phone] 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 2 diabetes mellitus (CMS/HCC) ([facility]/HCC); Ear itching Social History Tobacco Use Types [...] Description 07/02/2025 2:30 PM EST Office Visit [facility] MEDICINE [address] [place] [address] Valentina Alarcon NP [address] [place] [address] 07/16/2025 1:15 PM EST Office Visit [address] [address] Valentina Alarcon NP [address] [place] [address] documented as of this encounter Visit Diagnoses Diagnosis 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 2 diabetes mellitus (HCC) Ear itching documented in this encounter Additional Health Concerns Assessment Noted Time PHQ-9 Depression Total Score: 9 12/05/19 25 3:40 PM EDT documented as of this encounter Care Teams Blender Snuff Relationship Specialty Start Date End Date Valentina Alarcon NP [address] [place] [address] PCP - General Family Medicine 06/27/24 documented as of this encounter
--- OUTSIDE RECORDS SUMMARY | 2025-06-21 18:07 | XMS_ITS | Encounter Summary ---
Author Organization [employer] Address 75 [facility] 7 [place] [address] Care Team Providers Care Pressure Tester Operator Name Role Phone Valentina Alarcon ISAIAS Primary Care Provider [phone] Reason for Visit * Reason Comments Med Refill Encounter Details Date Type Department Care Team ([facility] st Contact Info) Description 05/18/2025 Refill [facility] MEDICINE 230 [place], [place] [phone] Kaity Chacko ANP [address] [place], [place] [phone] Constipation, unspecified constipation type Social History Tobacco [...] Description 07/02/2025 2:30 PM EST Office Visit [facility] MEDICINE [address] [place] [address] Valentina Alarcon NP 230 [place] [address] 07/16/2025 1:15 PM EST Office Visit [facility] MED[facility]INE [address] [place] [address] Valentina Alarcon NP [address] [place] [address] documented as of this encounter Visit Diagnoses Diagnosis Constipation, unspecified constipation type documented in this encounter Additional Health Concerns Assessment Noted Time PHQ-9 Depression Total Score: 9 12/05/19 25 3:40 PM EDT documented as of this encounter Care Teams Pressure Tester Operator Relationship Specialty Start Date End Date Valentina Alarcon NP [address] [place] [address] PCP - General Family Medicine 06/27/24 documented as of this encounter
--- OUTSIDE RECORDS SUMMARY | 2025-06-21 18:07 | XMS_ITS | Encounter Summary ---
Author Organization [employer] Address 75 [facility] 7 [place] [address] Care Team Providers Care Hand Cloth Folder Name Role Phone Valentina Alarcon NP Primary Care Provider [phone] Reason for Visit * Reason Onset Date Comments Med Refill 02/19/2025 Encounter Details Date Type Department Care Team ([facility] st Contact Info) Description 02/19/2025 Telephone [facility] MEDICINE 230 [place], [place] [phone] Valentina Alarcon NP 230 [place] [address] Med Refill Social History Tobacco Use Types [...] 600 MG tablet To be sent to: [facility] - [address] documented in this encounter Plan of Treatment Upcoming Encounters Date Type Department Care Team (Late st Contact Info) Description 07/02/2025 2:30 PM EST Office Visit [facility] MEDICINE [address] [place] [address] Valentina Alarcon NP 230 [place] [address] 07/16/2025 1:15 PM EST Office Visit [facility] MED[facility]INE 230 [place] [address] Valentina Alarcon NP 230 [place] [address] documented as of this encounter Visit Diagnoses Not on filedocumented in this encounter Additional Health Concerns Assessment Noted Time PHQ-9 Depression Total Score: 9 12/05/19 25 3:40 PM EDT documented as of this encounter Care Teams Hand Cloth Folder Relationship Specialty Start Date End Date Valentina Alarcon NP 230 [place] [address] PCP - General Family Medicine 06/27/24 documented as of this encounter
--- OUTSIDE RECORDS SUMMARY | 2025-06-21 18:07 | XMS_ITS | Encounter Summary ---
Author Organization [employer] Address 75 [facility] 7 [place] [address] Care Team Providers Care Multiple Punch Press Operator Name Role Phone Valentina Alarcon NP Primary Care Provider [phone] Reason for Visit * Reason Comments Med Refill Encounter Details Date Type Department Care Team ([facility] st Contact Info) Description 10/17/2024 Refill [facility] MEDICINE 230 [place], [place] [phone] Valentina Alarcon NP 230 [place], [place] [phone] Social History Tobacco Use Types Packs/Day Years [...] 2:30 PM EST Office Visit [facility] MEDICINE [address] [place] [address] Valentina Alarcon NP 230 [place] [address] 07/16/2025 1:15 PM EST Office Visit [facility] MEDICINE [address] [place] [address] Valentina Alarcon NP [address] [place] [address] documented as of this encounter Visit Diagnoses Not on filedocumented in this encounter Additional Health Concerns Assessment Noted Time PHQ-9 Depression Total Score: 8 12/29/19 4:22 PM EDT documented as of this encounter Care Teams Multiple Punch Press Operator Relationship Specialty Start Date End Date Valentina Alarcon NP 230 [place] [address] PCP - General Family Medicine 06/27/24 documented as of this encounter
--- OUTSIDE RECORDS SUMMARY | 2025-06-21 18:07 | XMS_ITS | Encounter Summary ---
Author Organization [employer] Address 75 [facility] 7t [place] [address] Care Team Providers Care Procurement Director Name Role Phone Valentina Alarcon NP Primary Care Provider [phone] Reason for Visit * Reason Comments Med Refill Encounter Details Date Type Department Care Team ([facility] st Contact Info) Description 06/18/2025 Refill [facility] 230 [place] [address] Valentina Alarcon NP 230 [place] [address] Ear itching Social History Tobacco Use Types [...] Description 07/02/2025 2:30 PM EST Office Visit [facility] MEDICINE [address] [place] [address] Valentina Alarcon NP 230 [place] [address] 07/16/2025 1:15 PM EST Office Visit [facility] [address] [place] [address] Valentina Alarcon NP [address] [place] [address] documented as of this encounter Visit Diagnoses Diagnosis Ear itching documented in this encounter Additional Health Concerns Assessment Noted Time PHQ-9 Depression Total Score: 9 12/05/19 25 3:40 PM EDT documented as of this encounter Care Teams Procurement Director Relationship Specialty Start Date End Date Valentina Alarcon NP [address] [place] [address] PCP - General Family Medicine 06/27/24 documented as of this encounter
--- OUTSIDE RECORDS SUMMARY | 2025-06-21 18:07 | XMS_ITS | Clinical Summary ---
Author Organization [facility] Address [address] [address] Phone Care Team Providers Care Property Adjuster Name Role Phone Jimbo Fox MD Primary Care Provider [phone] Willow Lovell MD Unavailable Allergies No known active allergies Medications metFORMIN (GLUCOPHAGE) 850 MG tablet 1 tablet twice a day 4 Active atorvastatin (LIPITOR) 80 MG tablet 1 tablet daily 4 Active losartan (COZAAR) 100 MG tablet 1 tablet once a day 4 Active gabapentin (NEURONTIN) 800 MG tablet 1 tablet three times a day 4 Active loratadine 10 mg Cap once a day Active fluticasone propionate (FLONASE ALLERGY RELIEF) 50 mcg/actuation nasal spray use as directed 7 Active baclofen (LIORESAL) 10 MG tablet 1 tablet three times a day as needed 7 Active glycerin, adult, Supp use as directed Active calcium carbonate-vitamin D3 (CALCIUM 600 + D,3,) 1500 mg (600 mg elemental)-400 units per tablet 1 tablet twice a day 8 Active acetaminophen (TYLENOL) 325 mg tablet 1-2 tablets every 6-8 hrs as needed 8 Active melatonin 5 mg Tab 1-2 tablets at bedtime as needed 8 Active diclofenac sodium (VOLTAREN) 1 % Gel use as directed as needed 8 Active cetirizine (ZYRTEC) 10 MG tablet 1 tablet daily 8 Active methylcellulose (CITRUCEL) 500 mg Tab 2 tablets twice a day 8 Active linaclotide (LINZESS) 145 mcg Cap Take 1 capsule by mouth daily, to take 30 minutes before breakfast on an empty stomach 8 Active omeprazole (PRILOSEC) 40 MG capsule Take 1 capsule by mouth daily, to take 30 minutes before breakfast. 8 Active linaclotide (LINZESS) 145 mcg CapIndications:Co nstipation, unspecified constipation type Take 1 capsule (145 mcg total) by mouth daily before breakfast. 90 capsule 3 9 Active omeprazole (PRILOSEC) 40 MG capsuleIndication s:Gastroesophagea l reflux disease without esophagitis,Non-i ntractable vomiting with nausea, unspecified vomiting type Take 1 capsule (40 mg total) by mouth daily. 180 capsule 3 9 Active Active Problems Problem Noted Date Diagnosed Date Constipation 11/17/2018 Assessment & Plan (11/20/2018 10:57 AM EDT): Constipation, likely slow transit. Improved on linzess so to continue. Colonoscopy uptodate. Gastroesophageal reflux disease without esophagi tis 11/17/2018 Assessment & Plan (11/20/2018 10:58 AM EDT): Non erosive GERD Iproved on omeprazole, also has nausea ?gastroparesis contributing. Plan: -To continue omeprazole at a dose of 40 mg by mouth daily. -Small, frequent Meals. -Gastric emptying study as ordered during last office visit. Non-intractable vomiting with nausea 11/17/2018 Assessment & Plan (11/20/2018 10:58 AM EDT): Suspect gastroparesis is playing a role. Plan: GES as ordered during last OV Small, frequent meals. PPI Family History Medical History Relation Comments Hyperlipidemia Brother FH: Hypercholest erolemia Diabetes mellitus Mother Diabetes melli tus Relation Status Comments Brother Mother Social History Tobacco Use Types Packs/Day Years Used Date Smoking Tobacco: Former Smokeless Tobacco: Never Comments:0.3 Quit smokin 989 Alcohol Use Standard Drinks/Week Comments Never 0 (1 standard drink = 0.6 oz pur e alcohol) Education Answer Date Recorded Are you interested in more education? Not on kendra e 01/03/2023 Are you concerned about learning? Not on file 01/03/2023 No 01/03/2023 No 01/03/2023 Digital Access Answer Date Recorded No 01/24/2023 No 01/24/2023 No 01/24/2023 Reliable internet access at home? Not on file 01/24/2023 Device with a working camera? Not on file Comments Unknown Sex and Gender Information Value Date Recorded Sex Assigned at Not on file Legal Sex Female 6:38 PM EST Gender Identity Not on file Sexual Orientation Not on file Last Filed Vital Signs Vital Sign Reading Time Taken Comments Blood Pressure 110/84 11/17/2018 4:02 PM EDT Pulse 68 11/17/2018 4:02 PM EDT Temperature 36.3 C (97.4 F) 08/12/2017 10:46 AM EST Respiratory Rate 18 08/12/2017 10:46 AM EST Oxygen Saturation - - Inhaled Oxygen Concentration - - Weight 64.9 kg (143 lb) 11/17/2018 4:02 PM EDT Height 165.1 cm (5' 5 ) 11/17/2018 4:02 PM EDT Body Mass Index 23.8 11/17/2018 4:02 PM EDT Plan of Treatment Health Maintenance Due Date Last Done Comments CREATININE LEVEL 1950 LIPID PANEL 1950 POTASSIUM LEVEL 1950 DEPRESSION SCREENING 1962 SMOKING Hx and SMOKELESS TOBACCO SCREENING 12/05/1963 HEPATITIS C SCREENING 1968 MAMMOGRAM 1990 COLOGUARD 12/05/1995 COLONOSCOPY 12/05/1995 COLORECTAL CANCER SCREENING 12/05/1995 FIT TEST 12/05/1995 FOBT 12/05/1995 SIGMOIDOSCOPY 12/05/1995 VIRTUAL COLONOSCOPY 12/05/1995 OSTEOPOROSIS SCREENING INITIAL (ONE-TIME) 12/05/2015 ZOSTER VACCINES (2 of 3) 08/10/2016 06/15/2016 Adult Td,Tdap Booster 09/04/2021 09/04/2011, 004 INFLUENZA VACCINE (#1) 2025 0, 05/11/2019, 08/04/2018, Additional history exists COVID-19 VACCINE (2024- season) 2025 12/24/2020, 11/26/2020 RSV VACCINE (1 - 1-dose 75+ series) 2025 PNEUMOCOCCAL VACCINES (50+ years) Completed 12/13/2017, 06/15/2016, 10/19/2007 HEPATITIS A VACCINES Aged Out No long er eligible based on patient's age to complete this topic HIB VACCINES Aged Out No longer eligi ble based on patient's age to complete this topic MENINGOCOCCAL VACCINES (ACWY) Aged Out No longer eligible based on patient's age to complete this topic MENINGOCOCCAL VACCINES (B) Aged Out N o longer eligible based on patient's age to complete this topic Medical Devices Not on file Insurance MEDICARE REPLACEMENT MEDICARE REPLACEMENT Member Subscriber Plan / Payer (Ef fective 2015-Present) Name:Ariana De La Fuente Relation to Subscriber:Self Name:Ariana De La Fuente Payer ID:[id number] (NAIC) Group ID:Not on file Type:Medicare Address: [place] [id number] MEDICARE REPLACEMENT MEDICARE REPLACEMENT MEDICARE REPLACEMENT MEDICARE REPLACEMENT MEDICARE REPLACEMENT MEDICARE REPLACEMENT O MEDICARE REPLACEMENT Care Teams Property Adjuster Relationship Specialty Start Date End Date Jimbo Fox MD [email or web address] PCP - General 02/27/14 Willow Lovell MD [address] [place] [address] Historical LMR Provider 09/29/18 Additional Source Comments The information contained in this document represents components of the legal health record. It is not the complete legal health record.[facility]
--- OUTSIDE RECORDS SUMMARY | 2025-06-21 18:08 | XMS_ITS | Encounter Summary ---
Author Organization [employer] Address 75 [facility] 7 [place] [address] Care Team Providers Care Food Cashier Name Role Phone Valentina Alarcon NP Primary Care Provider [phone] Reason for Visit * Reason Comments Med Refill Encounter Details Date Type Department Care Team ([facility] st Contact Info) Description 12/19/2024 Refill [facility] MEDICINE 230 [place], [place] [phone] Valentina Alarcon NP 230 [place] [address] Psychophysiological insomnia Social History Tobacco Use Types [...] Description 07/02/2025 2:30 PM EST Office Visit [facility] MEDICINE [address] [place] [address] Valentina Alarocn NP 230 [place] [address] 07/16/2025 1:15 PM EST Office Visit [facility] MEDICINE [address] [place] [address] Valentina Alarcon NP 230 [place] [address] documented as of this encounter Visit Diagnoses Diagnosis Psychophysiological insomnia Persistent disorder of initiating or maintaining sleep documented in this encounter Additional Health Concerns Assessment Noted Time PHQ-9 Depression Total Score: 9 12/05/19 25 3:40 PM EDT documented as of this encounter Care Teams Food Cashier Relationship Specialty Start Date End Date Valentina Alarcon NP [address] [place] [address] PCP - General Family Medicine 06/27/24 documented as of this encounter
--- OUTSIDE RECORDS SUMMARY | 2025-06-21 18:08 | XMS_ITS | Encounter Summary ---
Author Organization [employer] Address 75 [facility] 7t [place] [address] Care Team Providers Care Marketing Analytics Lead Name Role Phone Valentina Alarcon ISAIAS Primary Care Provider [phone] Reason for Visit * Reason Comments Med Refill Encounter Details Date Type Department Care Team ([facility] st Contact Info) Description 05/10/2025 Refill [facility] MEDICINE 230 [place], [place] [phone] Ariana Curtis MD 230 [place] [address] Social History Tobacco Use Types Packs/Day Years [...] EST Office Visit [facility] MEDICINE [address] [place] [address] Valentina Alarcon NP 230 [place] [address] 07/16/2025 1:15 PM EST Office Visit [facility] MEDICINE [address] [place] [address] Valentina Alarcon NP 230 [place] [address] documented as of this encounter Visit Diagnoses Not on filedocumented in this encounter Additional Health Concerns Assessment Noted Time PHQ-9 Depression Total Score: 9 12/05/19 25 3:40 PM EDT documented as of this encounter Care Teams Marketing Analytics Lead Relationship Specialty Start Date End Date Valentina Alarcon NP [address] [place] [address] PCP - General Family Medicine 06/27/24 documented as of this encounter
--- OUTSIDE RECORDS SUMMARY | 2025-06-21 18:08 | XMS_ITS | Clinical Summary ---
Author Organization [facility] Address [address] [place] [address] Phone Care Team Providers Care Supervisor Name Role Phone Physician, Pcp Unknown Primary Care Provider Kristina vailable Allergies Active Allergy Reactions Criticality Noted Date Comments Aspirin Unknown 05/10/2025 Medications No known medications Active Problems No known active problems Encounters Date Type Department Care Team Description 05/10/2025 1:24 AM EDT - 05/10/2025 4:57 AM EDT Emergency [facility] Emergency [address] [place] [address] Discharge Disposition: Home or Self Care from Last 3 Months Medical History Medical History Date Comments Diabetes mellitus (CMS/HCC V24, CMS/HCC V28) Hypertension Anxiety HLD (hyperlipidemia) Social History Tobacco Use Types Packs/Day Years Used Date Smoking Tobacco: Never Assessed Comments Unknown Sex and Gender Information Value Date Recorded Sex Assigned at Not on file Legal Sex Female 10:01 PM EST Gender Identity Not on file Sexual Orientation Not on file Obstetrics History Last Filed Vital Signs Vital Sign Reading Time Taken Comments Blood Pressure 175/71 05/10/2025 1:06 AM EDT Pulse 102 05/10/2025 1:06 AM EDT Temperature 37.2 C (99 F) 05/10/2025 1:06 AM EDT Respiratory Rate 16 05/10/2025 1:06 AM EDT Oxygen Saturation 98% 05/10/2025 1:06 AM EDT Inhaled Oxygen Concentration - - Weight 63.5 kg (140 lb) 05/10/2025 1:06 AM EDT Height 165.1 cm (5' 5 ) 05/10/2025 1:06 AM EDT Body Mass Index 23.3 05/10/2025 1:06 AM EDT Plan of Treatment Health Maintenance Due Date Last Done Comments Breast Cancer Screening 1950 Colorectal Cancer Screening: Colonoscopy 1950 Diabetes: Annual Foot Exam 1960 Diabetes: Annual Retina Eye Exam 1960 Depression Screening 08/30/2024 COVID-19 Vaccine ( season) 2025 06/03/2023, 12/20/2021, 07/28/2021, Additional history exists Influenza Vaccine (#1) 2025 , 06/03/2023, 06/08/2022, Additional history exists Diabetes: Annual Urine Albumin-Creatinine Ratio (uACR) 05/10/2025 Falls Risk Assessment 05/10/2025 Hepatitis C Screening 05/10/2025 Medicare Annual Wellness Visit 05/10/2025 Osteoporosis Screening (Bone Density Screening) 05/10/2025 Social Influencers of Health Screening 05/10/2025 Diabetes: Blood Sugar Control Test (HGBA1C) 08/21/2025 02/19/2025 Diabetes: Annual GFR (Glomerular Filtration Rate) 05/07/2026 05/07/2025 Hypertension/CHF/CAD Annual BMP Blood Test 05/07/2026 05/07/2025 Cholesterol Screening (Lipid Panel) 05/07/2030 05/07/2025 DTaP,Tdap,and Td Vaccines (7 - Td or Tdap) 05/27/2034 05/27/2024, 01/15/2023, 10/05/2021, Additional history exists Pneumococcal Vaccine: 50+ Years Completed 06/28/2019, 12/13/2017, 06/15/2016, Additional history exists Hepatitis A Vaccines Aged Out 10/08/2021 No long er eligible based on patient's age to complete this topic Hepatitis B Vaccines Completed 10/08/2021, 09/13/2017, 06/28/2017, Additional history exists Zoster Vaccines Completed 01/15/2023, 11/29, 06/15/2016 RSV Immunization Adult Patients Completed 05/31/2024 HIB Vaccines Aged Out No [...] to complete this topic RSV Immunization Patients Under 20 months Aged Out No longer eligible based on patient's age to complete this topic Varicella Vaccines Aged Out No longer eligible based on patient's age to complete this topic Insurance [facility] MEDICARE Member Subscriber Plan / Payer (Ef fective 2019-Present) Name:Ariana De La Fuente Relation to Subscriber:Self Name:Ariana De La Fuente Payer ID:[id number] Group ID:[id number] Type:Not on file Address: [facility] [address] [place] [address] Care Teams Supervisor Relationship Specialty Start Date End Date Physician, Pcp Unknown PCP - General 05/10/25
--- OUTSIDE RECORDS SUMMARY | 2025-06-21 18:08 | XMS_ITS | Encounter Summary ---
Author Organization [employer] Address [address] [place] [address] Care Team Providers Care Electric Range Servicer Name Role Phone Eliane Noyola JOHN Primary Care Provider [phone] Anayeli Escamilla MD Primary Care Provide r Valentina Alarcon NP Primary Care Provider [phone] Reason for Visit * Reason Onset Date Comments New Patient 06/18/2023 Encounter Details Date Type Department Care Team (Late st Contact Info) Description 06/18/2023 Telephone [facility] MEDICINE 230 [place], [place] [phone] Rayray Vallecillo MD 230 [place], [place] [phone] New Patient Social History Tobacco Use Types [...] been transfer over to wait list for MOLD SHEET CLEANER. EFFECTIVE SINCE 06/18/2023 documented in this encounter Plan of Treatment Upcoming Encounters Date Type Department Care Team (Late st Contact Info) Description 07/02/2025 2:30 PM EST Office Visit [address] [address] Valentina Alarcon NP 230 [place] [address] 07/16/2025 1:15 PM EST Office Visit [address] [address] Valentina Alarcon NP 230 [place] [address] documented as of this encounter Visit Diagnoses Not on filedocumented in this encounter Care Teams Electric Range Servicer Relationship Specialty Start Date End Date Eliane Noyola FNP [address] [place] [address] [phone] PCP - General Family Medicine 09/08/23 05/01/24 Anayeli Escamilla MD [address] [place] [phone] PCP - General Internal Medicine 05/02/24 05/24/24 Valentina Alarcon NP [address] [place] [address] [phone] PCP - General Family Medicine 06/27/24 documented as of this encounter
--- OUTSIDE RECORDS SUMMARY | 2025-06-21 18:08 | XMS_ITS | Encounter Summary ---
Author Organization [employer] Address [address] [place] [address] 7 [place] [address] Care Team Providers Care Crusher And Blender Operator Name Role Phone Eliane Noyola Primary Care Provider [phone] Anayeli Escamilla MD Primary Care Provide r Valentina Alarcon NP Primary Care Provider [phone] Reason for Visit * Reason Comments Med Refill Encounter Details Date Type Department Care Team (Late st Contact Info) Description 01/13/2024 Refill [facility] MEDICINE [address] [place] [address] Eliane Noyola FNP [address] [place] [address] Social History Tobacco Use Types Packs/Day Years [...] Description 07/02/2025 2:30 PM EST Office Visit [facility] MEDICINE [address] [place] [address] Valentina Alarcon, ISAIAS [address] [place] [address] 07/16/2025 1:15 PM EST Office Visit [facility] MEDICINE [address] [place] [address] Valentina Alarcon, ISAIAS [address] [place] [address] documented as of this encounter Visit Diagnoses Not on filedocumented in this encounter Additional Health Concerns Assessment Noted Time PHQ-9 Depression Total Score: 8 12/29/19 4:22 PM EDT documented as of this encounter Care Teams Crusher And Blender Operator Relationship Specialty Start Date End Date Eliane Noyola FNP [address] [place] [phone] PCP - General Family Medicine 09/08/23 05/01/24 Anayeli Escamilla MD [address] [place] [address] PCP - General Internal Medicine 05/02/24 05/24/24 Valentina Alarcon NP [address] [place] [address] PCP - General Family Medicine 06/27/24 documented as of this encounter
--- OUTSIDE RECORDS SUMMARY | 2025-06-21 18:08 | XMS_ITS | Encounter Summary ---
Author Organization [facility] Address [address] [place] [address] [address] [place] [address] Care Team Providers Care Cider Press Operator Name Role Phone Eliane Noyola Primary Care Provider [phone] Anayeli Escamilla MD Primary Care Provide r Valentina Alarcon NP Primary Care Provider [phone] Reason for Visit * Reason Comments Med Refill Encounter Details Date Type Department Care Team (Late st Contact Info) Description 01/09/2024 Refill [facility] [address] [place] [address] Eliane Noyola FNP [address] [place] [address] Social History Tobacco Use Types Packs/Day Years [...] Description 07/02/2025 2:30 PM EST Office Visit [facility] [address] [place] [id number] Valentina Alarcon, ISAIAS [address] [place] [address] 07/16/2025 1:15 PM EST Office Visit [facility] [address] [place] [phone] Valentina Alarcon, ISAIAS [address] [place] [address] documented as of this encounter Visit Diagnoses Not on filedocumented in this encounter Additional Health Concerns Assessment Noted Time PHQ-9 Depression Total Score: 8 12/29/19 4:22 PM EDT documented as of this encounter Care Teams Cider Press Operator Relationship Specialty Start Date End Date Eliane Noyola FNP [address] [place] [id number] PCP - General Family Medicine 09/08/23 05/01/24 Anayeli Escamilla MD [address] [place] [id number] PCP - General Internal Medicine 05/02/24 05/24/24 Valentina Alarcon NP [address] [place] [address] PCP - General Family Medicine 06/27/24 documented as of this encounter
== END 2025-06-21 14:15 | disposition home or self-care (01) ==
LOC: HO.MAMMO 14:14
PROVIDERS: PCP Nurse Practitioner Family; Visit Provider Surgery
DX: R92.8 Other abnormal and inconclusive findings on diagnostic imaging of breast (principal)
CPT/HCPCS: 77062; 77065

== ENCOUNTER → 2025-06-21 14:30 | Outpatient (BNV) | payer OTHER, SELFPAY | PROVIDERS: PCP Nurse Practitioner Family; Visit Provider Internal Medicine | DX: R92.8 Other abnormal and inconclusive findings on diagnostic imaging of breast (principal) | CPT/HCPCS: 77065; G0279 ==